=== PATIENT | female | born 1970 | race Caucasian/White ===

== ENCOUNTER 2022-10-28 15:10 | Outpatient (OUT) | payer BC, SELFPAY ==
[2022-10-28 15:57] LABS: Basophils Absolute Auto 0.1 10^3/uL (0.0-0.1); Basophils Percent Auto 0.8 % (0.2-2.0); Eosinophils Absolute Auto 0.4 10^3/uL (0.0-0.7); Eosinophils Percent Auto 6.4 % (0.9-7.0); Hematocrit 40.4 % (36.0-48.0); Hemoglobin 13.1 g/dL (12.0-16.0); Immature Granulocytes Abs Auto 0.03 10^3/uL (0.00-0.03); Immature Granulocytes Pct Auto 0.5 % (0.0-0.5); Lymphocytes Absolute Auto 2.4 10^3/uL (1.2-3.8); Lymphocytes Percent Auto 36.7 % (20.5-60.0); Mean Corpuscular HGB Conc 32.4 g/dL (29.9-35.2); Mean Corpuscular Hemoglobin 29.6 pg (26.7-34.0); Mean Corpuscular Volume 91.4 fL (81.0-99.0); Mean Platelet Volume 11.6 fL (9.5-13.5); Monocytes Absolute Auto 0.6 10^3/uL (0.3-0.8); Monocytes Percent Auto 8.6 % (1.7-12.0); Neutrophils Absolute Auto 3.1 10^3/uL (1.4-6.5); Platelet Count 181 10^3/uL (150-450); Red Blood Count 4.42 10^6/uL (4.20-5.40); Red Cell Distribution Width 12.3 % (11.0-15.0); White Blood Count 6.6 10^3/uL (4.0-11.0)
[2022-10-28 16:06] LABS: Erythrocyte Sedimentation Rate 15 mm/hr (<=30)
[2022-10-28 16:28] LABS: Alanine Aminotransferase 28 U/L (14-59); Albumin Level 3.7 g/dL (3.4-5.0); Alkaline Phosphatase 78 U/L (46-116); Aspartate Amino Transferase 25 U/L (15-37); Bilirubin Direct 0.1 mg/dL (0.0-0.2); Bilirubin Total 0.5 mg/dL (0.2-1.0); Estimated GFR (African America >60 (>=60); Estimated GFR (Non-African Ame >60 (>=60); Globulin 3.8 g/dL; Total Protein 7.5 g/dL (6.4-8.2)
== END 2022-10-28 15:11 | disposition home or self-care (01) ==
PROVIDERS: Visit Provider Internal Medicine Rheumatology
DX: M05.79 Rheumatoid arthritis with rheumatoid factor of multiple sites without organ or systems involvement (principal); Z79.899 Other long term (current) drug therapy
CPT/HCPCS: 36415; 80076; 82565; 85025; 85652

== ENCOUNTER 2022-10-29 13:00 | Outpatient (OUT) | payer BC, SELFPAY ==
--- NOTE | 2022-10-29 | RT_ITS ---
[facility] Test Date: 2022-10-29 Pat Name: VELASQUEZ COLIN Department: Room: - Gender: Female Finance Director: Daniel Earl RRT : 1970 Requested By: Nathan Taylor Order Number: [id number] Reading MD: Nathan Taylor Interpretive Statements Pulmonary function testing was completed according to ATS criteria. Findings were considered accurate and reproducible. No bronchodilator was administered due to normal spirometric values. PFTs from 11/05/2021 are available for comparison. Spirometry: -FEV1/FVC: Normal @ 89% -FEV1: Normal @ 85% -FVC: Mildly reduced @ 76% Lung volumes by plethysmography: -RV: Reduced @ 75% -TLC: Low normal @ 82% Diffusion capacity: -DLCO: Normal @ 93% when corrected for Hb 13.1g/dL Flow-volume loop: -Mild restrictive pattern Comparison from 11/05/2021: -Spirometry: Improvement with prior FEV1 77% and FVC 69% -Lung volumes: Improvement with prior RV 68% and TLC 78% -DLCO: Relatively unchanged with prior DLCO 98% Impressions: -Mild restrictive pattern on spirometry with trend towards restriction in lung volumes and normal diffusion capacity. This may indicate an obesity pattern (stated BMI 37.3). When compared to prior PFT, there is mild improvement in spirometry and lung volumes. Clinical correlation required. Electronically Signed On 11-02-2022 7:30:22 EDT by Nathan Taylor
== END 2022-10-29 13:01 | disposition home or self-care (01) ==
LOC: CARD 11-01 09:27
PROVIDERS: Visit Provider Internal Medicine
DX: M06.9 Rheumatoid arthritis, unspecified (principal)
CPT/HCPCS: 94010; 94726; 94729

== ENCOUNTER 2022-11-24 09:02 | Outpatient (OUT) | payer BC, SELFPAY ==
--- NOTE | 2022-11-24 09:04 | MM_ITS ---
Patient: VELASQUEZ COLIN Exam Date: 11/24/2022 : 1970 Gender:F Ordering : AMY Martínez NEVILLEROME Admission #: [id number] Family : Order #: [id number] CLICK HERE TO VIEW EXAM RADIOLOGY REPORT PROCEDURE: MM TOMOSYNTHESIS SCREENING BI COMPARISON: MG MAMM SCREEN 3D RONALD CAD, 11/03/2020. MG MAMM SCREEN 3D RONALD CAD, 11/06/2021. INDICATIONS: Screening Calculator Name NCI Breast Cancer Risk Assessment Tool 5 Year Breast Cancer Risk 1.10% Lifetime Breast Cancer Risk 9.90% Personal Breast Cancer No Personal Ovarian Cancer No Treatments None Family Cancers Brother with lung cancer at age 42; Brother with tongue cancer at age 57. LOCATION: [facility] BREAST COMPOSITION: Scattered areas fibroglandular density. FINDINGS: DIAGNOSTIC CATEGORY 2--BENIGN FINDING. NO CHANGE FROM COMPARISON. Scattered benign-appearing nodules are present. Scattered benign-appearing calcifications are present. Scattered benign-appearing lymph nodes are present. RIGHT BREAST: No significant suspicious finding. LEFT BREAST: No significant suspicious finding. RECOMMENDATIONS: ROUTINE MAMMOGRAM AND CLINICAL EVALUATION IN 12 MONTHS. PLEASE NOTE: A NORMAL MAMMOGRAM DOES NOT EXCLUDE THE POSSIBILITY OF BREAST CANCER. A CLINICALLY SUSPICIOUS PALPABLE LUMP SHOULD BE BIOPSIED. Dictated by: Michael Layne MD on 11/24/2022 at 12:36 Approved by: Michael Layne MD on 11/24/2022 at 12:39
== END 2022-11-24 09:03 | disposition home or self-care (01) ==
LOC: MAMMO 09:02
PROVIDERS: PCP Nurse Practitioner Primary Care; Visit Provider Nurse Practitioner Primary Care
DX: Z12.31 Encounter for screening mammogram for malignant neoplasm of breast (principal); Z80.1 Family history of malignant neoplasm of trachea, bronchus and lung; Z80.8 Family history of malignant neoplasm of other organs or systems
CPT/HCPCS: 77063; 77067

== ENCOUNTER 2022-12-01 08:40 | Outpatient (OUT) | payer BC, SELFPAY ==
[2022-12-01 08:57] LABS: Basophils Percent Auto 0.6 % (0.2-2.0); Eosinophils Absolute Auto 0.2 10^3/uL (0.0-0.7); Eosinophils Percent Auto 4.8 % (0.9-7.0); Hematocrit 40.4 % (36.0-48.0); Immature Granulocytes Abs Auto 0.01 10^3/uL (0.00-0.03); Immature Granulocytes Pct Auto 0.2 % (0.0-0.5); Lymphocytes Percent Auto 42.2 % (20.5-60.0); Mean Corpuscular HGB Conc 32.2 g/dL (29.9-35.2); Mean Corpuscular Hemoglobin 30.4 pg (26.7-34.0); Mean Corpuscular Volume 94.6 fL (81.0-99.0); Mean Platelet Volume 11.1 fL (9.5-13.5); Monocytes Absolute Auto 0.5 10^3/uL (0.3-0.8); Monocytes Percent Auto 10.2 % (1.7-12.0); Neutrophils Absolute Auto 1.9 10^3/uL (1.4-6.5); Platelet Count 192 10^3/uL (150-450); Red Blood Count 4.27 10^6/uL (4.20-5.40); Red Cell Distribution Width 12.9 % (11.0-15.0); White Blood Count 4.6 10^3/uL (4.0-11.0)
[2022-12-01 09:25] LABS: Estimated Average Glucose 100 mg/dL; Glycohemoglobin A1C 5.1 % (4.5-6.2)
[2022-12-01 09:37] LABS: Alanine Aminotransferase 28 U/L (14-59); Albumin Level 3.5 g/dL (3.4-5.0); Alkaline Phosphatase 65 U/L (46-116); Anion Gap 9.6; Aspartate Amino Transferase 22 U/L (15-37); BUN Creatinine Ratio 12.3; Bilirubin Total 0.7 mg/dL (0.2-1.0); Calcium 8.9 mg/dL (8.5-10.1); Carbon Dioxide 29.7 mmol/L (21.0-32.0); Chloride 106 mmol/L (98-107); Chol HDL Ratio 2.7; Cholesterol 214 mg/dL (<=200); Estimated GFR (African America >60 (>=60); Estimated GFR (Non-African Ame >60 (>=60); Globulin 3.6 g/dL; Glucose 88 mg/dL (74-106); HDL Cholesterol 80 mg/dL (40-60); Potassium 4.3 mmol/L (3.5-5.1); Sodium 141 mmol/L (136-145); Thyroid Stimulating Hormone 1.655 uIU/mL (0.358-3.740); Total Protein 7.1 g/dL (6.4-8.2); Triglycerides 66 mg/dL (<=150); VLDL CHOLESTEROL 13.2 mg/dL
[2022-12-01 10:05] LABS: Free T4 0.85 ng/dL (0.76-1.46)
[2022-12-02 05:07] LABS: HCV Ab Non Reactive (Non Reactive); HIV Ab/p24 Ag Screen Non Reactive (Non Reactive)
== END 2022-12-01 08:41 | disposition home or self-care (01) ==
LOC: LAB 08:40
PROVIDERS: PCP Nurse Practitioner Primary Care; Visit Provider Nurse Practitioner Primary Care
DX: Z00.00 Encounter for general adult medical examination without abnormal findings (principal); Z13.6 Encounter for screening for cardiovascular disorders; Z11.59 Encounter for screening for other viral diseases; Z13.29 Encounter for screening for other suspected endocrine disorder; Z11.4 Encounter for screening for human immunodeficiency virus [HIV]
CPT/HCPCS: 36415; 80053; 80061; 83036; 84439; 84443; 85025; 86803; 87389

== ENCOUNTER 2023-03-09 14:43 | Outpatient (OUT) | payer BC, SELFPAY ==
[2023-03-09 15:13] LABS: Basophils Percent Auto 0.6 % (0.2-2.0); Eosinophils Absolute Auto 0.2 10^3/uL (0.0-0.7); Hematocrit 40.9 % (36.0-48.0); Immature Granulocytes Abs Auto 0.01 10^3/uL (0.00-0.03); Immature Granulocytes Pct Auto 0.2 % (0.0-0.5); Lymphocytes Absolute Auto 1.5 10^3/uL (1.2-3.8); Lymphocytes Percent Auto 24.6 % (20.5-60.0); Mean Corpuscular HGB Conc 31.8 g/dL (29.9-35.2); Mean Corpuscular Hemoglobin 29.7 pg (26.7-34.0); Mean Corpuscular Volume 93.4 fL (81.0-99.0); Monocytes Absolute Auto 0.4 10^3/uL (0.3-0.8); Monocytes Percent Auto 5.8 % (1.7-12.0); Neutrophils Absolute Auto 4.1 10^3/uL (1.4-6.5); Neutrophils Percent Auto 65.8 % (43.0-75.0); Platelet Count 190 10^3/uL (150-450); Red Blood Count 4.38 10^6/uL (4.20-5.40); Red Cell Distribution Width 12.6 % (11.0-15.0); White Blood Count 6.3 10^3/uL (4.0-11.0)
[2023-03-09 15:28] LABS: Erythrocyte Sedimentation Rate 27 mm/hr (<=30)
[2023-03-09 15:30] LABS: Alanine Aminotransferase 23 U/L (14-59); Albumin Globulin Ratio 0.9; Albumin Level 3.5 g/dL (3.4-5.0); Alkaline Phosphatase 82 U/L (46-116); Aspartate Amino Transferase 21 U/L (15-37); Bilirubin Direct 0.1 mg/dL (0.0-0.2); Bilirubin Total 0.5 mg/dL (0.2-1.0); Estimated GFR (African America >60 (>=60); Estimated GFR (Non-African Ame >60 (>=60); Globulin 3.9 g/dL; Total Protein 7.4 g/dL (6.4-8.2)
== END 2023-03-09 14:44 | disposition home or self-care (01) ==
LOC: LAB 14:44
PROVIDERS: PCP Nurse Practitioner Primary Care; Visit Provider Internal Medicine Rheumatology
DX: M05.79 Rheumatoid arthritis with rheumatoid factor of multiple sites without organ or systems involvement (principal); Z79.899 Other long term (current) drug therapy
CPT/HCPCS: 36415; 80076; 82565; 85025; 85652

== ENCOUNTER 2023-05-30 13:22 | Outpatient (OUT) | payer BC, SELFPAY ==
--- OUTSIDE RECORDS SUMMARY | 2023-05-30 13:28 | XMS_ITS | CCD ---
Author Name Unknown Address [address] [place] [address] Organization [facility] Team Providers Care Hurricane Tracker Name Role Phone Conner Quinteros RUFINA LOVING Attending Unavailable JAYY, Juan C Varghese Attending Unavailable RUFINA LOVING Attending Unavailable JAYY, Juan C Varghese Attending Unavailable DANK, DR HOPE Consulting Unavailable HALADAY, DR HOPE Attending Unavailable HALADAY, DR HOPE Admitting Unavailable JAYY, DR JUAN C Varghese Primary Care Unavailable JAYY, DR JUAN C Varghese Primary Care Unavailable JAYY, DR JUAN C Varghese Consulting Unavailable JAYY, DR JUAN C Varghese Attending Unavailable JAYY, DR JUAN C Varghese Admitting Unavailable JAYY, DR JUAN C Varghese Primary Care Unavailable GUERA, DR BLACK Consulting Unavailable GUERA, DR BLACK Attending Unavailable GUERA, DR BLACK Admgabino Unavailable JAYY, DR JUAN C Varghese Primary Care Unavailable MEJIAADAMichael, DR HOPE Attending Unavailable HALADAY, DR HOPE Admitting Unavailable HALADAY, DR HOPE Consulting Unavailable SAMSA ., ALDAIR Attending Unavailable ELMASA ., ALDAIR Admitting Unavailable JAYY, DR JUAN C Varghese Primary Care Unavailable JORDY, DR MARITO [place] Consulting Unavailable SAMSA ., ALDAIR Consulting Unavailable JAYY, DR JUAN C Varghese Primary Care Unavailable HALADAY, DR HOPE Admitting Unavailable HALADAY, DR HOPE Consulting Unavailable HALADAY, DR HOPE Attending Unavailable CATRACHITA KAY Attending Unavailable RAHUL, CATRACHITA Admitting Unavailable JAYY, DR JUAN C Varghese Primary Care Unavailable CATRACHITA KAY Consulting Unavailable JAYY, DR JUAN C Varghese Primary Care Unavailable GUERA, DR BLACK Admitting Unavailable GUERA, DR BLACK Consulting Unavailable GUERA, DR BLACK Attending Unavailable JAYY, DR JUAN C Varghese Primary Care Unavailable GUERA, DR BLACK Admitting Unavailable GUERA, DR BLACK Consulting Unavailable GUERA, DR BLACK Attending Unavailable HALADAY, DR HOPE Consulting Unavailable HALADAY, DR HOPE Attending Unavailable HALADAY, DR HOPE Admitting Unavailable JAYY, DR JUAN C Varghese Primary Care Unavailable HALADAY, DR HOPE Consulting Unavailable MEJIAADAY, DR HOPE Attending Unavailable HALADAY, DR HOPE Admitting Unavailable JAYY, DR JUAN C Varghese Primary Care Unavailable ZIEBER, DR MARITO [place] Consulting Unavailable HALADAY, DR HOPE Attending Unavailable DANK, DR HOPE Admitting Unavailable JAYY, DR JUAN C Varghese Primary Care Unavailable HALADAY, DR HOPE Consulting Unavailable JAYY, DR JUAN C Varghese Primary Care Unavailable MIS, DR BAEZ Admitting Unavailable MIS, DR BAEZ Attending Unavailable HALADAY, DR HOPE Consulting Unavailable JOHANNAEBKRISTINA, DR MARITO [place] Consulting Unavailable JAYY, DR JUAN C Varghese Primary Care Unavailable JAYY, DR JUAN C Varghese Attending Unavailable JAYY, DR JUAN C Varghese Admitting Unavailable JAYY, DR JUAN C Varghese Consulting Unavailable Allergies Allergy Classification Reported Allergen(s) Allergy Type Date of Onset Reaction(s) Facility (2 sources) Ciprofloxacin; Translations: [ciprofloxacin] Drug Allergy Unknown [facility]ository (1 source) pregabalin Drug Allergy Unknown [facility] Other (1 source) Sulfamethoxazole / Trimethoprim Drug Allergy Unknown [facility] Other (1 source) Methotrexate; Translations: [methotrexate] Drug Allergy [facility]ository (1 source) pregabalin; Translations: [Lyrica] Drug Allergy [facility] (1 source) Sulfamethoxazole; Translations: [sulfamethoxazole] Drug Allergy [facility] (1 source) Sulfamethoxazole / Trimethoprim; Translations: [Bactrim] Drug Allergy [facility] (1 source) Ciprofloxacin Drug Allergy [facility] (1 source) Sulfonamides (Antibiotic) Drug allergy (disorder) [facility] Medications Current Medications Medication Drug Class(es) Dates Sig (Normalized) Sig (Original) Cetirizine (1 source) Histamine-1 Receptor Antagonist ZyrTEC Allergy Active fluticasone (1 source) Corticosteroid FLONASE Active hydroxychloroquine sulfate 200 mg oral tablet (1 source) Antimalarial, Antirheumatic Agent Plaquenil 200 MG as directed Orally Active leflunomide 20 mg oral tablet (1 source) Antirheumatic Agent take 1 tablet by mouth every twenty-four hours Arava 20 MG 1 tablet Orally Once a day Active Metoprolol (1 source) beta-Adrenergic Joce Metoprolol Tartrate 50 MG 1QD Active Multivitamin preparation (1 source) Multivitamin Active predniSONE 5 mg oral tablet (1 source) take 1 tablet by mouth once daily predniSONE 5 MG 1 tablet Orally Once a day Active probiotic (1 source) probiotic Active Super B Complex (1 source) Super B Complex Active Problems Active Problems Problem Classification Problem Date Documented Da te Episodic/Chronic Other aftercare (5 sources) Other fpc (current) drug therapy; Translations: [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] Onset: 07-01-2021 Episodic Other connective tissue disease (1 source) Pain in left hand; Translations: [PAIN IN LEFT HAND] Onset: 06-28-2022 Episodic Other connective tissue disease (1 source) Pain in right hand; Translations: [PAIN IN RIGHT HAND] Onset: 06-28-2022 Episodic Other lower respiratory disease (4 sources) Pulmonary fibrosis, unspecified; Translations: [PULMONARY FIBROSIS UNSPECIFIED] Onset: 11-05-2021 Chronic Residual codes; unclassified (4 sources) Obstructive sleep apnea (adult) (pediatric); Translations: [OBSTRUCTIVE SLEEP APNEA] Onset: 03-31-2022 Chronic Rheumatoid arthritis and related disease (12 sources) Rheumatoid arthritis; Translations: [Rheumatoid arthritis, unspecified] Onset: 12-24-2020 Resolved: 12-24-2020 Chronic Systemic lupus erythematosus and connective tissue disorders (1 source) Systemic involvement of connective tissue, unspecified; Translations: [SYSTEMIC INVLV CONNECTIVE TISS UNS] Onset: 11-06-2021 Chronic Unclassified (2 sources) CONTACT W/AND (SUSP) EXPOS COVID-19; Translations: [CONTACT W/AND (SUSP) EXPOS COVID-19] Onset: 09-29-2021 Viral infection (1 source) COVID-19; Translations: [COVID-19] Onset: 09-29-2021 Past or Other Problems Problem Classification Problem Date Documented Da te Episodic/Chronic Immunizations and screening for infectious disease (1 source) Interferon gamma assay result indeterminate; Translations: [Nonspecific reaction to cell mediated immunity measurement of gamma interferon antigen response without active tuberculosis] Episodic Malaise and fatigue (4 sources) Weakness; Translations: [WEAKNESS] Onset: 01-26-2022 Episodic Other screening for suspected conditions (not mental disorders or infectious disease) (8 sources) Abnormal results of pulmonary function studies; Translations: [Encounter for screening mammogram for malignant neoplasm of breast] Onset: 11-06-2021 Episodic Residual codes; unclassified (1 source) Family history of malignant neoplasm of trachea, bronchus and lung; Translations: [FAM HX MALIG NEOPLSM TRACH BRON LNG] Onset: 11-09-2021 Episodic Residual codes; unclassified (1 source) Family history of malignant neoplasm of other organs or systems; Translations: [FAM HX MALIG NEOPLASM OTH ORGN/SYS] Onset: 11-09-2021 Episodic Unclassified (1 source) Latent tuberculosis; 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 Ishan Mason Basophils/100 WBC (Bld) 0.8 % Normal 0.2-2.0 [facility] Comment on above: Performed By: #### S EDR #### [facility] [address] [address] [address] Ishan Mason EO # 0.3 103/ul Normal 0.0-0.7 [facility] Comment on above: Performed By: #### S EDR #### [facility] [address] [address] [address] Ishan Mason Eosinophils/100 WBC (Bld) 5.7 % Normal 0.9-7.0 [facility] Comment on above: Performed By: #### S EDR #### [facility] [address] [place] [address] Dr. Ishan Mason Erythrocyte distribution width (RBC) [Ratio] 12.6 % Normal 11.0-15.0 [facility] Comment on above: Performed By: #### S EDR #### [facility] [address] [place] [address] Dr. Ishan Mason Hematocrit (Bld) [Volume fraction] 40.6 % Normal 36.0-48.0 [facility] Comment on above: Performed By: #### S EDR #### [facility] [address] [place] [address] Dr. Ishan Mason Hemoglobin (Bld) [Mass/Vol] 13.4 g/dL Normal 12.0-16.0 [facility] Comment on above: Performed By: #### S EDR #### [facility] [address] [place] [address] Dr. Ishan Mason IG # 0.01 10e3/ul Normal 0.00-0.03 [facility] Comment on above: Performed By: #### S EDR #### [facility] [address] [place] [address] Dr. Ishan Mason IG % 0.2 % Normal 0.0-0.5 [facility] Comment on above: Performed By: #### S EDR #### [facility] [address] [place] [address] Dr. Ishan Mason LYMPH # 2.3 103/ul Normal 1.2-3.8 [facility] Comment on above: Performed By: #### S EDR #### [facility] [address] [place] [address] Dr. Ishan Mason Lymphocytes/100 WBC (Bld) 46.2 % Normal 20.5-60.0 [facility] Comment on above: Performed By: #### S EDR #### [facility] [address] [place] [address] Dr. Ishan Mason MANUAL DIFF REQ NO Normal [facility] Comment on above: Performed By: #### S EDR #### [facility] [address] [place] [address] Dr. Ishan Mason MCH (RBC) [Entitic mass] 30.0 pg Normal 26.7-34.0 [facility] Comment on above: Performed By: #### S EDR #### [facility] [address] [place] [address] Dr. Ishan Mason MCHC (RBC) [Mass/Vol] 33.0 g/dL Normal 29.9-35.2 [facility] Comment on above: Performed By: #### S EDR #### [facility] [address] [place] [address] Dr. Ishan Mason MCV (RBC) [Entitic vol] 90.8 fL Normal 81.0-99.0 [facility] Comment on above: Performed By: #### S EDR #### [facility] [address] [place] [address] Dr. Ishan Mason MONO # 0.5 103/ul Normal 0.3-0.8 [facility] Comment on above: Performed By: #### S EDR #### [facility] [address] [place] [address] Dr. Ishan Mason Monocytes/100 WBC (Bld) 10.8 % Normal 1.7-12.0 [facility] Comment on above: Performed By: #### S EDR #### [facility] [address] [place] [address] Dr. Ishan Mason NEUT # 1.8 103/ul Normal 1.4-6.5 [facility] Comment on above: Performed By: #### S EDR #### [facility] [address] [place] [address] Dr. Ishan Mason Neutrophils/100 WBC (Bld) 36.3 % Critically low 43.0-75.0 [facility] Comment on above: Performed By: #### S EDR #### [facility] [address] [place] [address] Dr. Ishan Mason Platelet mean volume (Bld) [Entitic vol] 11.0 fL Normal 9.5-13.5 [facility] Comment on above: Performed By: #### S EDR #### [facility] [address] [place] [address] Dr. Ishan Mason PLT 198 103/ul Normal 150-450 [facility] Comment on above: Performed By: #### S EDR #### [facility] [address] [place] [address] Dr. Ishan Mason RBC 4.47 106/ul Normal 4.20-5.40 [facility] Comment on above: Performed By: #### S EDR #### [facility] [address] [place] [address] Dr. Ishan Mason WBC 4.9 103/ul Normal 4.0-11.0 [facility] Comment on above: Performed By: #### S EDR #### [facility] [address] [place] [address] Dr. Ishan Mason CREATININEon 06-24-2022 Creatinine [Mass/Vol] 0.70 mg/dL Normal 0.55-1.02 [facility] Comment on above: Performed By: #### A 1C #### [facility] [address] [place] [address] Dr. Ishan Mason EGFR-AF [place] ISLANDER >60 Normal >=60 [facility] Comment on above: Performed By: #### A 1C #### [facility] [address] [place] [address] Dr. Ishan Mason EGFR-NON AF [place]LANDER >60 Normal >=60 [facility] Comment on above: Performed By: #### A 1C #### [facility] [address] [place] [address] Dr. Ishan Mason LIVER PROFILEon 06-24-2022 Albumin [Mass/Vol] 3.6 g/dL Normal 3.4-5.0 [facility] Comment on above: Performed By: #### A 1C #### [facility] [address] [place] [address] Dr. Ishan Mason Albumin/Globulin [Mass ratio] 0.9 {ratio} Normal [facility] Comment on above: Performed By: #### A 1C #### [facility] [address] [place] [address] Dr. Ishan Mason ALP [Catalytic activity/Vol] 63 U/L Normal 46-116 [facility] Comment on above: Performed By: #### A 1C #### [facility] [address] [address] [address] Ishan Mason ALT [Catalytic activity/Vol] 32 U/L Normal 14-59 [facility] Comment on above: Performed By: #### A 1C #### [facility] [address] [address] [address] Ishan Mason AST [Catalytic activity/Vol] 23 U/L Normal 15-37 [facility] Comment on above: Performed By: #### A 1C #### [facility] [address] [address] [address] Ishan Mason BILI, CONJUGATED 0.1 mg/dL Normal 0.0-0.2 [facility] Comment on above: Performed By: #### A 1C #### [facility] [address] [place] [address] Dr. Ishan Mason Bilirubin [Mass/Vol] 0.6 mg/dL Normal 0.2-1.0 [facility] Comment on above: Performed By: #### A 1C #### [facility] [address] [place] [address] Dr. Ishan Mason Globulin (S) [Mass/Vol] 3.9 g/dL Normal [facility] Comment on above: Performed By: #### A 1C #### [facility] [address] [place] [address] Dr. Ishan Mason Protein [Mass/Vol] 7.5 g/dL Normal 6.4-8.2 [facility] Comment on above: Performed By: #### A 1C #### [facility] [address] [place] [address] Dr. Ishan Mason [facility] mm/hr Normal <=20 [facility] Comment on above: Performed By: #### S EDR #### [facility] [address] [place] [address] Dr. Ishan Mason XR HAND [place] MIN 3Von 023 XR HAND [place] MIN 3V EXAMINATION: XR HAND [place] MIN 3V HISTORY: Rheumatoid arthritis COMPARISON: XR hand bilateral 02/26/2019 FINDINGS: RIGHT FINDINGS: BONES: No significant arthropathy or acute abnormality. SOFT TISSUES: No visible soft tissue swelling. OTHER: Negative. LEFT FINDINGS: BONES: No significant arthropathy or acute abnormality. SOFT TISSUES: No visible soft tissue swelling. OTHER: Negative. IMPRESSION: RIGHT CONCLUSION: No significant arthritic changes; specifically no evidence of rheumatoid arthritis. LEFT CONCLUSION: No significant arthritic changes; specifically no evidence of rheumatoid arthritis. Electronically authenticated by: MARITO MEJIA Date: 2022-06-23 11:43 Normal [facility] CBC AUTO DIFFon 03-23-2022 BASO # 0.1 103/ul Normal 0.0-0.1 [facility] Comment on above: Performed By: #### C BC #### [facility] [address] [place] [address] Dr. Ishan Mason Basophils/100 WBC (Bld) 1.0 % Normal 0.2-2.0 [facility] Comment on above: Performed By: #### C BC #### [facility] [address] [place] [address] Dr. Ishan Mason EO # 0.2 103/ul Normal 0.0-0.7 [facility] Comment on above: Performed By: #### C BC #### [facility] [address] [place] [address] Dr. Ishan Mason Eosinophils/100 WBC (Bld) 2.8 % Normal 0.9-7.0 [facility] Comment on above: Performed By: #### C BC #### [facility] [address] [place] [address] Dr. Ishan Mason Erythrocyte distribution width (RBC) [Ratio] 12.5 % Normal 11.0-15.0 [facility] Comment on above: Performed By: #### C BC #### [facility] [address] [place] [address] Dr. Ishan Mason Hematocrit (Bld) [Volume fraction] 41.8 % Normal 36.0-48.0 [facility] Comment on above: Performed By: #### C BC #### [facility] [address] [place] [address] Dr. Ishan Mason Hemoglobin (Bld) [Mass/Vol] 14.0 g/dL Normal 12.0-16.0 [facility] Comment on above: Performed By: #### C BC #### [facility] [address] [place] [address] Dr. Ishan Mason IG # 0.02 10e3/ul Normal 0.00-0.03 [facility] Comment on above: Performed By: #### C BC #### [facility] [address] [place] [address] Dr. Ishan Mason IG % 0.3 % Normal 0.0-0.5 [facility] Comment on above: Performed By: #### C BC #### [facility] [address] [place] [address] Dr. Ishan Mason LYMPH # 1.5 103/ul Normal 1.2-3.8 [facility] Comment on above: Performed By: #### C BC #### [facility] [address] [place] [address] Dr. Ishan Mason Lymphocytes/100 WBC (Bld) 21.1 % Normal 20.5-60.0 [facility] Comment on above: Performed By: #### C BC #### [facility] [address] [place] [address] Dr. Ishan Mason MANUAL DIFF REQ NO Normal [facility] Comment on above: Performed By: #### C BC #### [facility] [address] [place] [address] Dr. Ishan Mason MCH (RBC) [Entitic mass] 29.7 pg Normal 26.7-34.0 [facility] Comment on above: Performed By: #### C BC #### [facility] [address] [place] [address] Dr. Ishan Mason MCHC (RBC) [Mass/Vol] 33.5 g/dL Normal 29.9-35.2 [facility] Comment on above: Performed By: #### C BC #### [facility] [address] [place] [address] Dr. Ishan Mason MCV (RBC) [Entitic vol] 88.7 fL Normal 81.0-99.0 [facility] Comment on above: Performed By: #### C BC #### [facility] [address] [place] [address] Dr. Ishan Mason MONO # 0.5 103/ul Normal 0.3-0.8 [facility] Comment on above: Performed By: #### C BC #### [facility] [address] [place] [address] Dr. Ishan Mason Monocytes/100 WBC (Bld) 7.0 % Normal 1.7-12.0 [facility] Comment on above: Performed By: #### C BC #### [facility] [address] [place] [address] Dr. Ishan Mason NEUT # 4.8 103/ul Normal 1.4-6.5 [facility] Comment on above: Performed By: #### C BC #### [facility] [address] [place] [address] Dr. Ishan Mason Neutrophils/100 WBC (Bld) 67.8 % Normal 43.0-75.0 [facility] Comment on above: Performed By: #### C BC #### [facility] [address] [place] [address] Dr. Ishan Mason Platelet mean volume (Bld) [Entitic vol] 11.0 fL Normal 9.5-13.5 [facility] Comment on above: Performed By: #### C BC #### [facility] [address] [place] [address] Dr. Ishan Mason PLT 214 103/ul Normal 150-450 [facility] Comment on above: Performed By: #### C BC #### [facility] [address] [place] [address] Dr. Ishan Mason RBC 4.71 106/ul Normal 4.20-5.40 [facility] Comment on above: Performed By: #### C BC #### [facility] [address] [place] [address] Dr. Ishan Mason WBC 7.1 103/ul Normal 4.0-11.0 [facility] Comment on above: Performed By: #### C BC #### [facility] [address] [place] [address] Dr. Ishan Mason CREATININEon 03-23-2022 Creatinine [Mass/Vol] 0.85 mg/dL Normal 0.55-1.02 [facility] Comment on above: Performed By: #### S EDR #### [facility] [address] [place] [address] Dr. Ishan Mason EGFR-AF [place] ISLANDER >60 Normal >=60 [facility] Comment on above: Performed By: #### S EDR #### [facility] [address] [place] [address] Dr. Ishan Mason EGFR-NON AF [place] ISLANDER >60 Normal >=60 [facility] Comment on above: Performed By: #### S EDR #### [facility] [address] [place] [address] Dr. Ishan Mason EMG Electromyographyon 03-23 EMG Electromyography [id number] 0CD:127 Normal [facility] LIVER PROFILEon 03-23-2022 Albumin [Mass/Vol] 3.8 g/dL Normal 3.4-5.0 [facility] Comment on above: Performed By: #### A 1C #### [facility] [address] [place] [address] Dr. Ishan Mason Albumin/Globulin [Mass ratio] 1.0 {ratio} Normal [facility] Comment on above: Performed By: #### A 1C #### [facility] [address] [place] [address] Dr. Ishan Mason ALP [Catalytic activity/Vol] 67 U/L Normal 46-116 [facility] Comment on above: Performed By: #### A 1C #### [facility] [address] [place] [address] Dr. Ishan Mason ALT [Catalytic activity/Vol] 33 U/L Normal 14-59 [facility] Comment on above: Performed By: #### A 1C #### [facility] [address] [place] [address] Dr. Ishan Mason AST [Catalytic activity/Vol] 28 U/L Normal 15-37 [facility] Comment on above: Performed By: #### A 1C #### [facility] [address] [place] [address] Dr. Ishan Mason BILI, CONJUGATED 0.1 mg/dL Normal 0.0-0.2 [facility] Comment on above: Performed By: #### A 1C #### [facility] [address] [place] [address] Dr. Ishan Mason Bilirubin [Mass/Vol] 0.6 mg/dL Normal 0.2-1.0 [facility] Comment on above: Performed By: #### A 1C #### [facility] [address] [place] [address] Dr. Ishan Mason Globulin (S) [Mass/Vol] 3.7 g/dL Normal [facility] Comment on above: Performed By: #### A 1C #### [facility] [address] [place] [address] Dr. Ishan Mason Protein [Mass/Vol] 7.5 g/dL Normal 6.4-8.2 [facility] Comment on above: Performed By: #### A 1C #### [facility] [address] [place] [address] Dr. Ishan Mason SED RATE [facility] 2022 SED RATE 32 mm/hr Critically high <=20 [facility] Comment on above: Performed By: #### A 1C #### [facility] [address] [place] [address] Dr. Ishan Mason Consultation Noteon 03-18-19 Consultation Note [id number] 0CD:127 Normal [facility] Consultation Noteon 03-05-20 Consultation Note [id number] 0CD:127 Normal [facility] Consultation Noteon 02-17-20 Consultation Note [id number] 0CD:127 Normal [facility] MuSK ANITBODY TESTon 022 MuSK Antibodies <1.0 [facility] Comment on above: Result Comment: Refe rence Range: Negative: <1.0 Positive: 1.0 or higher A positive result, in the context of congruent clinical findings, confirms the diagnosis of autoimmune MuSK myasthenia gravis. COMMENTS: - Myasthenia gravis (MG) is caused by auto-antibodies against proteins of the neuromuscular junction. Most cases (about 90%) of generalized MG are anti- acetylcholine receptor (AChR) antibody-positive.(1) - Of generalized MG patients who lack anti-AChR antibodies (AChR-seronegative), about 40% are positive for Muscle- Specific Kinase (MuSK) antibody.(1,2) - Though a positive MuSK result is specific for the diagnosis of MuSK MG, a negative MuSK result does not rule out a MG diagnosis. - MuSK antibody levels have been shown to correlate with disease severity.(3) Serial measurements may be useful to follow treatment. References: 1. Manuel-Jennifer S et al. J Autoimmunity 2014;52:90-100. 2. Stacey SMITH et al. PNAS 2013;110(48);94872-46795. 3. Guilehrmeioni E et al. Neurology 2006;67:505-507. This test was developed and its performance characteristics determined by [facility]. It has not been cleared or approved by the Food and Drug Administration. Performed By: #### A 1C #### [facility] [address] [place] [address] Dr. Ishan Mason ACETYLCHOLINE RECEPTOR JOSE NG ABo 01-28-2022 AChR Binding Abs, Serum <0.03 Normal 0.00-0.24 [facility] Comment on above: Result Comment: Nega tive: 0.00 - 0.24 Borderline: 0.25 - 0.40 Positive: >0.40 Performed By: #### A CRBND #### [facility] [address] [place] [address] Dr. Ishan Mason CPKon 01-26-2022 CK [Catalytic activity/Vol] 88 U/L Normal 26-192 [facility] Comment on above: Performed By: #### S EDR #### [facility] [address] [place] [address] Dr. Ishan Mason SED RATE WESTERGRENon 2021 SED RATE 34 mm/hr Critically high <=20 [facility] Comment on above: Performed By: #### C BC #### [facility] [address] [place] [address] Dr. Ishan Mason TSHon 01-26-2022 TSH 2.298 uIU/mL Normal 0.358-3.740 [facility] Comment on above: Performed By: #### S EDR #### [facility] [address] [place] [address] Dr. Ishan Mason VIT B12 AND FOLATEon 022 Cobalamin (Vitamin B12) [Mass/Vol] 523.0 pg/mL Normal 193.0-986.0 [facility] Comment on above: Performed By: #### S EDR #### [facility] [address] [place] [address] Dr. Ishan Mason FOLATE 21.40 ng/mL Normal 8.60-58.90 [facility] Comment on above: Performed By: #### S EDR #### [facility] [address] [place] [address] Dr. Ishan Mason CBC AUTO DIFFon 01-15-2022 BASO # 0.0 103/ul Normal 0.0-0.1 [facility] Comment on above: Performed By: #### S EDR #### [facility] [address] [place] [address] Dr. Ishan Mason Basophils/100 WBC (Bld) 0.5 % Normal 0.2-2.0 [facility] Comment on above: Performed By: #### S EDR #### [facility] [address] [place] [address] Dr. Ishan Mason EO # 0.3 103/ul Normal 0.0-0.7 [facility] Comment on above: Performed By: #### S EDR #### [facility] [address] [place] [address] Dr. Ishan Mason Eosinophils/100 WBC (Bld) 4.9 % Normal 0.9-7.0 [facility] Comment on above: Performed By: #### S EDR #### [facility] [address] [place] [address] Dr. Ishan Mason Erythrocyte distribution width (RBC) [Ratio] 12.7 % Normal 11.0-15.0 [facility] Comment on above: Performed By: #### S EDR #### [facility] [address] [place] [address] Dr. Ishan Mason Hematocrit (Bld) [Volume fraction] 41.2 % Normal 36.0-48.0 [facility] Comment on above: Performed By: #### S EDR #### [facility] [address] [place] [address] Dr. Ishan Mason Hemoglobin (Bld) [Mass/Vol] 13.7 g/dL Normal 12.0-16.0 [facility] Comment on above: Performed By: #### S EDR #### [facility] [address] [place] [address] Dr. Ishan Mason IG # 0.01 10e3/ul Normal 0.00-0.03 [facility] Comment on above: Performed By: #### S EDR #### [facility] [address] [place] [address] Dr. Ishan Mason IG % 0.2 % Normal 0.0-0.5 [facility] Comment on above: Performed By: #### S EDR #### [facility] [address] [place] [address] Dr. Ishan Mason LYMPH # 2.3 103/ul Normal 1.2-3.8 [facility] Comment on above: Performed By: #### S EDR #### [facility] [address] [place] [address] Dr. Ishan Mason Lymphocytes/100 WBC (Bld) 40.2 % Normal 20.5-60.0 [facility] Comment on above: Performed By: #### S EDR #### [facility] [address] [place] [address] Dr. Ishan Mason MANUAL DIFF REQ NO Normal [facility] Comment on above: Performed By: #### S EDR #### [facility] [address] [place] [address] Dr. Ishan Mason MCH (RBC) [Entitic mass] 29.8 pg Normal 26.7-34.0 [facility] Comment on above: Performed By: #### S EDR #### [facility] [address] [place] [address] Dr. Ishan Mason MCHC (RBC) [Mass/Vol] 33.3 g/dL Normal 29.9-35.2 [facility] Comment on above: Performed By: #### S EDR #### [facility] [address] [place] [address] Dr. Ishan Mason MCV (RBC) [Entitic vol] 89.6 fL Normal 81.0-99.0 [facility] Comment on above: Performed By: #### S EDR #### [facility] [address] [place] [address] Dr. Ishan Mason MONO # 0.5 103/ul Normal 0.3-0.8 [facility] Comment on above: Performed By: #### S EDR #### [facility] [address] [place] [address] Dr. Ishan Mason Monocytes/100 WBC (Bld) 8.9 % Normal 1.7-12.0 [facility] Comment on above: Performed By: #### S EDR #### [facility] [address] [place] [address] Dr. Ishan Mason NEUT # 2.6 103/ul Normal 1.4-6.5 [facility] Comment on above: Performed By: #### S EDR #### [facility] [address] [place] [address] Dr. sIhan Mason Neutrophils/100 WBC (Bld) 45.3 % Normal 43.0-75.0 [facility] Comment on above: Performed By: #### S EDR #### [facility] [address] [place] [address] Dr. Ishan Mason Platelet mean volume (Bld) [Entitic vol] 10.3 fL Normal 9.5-13.5 [facility] Comment on above: Performed By: #### S EDR #### [facility] [address] [place] [address] Dr. Ishan Mason PLT 212 103/ul Normal 150-450 [facility] Comment on above: Performed By: #### S EDR #### [facility] [address] [place] [address] Dr. Ishan Mason RBC 4.60 106/ul Normal 4.20-5.40 [facility] Comment on above: Performed By: #### S EDR #### [facility] [address] [place] [address] Dr. Ishan Mason WBC 5.7 103/ul Normal 4.0-11.0 [facility] Comment on above: Performed By: #### S EDR #### [facility] [address] [place] [address] Dr. Ishan Mason CREATININEon 01-15-2022 Creatinine [Mass/Vol] 0.74 mg/dL Normal 0.55-1.02 [facility] Comment on above: Performed By: #### Laura BECK LIVER #### [facility] [address] [place] [address] Dr. Ishan Mason EGFR-AF CAYMAN ISLANDER >60 Normal >=60 [facility] Comment on above: Performed By: #### Laura BECK LIVER #### [facility] [address] [place] [address] Dr. Ishan Mason EGFR-NON AF CAYMAN ISLANDER >60 Normal >=60 [facility] Comment on above: Performed By: #### C KIRAN LIVER #### [facility] [address] [place] [address] Dr. Ishan Mason LIVER PROFILEon 01-15-2022 Albumin [Mass/Vol] 3.6 g/dL Normal 3.4-5.0 [facility] Comment on above: Performed By: #### C KIRAN LIVER #### [facility] [address] [place] [address] Dr. Ishan Mason Albumin/Globulin [Mass ratio] 1.0 {ratio} Normal [facility] Comment on above: Performed By: #### C KIRAN, LIVER #### [facility] [address] [place] [address] Dr. Ishan Mason ALP [Catalytic activity/Vol] 78 U/L Normal 46-116 [facility] Comment on above: Performed By: #### C KIRAN, LIVER #### [facility] [address] [place] [address] Dr. Ishan Mason ALT [Catalytic activity/Vol] 30 U/L Normal 14-59 [facility] Comment on above: Performed By: #### C KIRAN, LIVER #### [facility] [address] [place] [address] Dr. Ishan Mason AST [Catalytic activity/Vol] 14 U/L Critically low 15-37 [facility] Comment on above: Performed By: #### C KIRAN, LIVER #### [facility] [address] [place] [address] Dr. Ishan Mason BILI, CONJUGATED 0.1 mg/dL Normal 0.0-0.2 [facility] Comment on above: Performed By: #### C KIRAN, LIVER #### [facility] [address] [place] [address] Dr. Ishan Mason Bilirubin [Mass/Vol] 0.5 mg/dL Normal 0.2-1.0 [facility] Comment on above: Performed By: #### C KIRAN, LIVER #### [facility] [address] [place] [address] Dr. Ishan Mason Globulin (S) [Mass/Vol] 3.7 g/dL Normal [facility] Comment on above: Performed By: #### C KIRAN, LIVER #### [facility] [address] [place] [address] Dr. Ishan Mason Protein [Mass/Vol] 7.3 g/dL Normal 6.4-8.2 [facility] Comment on above: Performed By: #### C KIRAN, LIVER #### [facility] [address] [place] [address] Dr. Ishan Mason SED RATE WESTERGRENon 2021 SED RATE 23 mm/hr Critically high <=20 [facility] Comment on above: Performed By: #### S EDR #### [facility] [address] [place] [address] Dr. Ishan Mason Lab Reportson 12-05-2021 Lab Reports [id number] 0CD:127 Normal [facility] Reports [id number] 0CD:127 Normal [facility] CBC AUTO DIFFon 12-04-2021 BASO # 0.0 103/ul Normal 0.0-0.1 [facility] Comment on above: Performed By: #### C BC #### [facility] [address] [place] [address] Dr. Ishan Mason Basophils/100 WBC (Bld) 0.7 % Normal 0.2-2.0 [facility] Comment on above: Performed By: #### C BC #### [facility] [address] [place] [address] Dr. Ishan Mason EO # 0.4 103/ul Normal 0.0-0.7 [facility] Comment on above: Performed By: #### C BC #### [facility] [address] [place] [address] Dr. Ishan Mason Eosinophils/100 WBC (Bld) 7.7 % Critically high 0.9-7.0 [facility] Comment on above: Performed By: #### C BC #### [facility] [address] [place] [address] Dr. Ishan Mason Erythrocyte distribution width (RBC) [Ratio] 12.6 % Normal 11.0-15.0 [facility] Comment on above: Performed By: #### C BC #### [facility] [address] [place] [address] Dr. Ishan Mason Hematocrit (Bld) [Volume fraction] 40.9 % Normal 36.0-48.0 [facility] Comment on above: Performed By: #### C BC #### [facility] [address] [place] [address] Dr. Ishan Mason Hemoglobin (Bld) [Mass/Vol] 13.4 g/dL Normal 12.0-16.0 [facility] Comment on above: Performed By: #### C BC #### [facility] [address] [place] [address] Dr. Ishan Mason IG # 0.01 10e3/ul Normal 0.00-0.03 [facility] Comment on above: Performed By: #### C BC #### [facility] [address] [place] [address] Dr. Ishan Mason IG % 0.2 % Normal 0.0-0.5 [facility] Comment on above: Performed By: #### C BC #### [facility] [address] [place] [address] Dr. Ishan Mason LYMPH # 2.1 103/ul Normal 1.2-3.8 [facility] Comment on above: Performed By: #### C BC #### [facility] [address] [place] [address] Dr. Ishan Mason Lymphocytes/100 WBC (Bld) 45.7 % Normal 20.5-60.0 [facility] Comment on above: Performed By: #### C BC #### [facility] [address] [place] [address] Dr. Ishan Mason MANUAL DIFF REQ NO Normal [facility] Comment on above: Performed By: #### C BC #### [facility] [address] [place] [address] Dr. Ishan Mason MCH (RBC) [Entitic mass] 29.8 pg Normal 26.7-34.0 [facility] Comment on above: Performed By: #### C BC #### [facility] [address] [place] [address] Dr. Ishan Mason MCHC (RBC) [Mass/Vol] 32.8 g/dL Normal 29.9-35.2 [facility] Comment on above: Performed By: #### C BC #### [facility] [address] [address] [address] Ishan Mason MCV (RBC) [Entitic vol] 91.1 fL Normal 81.0-99.0 [facility] Comment on above: Performed By: #### C BC #### [facility] [address] [address] [address] Ishan Mason MONO # 0.5 103/ul Normal 0.3-0.8 [facility] Comment on above: Performed By: #### C BC #### [facility] [address] [address] [address] Ishan Mason Monocytes/100 WBC (Bld) 10.8 % Normal 1.7-12.0 [facility] Comment on above: Performed By: #### C BC #### [facility] [address] [place] [address] Dr. Ishan Mason NEUT # 1.6 103/ul Normal 1.4-6.5 [facility] Comment on above: Performed By: #### C BC #### [facility] [address] [place] [address] Dr. Ishan Mason Neutrophils/100 WBC (Bld) 34.9 % Critically low 43.0-75.0 [facility] Comment on above: Performed By: #### C BC #### [facility] [address] [place] [address] Dr. Ishan Mason Platelet mean volume (Bld) [Entitic vol] 10.8 fL Normal 9.5-13.5 [facility] Comment on above: Performed By: #### C BC #### [facility] [address] [place] [address] Dr. Ishan Mason PLT 198 103/ul Normal 150-450 [facility] Comment on above: Performed By: #### C BC #### [facility] [address] [place] [address] Dr. Ishan Mason RBC 4.49 106/ul Normal 4.20-5.40 [facility] Comment on above: Performed By: #### C BC #### [facility] [address] [place] [address] Dr. Ishan Mason WBC 4.6 103/ul Normal 4.0-11.0 [facility] Comment on above: Performed By: #### C BC #### [facility] [address] [address] [address] Ishan Mason GLYCOHEMOGLOBIN A1Con 2021 ADA RECOMMENDATION SEE BELOW Normal [facility] Comment on above: Result Comment: ADA RECOMMENDED LIMIT 4.0 - 6.0 ADA THERAPEUTIC TARGET < 7.0 ACTION SUGGESTED > 7.0 Performed By: #### A 1C #### [facility] [address] [address] [address] Ishan Mason Glucose [Mass/Vol] 103 mg/dL Normal [facility] Comment on above: Performed By: #### A 1C #### [facility] [address] [place] [address] Dr. Ishan Mason HbA1c (Bld) [Mass fraction] 5.2 % Normal 4.5-6.2 [facility] Comment on above: Performed By: #### A 1C #### [facility] [address] [place] [address] Dr. Ishan Mason LIPID PROFILEon 12-04-2021 CHOL-HDL RATIO NORM SEE BELOW Normal [facility] Comment on above: Result Comment: 3.3 - 4.4 LOW RISK 4.4 - 7.1 AVERAGE RISK 7.1 - 11.0 MODERATE RISK >11.0 HIGH RISK Performed By: #### C BC #### [facility] [address] [place] [address] Dr. Ishan Mason Cholesterol [Mass/Vol] 227 mg/dL Critically high <=200 [facility] Comment on above: Performed By: #### C BC #### [facility] [address] [address] [address] Ishan Mason Cholesterol in HDL [Mass/Vol] 78 mg/dL Critically high 40-60 [facility] Comment on above: Performed By: #### C BC #### [facility] [address] [address] [address] Ishan Mason Cholesterol in LDL [Mass/Vol] 130.8 mg/dL Normal [facility] Comment on above: Performed By: #### C BC #### [facility] [address] [address] [address] Ishan Mason Cholesterol.total/Chol esterol in HDL [Mass ratio] 2.9 {ratio} Normal [facility] Comment on above: Performed By: #### C BC #### [facility] [address] [address] [address] Ishan Mason HDL NORMAL > or = 60 mg/dl - LO W CARDIOVASCULAR RISK <40 mg/dl - HIGH CARDIOVASCULAR RISK Normal [facility] Comment on above: Performed By: #### C BC #### [facility] [address] [place] [address] Dr. Ishan Mason LDL CALC NORMAL SEE BELOW Normal [facility] Comment on above: Result Comment: <100 mg/dl OPTIMAL 100 - 129 mg/dl NEAR OR ABOVE OPTIMAL 130 - 159 mg/dl BORDERLINE HIGH 160 - 189 mg/dl HIGH >190 mg/dl VERY HIGH Performed By: #### C BC #### [facility] [address] [place] [address] Dr. Ishan Mason Triglyceride [Mass/Vol] 91 mg/dL Normal <=150 [facility] Comment on above: Performed By: #### C BC #### [facility] [address] [place] [address] Dr. Ishan Mason VLDL CALC 18.2 mg/dL Normal [facility] Comment on above: Performed By: #### C BC #### [facility] [address] [place] [address] Dr. Ishan Mason PROF 14(COMP METB)on 022 Albumin [Mass/Vol] 3.6 g/dL Normal 3.4-5.0 [facility] Comment on above: Performed By: #### A 1C #### [facility] [address] [place] [address] Dr. Ishan Mason Albumin/Globulin [Mass ratio] 1.0 {ratio} Normal [facility] Comment on above: Performed By: #### A 1C #### [facility] [address] [place] [address] Dr. Ishan Mason ALP [Catalytic activity/Vol] 60 U/L Normal 46-116 [facility] Comment on above: Performed By: #### A 1C #### [facility] [address] [place] [address] Dr. Ishan Mason ALT [Catalytic activity/Vol] 30 U/L Normal 14-59 [facility] Comment on above: Performed By: #### A 1C #### [facility] [address] [place] [address] Dr. Ishan Mason Anion gap [Moles/Vol] 9.1 mmol/L Normal [facility] Comment on above: Performed By: #### A 1C #### [facility] [address] [place] [address] Dr. Ishan Mason AST [Catalytic activity/Vol] 23 U/L Normal 15-37 [facility] Comment on above: Performed By: #### A 1C #### [facility] [address] [place] [address] Dr. Ishan Mason Bilirubin [Mass/Vol] 0.7 mg/dL Normal 0.2-1.0 [facility] Comment on above: Performed By: #### A 1C #### [facility] [address] [place] [address] Dr. Ishan Mason Calcium [Mass/Vol] 9.1 mg/dL Normal 8.5-10.1 [facility] Comment on above: Performed By: #### A 1C #### [facility] [address] [place] [address] Dr. Ishan Mason Chloride [Moles/Vol] 105 mmol/L Normal 98-107 [facility] Comment on above: Performed By: #### A 1C #### [facility] [address] [place] [address] Dr. Ishan Mason CO2 [Moles/Vol] 30.1 mmol/L Normal 21.0-32.0 [facility] Comment on above: Performed By: #### A 1C #### [facility] [address] [place] [address] Dr. Ishan Mason Creatinine [Mass/Vol] 0.71 mg/dL Normal 0.55-1.02 [facility] Comment on above: Performed By: #### A 1C #### [facility] [address] [address] [address] Ishan Mason EGFR-AF CAYMAN ISLANDER >60 Normal >=60 [facility] Comment on above: Performed By: #### A 1C #### [facility] [address] [address] [address] Ishan Mason EGFR-NON AF CAYMAN ISLANDER >60 Normal >=60 [facility] Comment on above: Performed By: #### A 1C #### [facility] [address] [address] [address] Ishan Mason Globulin (S) [Mass/Vol] 3.6 g/dL Normal [facility] Comment on above: Performed By: #### A 1C #### [facility] [address] [address] [address] Ishan Mason Glucose [Mass/Vol] 102 mg/dL Normal 74-106 [facility] Comment on above: Performed By: #### A 1C #### [facility] [address] [address] [address] Ishan Mason Potassium [Moles/Vol] 4.2 mmol/L Normal 3.5-5.1 [facility] Comment on above: Performed By: #### A 1C #### [facility] [address] [address] [address] Ishan Mason Protein [Mass/Vol] 7.2 g/dL Normal 6.4-8.2 [facility] Comment on above: Performed By: #### A 1C #### [facility] [address] [address] [address] Ishan Mason Sodium [Moles/Vol] 140 mmol/L Normal 136-145 [facility] Comment on above: Performed By: #### A 1C #### [facility] [address] [address] [address] Ishan Mason Urea nitrogen [Mass/Vol] 9.0 mg/dL Normal 7.0-18.0 [facility] Comment on above: Performed By: #### A 1C #### [facility] [address] [place] [address] Dr. Ishan Mason Urea nitrogen/Creatinine [Mass ratio] 12.7 mg/mg Normal [facility] Comment on above: Performed By: #### A 1C #### [facility] [address] [place] [address] Dr. Ishan Mason TSHon 12-04-2021 TSH 1.369 uIU/mL Normal 0.358-3.740 [facility] Comment on above: Performed By: #### C BC #### [facility] [address] [place] [address] CHEST HI RESOLUTIONon CT CHEST HI RESOLUTION EXAMINATION: CT C HEST HI RESOLUTION HISTORY: Pulmonary function studies abnormal COMPARISON: No relevant comparison available. TECHNIQUE: Axial images were obtained at 10 mm intervals during inspiration and expiration in the supine and prone positions. No IV contrast given. Dose reduction techniques were achieved by using automated exposure control and/or adjustment of mA and/or kV according to patient size and/or use of iterative reconstruction technique. FINDINGS: LUNGS: No visible pulmonary disease. PLEURA: No mass, effusion, or pneumothorax. MEL: No mass or adenopathy. MEDIASTINUM: No mass or adenopathy. CHEST WALL: No mass or axillary adenopathy LIMITED ABDOMEN: No suspicious findings. Limited images of the upper abdomen. OTHER: Negative. IMPRESSION: 1. No appreciable chronic interstitial changes. 2. Evaluation of mediastinum and remainder of lungs is limited by high resolution technique. Electronically authenticated by: MARITO MEJIA Date: 2021-11-26 16:08 [facility] Consultation Noteon 11-20-19 22 Consultation Note [id number] 0CD:127 Normal [facility] CBC AUTO DIFFon 11-12-2021 BASO # 0.0 103/ul Normal 0.0-0.1 [facility] Comment on above: Performed By: #### A 1C #### [facility] [address] [place] [address] Dr. Ishan Mason Basophils/100 WBC (Bld) 0.6 % Normal 0.2-2.0 [facility] Comment on above: Performed By: #### A 1C #### [facility] [address] [address] [address] Ishan Mason EO # 0.4 103/ul Normal 0.0-0.7 [facility] Comment on above: Performed By: #### A 1C #### [facility] [address] [place] [address] Dr. Ishan Mason Eosinophils/100 WBC (Bld) 6.1 % Normal 0.9-7.0 [facility] Comment on above: Performed By: #### A 1C #### [facility] [address] [place] [address] Dr. Ishan Mason Erythrocyte distribution width (RBC) [Ratio] 12.1 % Normal 11.0-15.0 [facility] Comment on above: Performed By: #### A 1C #### [facility] [address] [place] [address] Dr. Ishan Mason Hematocrit (Bld) [Volume fraction] 43.7 % Normal 36.0-48.0 [facility] Comment on above: Performed By: #### A 1C #### [facility] [address] [place] [address] Dr. Ishan Mason Hemoglobin (Bld) [Mass/Vol] 14.1 g/dL Normal 12.0-16.0 [facility] Comment on above: Performed By: #### A 1C #### [facility] [address] [place] [address] Dr. Ishan Mason IG # 0.02 10e3/ul Normal 0.00-0.03 [facility] Comment on above: Performed By: #### A 1C #### [facility] [address] [place] [address] Dr. Ishan Mason IG % 0.3 % Normal 0.0-0.5 [facility] Comment on above: Performed By: #### A 1C #### [facility] [address] [place] [address] Dr. Ishan Mason LYMPH # 2.9 103/ul Normal 1.2-3.8 [facility] Comment on above: Performed By: #### A 1C #### [facility] [address] [place] [address] Dr. Ishan Mason Lymphocytes/100 WBC (Bld) 41.6 % Normal 20.5-60.0 [facility] Comment on above: Performed By: #### A 1C #### [facility] [address] [place] [address] Dr. Ishan Mason MANUAL DIFF REQ NO Normal [facility] Comment on above: Performed By: #### A 1C #### [facility] [address] [place] [address] Dr. Ishan Mason MCH (RBC) [Entitic mass] 29.3 pg Normal 26.7-34.0 [facility] Comment on above: Performed By: #### A 1C #### [facility] [address] [place] [address] Dr. Ishan Mason MCHC (RBC) [Mass/Vol] 32.3 g/dL Normal 29.9-35.2 [facility] Comment on above: Performed By: #### A 1C #### [facility] [address] [place] [address] Dr. Ishan Mason MCV (RBC) [Entitic vol] 90.9 fL Normal 81.0-99.0 [facility] Comment on above: Performed By: #### A 1C #### [facility] [address] [place] [address] Dr. Ishan Mason MONO # 0.7 103/ul Normal 0.3-0.8 [facility] Comment on above: Performed By: #### A 1C #### [facility] [address] [place] [address] Dr. Ishan Mason Monocytes/100 WBC (Bld) 10.3 % Normal 1.7-12.0 [facility] Comment on above: Performed By: #### A 1C #### [facility] [address] [place] [address] Dr. Ishan Mason NEUT # 2.9 103/ul Normal 1.4-6.5 [facility] Comment on above: Performed By: #### A 1C #### [facility] [address] [place] [address] Dr. Ishan Mason Neutrophils/100 WBC (Bld) 41.1 % Critically low 43.0-75.0 [facility] Comment on above: Performed By: #### A 1C #### [facility] [address] [place] [address] Dr. Ishan Mason Platelet mean volume (Bld) [Entitic vol] 11.0 fL Normal 9.5-13.5 [facility] Comment on above: Performed By: #### A 1C #### [facility] [address] [place] [address] Dr. Ishan Mason PLT 204 103/ul Normal 150-450 [facility] Comment on above: Performed By: #### A 1C #### [facility] [address] [place] [address] Dr. Ishan Mason RBC 4.81 106/ul Normal 4.20-5.40 [facility] Comment on above: Performed By: #### A 1C #### [facility] [address] [place] [address] Dr. Ishan Mason WBC 7.1 103/ul Normal 4.0-11.0 [facility] Comment on above: Performed By: #### A 1C #### [facility] [address] [place] [address] Dr. Ishan Mason CREATININEon 11-12-2021 Creatinine [Mass/Vol] 0.73 mg/dL Normal 0.55-1.02 [facility] Comment on above: Performed By: #### C BC #### [facility] [address] [place] [address] Dr. Ishan Mason EGFR-AF CAYMAN ISLANDER >60 Normal >=60 [facility] Comment on above: Performed By: #### C BC #### [facility] [address] [place] [address] Dr. Ishan Mason EGFR-NON AF CAY[place] ISLANDER >60 Normal >=60 [facility] Comment on above: Performed By: #### C BC #### [facility] [address] [place] [address] Dr. Ishan Mason LIVER PROFILEon 11-12-2021 Albumin [Mass/Vol] 4.0 g/dL Normal 3.4-5.0 [facility] Comment on above: Performed By: #### C BC #### [facility] [address] [place] [address] Dr. Ishan Mason Albumin/Globulin [Mass ratio] 1.0 {ratio} Normal [facility] Comment on above: Performed By: #### C BC #### [facility] [address] [place] [address] Dr. Ishan Mason ALP [Catalytic activity/Vol] 75 U/L Normal 46-116 [facility] Comment on above: Performed By: #### C BC #### [facility] [address] [place] [address] Dr. Ishan Mason ALT [Catalytic activity/Vol] 30 U/L Normal 14-59 [facility] Comment on above: Performed By: #### C BC #### [facility] [address] [place] [address] Dr. Ishan Mason AST [Catalytic activity/Vol] 23 U/L Normal 15-37 [facility] Comment on above: Performed By: #### C BC #### [facility] [address] [place] [address] Dr. Ishan Mason BILI, CONJUGATED 0.1 mg/dL Normal 0.0-0.2 [facility] Comment on above: Performed By: #### C BC #### [facility] [address] [place] [address] Dr. Ishan Mason Bilirubin [Mass/Vol] 0.7 mg/dL Normal 0.2-1.0 [facility] Comment on above: Performed By: #### C BC #### [facility] [address] [place] [address] Dr. Ishan Mason Globulin (S) [Mass/Vol] 4.0 g/dL Normal [facility] Comment on above: Performed By: #### C BC #### [facility] [address] [place] [address] Dr. Ishan Mason Protein [Mass/Vol] 8.0 g/dL Normal 6.4-8.2 [facility] Comment on above: Performed By: #### C BC #### [facility] [address] [address] [address] Ish[facility] 15 mm/hr Normal <=20 [facility] Comment on above: Performed By: #### A 1C #### [facility] [address] [address] [address] Ishan Mason Outside Mammographyon 2021 Outside Mammography [id number] Normal [facility] MG MAMM SCREEN 3D [place] CADon 11-06-2021 MG MAMM SCREEN 3D [place] CAD Patient: VELASQUEZ BOUCHER Exam Date: 11/06/2021 : 1970 Gender:F Ordering : DR JUAN C HOPE Admission #: [id number] Family : Order #: [id number] CLICK HERE TO VIEW EXAM RADIOLOGY REPORT PROCEDURE: MAMMOGRAM SCREENING 3D BILATERAL CAD COMPARISON: MG MAMM SCREEN 3D [place] CAD, 11/03/2020. MG MAMM [place] SCRN W CAD DIG, 09/22/2017. INDICATIONS: Screening mammography Calculator Name NCI Breast Cancer Risk Assessment Tool 5 Year Breast Cancer Risk 1.00% Lifetime Breast Cancer Risk 10.00% Personal Breast Cancer No Personal Ovarian Cancer No Treatments None Family Cancers Brother with lung cancer at age 42; Brother with tongue cancer at age 57. LOCATION: [facility] BREAST COMPOSITION: Scattered areas fibroglandular density. FINDINGS: DIAGNOSTIC CATEGORY 2--BENIGN FINDING: RIGHT BREAST: No significant suspicious finding. Scattered benign-appearing calcifications are present. No significant change has occurred. LEFT BREAST: No significant suspicious finding. Scattered benign-appearing calcifications are present. Scattered benign-appearing lymph nodes are present. No significant change has occurred. RECOMMENDATIONS: ROUTINE MAMMOGRAM AND CLINICAL EVALUATION IN 12 MONTHS. PLEASE NOTE: A NORMAL MAMMOGRAM DOES NOT EXCLUDE THE POSSIBILITY OF BREAST CANCER. A CLINICALLY SUSPICIOUS PALPABLE LUMP SHOULD BE BIOPSIED. Dictated by: Marito Mejia M.D. on 11/06/2021 at 15:34 Approved by: Marito Mejia M.D. on 11/06/2021 at 15:37 Normal [facility] HEMOGLOBINon 11-05-2021 Hemoglobin (Bld) [Mass/Vol] 13.6 g/dL Normal 12.0-16.0 [facility] Comment on above: Performed By: #### C BC #### [facility] [address] [address] [address] Ishan Mason Ambulatory Visit Summaryon 0 10-08-2021 Ambulatory Visit Summary VELASQUEZ BOUCHER :1970 Visit Date:10/08/2021 Ambulatory Visit Instructions Your Diagnosis Encounter for screening mammogram for breast cancer Your Care Team Attending Physician - Juan C HOPE DO Primary Care Physician - Juan C HOPE DO This Is Your Medications List abatacept (Orencia ClickJect 125 mg/mL subcutaneous solution) calcium carbonate (calcium 500 mg Tab) cetirizine (Zyrtec) cholecalciferol (Vitamin D3 2000 intl units oral tablet) fluticasone nasal (fluticasone 0.05 mg/inh Nasal [place]) hydroxychloroquine lactobacillus acidophilus (Acidophilus Probiotic Blend oral capsule) leflunomide metoprolol (metoprolol 50 mg ER Tab) multivitamin (B Complex 100) Procedures Performed None. Discharge Vitals Temperature (Temporal Artery) 36.7 ?C Heart Rate (Peripheral) 95 Blood Pressure 124/72 Height 158 cm Height 158.0 cm Weight 97.3 kg Weight 97.3 kg BMI 38.98 What to do next You Need to Complete the Following MA Mamm Screen w/CAD if perf and 3D [place], 10/08/21, Routine, Order for Future Visit, Transport Mode: Ambulatory, Reason: Screening, No, Encounter for screening mammogram for breast cancer, pp_set_radiology_subsp ecialty, Fermin - Jarek Medications What How Much When Instructions Unchanged abatacept (Orencia ClickJect 125 mg/ mL subcutaneous solution) Unchanged calcium carbonate (calcium 500 mg Tab) By Mouth Every day Unchanged cetirizine (Zyrtec) 10 Milligram By Mouth Every day Unchanged cholecalciferol (Vitamin D3 2000 intl units oral tablet) 1 Tablets By Mouth Every day Unchanged fluticasone nasal (fluticasone 0.05 mg/ inh Nasal [place]) 2 Sprays Nasal Inhalation Every day each nostril Unchanged hydroxychloroquine 200 Milligram By Mouth Every day Unchanged lactobacillus acidophilus (Acidophilus Probiotic Blend oral capsule) By Mouth Every day Unchanged leflunomide 20 Milligram By Mouth Every day Unchanged metoprolol (metoprolol 50 mg ER Tab) 1 Tablets By Mouth Every day Unchanged multivitamin (B Complex 100) Allergies Bactrim Lyrica ciprofloxacin methotrexate (Difficulty breathing at rest) sulfamethoxazole (Hives) Problems Ongoing - Any problem that you are currently receiving treatment for. BMI 38.0-38.9,adult Borderline abnormal thyroid function test COVID-19 Encounter for screening mammogram for breast cancer Non-smoker Painful mouth Preventative health care Rheumatoid Arthritis Sinus congestion Swollen tongue Normal [facility] Family Medicine Office/Clini c Noteon 10-08-2021 Family Medicine Office/Clinic Note Chief Complaint Wellness Exam HPI Staff Velasquez is a 51 year old female who presents for a wellness exam. She has been checking her BP at home on occasion and it is always WNL. BP today in the office was 124/72. Patient denies chest pain, palpitations, headache, SOB, BILLINGS, dizziness, lightheadedness, visual changes, epistaxis, peripheral edema or postural changes. She is currently taking Metoprolol 50mg once daily, as directed, without adverse effects. She has a chronic history of RA. Follows with rheumatology as directed. Mammogram completed last on 11/03/20 at [facility], (ordered today). Due for PAP/pelvic exam. Cologuard resulted negative on 09/30/20. Labs drawn last in October 2020. History of Present Illness I have reviewed and verified the staff HPI to be accurate for this encounter. Review of Systems PHQ Score Initial Depression Screen Score: 0 Constitutional: no fever, no chills, no sweats, no weakness Respiratory: no shortness of breath, no cough, no orthopnea, no wheezing Cardiovascular: no chest pain, no palpitations, no edema Additional ROS info: Except as noted in the above Review of Systems and in the History of Present Illness all other systems have been reviewed and are negative or noncontributory. Physical Exam Vitals & Measurements T: 36.7 ?C(Temporal Artery) HR: 95(Peripheral) BP: 124/72 SpO2: 96% HT: 158 cm HT: 158.0 cm WT: 97.3 kg WT: 97.3 kg BMI: 38.98 General: alert, no acute distress Skin: warm, dry Head: no trauma, normocephalic Neck: Trachea midline, no adenopathy, no tenderness Eye: normal conjunctiva, sclera clear ENMT: TM's clear, oral mucosa moist, no pharyngeal erythema or exudate Cardiovascular: regular rate and rhythm, normal peripheral perfusion Respiratory: Lungs CTA, respirations non labored Chest wall: no deformity. Gastrointestinal: soft, non distended, no tenderness, no guarding. Back: No tenderness, Normal ROM, Normal alignment. Extremities: no deformity, no trauma Neurological: oriented x 4, LOC appropriate for age, CN II-XII intact, motor strength equal & normal bilaterally, sensation equal & normal bilaterally, speech normal Psychiatric: cooperative, affect appropriate for age, normal judgement, normal psychiatric thoughts. Assessment/Plan 1. Preventative health care (Z00.00: Encounter for general adult medical examination without abnormal findings) continue LM. Try to increase activity as pain allows. 2. Encounter for screening mammogram for breast cancer (Z12.31: Encounter for screening mammogram for malignant neoplasm of breast) Ordered: MA Mamm Screen w/CAD if perf and 3D [place] 3. Rheumatoid Arthritis (M06.9: Rheumatoid arthritis, unspecified) good and bad days. Orencia not as helpful. f/u with Rheum. Orders: fluconazole, 150 mg = 1 tab(s), Oral, Once, # 1 tab(s), Refills(s) 1, Pharmacy: [facility]/pharmacy #[id number], 158, cm, 02/16/21 15:39:00 EST, Height/Length Dosing, 94, kg, 02/16/21 15:39:00 EST, Weight Dosing predniSONE, 0 = 1 -, Oral, As Directed, Take 5 tabs by mouth daily x3 days, 4 daily x3 days, 3 daily x3 days, 2 daily x3 days, then 1 tab daily x3 days., # 45 tab(s), Refills(s) 0, Pharmacy: [facility]/pharmacy #[id number], 158, cm, 02/16/21 15:39:00 EST, Height/Length Dosing... Follow-up With When Contact Information Juan C HOPE DO, [facility] In [address] [place] [address]- Additional Instructions: Problem List/Past Medical History Ongoing BMI 38.0-38.9,adult Encounter for screening mammogram for breast cancer Preventative health care Rheumatoid Arthritis Historical No qualifying data Procedure/Surgical History None. Medications Acidophilus Probiotic Blend oral capsule, Oral, Daily B Complex 100 calcium 500 mg Tab, Oral, Daily fluticasone 0.05 mg/inh Nasal [place], 2 spray(s), Nasal, Daily, 3 refills hydroxychloroquine, 200 mg, Oral, Daily leflunomide, 20 mg, Oral, Daily metoprolol 50 mg ER Tab, 50 mg= 1 tab(s), Oral, Daily, 1 refills Orencia ClickJect 125 mg/mL subcutaneous solution Vitamin D3 2000 intl units oral tablet, 2000 International_Unit= 1 tab(s), Oral, Daily, 1 refills Zyrtec, 10 mg, Oral, Daily Allergies Bactrim Lyrica ciprofloxacin methotrexate (Difficulty breathing at rest) sulfamethoxazole (Hives) Social History Alcohol - Denies Alcohol Use, 12/25/2019 Substance Abuse - Denies Substance Abuse, 12/25/2019 Tobacco - Denies Tobacco Use, 09/11/2020 Never (less than 100 in lifetime) Tobacco Use:. Never Smokeless Tobacco Use:., 12/16/2020 Family History Family history is negative Immunizations Vaccine Date Status Comments influenza virus vaccine, inactivated 12/19/2020 Recorded SARS-CoV-2 (COVID-19) Ad26 vaccine 12/12/2020 Recorded pneumococcal 13-valent vaccine 05/29/2020 Recorded SARS-CoV-2 (COVID-19) mRNA-1273 vaccine 04/09/2020 Recorded SARS-CoV-2 (COVID-19) Ad26 vaccine 03/2020 Recorded SARS-CoV-2 (COVID-19) mRNA-1273 vacci (more content not included)... Normal [facility] Comment on above: Result Comment: Elec tronically Signed By: Juan C HOPE DO\.br\Date and Time Signed: 10/08/21 21:58 EDT Covid-19 PCR (CVD[facility])on 09-11 SARS-CoV-2 (COVID-19) RNA MARICEL+probe Ql (Unsp spec) Detected Critically abnormal NOT DETECTED [facility] Comment on above: Result Comment: This test is not yet approved or cleared by the [place] FDA. When there are no FDA-approved or cleared tests available, and other criteria are met, FDA can make tests available under an emergency access mechanism called an Emergency Use Authorization (EUA). The EUA for this test is supported by the Business Development Manager of Health and Human Service's declaration that circumstances exist to justify the emergency use of in vitro diagnostics for the detection and/or diagnosis of the virus that causes COVID-19. This EUA will remain in effect for the duration of the COVID-19 declaration justifying emergency of IVDs, unless it is terminated or revoked by the FDA (after which the test may no longer be used). Performed By: #### A 1C #### [facility] [address] [place] [address] Dr. Ishan Mason CBC AUTO DIFFon 07-01-2021 BASO # 0.0 103/ul Normal 0.0-0.1 [facility] Comment on above: Performed By: #### S EDR #### [facility] [address] [place] [address] Dr. Ishan Mason Basophils/100 WBC (Bld) 0.5 % Normal 0.2-2.0 [facility] Comment on above: Performed By: #### S EDR #### [facility] [address] [place] [address] Dr. Ishan Mason EO # 0.2 103/ul Normal 0.0-0.7 [facility] Comment on above: Performed By: #### S EDR #### [facility] [address] [place] [address] Dr. Ishan Mason Eosinophils/100 WBC (Bld) 3.4 % Normal 0.9-7.0 [facility] Comment on above: Performed By: #### S EDR #### [facility] [address] [place] [address] Dr. Ishan Mason Erythrocyte distribution width (RBC) [Ratio] 12.7 % Normal 11.0-15.0 [facility] Comment on above: Performed By: #### S EDR #### [facility] [address] [address] [address] Ishan Mason Hematocrit (Bld) [Volume fraction] 42.6 % Normal 36.0-48.0 [facility] Comment on above: Performed By: #### S EDR #### [facility] [address] [place] [address] Dr. Ishan Mason Hemoglobin (Bld) [Mass/Vol] 13.6 g/dL Normal 12.0-16.0 [facility] Comment on above: Performed By: #### S EDR #### [facility] [address] [place] [address] Dr. Ishan Mason IG # 0.01 10e3/ul Normal 0.00-0.03 [facility] Comment on above: Performed By: #### S EDR #### [facility] [address] [place] [address] Dr. Ishan Mason IG % 0.2 % Normal 0.0-0.5 [facility] Comment on above: Performed By: #### S EDR #### [facility] [address] [place] [address] Dr. Ishan Mason LYMPH # 2.0 103/ul Normal 1.2-3.8 [facility] Comment on above: Performed By: #### S EDR #### [facility] [address] [place] [address] Dr. Ishan Mason Lymphocytes/100 WBC (Bld) 34.7 % Normal 20.5-60.0 [facility] Comment on above: Performed By: #### S EDR #### [facility] [address] [place] [address] Dr. Ishan Mason MANUAL DIFF REQ NO Normal [facility] Comment on above: Performed By: #### S EDR #### [facility] [address] [place] [address] Dr. Ishan Mason MCH (RBC) [Entitic mass] 29.9 pg Normal 26.7-34.0 [facility] Comment on above: Performed By: #### S EDR #### [facility] [address] [address] [address] Ishan Mason MCHC (RBC) [Mass/Vol] 31.9 g/dL Normal 29.9-35.2 [facility] Comment on above: Performed By: #### S EDR #### [facility] [address] [place] [address] Dr. Ishan Mason MCV (RBC) [Entitic vol] 93.6 fL Normal 81.0-99.0 [facility] Comment on above: Performed By: #### S EDR #### [facility] [address] [address] [address] Ishan Mason MONO # 0.7 103/ul Normal 0.3-0.8 [facility] Comment on above: Performed By: #### S EDR #### [facility] [address] [place] [address] Dr. Ishan Mason Monocytes/100 WBC (Bld) 12.1 % Critically high 1.7-12.0 [facility] Comment on above: Performed By: #### S EDR #### [facility] [address] [place] [address] Dr. Ishan Mason NEUT # 2.9 103/ul Normal 1.4-6.5 [facility] Comment on above: Performed By: #### S EDR #### [facility] [address] [place] [address] Dr. Ishan Mason Neutrophils/100 WBC (Bld) 49.1 % Normal 43.0-75.0 [facility] Comment on above: Performed By: #### S EDR #### [facility] [address] [place] [address] Dr. Ishan Mason Platelet mean volume (Bld) [Entitic vol] 11.1 fL Normal 9.5-13.5 [facility] Comment on above: Performed By: #### S EDR #### [facility] [address] [place] [address] Dr. Ishan Mason PLT 177 103/ul Normal 150-450 [facility] Comment on above: Performed By: #### S EDR #### [facility] [address] [address] [address] Ishan Mason RBC 4.55 106/ul Normal 4.20-5.40 [facility] Comment on above: Performed By: #### S EDR #### [facility] [address] [place] [address] Dr. Ishan Mason WBC 5.9 103/ul Normal 4.0-11.0 [facility] Comment on above: Performed By: #### S EDR #### [facility] [address] [place] [address] Dr. Ishan Mason CREATININEon 07-01-2021 Creatinine [Mass/Vol] 0.79 mg/dL Normal 0.52-1.04 [facility] Comment on above: Performed By: #### C KIRAN, LIVER #### [facility] [address] [place] [address] Dr. Ishan Mason EGFR-AF CAYMAN ISLANDER >60 Normal >=60 [facility] Comment on above: Performed By: #### C KIRAN, LIVER #### [facility] [address] [place] [address] Dr. Ishan Mason EGFR-NON AF CAYMAN ISLANDER >60 Normal >=60 [facility] Comment on above: Performed By: #### C KIRAN, LIVER #### [facility] [address] [place] [address] Dr. Ishan Mason LIVER PROFILEon 07-01-2021 Albumin [Mass/Vol] 3.6 g/dL Normal 3.4-5.0 [facility] Comment on above: Performed By: #### C KIRAN, LIVER #### [facility] [address] [place] [address] Dr. Ishan Mason Albumin/Globulin [Mass ratio] 1.0 {ratio} Normal [facility] Comment on above: Performed By: #### C KIRAN, LIVER #### [facility] [address] [place] [address] Dr. Ishan Mason ALP [Catalytic activity/Vol] 60 U/L Normal 46-116 [facility] Comment on above: Performed By: #### C KIRAN, LIVER #### [facility] [address] [address] [address] Ishan Mason ALT [Catalytic activity/Vol] 27 U/L Normal 14-59 [facility] Comment on above: Performed By: #### C KIRAN, LIVER #### [facility] [address] [place] [id number] Dr. Ishan Mason AST [Catalytic activity/Vol] 22 U/L Normal 15-37 [facility] Comment on above: Performed By: #### C KIRAN, LIVER #### [facility] [address] [place] [address] Dr. Ishan Mason BILI, CONJUGATED 0.1 mg/dL Normal 0.0-0.3 [facility] Comment on above: Performed By: #### C KIRAN, LIVER #### [facility] [address] [place] [address] Dr. Ishan Mason Bilirubin [Mass/Vol] 0.5 mg/dL Normal 0.2-1.3 [facility] Comment on above: Performed By: #### C KIRAN, LIVER #### [facility] [address] [place] [address] Dr. Ishan Mason Globulin (S) [Mass/Vol] 3.5 g/dL [facility] Comment on above: Performed By: #### C KIRAN, LIVER #### [facility] [address] [place] [address] Dr. Ishan Mason Protein [Mass/Vol] 7.1 g/dL Normal 6.1-8.2 [facility] Comment on above: Performed By: #### C KIRAN, LIVER #### [facility] [address] [place] [address] Dr. Ishan Mason SED RATE [facility] 2021 SED RATE 5 mm/hr Normal <=20 [facility] Comment on above: Performed By: #### A 1C #### [facility] [address] [place] [address] Dr. Ishan Mason Vital Signs Date Time Vital Sign Value Performing Clinician Facility 12-24-2020 15:00-0400 Body height 157.48 cm Conner Quinteros Other [facility] Other 12-24-2020 15:00-0400 Body mass index (BMI) [Ratio] 38.04 kg/m2 Conner Quinteros Other [facility] Other 12-24-2020 15:00-0400 Body temperature 98.4 [degF] Conner Quinteros Other [facility] Other 12-24-2020 15:00-0400 Body weight 94.35 kg Conner Quinteros Other [facility] Other 12-24-2020 15:00-0400 Diastolic blood pressure 95 mm[Hg] Conner Quinteros Other [facility] Other 12-24-2020 15:00-0400 Respiratory rate 18 /min Conner Quinteros Other [facility] Other 12-24-2020 15:00-0400 Systolic blood pressure 145 mm[Hg] Conner Quinteros Other [facility] Other Encounters Encounter Date Encounter Type Care Provider Facility Start: 06-24-2022 End: 06-25-[address] HERMINIA WEEMS Facility:[facility] Start: 06-22-2022 End: 06-23-[address] MARITO MEJIA Facility:[facility] Start: 03-31-2022 End: 04-01-[address] JUAN C HOPE Facility: Start: 03-23-2022 End: 03-24-[address] JUAN C HOPE Facility: Start: 02-24-2022 End: 02-25-[address] JUAN C HOPE Facility: Start: 01-26-2022 End: 01-27-[address] JUAN C HOPE Facility: Start: 01-15-2022 End: 01-16-[address] JUAN C HOPE Facility:[facility] Start: 12-09-2021 Encounter for genera l adult medical examination without abnormal findings [facility]AN C [facility] Start: 12-04-2021 End: 12-05-[address] JUAN C HOPE Facility:[facility] Start: 12-04-2021 End: 12-05-2021 Encounter for general adult medical examination without abnormal findings DR JUAN C HOPE Facility:[facility] Start: 11-26-2021 End: 11-27-2021 ambulatory ALDAIR Sanchez Facility:[facility] Start: 11-12-2021 End: 11-13-[address] JUAN C HOPE Facility:[facility] Start: 11-06-2021 End: 11-07-[address] MARITO MEJIA Facility:[facility] Start: 11-05-2021 End: 11-06-[address] HERMINIA WEEMS Facility:[facility] Start: 10-08-2021 End: 10-09-2021 ambulatory Juan C HOPE Facility:[facility] Start: 09-28-2021 End: 09-29-2021 ambulatory RUFINA LOVING Facility:[facility] Start: 09-28-2021 End: 09-28-2021 ambulatory CATRACHITA KAY Facility:[facility] Start: 09-28-2021 ambulatory RUFNIA LOVING Facility:[facility] Start: 09-15-2021 ambulatory Juan C HOPE Facilit y:[facility] Start: 09-07-2021 ambulatory RUFINA LOVING Facility:[facility] Start: 07-01-2021 End: 07-02-[address] HERMINIA WEEMS Facility:[facility] Start: 12-24-2020 Office outpatient vi sit 25 minutes Conner ZAVALA Infectious Disease Payers Date Payer Category Payer Unknown [id number] 2019 Unknown [id number] 2. [id number] 1972 Unknown [id number] 2.16.8 40.1.642642.3.579.2.727 1972 Unknown [id number] 2.16.8 40.1.195033.3.579.2.727 1972 Unknown [id number] 2.16.8 40.1.348579.3.579.2.727 1972 Unknown [id number] 2.16.8 40.1.965817.3.579.2.727 1972 Unknown [id number] 2.16.8 40.1.248402.3.579.2.727 1972 Unknown [id number] 2.16.8 40.1.577907.3.579.2.727 1972 Unknown [id number] 2.16.8 40.1.606918.3.579.2.727 1972 Unknown [id number] 2.16.8 40.1.135291.3.579.2.727 1972 Unknown [id number] 2.16.84 0.1.403453.3.579.2.593 1972 Unknown [id number] 2.16.84 0.1.976480.3.579.2.593 1972 Unknown [id number] 2.16.84 0.1.365108.3.579.2.593 1972 Unknown [id number] 2.16.84 0.1.964975.3.579.2.593 1972 Unknown [id number] 2.16.84 0.1.347004.3.579.2.593 1972 Unknown [id number] 2.16.84 0.1.440896.3.579.2.593 1972 Unknown [id number] 2.16.84 0.1.462215.3.579.2.593 1972 Unknown [id number] 2.16.84 0.1.300101.3.579.2.593 1972 Unknown [id number] 2.16.84 0.1.700230.3.579.2.593 1972 Unknown [id number] 2.16.84 0.1.620110.3.579.2.593 1972 Unknown [id number] 2.16.84 0.1.053684.3.579.2.593 1972 Unknown [id number] 2.16.84 0.1.065341.3.579.2.593 1972 Unknown [id number] 2.16.84 0.1.588989.3.579.2.593 1972 Unknown [id number] 2.16.84 0.1.455638.3.579.2.593 Social History Date Type Detail Facility Unknown if ever smoked [facility] Other Sex Assigned At Sex Assigned At Bir th [facility] Other Clinical Note 10-04-2021 Note Date & Type Note Facility 10-04-2021 Note HPI Staff Velasquez is a 51 year old female who presents for COVID-19 positive. Tested for COVID-19 at home- Yesterday. COVID- 19 vacc- yes Symptoms started- Tuesday Headache- yes Body aches- yes Earache- yes Runny/stuffy nose- yes Problem with Smell- no Problem with Taste- no Sore throat- no Cough- yes Scratchy tickly throat- no Chest symptoms- no SOB/ chest tightness-no Lung Hx asthma, bronchitis, chest colds- no Fever/chills- yes Nausea/ vomiting-no GI symptoms- yes COVID exposure/ sick exposures- yes brother was positive Treatments-Mucinex History of Present Illness Velasquez Boucher presents via telehealth video visit for concerns of positive COVID-19 test that she took at home yesterday. The patient does have a history of rheumatic lung disease and is currently taking Orencia and leflunomide. However, she did talk to her general farmworker and was told to discontinue these. The patient's symptoms as noted above. She does deny any shortness of breath/troubles breathing, wheezing, chest pain/discomfort or tightness. She has noticed fevers of 100.3 F with symptoms and also states when she attempted to eat yesterday she did develop diarrhea. She has been using Mucinex Max acting and has been beneficial for fevers and symptoms. She is questioning today if she is a candidate for any antiviral type or supplemental treatments for symptoms given her history of being immunosuppressed. I have reviewed and verified the staff HPI to be accurate for this encounter. Review of Systems Constitutional: Positive for fever and chills, no sweats, no weakness. Positive for body aches. Skin: No rash, no lesions, no petechiae Eye: Positive for eye aches, no discharge, no light sensitivity, no eye irritation, no double vision blurring, no vision loss ENMT: No ear pain, no ear drainage, no sore throat, no hoarseness. Positive for nasal congestion and drainage. Respiratory: Positive for nonproductive cough. Cardiovascular: No chest pain no, no palpitations, no edema Gastrointestinal: Positive for diarrhea. Genitourinary: No dysuria, no hematuria, no discharge, no urinary frequency, no urinary urgency Musculoskeletal: No back pain, no trauma Neurologic: Positive for headaches. Physical Exam General: Well developed, well nourished, in no acute distress. Lungs: No respiratory distress. No conversational dyspnea. Normal respiratory rate and effort with no accessory muscle usage. Mental Status: Alert and oriented x3. Normal mood and affect Assessment/Plan 1. COVID-19 (U07.1: COVID-19) We will send in for Paxlovid to pharmacy and if too expensive we will attempt another method of treatment which was discussed with the patient. Continue with symptomatic/supportive measures and monitor symptoms closely. Notify provider if any changing or worsening in symptoms. This visit was conducted via two-way, real-time interactive video communications from my office using [employer] due to the restrictions of the COVID-19 pandemic. No physical exam was conducted other than those areas of the body visible to telecommunications with the patient located at [address] [place] [phone], with no one else in attendance. If it is determined that the patient should be evaluated in the clinic, the patient will be directed to the appropriate clinic or venue. The patient or their guardian verbally consented to this visit. Total time spent preparing the chart, conducting the encounter with the patient and family, and time spent documenting, reviewing, and ordering tests was 15 minutes. ATTESTATION: Documentation services were performed after patient or guardian consented to allow [employer] to record this visit. SILAS sales recruitment specialist and provider reviewed before signing. SILAS: Cori Cherry. Follow-up With When Contact Information RUFINA LOVING CNP Only if needed [address] [place] [address] Additional Instructions: Patient Education COVID-19 Frequently Asked Questions COVID-19 Problem List/Past Medical History Ongoing BMI 38.0-38.9,adult Borderline abnormal thyroid function test COVID-19 Encounter for screening mammogram for breast cancer Non-smoker Painful mouth Preventative health care Sinus congestion Swollen tongue Historical Rheumatoid Arthritis Procedure/Surgical History None. Medications Acidophilus Probiotic Blend oral capsule, Oral, Daily calcium 500 mg Tab, Oral, Daily Flonase 0.05 mg/inh [place], 1 spray(s), Nasal, Daily fluconazole 150 mg Tab, 150 mg= 1 tab(s), Oral, Once, 1 refills fluticasone 0.05 mg/inh Nasal [place], 2 spray(s), Nasal, Daily, 3 refills hydroxychloroquine, 200 mg, Oral, Daily leflunomide, 20 mg, Oral, Daily Magic Mouth Wash, See Instructions, 2 refills metoprolol 50 mg ER Tab, 50 mg= 1 tab(s), Oral, Daily, 1 refills Orencia [employer] 125 mg/mL subcutaneous solution Paxlovid 150 mg-100 mg oral tablet, See Instructions pred (more content not included)... [facility] Comment on above: Result Comment: Elec tronically Signed By: RUFINA LOVING CNP\.br\Date and Time Signed: 10/04/21 11:29 EDT\.br\Electronically Co-Signed By: Cori Connelly\.br\Date and Time Co-Signed: 09/28/21 17:13 EDT Clinical Note 09-28-2021 Note Date & Type Note Facility 09-28-2021 Note Infectious Disease COVID-19 Frequently Asked Questions COVID-19 (coronavirus disease) is an infection that is caused by a large family of viruses. Some viruses cause illness in people and others cause illness in animals like camels, cats, and bats. In some cases, the viruses that cause illness in animals can spread to humans. Where did the coronavirus come from? In February 2019, [employer] told the World Health Organization (WHO) of several cases of lung disease (human respiratory illness). These cases were linked to an open seafood and livestock market in the [facility]. The link to the seafood and livestock market suggests that the virus may have spread from animals to humans. However, since that first outbreak in February, the virus has also been shown to spread from person to person. What is the name of the disease and the virus? Disease name Early on, this disease was called novel coronavirus. This is because scientists determined that the disease was caused by a new (novel) respiratory virus. The World Health Organization (WHO) has now named the disease COVID-19, or coronavirus disease. Virus name The virus that causes the disease is called severe acute respiratory syndrome coronavirus 2 (SARS-CoV-2). More information on disease and virus naming World Health Organization (WHO): www.who.int/emergencies/diseases/novel-c oronavirus-2019/technical-guidance/tramaine k-dpp-asenetznpox-disease-(covid-2019)-a ij-gcx-kwzqn-oaih-iknbtr-es Who is at risk for complications from coronavirus disease? Some people may be at higher risk for complications from coronavirus disease. This includes older adults and people who have chronic diseases, such as heart disease, diabetes, and lung disease. If you are at higher risk for complications, take these extra precautions: ? Avoid close contact with people who are sick or have a fever or cough. Stay at least 3?6 ft (1?2 m) away from them, if possible. ? Wash your hands often with soap and water for at least 20 seconds. ? Avoid touching your face, mouth, nose, or eyes. ? Keep supplies on hand at home, such as food, medicine, and cleaning supplies. ? Stay home as much as possible. ? Avoid social gatherings and travel. How does coronavirus disease spread? The virus that causes coronavirus disease spreads easily from person to person (is contagious). There are also cases of community-spread disease. This means the disease has spread to: ? People who have no known contact with other infected people. ? People who have not traveled to areas where there are known cases. It appears to spread from one person to another through droplets from coughing or sneezing. Can I get the virus from touching surfaces or objects? There is still a lot that we do not know about the virus that causes coronavirus disease. Scientists are basing a lot of information on what they know about similar viruses, such as: ? Viruses cannot generally survive on surfaces for long. They need a human body (host) to survive. ? It is more likely that the virus is spread by close contact with people who are sick (direct contact), such as through: ? Shaking hands or hugging. ? Breathing in respiratory droplets that travel through the air. This can happen when an infected person coughs or sneezes on or near other people. ? It is less likely that the virus is spread when a person touches a surface or object that has the virus on it (indirect contact). The virus may be able to enter the body if the person touches a surface or object and then touches his or her face, eyes, nose, or mouth. Can a person spread the virus without having symptoms of the disease? It may be possible for the virus to spread before a person has symptoms of the disease, but this is most likely not the main way the virus is spreading. It is more likely for the virus to spread by being in close contact with people who are sick and breathing in the respiratory droplets of a sick person's cough or sneeze. What are the symptoms of coronavirus disease? Symptoms vary from person to person and can range from mild to severe. Symptoms may include: ? Fever. ? Cough. ? Tiredness, weakness, or fatigue. ? Fast breathing or feeling short of breath. These symptoms can appear anywhere from 2 to 14 days after you have been exposed to the virus. If you develop symptoms, call your health care provider. People with severe symptoms may need hospital care. If I am exposed to the virus, how long does it take before symptoms start? Symptoms of coronavirus disease may appear anywhere from 2 to 14 days after a person has been exposed to the virus. If you develop symptoms, call your health care provider. Should I be tested for this virus? Your health care provider will decide whether to test you based on your symptoms, history of exposure, and your risk factors. How does a health care provider test for this virus? Health care providers will collect samples to send for testing. Samples may in (more content not included)... 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) Dec, Rheumatoid arthritis (ICD-10 - M06.9) [facility] Other History general Narrative - Reported Note Date & Type Note Facility History general Narrative - Reported Type Medical History RA Medical History HTN [facility] Other Summary Purpose Family History No Family History Records FoundNo Family History Records Found Advance Directives No Advanced Directives Records FoundNo Advanced Directives Records Found Additional Source Comments REASON FOR VISIT (unrecogniz ed section and content) 3 month Follow up, LATENT TB INFORMATION SOURCE (unrecogn ized section and content) DATE CREATED AUTHOR 05/20/2022 [employer] [facility] DATE CREATED AUTHOR AUTHOR'S ORGANIZ ATION 06/30/2022 [employer] FOR RECORDS PERTAINING TO PATIENTS WHO ARE OR HAVE BEEN ENROLLED IN A CHEMICAL DEPENDENCY/SUBSTANCEABUSE PROGRAM, SOME INFORMATION MAY BE OMITTED. This clinical summary was aggregated from multiple sources. Caution should be exercised in using it in the provision of clinical care. This summary normalizes information from multiple sources, and as a consequence, information in this document may materially change the coding, format and clinical context of patient data. In addition, data may be omitted in some cases. CLINICAL DECISIONS SHOULD BE BASED ON THE PRIMARY CLINICAL RECORDS. [employer] provides no warranty or guarantee of the accuracy or completeness of information in this document.
[2023-05-30 13:49] LABS: Basophils Percent Auto 0.5 % (0.2-2.0); Eosinophils Absolute Auto 0.3 10^3/uL (0.0-0.7); Eosinophils Percent Auto 4.8 % (0.9-7.0); Hematocrit 42.6 % (36.0-48.0); Hemoglobin 13.5 g/dL (12.0-16.0); Immature Granulocytes Abs Auto 0.02 10^3/uL (0.00-0.03); Immature Granulocytes Pct Auto 0.3 % (0.0-0.5); Lymphocytes Absolute Auto 2.4 10^3/uL (1.2-3.8); Lymphocytes Percent Auto 36.7 % (20.5-60.0); Mean Corpuscular HGB Conc 31.7 g/dL (29.9-35.2); Mean Corpuscular Hemoglobin 29.5 pg (26.7-34.0); Mean Platelet Volume 11.5 fL (9.5-13.5); Monocytes Absolute Auto 0.5 10^3/uL (0.3-0.8); Monocytes Percent Auto 7.3 % (1.7-12.0); Neutrophils Absolute Auto 3.3 10^3/uL (1.4-6.5); Neutrophils Percent Auto 50.4 % (43.0-75.0); Platelet Count 197 10^3/uL (150-450); Red Blood Count 4.58 10^6/uL (4.20-5.40); Red Cell Distribution Width 12.2 % (11.0-15.0); White Blood Count 6.5 10^3/uL (4.0-11.0)
[2023-05-30 14:47] LABS: Erythrocyte Sedimentation Rate 28 mm/hr (<=30)
[2023-05-30 14:48] LABS: Alanine Aminotransferase 28 U/L (14-59); Albumin Level 3.7 g/dL (3.4-5.0); Alkaline Phosphatase 84 U/L (46-116); Aspartate Amino Transferase 21 U/L (15-37); Bilirubin Direct 0.1 mg/dL (0.0-0.2); Bilirubin Total 0.4 mg/dL (0.2-1.0); Estimated GFR (African America >60 (>=60); Estimated GFR (Non-African Ame >60 (>=60); Globulin 3.8 g/dL; Total Protein 7.5 g/dL (6.4-8.2)
== END 2023-05-30 13:23 | disposition home or self-care (01) ==
PROVIDERS: PCP Nurse Practitioner Primary Care; Visit Provider Internal Medicine Rheumatology
DX: M05.79 Rheumatoid arthritis with rheumatoid factor of multiple sites without organ or systems involvement (principal); Z79.899 Other long term (current) drug therapy; M05.19 Rheumatoid lung disease with rheumatoid arthritis of multiple sites
CPT/HCPCS: 36415; 80076; 82565; 85025; 85652

== ENCOUNTER 2023-10-25 14:32 | Outpatient (OUT) | payer BC, SELFPAY ==
--- OUTSIDE RECORDS SUMMARY | 2023-10-25 14:52 | XMS_ITS | CCD ---
Author Organization 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 Name Role Phone Conner Quinteros Unavailable RUFINA LOVING Attending Unavailable JAYY, Juan C Varghese Attending Unavailable RUFINA LOVING Attending Unavailable Juan C HOPE Attending Unavailable DANK, DR HOPE Consulting Unavailable [...] DR BLACK Attending Unavailable GUERA, DR BLACK Admitting Unavailable JAYY, DR JUAN C Varghese Primary Care Unavailable DANK, DR HOPE Attending Unavailable MEJIAADAMichael, DR HOPE Admitting Unavailable HALADAY, DR HOPE Consulting Unavailable SAMSA ., ALDAIR Attending Unavailable SAMSA ., ALDAIR Admitting Unavailable JAYY, DR JUAN C Varghese Primary Care Unavailable ZIEBKRISTINA, DR MARITO [place] Consulting Unavailable SAMSA ., ALDAIR Consulting Unavailable JAYY, DR JUAN C Varghese Primary Care Unavailable HALADAY, DR HOPE Admitting Unavailable HALADAY, DR HOPE Consulting Unavailable HALISIDRO, DR HOPE Attending Unavailable CATRACHITA KAY Attending [...] DR JUAN C Varghese Primary Care Unavailable DANK, DR HOPE Consulting Unavailable DANK, DR HOPE Attending Unavailable DANK, DR HOPE Admitting Unavailable JAYY, DR JUAN C Varghese Primary Care Unavailable JORDY, DR MARITO [place] Consulting Unavailable DANK, DR HOPE Attending Unavailable DANK, DR HOPE Admitting Unavailable JAYY, DR JUAN C Varghese Primary Care Unavailable DANK, DR HOPE Consulting Unavailable JAYY, DR JUAN C Varghese Primary Care Unavailable [facility], DR BAEZ Admitting Unavailable [facility], DR BAEZ Attending Unavailable DANK, DR HOPE Consulting Unavailable JORDY, DR MARITO [place] Consulting Unavailable JAYY, DR JUAN C Varghese Primary Care Unavailable JAYY, DR JUAN C Varghese Attending Unavailable JAYY, DR JUAN C Varghese Admitting Unavailable JAYY, DR JUAN C Varghese Consulting Unavailable SOFIA LYNNE Attending Unavailable JESKRISTINA, SREE Triplett Attending Unavailable Allergies Allergy Classification Reported Allergen(s) Allergy Type Date of Onset Reaction(s) Facility (2 sources) Ciprofloxacin; Translations: [ciprofloxacin] Drug Allergy Unknown [facility] Repository (1 source) pregabalin Drug Allergy Unknown [facility] Other (1 source) Sulfamethoxazole / Trimethoprim Drug Allergy Unknown [facility] Other (1 source) Methotrexate; Translations: [methotrexate] Drug Allergy [facility] Repository (1 source) pregabalin; Translations: [Lyrica] Drug Allergy [facility] Repository (1 source) Sulfamethoxazole; Translations: [sulfamethoxazole] Drug Allergy [facility] Repository (1 source) Sulfamethoxazole / Trimethoprim; Translations: [Bactrim] Drug Allergy [facility] Repository (1 source) Ciprofloxacin Drug Allergy [facility] Repository (1 source) Sulfonamides (Antibiotic) Drug allergy (disorder) [facility] Repository Medications Current Medications Medication Drug Class(es) [...] te Episodic/Chronic Other aftercare (5 sources) 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 Ishan Mason Basophils/100 WBC (Bld) 0.8 % Normal 0.2-2.0 Comment on above: Performed By: #### S EDR #### [facility] [address] [place] [address] Dr. Ishan Mason EO # 0.3 103/ul Normal 0.0-0.7 Comment on above: Performed By: #### S EDR #### [facility] [address] [address] [address] Ishan Mason Eosinophils/100 WBC (Bld) 5.7 % Normal 0.9-7.0 Comment on above: Performed By: #### S EDR #### [facility] [address] [address] [address] Ishan Mason Erythrocyte distribution width (RBC) [Ratio] 12.6 % Normal 11.0-15.0 Comment on above: Performed By: #### S EDR #### [facility] [address] [place] [address] Dr. Ishan Mason Hematocrit (Bld) [Volume fraction] 40.6 % Normal 36.0-48.0 Comment on above: Performed By: #### S EDR #### [facility] [address] [place] [address] Dr. Ishan Mason Hemoglobin (Bld) [Mass/Vol] 13.4 g/dL Normal 12.0-16.0 Comment on above: Performed By: #### S EDR #### [facility] [address] [place] [address] Dr. Ishan Mason IG # 0.01 10e3/ul Normal 0.00-0.03 Comment on above: Performed By: #### S EDR #### [facility] [address] [place] [address] Dr. Ishan Mason IG % 0.2 % Normal 0.0-0.5 Comment on above: Performed By: #### S EDR #### [facility] [address] [place] [address] Dr. Ishan Mason LYMPH # 2.3 103/ul Normal 1.2-3.8 Comment on above: Performed By: #### S EDR #### [facility] [address] [place] [address] Dr. Ishan Mason Lymphocytes/100 WBC (Bld) 46.2 % Normal 20.5-60.0 Comment on above: Performed By: #### S EDR #### [facility] [address] [place] [address] Dr. Ishan Mason MANUAL DIFF REQ NO Normal Comment on above: Performed By: #### S EDR #### [facility] [address] [place] [address] Dr. Ishan Mason MCH (RBC) [Entitic mass] 30.0 pg Normal 26.7-34.0 Comment on above: Performed By: #### S EDR #### [facility] [address] [place] [address] Dr. Ishan Mason MCHC (RBC) [Mass/Vol] 33.0 g/dL Normal 29.9-35.2 Comment on above: Performed By: #### S EDR #### [facility] [address] [place] [address] Dr. Ishan Mason MCV (RBC) [Entitic vol] 90.8 fL Normal 81.0-99.0 Comment on above: Performed By: #### S EDR #### [facility] [address] [place] [address] Dr. Ishan Mason MONO # 0.5 103/ul Normal 0.3-0.8 Comment on above: Performed By: #### S EDR #### [facility] [address] [place] [address] Dr. Ishan Mason Monocytes/100 WBC (Bld) 10.8 % Normal 1.7-12.0 Comment on above: Performed By: #### S EDR #### [facility] [address] [place] [address] Dr. Ishan Mason NEUT # 1.8 103/ul Normal 1.4-6.5 Comment on above: Performed By: #### S EDR #### [facility] [address] [place] [address] Dr. Ishan Mason Neutrophils/100 WBC (Bld) 36.3 % Critically low 43.0-75.0 [facility] Comment on above: Performed By: #### S EDR #### [facility] [address] [place] [address] Dr. Ishan Mason Platelet mean volume (Bld) [Entitic vol] 11.0 fL Normal 9.5-13.5 Comment on above: Performed By: #### S EDR #### [facility] [address] [place] [address] Dr. Ishan Mason PLT 198 103/ul Normal 150-450 [facility] Comment on above: Performed By: #### S EDR #### [facility] [address] [place] [address] Dr. Ishan Mason RBC 4.47 106/ul Normal 4.20-5.40 Comment on above: Performed By: #### S EDR #### [facility] [address] [place] [address] Dr. Ishan Mason WBC 4.9 103/ul Normal 4.0-11.0 Comment on above: Performed By: #### S EDR #### [facility] [address] [place] [address] Dr. Ishan Mason CREATININEon 06-24-2022 Creatinine [Mass/Vol] 0.70 mg/dL Normal 0.55-1.02 Comment on above: Performed By: #### A 1C #### [facility] [address] [place] [address] Dr. Ishan Mason EGFR-AF SAMOAN >60 Normal >=60 Comment on above: Performed By: #### A 1C #### [facility] [address] [place] [address] Dr. Ishan Mason EGFR-NON AF SAMOAN >60 Normal >=60 Comment on above: Performed By: #### A 1C #### [facility] [address] [place] [address] Dr. Ishan Mason LIVER PROFILEon 06-24-2022 Albumin [Mass/Vol] 3.6 g/dL Normal 3.4-5.0 Comment on above: Performed By: #### A 1C #### [facility] [address] [place] [address] Dr. Ishan Mason Albumin/Globulin [Mass ratio] 0.9 {ratio} Normal Comment on above: Performed By: #### A 1C #### [facility] [address] [place] [address] Dr. Ishan Mason ALP [Catalytic activity/Vol] 63 U/L Normal 46-116 [facility] Comment on above: Performed By: #### A 1C #### [facility] [address] [address] [address] Ishan Maosn ALT [Catalytic activity/Vol] 32 U/L Normal 14-59 Comment on above: Performed By: #### A 1C #### [facility] [address] [address] [address] Ishan Mason AST [Catalytic activity/Vol] 23 U/L Normal 15-37 Comment on above: Performed By: #### A 1C #### [facility] [address] [address] [address] Ishan CARDENASI, CONJUGATED 0.1 mg/dL Normal 0.0-0.2 Comment on above: Performed By: #### A 1C #### [facility] [address] [place] [address] Dr. Ishan Mason Bilirubin [Mass/Vol] 0.6 mg/dL Normal 0.2-1.0 Comment on above: Performed By: #### A 1C #### [facility] [address] [place] [address] Dr. Ishan Mason Globulin (S) [Mass/Vol] 3.9 g/dL Normal Comment on above: Performed By: #### A 1C #### [facility] [address] [place] [address] Dr. Ishan Mason Protein [Mass/Vol] 7.5 g/dL Normal 6.4-8.2 Comment on above: Performed By: #### A 1C #### [facility] [address] [place] [address] Dr. Ishan Mason SED RATE Located within [facility] 2022 SED RATE 17 mm/hr Normal <=20 [facility] Comment on above: Performed By: #### S EDR #### [facility] [address] [address] [address] Ishan Mason XR HAND R[place] MIN [...] MARITO MEJIA Date: 2022-06-23 11:43 Normal [facility] CBC AUTO DIFFon 03-23-2022 BASO # 0.1 103/ul Normal 0.0-0.1 Comment on above: Performed By: #### C BC #### [facility] [address] [place] [address] Dr. Ishan Mason Basophils/100 WBC (Bld) 1.0 % Normal 0.2-2.0 Comment on above: Performed By: #### C BC #### [facility] [address] [place] [address] Dr. Ishan Mason EO # 0.2 103/ul Normal 0.0-0.7 Comment on above: Performed By: #### C BC #### [facility] [address] [place] [address] Dr. Ishan Mason Eosinophils/100 WBC (Bld) 2.8 % Normal 0.9-7.0 Comment on above: Performed By: #### C BC #### [facility] [address] [address] [address] Ishan Mason Erythrocyte distribution width (RBC) [Ratio] 12.5 % Normal 11.0-15.0 Comment on above: Performed By: #### C BC #### [facility] [address] [place] [address] Dr. Ishan Mason Hematocrit (Bld) [Volume fraction] 41.8 % Normal 36.0-48.0 Comment on above: Performed By: #### C BC #### [facility] [address] [place] [address] Dr. Ishan Mason Hemoglobin (Bld) [Mass/Vol] 14.0 g/dL Normal 12.0-16.0 Comment on above: Performed By: #### C BC #### [facility] [address] [place] [address] Dr. Ishan Mason IG # 0.02 10e3/ul Normal 0.00-0.03 Comment on above: Performed By: #### C BC #### [facility] [address] [place] [address] Dr. Ishan Mason IG % 0.3 % Normal 0.0-0.5 Comment on above: Performed By: #### C BC #### [facility] [address] [place] [address] Dr. Ishan Mason LYMPH # 1.5 103/ul Normal 1.2-3.8 Comment on above: Performed By: #### C BC #### [facility] [address] [place] [address] Dr. Ishan Mason Lymphocytes/100 WBC (Bld) 21.1 % Normal 20.5-60.0 Comment on above: Performed By: #### C BC #### [facility] [address] [place] [address] Dr. Ishan Mason MANUAL DIFF REQ NO Normal Comment on above: Performed By: #### C BC #### [facility] [address] [place] [address] Dr. Ishan Mason MCH (RBC) [Entitic mass] 29.7 pg Normal 26.7-34.0 Comment on above: Performed By: #### C BC #### [facility] [address] [place] [address] Dr. Ishan Mason MCHC (RBC) [Mass/Vol] 33.5 g/dL Normal 29.9-35.2 Comment on above: Performed By: #### C BC #### [facility] [address] [place] [address] Dr. Ishan Mason MCV (RBC) [Entitic vol] 88.7 fL Normal 81.0-99.0 Comment on above: Performed By: #### C BC #### [facility] [address] [place] [address] Dr. Ishan Mason MONO # 0.5 103/ul Normal 0.3-0.8 Comment on above: Performed By: #### C BC #### [facility] [address] [place] [address] Dr. Ishan Mason Monocytes/100 WBC (Bld) 7.0 % Normal 1.7-12.0 Comment on above: Performed By: #### C BC #### [facility] [address] [place] [address] Dr. Ishan Mason NEUT # 4.8 103/ul Normal 1.4-6.5 Comment on above: Performed By: #### C BC #### [facility] [address] [place] [address] Dr. Ishan Mason Neutrophils/100 WBC (Bld) 67.8 % Normal 43.0-75.0 Comment on above: Performed By: #### C BC #### [facility] [address] [place] [address] Dr. Ishan Mason Platelet mean volume (Bld) [Entitic vol] 11.0 fL Normal 9.5-13.5 Comment on above: Performed By: #### C BC #### [facility] [address] [place] [address] Dr. Ishan Mason PLT 214 103/ul Normal 150-450 [facility] Comment on above: Performed By: #### C BC #### [facility] [address] [place] [address] Dr. Ishan Mason RBC 4.71 106/ul Normal 4.20-5.40 [facility] Comment on above: Performed By: #### C BC #### [facility] [address] [place] [address] Dr. Ishan Mason WBC 7.1 103/ul Normal 4.0-11.0 Comment on above: Performed By: #### C BC #### [facility] [address] [place] [address] Dr. Ishan Mason CREATININEon 03-23-2022 Creatinine [Mass/Vol] 0.85 mg/dL Normal 0.55-1.02 Comment on above: Performed By: #### S EDR #### [facility] [address] [place] [address] Dr. Ishan Mason EGFR-AF SAMOAN >60 Normal >=60 Comment on above: Performed By: #### S EDR #### [facility] [address] [place] [address] Dr. Ishan Mason EGFR-NON AF SAMOAN >60 Normal >=60 Comment on above: Performed By: #### S EDR #### [facility] [address] [place] [address] Dr. Ishan Mason EMG Electromyographyon 03-23 EMG Electromyography [id number]#[id number] 0CD:127 Normal [facility] LIVER PROFILEon 03-23-2022 Albumin [Mass/Vol] 3.8 g/dL Normal 3.4-5.0 Comment on above: Performed By: #### A 1C #### [facility] [address] [place] [address] Dr. Ishan Mason Albumin/Globulin [Mass ratio] 1.0 {ratio} Normal Comment on above: Performed By: #### A 1C #### [facility] [address] [place] [address] Dr. Ishan Mason ALP [Catalytic activity/Vol] 67 U/L Normal 46-116 [facility] Comment on above: Performed By: #### A 1C #### [facility] [address] [place] [address] Dr. Ishan Mason ALT [Catalytic activity/Vol] 33 U/L Normal 14-59 Comment on above: Performed By: #### A 1C #### [facility] [address] [place] [address] Dr. Ishan Mason AST [Catalytic activity/Vol] 28 U/L Normal 15-37 Comment on above: Performed By: #### A 1C #### [facility] [address] [address] [address] Ishan Mason BILI, CONJUGATED 0.1 mg/dL Normal 0.0-0.2 Comment on above: Performed By: #### A 1C #### [facility] [address] [address] [address] Ishan Mason Bilirubin [Mass/Vol] 0.6 mg/dL Normal 0.2-1.0 Comment on above: Performed By: #### A 1C #### [facility] [address] [place] [address] Dr. Ishan Mason Globulin (S) [Mass/Vol] 3.7 g/dL Normal Comment on above: Performed By: #### A 1C #### [facility] [address] [place] [address] Dr. Ishan Mason Protein [Mass/Vol] 7.5 g/dL Normal 6.4-8.2 Comment on above: Performed By: #### A 1C #### [facility] [address] [place] [address] Dr. Ishan Mason SED RATE Located within [facility] 2022 SED RATE 32 mm/hr Critically high <=20 Comment on above: Performed By: #### A 1C #### [facility] [address] [place] [address] Dr. Ishan Mason Consultation Noteon 03-18-19 Consultation Note [id number] 0CD:127 Normal [facility] Consultation Noteon 03-05-20 Consultation Note [id number] 0CD:127 Normal [facility] Consultation Noteon 02-17-20 Consultation Note [id number]#1.0 0CD:127 Normal [facility]SK ANITBODY TESTon 01-31-2 022 MuSK Antibodies <1.0 Normal Comment on above: Result Comment: Refe rence [...] 2014;52:90-100. 2. Stacey SMITH et al. PNAS 2013;110(60);[id number]. 3. Barryi E et al. Neurology 2006;67:505-507. This test was developed and its performance characteristics determined by [employer]. It has not been cleared or approved by the Food and Drug Administration. Performed By: #### A 1C #### [facility] [address] [place] [address] Dr. Ishan Mason ACETYLCHOLINE RECEPTOR JOSE NG ABo 01-28-2022 AChR Binding Abs, Serum <0.03 Normal 0.00-0.24 Comment on above: Result Comment: Nega tive: 0.00 - 0.24 Borderline: 0.25 - 0.40 Positive: >0.40 Performed By: #### A CRBND #### [facility] [address] [place] [address] Dr. Ishan Mason CPKon 01-26-2022 CK [Catalytic activity/Vol] 88 U/L Normal 26-192 Comment on above: Performed By: #### S EDR #### [facility] [address] [place] [address] Dr. Ishan Mason SED RATE WESTERGRENon 2021 SED RATE 34 mm/hr Critically high <=20 Comment on above: Performed By: #### C BC #### [facility] [address] [place] [address] Dr. Ishan Mason TSHon 01-26-2022 TSH 2.298 uIU/mL Normal 0.358-3.740 Comment on above: Performed By: #### S EDR #### [facility] [address] [place] [address] Dr. Ishan Mason VIT B12 AND FOLATEon 022 Cobalamin (Vitamin B12) [Mass/Vol] 523.0 pg/mL Normal 193.0-986.0 Comment on above: Performed By: #### S EDR #### [facility] [address] [place] [address] Dr. Ishan Mason FOLATE 21.40 ng/mL Normal 8.60-58.90 Comment on above: Performed By: #### S EDR #### [facility] [address] [place] [address] Dr. Ishan Mason CBC AUTO DIFFon 01-15-2022 BASO # 0.0 103/ul Normal 0.0-0.1 Comment on above: Performed By: #### S EDR #### [facility] [address] [place] [address] Dr. Ishan Mason Basophils/100 WBC (Bld) 0.5 % Normal 0.2-2.0 Comment on above: Performed By: #### S EDR #### [facility] [address] [place] [address] Dr. Ishan Mason EO # 0.3 103/ul Normal 0.0-0.7 Comment on above: Performed By: #### S EDR #### [facility] [address] [place] [address] Dr. Ishan Mason Eosinophils/100 WBC (Bld) 4.9 % Normal 0.9-7.0 Comment on above: Performed By: #### S EDR #### [facility] [address] [place] [address] Dr. Ishan Mason Erythrocyte distribution width (RBC) [Ratio] 12.7 % Normal 11.0-15.0 Comment on above: Performed By: #### S EDR #### [facility] [address] [place] [address] Dr. Ishan Mason Hematocrit (Bld) [Volume fraction] 41.2 % Normal 36.0-48.0 Comment on above: Performed By: #### S EDR #### [facility] [address] [place] [address] Dr. Ishan Mason Hemoglobin (Bld) [Mass/Vol] 13.7 g/dL Normal 12.0-16.0 Comment on above: Performed By: #### S EDR #### [facility] [address] [place] [address] Dr. Ishan Mason IG # 0.01 10e3/ul Normal 0.00-0.03 Comment on above: Performed By: #### S EDR #### [facility] [address] [place] [address] Dr. Ishan Mason IG % 0.2 % Normal 0.0-0.5 Comment on above: Performed By: #### S EDR #### [facility] [address] [place] [address] Dr. Ishan Mason LYMPH # 2.3 103/ul Normal 1.2-3.8 [facility] Comment on above: Performed By: #### S EDR #### [facility] [address] [place] [address] Dr. Ishan Mason Lymphocytes/100 WBC (Bld) 40.2 % Normal 20.5-60.0 Comment on above: Performed By: #### S EDR #### [facility] [address] [place] [address] Dr. Ishan Mason MANUAL DIFF REQ NO Normal [facility] Comment on above: Performed By: #### S EDR #### [facility] [address] [place] [address] Dr. Ishan Mason MCH (RBC) [Entitic mass] 29.8 pg Normal 26.7-34.0 Comment on above: Performed By: #### S EDR #### [facility] [address] [place] [address] Dr. Ishan Mason MCHC (RBC) [Mass/Vol] 33.3 g/dL Normal 29.9-35.2 [facility] Comment on above: Performed By: #### S EDR #### [facility] [address] [place] [address] Dr. Ishan Mason MCV (RBC) [Entitic vol] 89.6 fL Normal 81.0-99.0 Comment on above: Performed By: #### S EDR #### [facility] [address] [place] [address] Dr. Ishan Mason MONO # 0.5 103/ul Normal 0.3-0.8 Comment on above: Performed By: #### S EDR #### [facility] [address] [place] [address] Dr. Ishan Mason Monocytes/100 WBC (Bld) 8.9 % Normal 1.7-12.0 Comment on above: Performed By: #### S EDR #### [facility] [address] [place] [address] Dr. Ishan Mason NEUT # 2.6 103/ul Normal 1.4-6.5 [facility] Comment on above: Performed By: #### S EDR #### [facility] [address] [place] [address] Dr. Ishan Mason Neutrophils/100 WBC (Bld) 45.3 % Normal 43.0-75.0 Comment on above: Performed By: #### S EDR #### [facility] [address] [place] [address] Dr. Ishan Mason Platelet mean volume (Bld) [Entitic vol] 10.3 fL Normal 9.5-13.5 Comment on above: Performed By: #### S EDR #### [facility] [address] [place] [address] Dr. Ishan Mason PLT 212 103/ul Normal 150-450 [facility] Comment on above: Performed By: #### S EDR #### [facility] [address] [place] [address] Dr. Ishan Mason RBC 4.60 106/ul Normal 4.20-5.40 Comment on above: Performed By: #### S EDR #### [facility] [address] [place] [address] Dr. Ishan Mason WBC 5.7 103/ul Normal 4.0-11.0 Comment on above: Performed By: #### S EDR #### [facility] [address] [place] [address] Dr. Ishan Mason CREATININEon 01-15-2022 Creatinine [Mass/Vol] 0.74 mg/dL Normal 0.55-1.02 Comment on above: Performed By: #### Laura BECK LIVER #### [facility] [address] [place] [address] Dr. Ishan Mason EGFR-AF SAMOAN >60 Normal >=60 [facility] Comment on above: Performed By: #### Laura BECK, LIVER #### [facility] [address] [place] [address] Dr. Ishan Mason EGFR-NON AF SAMOAN >60 Normal >=60 [facility] Comment on above: Performed By: #### C KIRAN LIVER #### [facility] [address] [place] [address] Dr. Ishan Mason LIVER PROFILEon 01-15-2022 Albumin [Mass/Vol] 3.6 g/dL Normal 3.4-5.0 Comment on above: Performed By: #### Laura BECK LIVER #### [facility] [address] [place] [address] Dr. Ishan Mason Albumin/Globulin [Mass ratio] 1.0 {ratio} Normal Comment on above: Performed By: #### C KIRAN, LIVER #### [facility] [address] [place] [address] Dr. Ishan Mason ALP [Catalytic activity/Vol] 78 U/L Normal 46-116 [facility] Comment on above: Performed By: #### C KIRAN, LIVER #### [facility] [address] [place] [address] Dr. Ishan Mason ALT [Catalytic activity/Vol] 30 U/L Normal 14-59 [facility] Comment on above: Performed By: #### C KIRAN, LIVER #### [facility] [address] [place] [address] Dr. Ishan Mason AST [Catalytic activity/Vol] 14 U/L Critically low 15-37 [facility] Comment on above: Performed By: #### C KIRAN, LIVER #### [facility] [address] [place] [address] Dr. Ishan Mason BILI, CONJUGATED 0.1 mg/dL Normal 0.0-0.2 Comment on above: Performed By: #### C KIRAN, LIVER #### [facility] [address] [place] [address] Dr. Ishan Mason Bilirubin [Mass/Vol] 0.5 mg/dL Normal 0.2-1.0 Comment on above: Performed By: #### C KIRAN, LIVER #### [facility] [address] [place] [address] Dr. Ishan Mason Globulin (S) [Mass/Vol] 3.7 g/dL Normal Comment on above: Performed By: #### C KIRAN, LIVER #### [facility] [address] [place] [address] Dr. Ishan Mason Protein [Mass/Vol] 7.3 g/dL Normal 6.4-8.2 [facility] Comment on above: Performed By: #### C KIRAN, LIVER #### [facility] [address] [place] [address] Dr. Ishan Mason SED RATE WESTERGRENon 2021 SED RATE 23 mm/hr Critically high <=20 Comment on above: Performed By: #### S EDR #### [facility] [address] [place] [address] Dr. Ishan Mason Lab Reportson 12-05-2021 Lab Reports [id number] 0CD:127 Normal [facility] Lab Reports [id number] 0CD:127 Normal [facility] CBC AUTO DIFFon 12-04-2021 BASO # 0.0 103/ul Normal 0.0-0.1 Comment on above: Performed By: #### C BC #### [facility] [address] [place] [address] Dr. Ishan Mason Basophils/100 WBC (Bld) 0.7 % Normal 0.2-2.0 Comment on above: Performed By: #### C BC #### [facility] [address] [place] [address] Dr. Ishan Mason EO # 0.4 103/ul Normal 0.0-0.7 Comment on above: Performed By: #### C BC #### [facility] [address] [place] [address] Dr. Ishan Mason Eosinophils/100 WBC (Bld) 7.7 % Critically high 0.9-7.0 Comment on above: Performed By: #### C BC #### [facility] [address] [place] [address] Dr. Ishan Mason Erythrocyte distribution width (RBC) [Ratio] 12.6 % Normal 11.0-15.0 Comment on above: Performed By: #### C BC #### [facility] [address] [place] [address] Dr. Ishan Mason Hematocrit (Bld) [Volume fraction] 40.9 % Normal 36.0-48.0 Comment on above: Performed By: #### C BC #### [facility] [address] [place] [address] Dr. Ishan Mason Hemoglobin (Bld) [Mass/Vol] 13.4 g/dL Normal 12.0-16.0 Comment on above: Performed By: #### C BC #### [facility] [address] [place] [address] Dr. Ishan Mason IG # 0.01 10e3/ul Normal 0.00-0.03 Comment on above: Performed By: #### C BC #### [facility] [address] [place] [address] Dr. Ishan Mason IG % 0.2 % Normal 0.0-0.5 Comment on above: Performed By: #### C BC #### [facility] [address] [place] [address] Dr. Ishan Mason LYMPH # 2.1 103/ul Normal 1.2-3.8 [facility] Comment on above: Performed By: #### C BC #### [facility] [address] [place] [address] Dr. Ishan Mason Lymphocytes/100 WBC (Bld) 45.7 % Normal 20.5-60.0 Comment on above: Performed By: #### C BC #### [facility] [address] [place] [address] Dr. Ishan Mason MANUAL DIFF REQ NO Normal [facility] Comment on above: Performed By: #### C BC #### [facility] [address] [place] [address] Dr. Ishan Mason MCH (RBC) [Entitic mass] 29.8 pg Normal 26.7-34.0 [facility] Comment on above: Performed By: #### C BC #### [facility] [address] [place] [address] Dr. Ishan Mason MCHC (RBC) [Mass/Vol] 32.8 g/dL Normal 29.9-35.2 [facility] Comment on above: Performed By: #### C BC #### [facility] [address] [address] [address] Ishan Mason MCV (RBC) [Entitic vol] 91.1 fL Normal 81.0-99.0 Comment on above: Performed By: #### C BC #### [facility] [address] [address] [address] Ishan Mason MONO # 0.5 103/ul Normal 0.3-0.8 [facility] Comment on above: Performed By: #### C BC #### [facility] [address] [address] [address] Ishan Mason Monocytes/100 WBC (Bld) 10.8 % Normal 1.7-12.0 Comment on above: Performed By: #### C BC #### [facility] [address] [place] [address] Dr. Ishan Mason NEUT # 1.6 103/ul Normal 1.4-6.5 Comment on above: Performed By: #### C BC #### [facility] [address] [place] [address] Dr. Ishan Mason Neutrophils/100 WBC (Bld) 34.9 % Critically low 43.0-75.0 Comment on above: Performed By: #### C BC #### [facility] [address] [place] [address] Dr. Ishan Mason Platelet mean volume (Bld) [Entitic vol] 10.8 fL Normal 9.5-13.5 Comment on above: Performed By: #### C BC #### [facility] [address] [place] [address] Dr. Ishan Mason PLT 198 103/ul Normal 150-450 [facility] Comment on above: Performed By: #### C BC #### [facility] [address] [place] [address] Dr. Ishan Mason RBC 4.49 106/ul Normal 4.20-5.40 [facility] Comment on above: Performed By: #### C BC #### [facility] [address] [place], [place] [id number] Dr. Ishan Mason WBC 4.6 103/ul Normal 4.0-11.0 Comment on above: Performed By: #### C BC #### [facility] [address] [place] [address] Dr. Ishan Mason GLYCOHEMOGLOBIN A1Con 2021 ADA RECOMMENDATION SEE BELOW Normal Comment on above: Result Comment: ADA RECOMMENDED LIMIT 4.0 - 6.0 ADA THERAPEUTIC TARGET < 7.0 ACTION SUGGESTED > 7.0 Performed By: #### A 1C #### [facility] [address] [place] [address] Dr. Ishan Mason Glucose [Mass/Vol] 103 mg/dL Normal Comment on above: Performed By: #### A 1C #### [facility] [address] [place] [address] Dr. Ishan Mason HbA1c (Bld) [Mass fraction] 5.2 % Normal 4.5-6.2 Comment on above: Performed By: #### A 1C #### [facility] [address] [place] [address] Dr. Ishan Mason LIPID PROFILEon 12-04-2021 CHOL-HDL RATIO NORM SEE BELOW Normal Comment on above: Result Comment: 3.3 - 4.4 LOW RISK 4.4 - 7.1 AVERAGE RISK 7.1 - 11.0 MODERATE RISK >11.0 HIGH RISK Performed By: #### C BC #### [facility] [address] [place] [address] Dr. Ishan Mason Cholesterol [Mass/Vol] 227 mg/dL Critically high <=200 [facility] Comment on above: Performed By: #### C BC #### [facility] [address] [place] [address] Dr. Ishan Mason Cholesterol in HDL [Mass/Vol] 78 mg/dL Critically high 40-60 Comment on above: Performed By: #### C BC #### [facility] [address] [place] [address] Dr. Ishan Mason Cholesterol in LDL [Mass/Vol] 130.8 mg/dL Normal [facility] Comment on above: Performed By: #### C BC #### [facility] [address] [place] [address] Dr. Ishan Mason Cholesterol.total/Chol esterol in HDL [Mass ratio] 2.9 {ratio} Normal Comment on above: Performed By: #### C BC #### [facility] [address] [place] [address] Dr. Ishan Mason HDL NORMAL > or = 60 mg/dl - LO W CARDIOVASCULAR RISK <40 mg/dl - HIGH CARDIOVASCULAR RISK Normal Comment on above: Performed By: #### C BC #### [facility] [address] [place] [address] Dr. Ishan Mason LDL CALC NORMAL SEE BELOW Normal Comment on above: Result Comment: <100 mg/dl OPTIMAL 100 - 129 mg/dl NEAR OR ABOVE OPTIMAL 130 - 159 mg/dl BORDERLINE HIGH 160 - 189 mg/dl HIGH >190 mg/dl VERY HIGH Performed By: #### C BC #### [facility] [address] [place] [address] Dr. Ishan Mason Triglyceride [Mass/Vol] 91 mg/dL Normal <=150 Comment on above: Performed By: #### C BC #### [facility] [address] [place] [address] Dr. Ishan Mason VLDL CALC 18.2 mg/dL Normal Comment on above: Performed By: #### C BC #### [facility] [address] [place] [address] Dr. Ishan Mason PROF 14(COMP METB)on 022 Albumin [Mass/Vol] 3.6 g/dL Normal 3.4-5.0 Comment on above: Performed By: #### A 1C #### [facility] [address] [place] [address] Dr. Ishan Mason Albumin/Globulin [Mass ratio] 1.0 {ratio} Normal Comment on above: Performed By: #### A 1C #### [facility] [address] [place] [address] Dr. Ishan Mason ALP [Catalytic activity/Vol] 60 U/L Normal 46-116 [facility] Comment on above: Performed By: #### A 1C #### [facility] [address] [place] [address] Dr. Ishan Mason ALT [Catalytic activity/Vol] 30 U/L Normal 14-59 Comment on above: Performed By: #### A 1C #### [facility] [address] [place] [address] Dr. Ishan Mason Anion gap [Moles/Vol] 9.1 mmol/L Normal Comment on above: Performed By: #### A 1C #### [facility] [address] [place] [address] Dr. Ishan Mason AST [Catalytic activity/Vol] 23 U/L Normal 15-37 Comment on above: Performed By: #### A 1C #### [facility] [address] [place] [address] Dr. Ishan Mason Bilirubin [Mass/Vol] 0.7 mg/dL Normal 0.2-1.0 Comment on above: Performed By: #### A 1C #### [facility] [address] [place] [address] Dr. Ishan Mason Calcium [Mass/Vol] 9.1 mg/dL Normal 8.5-10.1 Comment on above: Performed By: #### A 1C #### [facility] [address] [place] [address] Dr. Ishan Mason Chloride [Moles/Vol] 105 mmol/L Normal 98-107 [facility] Comment on above: Performed By: #### A 1C #### [facility] [address] [place] [address] Dr. Ishan Mason CO2 [Moles/Vol] 30.1 mmol/L Normal 21.0-32.0 [facility] Comment on above: Performed By: #### A 1C #### [facility] [address] [place] [address] Dr. Ishan Mason Creatinine [Mass/Vol] 0.71 mg/dL Normal 0.55-1.02 Comment on above: Performed By: #### A 1C #### [facility] [address] [place] [address] Dr. Ishan Mason EGFR-AF SAMOAN >60 Normal >=60 [facility] Comment on above: Performed By: #### A 1C #### [facility] [address] [address] [address] Ishan Mason EGFR-NON AF SAMOAN >60 Normal >=60 [facility] Comment on above: Performed By: #### A 1C #### [facility] [address] [place] [address] Dr. Ishan Mason Globulin (S) [Mass/Vol] 3.6 g/dL Normal Comment on above: Performed By: #### A 1C #### [facility] [address] [place] [address] Dr. Ishan Mason Glucose [Mass/Vol] 102 mg/dL Normal 74-106 Comment on above: Performed By: #### A 1C #### [facility] [address] [place] [address] Dr. Ishan Mason Potassium [Moles/Vol] 4.2 mmol/L Normal 3.5-5.1 [facility] Comment on above: Performed By: #### A 1C #### [facility] [address] [place] [address] Dr. Ishan Mason Protein [Mass/Vol] 7.2 g/dL Normal 6.4-8.2 [facility] Comment on above: Performed By: #### A 1C #### [facility] [address] [place] [address] Dr. Ishan Mason Sodium [Moles/Vol] 140 mmol/L Normal 136-145 [facility] Comment on above: Performed By: #### A 1C #### [facility] [address] [place] [address] Dr. Ishan Mason Urea nitrogen [Mass/Vol] 9.0 mg/dL Normal 7.0-18.0 [facility] Comment on above: Performed By: #### A 1C #### [facility] [address] [place], [place] [address] Dr. Ishan Mason Urea nitrogen/Creatinine [Mass ratio] 12.7 mg/mg Normal Comment on above: Performed By: #### A 1C #### [facility] [address] [place], [place] [address] Dr. Ishan Mason TSHon 12-04-2021 TSH 1.369 uIU/mL Normal 0.358-3.740 Comment on above: Performed By: #### C BC #### [facility] [address] [place] [address] CHEST HI RESOLUTIONon [...] by: MARITO MEJIA Date: 2021-11-26 16:08 Normal Consultation Noteon 11-20-19 22 Consultation Note [id number] 0CD:127 Normal [facility] CBC AUTO DIFFon 11-12-2021 BASO # 0.0 103/ul Normal 0.0-0.1 Comment on above: Performed By: #### A 1C #### [facility] [address] [place] [address] Dr. Ishan Mason Basophils/100 WBC (Bld) 0.6 % Normal 0.2-2.0 Comment on above: Performed By: #### A 1C #### [facility] [address] [place] [address] Dr. Ishan Mason EO # 0.4 103/ul Normal 0.0-0.7 Comment on above: Performed By: #### A 1C #### [facility] [address] [place] [address] Dr. Ishan Mason Eosinophils/100 WBC (Bld) 6.1 % Normal 0.9-7.0 Comment on above: Performed By: #### A 1C #### [facility] [address] [place] [address] Dr. Ishan Mason Erythrocyte distribution width (RBC) [Ratio] 12.1 % Normal 11.0-15.0 Comment on above: Performed By: #### A 1C #### [facility] [address] [place] [address] Dr. Ishan Mason Hematocrit (Bld) [Volume fraction] 43.7 % Normal 36.0-48.0 Comment on above: Performed By: #### A 1C #### [facility] [address] [place] [address] Dr. Ishan Mason Hemoglobin (Bld) [Mass/Vol] 14.1 g/dL Normal 12.0-16.0 Comment on above: Performed By: #### A 1C #### [facility] [address] [place] [address] Dr. Ishan Mason IG # 0.02 10e3/ul Normal 0.00-0.03 Comment on above: Performed By: #### A 1C #### [facility] [address] [place] [address] Dr. Ishan Mason IG % 0.3 % Normal 0.0-0.5 Comment on above: Performed By: #### A 1C #### [facility] [address] [place] [address] Dr. Ishan Mason LYMPH # 2.9 103/ul Normal 1.2-3.8 [facility] Comment on above: Performed By: #### A 1C #### [facility] [address] [place] [address] Dr. Ishan Mason Lymphocytes/100 WBC (Bld) 41.6 % Normal 20.5-60.0 Comment on above: Performed By: #### A 1C #### [facility] [address] [place] [address] Dr. Ishan Mason MANUAL DIFF REQ NO Normal [facility] Comment on above: Performed By: #### A 1C #### [facility] [address] [place] [address] Dr. Ishan Mason MCH (RBC) [Entitic mass] 29.3 pg Normal 26.7-34.0 Comment on above: Performed By: #### A 1C #### [facility] [address] [place] [address] Dr. Ishan Mason MCHC (RBC) [Mass/Vol] 32.3 g/dL Normal 29.9-35.2 [facility] Comment on above: Performed By: #### A 1C #### [facility] [address] [place] [address] Dr. Ishan Mason MCV (RBC) [Entitic vol] 90.9 fL Normal 81.0-99.0 Comment on above: Performed By: #### A 1C #### [facility] [address] [place] [address] Dr. Ishan Mason MONO # 0.7 103/ul Normal 0.3-0.8 [facility] Comment on above: Performed By: #### A 1C #### [facility] [address] [place] [address] Dr. Ishan Mason Monocytes/100 WBC (Bld) 10.3 % Normal 1.7-12.0 [facility] Comment on above: Performed By: #### A 1C #### [facility] [address] [place] [address] Dr. Ishan Mason NEUT # 2.9 103/ul Normal 1.4-6.5 [facility] Comment on above: Performed By: #### A 1C #### [facility] [address] [place] [address] Dr. Ishan Mason Neutrophils/100 WBC (Bld) 41.1 % Critically low 43.0-75.0 Comment on above: Performed By: #### A 1C #### [facility] [address] [place] [address] Dr. Ishan Mason Platelet mean volume (Bld) [Entitic vol] 11.0 fL Normal 9.5-13.5 Comment on above: Performed By: #### A 1C #### [facility] [address] [place] [address] Dr. Ishan Mason PLT 204 103/ul Normal 150-450 [facility] Comment on above: Performed By: #### A 1C #### [facility] [address] [place] [address] Dr. Ishan Mason RBC 4.81 106/ul Normal 4.20-5.40 [facility] Comment on above: Performed By: #### A 1C #### [facility] [address] [place] [address] Dr. Ishan Mason WBC 7.1 103/ul Normal 4.0-11.0 Comment on above: Performed By: #### A 1C #### [facility] [address] [place] [address] Dr. Ishan Mason CREATININEon 11-12-2021 Creatinine [Mass/Vol] 0.73 mg/dL Normal 0.55-1.02 Comment on above: Performed By: #### C BC #### [facility] [address] [place] [address] Dr. Ishan Mason EGFR-AF SAMOAN >60 Normal >=60 [facility] Comment on above: Performed By: #### C BC #### [facility] [address] [place] [address] Dr. Ishan Mason EGFR-NON AF SAMOAN >60 Normal >=60 Comment on above: Performed By: #### C BC #### [facility] [address] [place] [address] Dr. Ishan Mason LIVER PROFILEon 11-12-2021 Albumin [Mass/Vol] 4.0 g/dL Normal 3.4-5.0 Comment on above: Performed By: #### C BC #### [facility] [address] [place] [address] Dr. Ishan Mason Albumin/Globulin [Mass ratio] 1.0 {ratio} Normal Comment on above: Performed By: #### C BC #### [facility] [address] [place] [address] Dr. Ishan Mason ALP [Catalytic activity/Vol] 75 U/L Normal 46-116 [facility] Comment on above: Performed By: #### C BC #### [facility] [address] [place] [address] Dr. Ishan Mason ALT [Catalytic activity/Vol] 30 U/L Normal 14-59 [facility] Comment on above: Performed By: #### C BC #### [facility] [address] [place] [address] Dr. Ishan Mason AST [Catalytic activity/Vol] 23 U/L Normal 15-37 [facility] Comment on above: Performed By: #### C BC #### [facility] [address] [place] [address] Dr. Ishan Mason BILI, CONJUGATED 0.1 mg/dL Normal 0.0-0.2 Comment on above: Performed By: #### C BC #### [facility] [address] [place] [address] Dr. Ishan Mason Bilirubin [Mass/Vol] 0.7 mg/dL Normal 0.2-1.0 [facility] Comment on above: Performed By: #### C BC #### [facility] [address] [place] [address] Dr. Ishan Mason Globulin (S) [Mass/Vol] 4.0 g/dL Normal Comment on above: Performed By: #### C BC #### [facility] [address] [place] [address] Dr. Ishan Mason Protein [Mass/Vol] 8.0 g/dL Normal 6.4-8.2 Comment on above: Performed By: #### C BC #### [facility] [id number] [facility] 15 mm/hr Normal <=20 Comment on above: Performed By: #### A 1C #### [facility] [id number] Ishan Mason Outside Mammographyon 2021 Outside Mammography [id number]:[id number] Normal [facility] MG MAMM SCREEN 3D ROOSE[place]ELT CADon 11-06-2021 MG MAMM SCREEN 3D ROOSE[place]T CAD Patient: VELASQUEZ BOUCHER Exam Date: 11/06/2021 : 1970 Gender:F Ordering : DR JUAN C HOPE Admission #: [id number] Family : Order #: [id number] CLICK HERE TO VIEW EXAM RADIOLOGY REPORT [...] tongue cancer at age 59. LOCATION: [facility] BREAST COMPOSITION: Scattered areas fibroglandular density. FINDINGS: [...] Mejia M.D. on 11/06/2021 at 15:37 Normal HEMOGLOBINon 11-05-2021 Hemoglobin (Bld) [Mass/Vol] 13.6 g/dL Normal 12.0-16.0 Comment on above: Performed By: #### C BC #### [facility] [address] [address] [address] Ishan Mason Ambulatory Visit Summaryon 0 [...] tablet) fluticasone nasal (fluticasone 0.05 mg/inh Nasal Linn) hydroxychloroquine lactobacillus acidophilus (Acidophilus Probiotic Blend oral [...] fluticasone nasal (fluticasone 0.05 mg/ inh Nasal Linn) 2 Sprays Nasal Inhalation Every day each [...] Rheumatoid Arthritis Sinus congestion Swollen tongue Normal [facility] Office/Clini c Noteon 10-08-2021 [...] directed. Mammogram completed last on 11/03/20 at [facility], (ordered today). Due for PAP/pelvic exam. Cologuard [...] Once, # 1 tab(s), Refills(s) 1, Pharmacy: [facility]/pharmacy #[id number], 158, cm, 02/16/21 15:39:00 EST, Height/Length Dosing, 94, kg, 02/16/21 15:39:00 EST, Weight Dosing predniSONE, 0 = 1 -, Oral, As Directed, Take 5 tabs by mouth daily x3 days, 4 daily x3 days, 3 daily x3 days, 2 daily x3 days, then 1 tab daily x3 days., # 45 tab(s), Refills(s) 0, Pharmacy: [facility]/pharmacy #[id number], 158, cm, 02/16/21 15:39:00 EST, Height/Length Dosing... Follow-up With When Contact Information Juan C HOPE DO, FAM In [address] [place] [address]- Additional Instructions: Problem List/Past Medical History Ongoing BMI 38.0-38.9,adult Encounter for screening mammogram for breast cancer Preventative health care Rheumatoid Arthritis Historical No qualifying data Procedure/Surgical History None. Medications Acidophilus Probiotic Blend oral capsule, Oral, Daily B Complex 100 calcium 500 mg Tab, Oral, Daily fluticasone 0.05 mg/inh Nasal Linn, 2 spray(s), Nasal, Daily, 3 refills hydroxychloroquine, [...] mRNA-1273 vacci (more content not included)... Normal [facility] Comment on above: Result Comment: Elec tronically Signed By: Juan C HOPE DO\.br\Date and Time Signed: 10/08/21 21:58 EDT Covid-19 PCR (CVDTB)on 09-11 SARS-CoV-2 (COVID-19) RNA MARICEL+probe Ql (Unsp spec) Detected Critically abnormal NOT DETECTED [facility] Comment on above: Result Comment: This test is not yet approved or cleared by the [place] FDA. When there are no FDA-approved or cleared tests available, and other criteria are met, FDA can make tests available under an emergency access mechanism called an Emergency Use Authorization (EUA). The EUA for this test is supported by the Software Performance Engineer of Health and Human Service's declaration that [...] used). Performed By: #### A 1C #### [facility] [address] [place] [address] Dr. Ishan Mason CBC AUTO DIFFon 07-01-2021 BASO # 0.0 103/ul Normal 0.0-0.1 Comment on above: Performed By: #### S EDR #### [facility] [address] [place] [address] Dr. Ishan Mason Basophils/100 WBC (Bld) 0.5 % Normal 0.2-2.0 [facility] Comment on above: Performed By: #### S EDR #### [facility] [address] [place] [address] Dr. Ishan Mason EO # 0.2 103/ul Normal 0.0-0.7 [facility] Comment on above: Performed By: #### S EDR #### [facility] [address] [place] [address] Dr. Ishan Mason Eosinophils/100 WBC (Bld) 3.4 % Normal 0.9-7.0 [facility] Comment on above: Performed By: #### S EDR #### [facility] [address] [place] [address] Dr. Ishan Mason Erythrocyte distribution width (RBC) [Ratio] 12.7 % Normal 11.0-15.0 Comment on above: Performed By: #### S EDR #### [facility] [address] [place] [address] Dr. Ishan Mason Hematocrit (Bld) [Volume fraction] 42.6 % Normal 36.0-48.0 Comment on above: Performed By: #### S EDR #### [facility] [address] [place] [address] Dr. Ishan Mason Hemoglobin (Bld) [Mass/Vol] 13.6 g/dL Normal 12.0-16.0 Comment on above: Performed By: #### S EDR #### [facility] [address] [place] [address] Dr. Ishan Mason IG # 0.01 10e3/ul Normal 0.00-0.03 Comment on above: Performed By: #### S EDR #### [facility] [address] [place] [address] Dr. Ishan Mason IG % 0.2 % Normal 0.0-0.5 Comment on above: Performed By: #### S EDR #### [facility] [address] [place] [address] Dr. Ishan Mason LYMPH # 2.0 103/ul Normal 1.2-3.8 Comment on above: Performed By: #### S EDR #### [facility] [address] [place] [address] Dr. Ishan Mason Lymphocytes/100 WBC (Bld) 34.7 % Normal 20.5-60.0 Comment on above: Performed By: #### S EDR #### [facility] [address] [place] [address] Dr. Ishan Mason MANUAL DIFF REQ NO Normal [facility] Comment on above: Performed By: #### S EDR #### [facility] [address] [place] [address] Dr. Ishan Mason MCH (RBC) [Entitic mass] 29.9 pg Normal 26.7-34.0 Comment on above: Performed By: #### S EDR #### [facility] [address] [address] [address] Ishan Mason MCHC (RBC) [Mass/Vol] 31.9 g/dL Normal 29.9-35.2 [facility] Comment on above: Performed By: #### S EDR #### [facility] [address] [address] [address] Ishan Mason MCV (RBC) [Entitic vol] 93.6 fL Normal 81.0-99.0 [facility] Comment on above: Performed By: #### S EDR #### [facility] [address] [address] [address] Ishan Mason MONO # 0.7 103/ul Normal 0.3-0.8 Comment on above: Performed By: #### S EDR #### [facility] [address] [place] [address] Dr. Ishan Mason Monocytes/100 WBC (Bld) 12.1 % Critically high 1.7-12.0 Comment on above: Performed By: #### S EDR #### [facility] [address] [address] [address] Ishan Mason NEUT # 2.9 103/ul Normal 1.4-6.5 Comment on above: Performed By: #### S EDR #### [facility] [address] [place] [address] Dr. Ishan Mason Neutrophils/100 WBC (Bld) 49.1 % Normal 43.0-75.0 [facility] Comment on above: Performed By: #### S EDR #### [facility] [address] [address] [address] Ishan Mason Platelet mean volume (Bld) [Entitic vol] 11.1 fL Normal 9.5-13.5 [facility] Comment on above: Performed By: #### S EDR #### [facility] [address] [place] [address] Dr. Ishan Mason PLT 177 103/ul Normal 150-450 [facility] Comment on above: Performed By: #### S EDR #### [facility] [address] [address] [address] Ishan Mason RBC 4.55 106/ul Normal 4.20-5.40 [facility] Comment on above: Performed By: #### S EDR #### [facility] [address] [address] [address] Ishan Mason WBC 5.9 103/ul Normal 4.0-11.0 [facility] Comment on above: Performed By: #### S EDR #### [facility] [address] [place] [address] Dr. Ishan Mason CREATININEon 07-01-2021 Creatinine [Mass/Vol] 0.79 mg/dL Normal 0.52-1.04 Comment on above: Performed By: #### C KIRAN, LIVER #### [facility] [address] [place] [address] Dr. Ishan Mason EGFR-AF SAMOAN >60 Normal >=60 [facility] Comment on above: Performed By: #### C KIRAN, LIVER #### [facility] [address] [place] [address] Dr. Ishan Mason EGFR-NON AF SAMOAN >60 Normal >=60 [facility] Comment on above: Performed By: #### C KIRAN, LIVER #### [facility] [address] [place] [address] Dr. Ishan Mason LIVER PROFILEon 07-01-2021 Albumin [Mass/Vol] 3.6 g/dL Normal 3.4-5.0 Comment on above: Performed By: #### C KIRAN, LIVER #### [facility] [address] [place] [address] Dr. Ishan Mason Albumin/Globulin [Mass ratio] 1.0 {ratio} Normal [facility] Comment on above: Performed By: #### C KIRAN, LIVER #### [facility] [address] [place] [address] Dr. Ishan Mason ALP [Catalytic activity/Vol] 60 U/L Normal 46-116 [facility] Comment on above: Performed By: #### C KIRAN, LIVER #### [facility] [address] [place] [address] Dr. Ishan Mason ALT [Catalytic activity/Vol] 27 U/L Normal 14-59 [facility] Comment on above: Performed By: #### C KIRAN, LIVER #### [facility] [address] [place] [address] Dr. Ishan Mason AST [Catalytic activity/Vol] 22 U/L Normal 15-37 Comment on above: Performed By: #### C KIRAN, LIVER #### [facility] [address] [place] [address] Dr. Ishan Mason BILI, CONJUGATED 0.1 mg/dL Normal 0.0-0.3 Comment on above: Performed By: #### C KIRAN, LIVER #### [facility] [address] [place] [address] Dr. Ishan Mason Bilirubin [Mass/Vol] 0.5 mg/dL Normal 0.2-1.3 Comment on above: Performed By: #### C KIRAN, LIVER #### [facility] [address] [place] [address] Dr. Ishan Mason Globulin (S) [Mass/Vol] 3.5 g/dL Normal Comment on above: Performed By: #### C KIRAN, LIVER #### [facility] [address] [place] [address] Dr. Ishan Mason Protein [Mass/Vol] 7.1 g/dL Normal 6.1-8.2 Comment on above: Performed By: #### C KIRAN, LIVER #### [facility] [address] [place] [address] Dr. Ishan Mason SED RATE Located within [facility] 2021 SED RATE 5 mm/hr Normal <=20 Comment on above: Performed By: #### A 1C #### [facility] [address] [place] [address] Dr. Ishan Mason Vital Signs Date Time Vital Sign Value Performing Clinician Facility 12-24-2020 15:00-0400 Body height 157.48 cm Conner Quinteros Other [facility] Other 12-24-2020 15:00-0400 Body mass index (BMI) [Ratio] 38.04 kg/m2 Conner Quitneros Other [facility] Other 12-24-2020 15:00-0400 Body temperature 98.4 [degF] Conner Quinteros Other [facility] Other 12-24-2020 15:00-0400 Body weight 94.35 kg Conner Quinteros Other [facility] Other 12-24-2020 15:00-0400 Diastolic blood pressure 95 mm[Hg] Conner Quinteros Other [facility] Other 12-24-2020 15:00-0400 Respiratory rate 18 /min Conner Quinteros Other [facility] Other 12-24-2020 15:00-0400 Systolic blood pressure 145 mm[Hg] Conner Quinteros Other [facility] Other Encounters Encounter Date Encounter Type Care Provider Facility Start: 09-26-2023 End: 09-26-2023 ambulatory SREE AGUILA Not Available Start: 07-12-2023 End: 07-12-2023 ambulatory SOFIA LYNNE Not Available Start: 06-24-2022 End: 06-25-[address] HERMINIA WEEMS Facility:[facility] Start: 06-22-2022 End: 06-23-[address] MARITO MEJIA Facility:[facility] Start: 03-31-2022 End: 04-01-[address] JUAN C HOPE Facility: Start: 03-23-2022 End: 03-24-[address] JUAN C HOPE Facility: Start: 02-24-2022 End: 02-25-[address] JUAN C HOPE Facility:[facility] Start: 01-26-2022 End: 01-27-[address] JUAN C HOPE Facility:[facility] Start: 01-15-2022 End: 01-16-[address] JUAN C HOPE Facility:[facility] Start: 12-09-2021 Encounter for genera l adult medical examination without abnormal findings DR JUAN C HOPE Start: 12-04-2021 End: 12-05-[address] JUAN C HOPE Facility:[facility] Start: 12-04-2021 End: 12-05-2021 Encounter for general adult medical examination without abnormal findings DR JUAN C HOPE Facility:[facility] Start: 11-26-2021 End: 11-27-2021 ambulatory ALDAIR LEWIS . Facility:[facility] Start: 11-12-2021 End: 11-13-[address] JUAN C HOPE Facility:[facility] Start: 11-06-2021 End: 11-07-[address] MARITO MEJIA Facility:[facility] Start: 11-05-2021 End: 11-06-[address] HERMINIA WEEMS Facility:[facility] Start: 10-08-2021 End: 10-09-2021 ambulatory Juan C HOPE Facility:[facility] Start: 09-28-2021 End: 09-29-2021 ambulatory RUFINA LOVING Facility:[facility] Start: 09-28-2021 End: 09-28-2021 ambulatory CATRACHITA KAY Facility: Start: 09-28-2021 ambulatory RUFINA LOVING Facility: [facility] Start: 09-15-2021 ambulatory Juan C HOPE Facilit y:[facility] Start: 09-07-2021 ambulatory RUFINA LOVING Facility:[facility] Start: 07-01-2021 End: 07-02-[address] HERMINIA WEEMS Facility:[facility] Start: 12-24-2020 Office outpatient vi sit 25 minutes Conner ZAVLAA Infectious Disease Payers Date Payer Category Payer Unknown [id number] 2019 Unknown [id number] 2. [id number] 1970 Unknown [id number] 2.16.8 40.1.700819.3.579.2.727 1970 Unknown [id number] 2.16.8 40.1.128439.3.579.2.727 1972 Unknown [id number] 2.16.8 40.1.370826.3.579.2.727 1972 Unknown [id number] 2.16.8 40.1.202232.3.579.2.727 1972 Unknown [id number] 2.16.8 40.1.368717.3.579.2.727 1972 Unknown [id number] 2.16.8 40.1.739833.3.579.2.727 1972 Unknown [id number] 2.16.8 40.1.216720.3.579.2.727 1972 Unknown [id number] 2.16.8 40.1.940074.3.579.2.727 1972 Unknown [id number] 2.16.84 0.1.157996.3.579.2.593 1972 Unknown [id number] 2.16.84 0.1.108651.3.579.2.593 1972 Unknown [id number] 2.16.84 0.1.553093.3.579.2.593 1972 Unknown [id number] 2.16.84 0.1.177668.3.579.2.593 1972 Unknown [id number] 2.16.84 0.1.623179.3.579.2.593 1972 Unknown [id number] 2.16.84 0.1.547453.3.579.2.593 1972 Unknown [id number] 2.16.84 0.1.064660.3.579.2.593 1972 Unknown [id number] 2.16.84 0.1.354461.3.579.2.593 1972 Unknown [id number] 2.16.84 0.1.083863.3.579.2.593 1972 Unknown [id number] 2.16.84 0.1.779401.3.579.2.593 1972 Unknown [id number] 2.16.84 0.1.849949.3.579.2.593 1972 Unknown [id number] 2.16.84 0.1.613013.3.579.2.593 1972 Unknown [id number] 2.16.84 0.1.901910.3.579.2.593 1972 Unknown [id number] 2.16.84 0.1.869356.3.579.2.593 1972 Unknown [id number] 2.16.84 0.1.407049.3.579.2.1259 1972 Unknown [id number] 2.16.84 0.1.411087.3.579.2.1259 Social History Date Type Detail Facility Unknown if ever smoked [facility] Other Sex Assigned At Sex Assigned At Bir th [facility] Other Clinical Note 10-04-2021 Note Date & [...] leflunomide. However, she did talk to her typewriters functional tester and was told to discontinue these. The [...] interactive video communications from my office using [employer] due to the restrictions of the COVID-19 pandemic. No physical exam was conducted other than those areas of the body visible to telecommunications with the patient located at [address] [place] [phone], with no one else in attendance. If [...] after patient or guardian consented to allow Morgan Jacobson e[employer] to record this visit. SILAS contracting specialist and provider reviewed before signing. SILAS: Cori Cherry. Follow-up With When Contact Information RUFINA LOVING CNP Only if needed [address] [place] [address] Additional Instructions: Patient Education COVID-19 Frequently Asked Questions COVID-19 Problem List/Past Medical History Ongoing BMI 38.0-38.9,adult Borderline abnormal thyroid function test COVID-19 Encounter for screening mammogram for breast cancer Non-smoker Painful mouth Preventative health care Sinus congestion Swollen tongue Historical Rheumatoid Arthritis Procedure/Surgical History None. Medications Acidophilus Probiotic Blend oral capsule, Oral, Daily calcium 500 mg Tab, Oral, Daily Flonase 0.05 mg/inh Linn, 1 spray(s), Nasal, Daily fluconazole 150 mg Tab, 150 mg= 1 tab(s), Oral, Once, 1 refills fluticasone 0.05 mg/inh Nasal Linn, 2 spray(s), Nasal, Daily, 3 refills hydroxychloroquine, 200 mg, Oral, Daily leflunomide, 20 mg, Oral, Daily Magic Mouth Wash, See Instructions, 2 refills metoprolol 50 mg ER Tab, 50 mg= 1 tab(s), Oral, Daily, 1 refills Orencia ClickJect 125 mg/mL subcutaneous solution Paxlovid 150 mg-100 mg oral tablet, See Instructions pred (more content not included)... [facility] Comment on above: Result Comment: Elec [...] the coronavirus come from? In February 2019, [place] told the World Health Organization (WHO) of several cases of lung disease (human respiratory illness). These cases were linked to an open seafood and livestock market in the city of [facility]. The link to the seafood and [...] naming World Health Organization (WHO): www.who.int/emergencies/diseases/novel-c oronavirus-2019/technical-guidance/tramaine q-wgl-rliccobuddg-disease-(covid-2019)-a xp-njf-nvebx-xwwh-hnjpjt-xk Who is at risk for complications from [...] Samples may in (more content not included)... 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) Dec, Rheumatoid arthritis (ICD-10 - M06.9) [facility] Other History general Narrative - Reported Note Date & Type Note Facility History general Narrative - Reported Type Medical History RA Medical History HTN [facility] Other Summary Purpose Family History No Family History Records FoundNo Family History Records FoundNo Family History Records Found Advance Directives No Advanced Directives Records FoundNo Advanced Directives Records FoundNo Advanced Directives Records Found Additional Source Comments REASON FOR VISIT (unrecogniz ed section and content) 3 month Follow up, LATENT TB INFORMATION SOURCE (unrecogn ized section and content) DATE CREATED AUTHOR 05/20/2022 [facility] DATE CREATED AUTHOR AUTHOR'S ORGANIZ ATION 06/30/2022 [facility] DATE CREATED AUTHOR AUTHOR'S ORGANIZ ATION 09/30/2023 [facility] FOR RECORDS PERTAINING TO PATIENTS WHO ARE [...] BE BASED ON THE PRIMARY CLINICAL RECORDS. [email or web address] provides no warranty or guarantee of the accuracy or completeness of information in this document.
[2023-10-25 14:53] LABS: Basophils Percent Auto 0.6 % (0.2-2.0); Eosinophils Absolute Auto 0.3 10^3/uL (0.0-0.7); Eosinophils Percent Auto 5.1 % (0.9-7.0); Hematocrit 42.7 % (36.0-48.0); Immature Granulocytes Abs Auto 0.01 10^3/uL (0.00-0.03); Immature Granulocytes Pct Auto 0.2 % (0.0-0.5); Lymphocytes Absolute Auto 2.5 10^3/uL (1.2-3.8); Lymphocytes Percent Auto 39.9 % (20.5-60.0); Mean Corpuscular HGB Conc 32.8 g/dL (29.9-35.2); Mean Corpuscular Volume 91.4 fL (81.0-99.0); Mean Platelet Volume 11.3 fL (9.5-13.5); Monocytes Absolute Auto 0.6 10^3/uL (0.3-0.8); Monocytes Percent Auto 9.6 % (1.7-12.0); Neutrophils Absolute Auto 2.8 10^3/uL (1.4-6.5); Neutrophils Percent Auto 44.6 % (43.0-75.0); Platelet Count 186 10^3/uL (150-450); Red Blood Count 4.67 10^6/uL (4.20-5.40); Red Cell Distribution Width 12.6 % (11.0-15.0); White Blood Count 6.3 10^3/uL (4.0-11.0)
[2023-10-25 14:56] LABS: Erythrocyte Sedimentation Rate 64 mm/hr (<=30)
[2023-10-25 15:32] LABS: Alanine Aminotransferase 27 U/L (14-59); Albumin Globulin Ratio 0.9; Albumin Level 3.6 g/dL (3.4-5.0); Alkaline Phosphatase 85 U/L (46-116); Aspartate Amino Transferase 20 U/L (15-37); Bilirubin Direct 0.1 mg/dL (0.0-0.2); Bilirubin Total 0.5 mg/dL (0.2-1.0); Estimated GFR (African America >60 (>=60); Estimated GFR (Non-African Ame >60 (>=60); Globulin 3.8 g/dL; Total Protein 7.4 g/dL (6.4-8.2)
== END 2023-10-25 14:33 | disposition home or self-care (01) ==
LOC: LAB 14:34
PROVIDERS: PCP Nurse Practitioner; Visit Provider Internal Medicine Rheumatology
DX: M05.19 Rheumatoid lung disease with rheumatoid arthritis of multiple sites (principal); Z79.899 Other long term (current) drug therapy
CPT/HCPCS: 36415; 80076; 82565; 85025; 85652

== ENCOUNTER 2024-02-18 11:35 | Outpatient (OUT) | payer BC, SELFPAY ==
[2024-02-18 11:59] LABS: Basophils Percent Auto 0.2 % (0.2-2.0); Eosinophils Absolute Auto 0.2 10^3/uL (0.0-0.7); Eosinophils Percent Auto 2.6 % (0.9-7.0); Hematocrit 42.9 % (36.0-48.0); Hemoglobin 14.3 g/dL (12.0-16.0); Immature Granulocytes Abs Auto 0.02 10^3/uL (0.00-0.03); Immature Granulocytes Pct Auto 0.2 % (0.0-0.5); Lymphocytes Absolute Auto 2.5 10^3/uL (1.2-3.8); Lymphocytes Percent Auto 28.9 % (20.5-60.0); Mean Corpuscular HGB Conc 33.3 g/dL (29.9-35.2); Mean Corpuscular Hemoglobin 30.4 pg (26.7-34.0); Mean Corpuscular Volume 91.3 fL (81.0-99.0); Mean Platelet Volume 11.1 fL (9.5-13.5); Monocytes Absolute Auto 0.8 10^3/uL (0.3-0.8); Monocytes Percent Auto 8.7 % (1.7-12.0); Neutrophils Absolute Auto 5.2 10^3/uL (1.4-6.5); Neutrophils Percent Auto 59.4 % (43.0-75.0); Platelet Count 185 10^3/uL (150-450); Red Cell Distribution Width 12.3 % (11.0-15.0); White Blood Count 8.7 10^3/uL (4.0-11.0)
[2024-02-18 12:17] LABS: Erythrocyte Sedimentation Rate 16 mm/hr (<=30)
[2024-02-18 12:57] LABS: Alanine Aminotransferase 35 U/L (14-59); Albumin Level 3.8 g/dL (3.4-5.0); Alkaline Phosphatase 80 U/L (46-116); Aspartate Amino Transferase 28 U/L (15-37); Bilirubin Direct 0.1 mg/dL (0.0-0.2); Bilirubin Total 0.8 mg/dL (0.2-1.0); Estimated GFR (African America >60 (>=60 mL/min/1.73m^2); Estimated GFR (Non-African Ame >60 (>=60 mL/min/1.73m^2); Globulin 3.8 g/dL; Total Protein 7.6 g/dL (6.4-8.2)
== END 2024-02-18 11:36 | disposition home or self-care (01) ==
PROVIDERS: PCP Nurse Practitioner; Visit Provider Internal Medicine Rheumatology
DX: M05.19 Rheumatoid lung disease with rheumatoid arthritis of multiple sites (principal); Z79.899 Other long term (current) drug therapy
CPT/HCPCS: 36415; 80076; 82565; 85025; 85652

== ENCOUNTER 2024-05-14 12:48 | Outpatient (OUT) | payer BC, SELFPAY ==
--- OUTSIDE RECORDS SUMMARY | 2024-05-14 13:12 | XMS_ITS | CCD ---
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 Name Role Phone Conner Quinteros Unavailable RUFINA LOVING Attending Unavailable JAYY, Juan C Varghese Attending Unavailable RUFINA LOVING Attending Unavailable JAYY, Juan C Varghese Attending Unavailable MARIANA, DR HOPE Consulting Unavailable HALADAY, DR HOPE [...] DR JUAN C Varghese Primary Care Unavailable MARIANA, DR HOPE Attending Unavailable MARIANA, DR HOPE Admitting Unavailable MEJIAADAY, DR HOPE Consulting Unavailable SAMSA ., ALDAIR Attending Unavailable SAMSA ., ALDAIR Admitting Unavailable JAYY, DR JUAN C Varghese Primary Care Unavailable ZIEBER, DR MARITO [place] Consulting Unavailable SAMSA ., ALDAIR Consulting Unavailable JAYY, DR JUAN C Varghese Primary Care Unavailable HALADAY, DR HOPE Admitting Unavailable HALADAY, DR HOPE Consulting Unavailable HALADAMichael, DR HOPE Attending Unavailable CATRACHITA KAY Attending [...] Care Unavailable HALADAY, DR HOPE Consulting Unavailable HALADAY, DR HOPE Attending Unavailable HALADAY, DR HOPE Admitting Unavailable JAYY, DR JUAN C Varghese Primary Care Unavailable ZIEBKRISTINA, DR MARITO [place] Consulting Unavailable HALADAY, DR HOPE Attending Unavailable HALADAY, DR HOPE Admitting Unavailable JAYY, DR JUAN C Varghese Primary Care Unavailable HALADAY, DR HOPE Consulting Unavailable JAYY, DR JUAN C Varghese Primary Care Unavailable MIS, DR BAEZ Admitting Unavailable MIS, DR BAEZ Attending Unavailable MARIANA, DR HOPE Consulting Unavailable JORDY, DR MARITO Cuba Consulting Unavailable JAYY, DR JUAN C Varghese Primary Care Unavailable JAYY, DR JUAN C Varghese Attending Unavailable JAYY, DR JUAN C Varghese Admitting Unavailable JAYY, DR JUAN C Varghese Consulting Unavailable GUERA, SOFIA Attending Unavailable MINGO, SREE Triplett Attending Unavailable GUERA, SOFIA Attending Unavailable Mariana SANCHES, Herminia Mayer Unavailable [phone] Guera NI, Sofia Unavailable Ethan ALCOHOLISM WORKER, Twila Unavailable Allergies Allergy Classification Reported Allergen(s) Allergy Type Date of Onset Reaction(s) Facility (5 sources) Ciprofloxacin; Translations: [ciprofloxacin] Drug Allergy 12-29-19 Rash [facility] Repository (1 source) pregabalin Drug Allergy Unknown [employer] Other (4 sources) Sulfamethoxazole / Trimethoprim Drug Allergy 12-29-19 Rash, Unknown [employer] [facility] Other (4 sources) Methotrexate; Translations: [methotrexate] Drug Allergy 12-29-19 Shortness of breath [facility] Repository (1 source) pregabalin; Translations: [Lyrica] Drug Allergy [facility] Repository (1 source) Sulfamethoxazole; Translations: [sulfamethoxazole] Drug Allergy [facility] Repository (1 source) Sulfamethoxazole / Trimethoprim; Translations: [Bactrim] Drug Allergy [facility] Repository (1 source) Ciprofloxacin Drug Allergy [facility] Repository (1 source) Sulfonamides (Antibiotic) Drug allergy (disorder) [facility] Repository (3 sources) Pregabalin Allergy to substance 12-29-19 Hallucinations , Other [facility] (3 sources) Sulfonamides (Antibiotic) Drug Allergy 12-29-19 Rash, Other [facility] Medications Current Medications Medication Drug Class(es) Dates Sig (Normalized) Sig (Original) 1 ml abatacept 125 mg/ml auto-injector (3 sources) Selective T Cell Costimulation Modulator Orencia ClickJect 125 MG/ML solution auto-injector Subcutaneous for 28 Days Active acetaminophen 500 mg oral tablet (3 sources) acetaminophen (Tylenol) 500 MG tablet Take 2 tablets by mouth if needed Active B Dvafyxc-Outmgp-YK (Super B-50 B Complex) capsule (3 sources) B Complex-Biotin -FA (Super B-50 B Complex) capsule as directed Orally Active Calcium Carbonate / Vitamin D (3 sources) Calcium Carbonate-Vitamin D (OSCAL 500/200 D-3 PO) Take 1 tablet by mouth Daily Active cetirizine hydrochloride 10 mg oral tablet (4 sources) Histamine-1 Receptor Antagonist cetirizine (ZyrTEC) 10 MG tablet 1 (one) time each day at the same time. Active ZyrTEC Allergy A ctive cholecalciferol 0.05 mg oral capsule (3 sources) Vitamin D take 1 capsule by mouth once daily cholecalciferol (Vitamin D-3) 50 MCG (2000 UT) capsule TAKE 1 CAPSULE BY MOUTH EVERY DAY Oral for 90 Days Active fluticasone propionate 0.05 mg/actuat metered dose nasal spray (4 sources) Corticosteroid fluticasone (Shlomo nase) 50 MCG/ACT nasal spray 1 (one) time each day at the same time. Active FLONASE Active hydroxychloroquine sulfate 200 mg oral tablet (4 sources) Antimalarial, Antirheumatic Agent take 1 tablet by mouth in the morning hydroxychloroquine (Plaquenil) 200 MG tablet Take 1 tablet by mouth in the morning and 1 tablet in the evening. Take with meals. Active leflunomide 20 mg oral tablet (4 sources) Antirheumatic Agent take 1 tablet by mouth once daily leflunomide (Arava) 20 MG tablet TAKE 1 TABLET BY MOUTH EVERY DAY REMEMBER LABS Oral for 90 Days Active 24 hr metoprolol succinate 50 mg extended release oral tablet (4 sources) beta-Adrenergic Joce take 1 tablet by mouth every twenty-four hours metoprolol succinate XL (Toprol-XL) 50 MG 24 hr tablet Take 1 tablet by mouth Active Metoprolol Tartr ate 50 MG 1QD Active Multiple Vitamin (Multi Vitamin) tablet (3 sources) Multiple Vitamin (Multi Vitamin) tablet 1 (one) time each day at the same time. Active Multivitamin preparation (1 source) Multivitamin Act arnoldo predniSONE 5 mg oral tablet (4 sources) take 1 tablet by candie th once daily as needed, then take 1 tablet by mouth every other day as needed predniSONE (Deltasone) 5 MG tablet TAKE 1 TABLET BY MOUTH ON DAY 1, OR TWO DAYS A WEEKS NEEDED Oral PRN for 15 days Active probiotic (1 source) probiotic Active saccharomyces boulardii 250 mg oral capsule (3 sources) Saccharomyces jairon ulardii (probiotic) 250 MG capsule as directed Orally Active Super B Complex (1 source) Super B Complex Active Completed/Discontinued Medications Medication Drug Class(es) Dates Sig (Normalized) Sig (Original) ciclesonide 0.05 mg/actuat metered dose nasal spray (3 sources) End: 01-24-2024 ciclesonide (Omnaris) 50 MCG/ACT nasal spray 01/24/2024 Discontinued (Med list cleanup) cyclobenzaprine hydrochloride 5 mg oral tablet (3 sources) Muscle Relaxant End: 01-24-2024 take 0.5-1 tablets by mouth at bedtime cyclobenzaprine (Flexeril) 5 MG tablet Take 0.5-1 tablets by mouth at bedtime 01/24/2024 Discontinued (Med list cleanup) Misc Natural Products (Green Tea) tablet (3 sources) End: 01-24-2024 take 1 capsule by mouth once daily Misc Natural Products (Green Tea) tablet Take 1 capsule by mouth Daily 01/24/2024 Discontinued (Med list cleanup) [place]-3 Fatty Acids (GNP FISH OIL PO) (3 sources) End: 01-24-2024 take 1 tablet by mouth once daily [place]-3 Fatty Acids (GNP FISH OIL PO) Take 1 tablet by mouth Daily 01/24/2024 Discontinued (Med list cleanup) Problems Active Problems Problem Classification Problem Date Documented Da te Episodic/Chronic Essential hypertension (3 sources) Hypertensive disorder; Translations: [Essential (primary) hypertension] Onset: 06-28-2023 06-28-2023 Chronic Other aftercare (5 sources) Other hat blocker (current) drug therapy; Translations: [OTH BARREL HANDLER CURRENT DRUG THERAPY] Onset: 07-01-2021 Episodic Other connective tissue disease (1 source) Pain in left hand; Translations: [PAIN IN LEFT HAND] Onset: 06-28-2022 Episodic Other connective tissue disease (1 source) Pain in right hand; Translations: [PAIN IN RIGHT HAND] Onset: 06-28-2022 Episodic Other lower respiratory disease (4 sources) Pulmonary fibrosis, unspecified; Translations: [PULMONARY FIBROSIS UNSPECIFIED] Onset: 11-05-2021 Chronic Other lower respiratory disease (2 sources) Hypoxia; Translations: [Hypoxemia] 01-24-2024 Episodic Other nervous system disorders (3 sources) Carpal tunnel syndrome of left wrist; Translations: [Carpal tunnel syndrome, left upper limb] Onset: 06-28-2023 06-28-2023 Chronic Other nervous system disorders (3 sources) Carpal tunnel syndrome of right wrist; Translations: [Carpal tunnel syndrome, right upper limb] Onset: 06-28-2023 06-28-2023 Chronic Other nervous system disorders (2 sources) Bilateral carpal tunnel syndrome; Translations: [Carpal tunnel syndrome, bilateral upper limbs] 01-24-2024 Chronic Other nervous system disorders (5 sources) Paresthesia; Translations: [Paresthesia of skin] Onset: 06-28-2023 06-28-2023 Episodic Other nutritional; endocrine; and metabolic disorders (3 sources) Obesity; Translations: [Obesity, unspecified] Onset: 06-28-2023 06-28-2023 Chronic Residual codes; unclassified (4 sources) Obstructive sleep apnea (adult) (pediatric); Translations: [OBSTRUCTIVE SLEEP APNEA] Onset: 03-31-2022 Chronic Residual codes; unclassified (5 sources) Obstructive sleep apnea syndrome; Translations: [Obstructive sleep apnea (adult) (pediatric)] Onset: 06-28-2023 06-28-2023 Chronic Residual codes; unclassified (2 sources) Hypersomnia; Translations: [Hypersomnia, unspecified] 01-24-2024 Chronic Rheumatoid arthritis and related disease (12 [...] interferon antigen response without active tuberculosis] Episodic Inflammation; infection of eye (except that caused by tuberculosis or sexually transmitteddisease) (3 sources) Blepharitis of upper and lower eyelids of bilateral eyes; Translations: [Unspecified blepharitis right eye, upper and lower eyelids] Onset: 12-28-2022 12-28-2022 Episodic Malaise and fatigue (4 sources) Weakness; Translations: [WEAKNESS] Onset: 01-26-2022 Episodic Other aftercare (3 sources) Drug therapy finding; Translations: [Other [facility]current[facility] drug therapy] Onset: 12-28-2022 12-28-2022 Episodic Other eye disorders (3 sources) Dry eyes; Translations: [Dry eye syndrome of bilateral lacrimal glands] Onset: 12-28-2022 12-28-2022 Episodic Other screening for suspected conditions (not [...] 06-24-2022 BASO # 0.0 103/ul Normal 0.0-0.1 [facility] Comment on above: Performed By: #### S EDR #### [facility] [address] [address] [address] Ishan Mason Basophils/100 WBC (Bld) 0.8 % Normal 0.2-2.0 [facility] Comment on above: Performed By: #### S EDR #### [facility] [address] [place] [address] Dr. Ishan Mason EO # 0.3 103/ul Normal 0.0-0.7 [facility] Comment on above: Performed By: #### S EDR #### [facility] [address] [place] [address] Dr. Ishan Mason Eosinophils/100 WBC (Bld) 5.7 % Normal 0.9-7.0 [facility] Comment on above: Performed By: #### S EDR #### [facility] [address] [place] [address] Dr. Ishan Mason Erythrocyte distribution width (RBC) [Ratio] 12.6 % Normal 11.0-15.0 [facility] Comment on above: Performed By: #### S EDR #### [facility] [address] [place] [address] Dr. Ishan Mason Hematocrit (Bld) [Volume fraction] 40.6 % Normal 36.0-48.0 [facility] Comment on above: Performed By: #### S EDR #### [facility] [address] [place] [address] Dr. Ishan Mason Hemoglobin (Bld) [Mass/Vol] 13.4 g/dL Normal 12.0-16.0 [facility] Comment on above: Performed By: #### S EDR #### [facility] [address] [place] [address] Dr. Ishan Mason IG # 0.01 10e3/ul Normal 0.00-0.03 [facility] Comment on above: Performed By: #### S EDR #### [facility] [address] [place] [address] Dr. Ishan Mason IG % 0.2 % Normal 0.0-0.5 [facility] Comment on above: Performed By: #### S EDR #### [facility] [address] [place] [address] Dr. Ishan Mason LYMPH # 2.3 103/ul Normal 1.2-3.8 [facility] Comment on above: Performed By: #### S EDR #### [facility] [address] [place] [address] Dr. Ishan Mason Lymphocytes/100 WBC (Bld) 46.2 % Normal 20.5-60.0 [facility] Comment on above: Performed By: #### S EDR #### [facility] [address] [place] [address] Dr. Ishan Mason MANUAL DIFF REQ NO Normal [facility] Comment on above: Performed By: #### S EDR #### [facility] [address] [place] [address] Dr. Ishan Mason MCH (RBC) [Entitic mass] 30.0 pg Normal 26.7-34.0 [facility] Comment on above: Performed By: #### S EDR #### [facility] [address] [place] [address] Dr. Ishan Mason MCHC (RBC) [Mass/Vol] 33.0 g/dL Normal 29.9-35.2 [facility] Comment on above: Performed By: #### S EDR #### [facility] [address] [place] [address] Dr. Ishan Mason MCV (RBC) [Entitic vol] 90.8 fL Normal 81.0-99.0 [facility] Comment on above: Performed By: #### S EDR #### [facility] [address] [place] [address] Dr. Ishan Mason MONO # 0.5 103/ul Normal 0.3-0.8 [facility] Comment on above: Performed By: #### S EDR #### [facility] [address] [address] [address] Ishan Mason Monocytes/100 WBC (Bld) 10.8 % Normal 1.7-12.0 [facility] Comment on above: Performed By: #### S EDR #### [facility] [address] [place] [address] Dr. Ishan Mason NEUT # 1.8 103/ul Normal 1.4-6.5 [facility] Comment on above: Performed By: #### S EDR #### [facility] [address] [place] [address] Dr. Ishan Mason Neutrophils/100 WBC (Bld) 36.3 % Critically low 43.0-75.0 [facility] Comment on above: Performed By: #### S EDR #### [facility] [address] [place] [address] Dr. Ishan Mason Platelet mean volume (Bld) [Entitic vol] 11.0 fL Normal 9.5-13.5 [facility] Comment on above: Performed By: #### S EDR #### [facility] [address] [place] [address] Dr. Ishan Mason PLT 198 103/ul Normal 150-450 [facility] Comment on above: Performed By: #### S EDR #### [facility] [address] [place] [address] Dr. Ishan Mason RBC 4.47 106/ul Normal 4.20-5.40 [facility] Comment on above: Performed By: #### S EDR #### [facility] [address] [place] [address] Dr. Ishan Mason WBC 4.9 103/ul Normal 4.0-11.0 [facility] Comment on above: Performed By: #### S EDR #### [facility] [address] [place] [address] Dr. Ishan Mason CREATININEon 06-24-2022 Creatinine [Mass/Vol] 0.70 mg/dL Normal 0.55-1.02 [facility] Comment on above: Performed By: #### A 1C #### [facility] [address] [place] [address] Dr. Ishan Mason EGFR-AF SWAZI >60 Normal >=60 [facility] Comment on above: Performed By: #### A 1C #### [facility] [address] [place] [address] Dr. Ishan Mason EGFR-NON AF SWAZI >60 Normal >=60 [facility] Comment on above: Performed By: #### A 1C #### [facility] [address] [place] [address] Dr. Ishan Mason LIVER PROFILEon 06-24-2022 Albumin [Mass/Vol] 3.6 g/dL Normal 3.4-5.0 [facility] Comment on above: Performed By: #### A 1C #### [facility] [address] [place] [address] Dr. Ishan Mason Albumin/Globulin [Mass ratio] 0.9 {ratio} Normal [facility] Comment on above: Performed By: #### A 1C #### [facility] [address] [place] [address] Dr. Ishan Mason ALP [Catalytic activity/Vol] 63 U/L Normal 46-116 [facility] Comment on above: Performed By: #### A 1C #### [facility] [address] [place] [address] Dr. Ishan Mason ALT [Catalytic activity/Vol] 32 U/L Normal 14-59 [facility] Comment on above: Performed By: #### A 1C #### [facility] [address] [place] [address] Dr. Ishan Mason AST [Catalytic activity/Vol] 23 U/L Normal 15-37 [facility] Comment on above: Performed By: #### A 1C #### [facility] [address] [place] [address] Dr. Ishan Mason BILI, CONJUGATED 0.1 mg/dL Normal 0.0-0.2 [facility] Comment on above: Performed By: #### A 1C #### [facility] [address] [address] [address] Ishan Mason Bilirubin [Mass/Vol] 0.6 mg/dL Normal 0.2-1.0 [facility] Comment on above: Performed By: #### A 1C #### [facility] [address] [place] [address] Dr. Ishan Mason Globulin (S) [Mass/Vol] 3.9 g/dL Normal [facility] Comment on above: Performed By: #### A 1C #### [facility] [address] [place] [address] Dr. Ishan Mason Protein [Mass/Vol] 7.5 g/dL Normal 6.4-8.2 [facility] Comment on above: Performed By: #### A 1C #### [facility] [address] [place] [address] Dr. Ishan Mason SED RATE [facility] 2022 SED RATE 17 mm/hr Normal <=20 [facility] Comment on above: Performed By: #### S EDR #### [facility] [address] [place] [address] Dr. Ishan Mason XR HAND [place] MIN [...] MARITO MEJIA Date: 2022-06-23 11:43 Normal [facility] CBC AUTO DIFFon 03-23-2022 BASO # 0.1 103/ul Normal 0.0-0.1 [facility] Comment on above: Performed By: #### C BC #### [facility] [address] [place] [address] Dr. Ishan Mason Basophils/100 WBC (Bld) 1.0 % Normal 0.2-2.0 [facility] Comment on above: Performed By: #### C BC #### [facility] [address] [place] [address] Dr. Ishan Mason EO # 0.2 103/ul Normal 0.0-0.7 [facility] Comment on above: Performed By: #### C BC #### [facility] [address] [place] [address] Dr. Ishan Mason Eosinophils/100 WBC (Bld) 2.8 % Normal 0.9-7.0 [facility] Comment on above: Performed By: #### C BC #### [facility] [address] [place] [address] Dr. Ishan Mason Erythrocyte distribution width (RBC) [Ratio] 12.5 % Normal 11.0-15.0 [facility] Comment on above: Performed By: #### C BC #### [facility] [address] [place] [address] Dr. Ishan Mason Hematocrit (Bld) [Volume fraction] 41.8 % Normal 36.0-48.0 [facility] Comment on above: Performed By: #### C BC #### [facility] [address] [place] [address] Dr. Ishan Mason Hemoglobin (Bld) [Mass/Vol] 14.0 g/dL Normal 12.0-16.0 [facility] Comment on above: Performed By: #### C BC #### [facility] [address] [place] [address] Dr. Ishan Mason IG # 0.02 10e3/ul Normal 0.00-0.03 [facility] Comment on above: Performed By: #### C BC #### [facility] [address] [place] [address] Dr. Ishan Mason IG % 0.3 % Normal 0.0-0.5 [facility] Comment on above: Performed By: #### C BC #### [facility] [address] [place] [address] Dr. Ishan Mason LYMPH # 1.5 103/ul Normal 1.2-3.8 [facility] Comment on above: Performed By: #### C BC #### [facility] [address] [place] [address] Dr. Ishan Mason Lymphocytes/100 WBC (Bld) 21.1 % Normal 20.5-60.0 [facility] Comment on above: Performed By: #### C BC #### [facility] [address] [place] [address] Dr. Ishan Mason MANUAL DIFF REQ NO Normal [facility] Comment on above: Performed By: #### C BC #### [facility] [address] [place] [address] Dr. Ishan Mason MCH (RBC) [Entitic mass] 29.7 pg Normal 26.7-34.0 [facility] Comment on above: Performed By: #### C BC #### [facility] [address] [place] [address] Dr. Ishan Mason MCHC (RBC) [Mass/Vol] 33.5 g/dL Normal 29.9-35.2 [facility] Comment on above: Performed By: #### C BC #### [facility] [address] [place] [address] Dr. Ishan Mason MCV (RBC) [Entitic vol] 88.7 fL Normal 81.0-99.0 [facility] Comment on above: Performed By: #### C BC #### [facility] [address] [place] [address] Dr. Ishan Mason MONO # 0.5 103/ul Normal 0.3-0.8 [facility] Comment on above: Performed By: #### C BC #### [facility] [address] [place] [address] Dr. Ishan Mason Monocytes/100 WBC (Bld) 7.0 % Normal 1.7-12.0 [facility] Comment on above: Performed By: #### C BC #### [facility] [address] [place] [address] Dr. Ishan Mason NEUT # 4.8 103/ul Normal 1.4-6.5 [facility] Comment on above: Performed By: #### C BC #### [facility] [address] [address] [address] Ishan Mason Neutrophils/100 WBC (Bld) 67.8 % Normal 43.0-75.0 [facility] Comment on above: Performed By: #### C BC #### [facility] [address] [place] [address] Dr. Ishan Mason Platelet mean volume (Bld) [Entitic vol] 11.0 fL Normal 9.5-13.5 [facility] Comment on above: Performed By: #### C BC #### [facility] [address] [place] [address] Dr. Ishan Mason PLT 214 103/ul Normal 150-450 [facility] Comment on above: Performed By: #### C BC #### [facility] [address] [place] [address] Dr. Ishan Mason RBC 4.71 106/ul Normal 4.20-5.40 [facility] Comment on above: Performed By: #### C BC #### [facility] [address] [place] [address] Dr. Ishan Mason WBC 7.1 103/ul Normal 4.0-11.0 [facility] Comment on above: Performed By: #### C BC #### [facility] [address] [place] [address] Dr. Ishan Mason CREATININEon 03-23-2022 Creatinine [Mass/Vol] 0.85 mg/dL Normal 0.55-1.02 [facility] Comment on above: Performed By: #### S EDR #### [facility] [address] [place] [address] Dr. Ishan Mason EGFR-AF SWAZI >60 Normal >=60 [facility] Comment on above: Performed By: #### S EDR #### [facility] [address] [place] [address] Dr. Ishan Mason EGFR-NON AF SWAZI >60 Normal >=60 [facility] Comment on above: Performed By: #### S EDR #### [facility] [address] [place] [address] Dr. Ishan Mason EMG Electromyographyon 03-23 EMG Electromyography [id number] [id number] Normal [facility] LIVER PROFILEon 03-23-2022 Albumin [Mass/Vol] 3.8 g/dL Normal 3.4-5.0 [facility] Comment on above: Performed By: #### A 1C #### [facility] [address] [place] [address] Dr. Ishan Mason Albumin/Globulin [Mass ratio] 1.0 {ratio} Normal [facility] Comment on above: Performed By: #### A 1C #### [facility] [address] [place] [address] Dr. Ishan Mason ALP [Catalytic activity/Vol] 67 U/L Normal 46-116 [facility] Comment on above: Performed By: #### A 1C #### [facility] [address] [place] [address] Dr. Ishan Mason ALT [Catalytic activity/Vol] 33 U/L Normal 14-59 [facility] Comment on above: Performed By: #### A 1C #### [facility] [address] [place] [address] Dr. Ishan Mason AST [Catalytic activity/Vol] 28 U/L Normal 15-37 [facility] Comment on above: Performed By: #### A 1C #### [facility] [address] [place] [address] Dr. Ishan Mason BILI, CONJUGATED 0.1 mg/dL Normal 0.0-0.2 [facility] Comment on above: Performed By: #### A 1C #### [facility] [address] [place] [address] Dr. Ishan Mason Bilirubin [Mass/Vol] 0.6 mg/dL Normal 0.2-1.0 [facility] Comment on above: Performed By: #### A 1C #### [facility] [address] [place] [address] Dr. Ishan Mason Globulin (S) [Mass/Vol] 3.7 g/dL Normal [facility] Comment on above: Performed By: #### A 1C #### [facility] [address] [address] [address] Ishan Mason Protein [Mass/Vol] 7.5 g/dL Normal 6.4-8.2 [facility] Comment on above: Performed By: #### A 1C #### [facility] [id number] Ishan Mason SED RATE WESTERGRENon 2022 SED RATE 32 mm/hr Critically high <=20 [facility] Comment on above: Performed By: #### A 1C #### [facility] [address] [address] [address] Ishan Mason Consultation Noteon 03-18-19 Consultation Note [id number] 0CD:127 Normal [facility] Consultation Noteon 03-05-20 Consultation Note [id number] 0CD:127 Normal [facility] Consultation Noteon 02-17-20 Consultation Note [id number]#1.0 0CD:127 Normal [facility] MuSK ANITBODY TESTon 022 MuSK Antibodies <1.0 Normal [facility] Comment on above: Result Comment: Refe [...] 2014;52:90-100. 2. Stacey SMITH et al. PNAS 2013;110(05);99820-23038. 3. Mahad E et al. Neurology 2006;67:505-507. This test was developed and its performance characteristics determined by [employer]. It has not been cleared or approved by the Food and Drug Administration. Performed By: #### A 1C #### [facility] [address] [place] [address] Dr. Ishan Mason ACETYLCHOLINE RECEPTOR JOSE NG ABo 01-28-2022 AChR Binding Abs, Serum <0.03 Normal 0.00-0.24 [facility] Comment on above: Result Comment: Nega tive: 0.00 - 0.24 Borderline: 0.25 - 0.40 Positive: >0.40 Performed By: #### A CRBND #### [facility] [address] [place] [address] Dr. Ishan Mason CPKon 01-26-2022 CK [Catalytic activity/Vol] 88 U/L Normal 26-192 [facility] Comment on above: Performed By: #### S EDR #### [facility] [address] [place] [address] Dr. Ishan Mason SED RATE WESTERGREN 2021 SED RATE 34 mm/hr Critically high <=20 [facility] Comment on above: Performed By: #### C BC #### [facility] [address] [place] [address] Dr. Ishan Mason TSHon 01-26-2022 TSH 2.298 uIU/mL Normal 0.358-3.740 [facility] Comment on above: Performed By: #### S EDR #### [facility] [address] [place] [address] Dr. Ishan Mason VIT B12 AND FOLATEon Cobalamin (Vitamin B12) [Mass/Vol] 523.0 pg/mL Normal 193.0-986.0 [facility] Comment on above: Performed By: #### S EDR #### [facility] [address] [place] [address] Dr. Ishan Mason FOLATE 21.40 ng/mL Normal 8.60-58.90 [facility] Comment on above: Performed By: #### S EDR #### [facility] [address] [place] [address] Dr. Ishan Mason CBC AUTO DIFFon 01-15-2022 BASO # 0.0 103/ul Normal 0.0-0.1 [facility] Comment on above: Performed By: #### S EDR #### [facility] [address] [place] [address] Dr. Ishan Mason Basophils/100 WBC (Bld) 0.5 % Normal 0.2-2.0 [facility] Comment on above: Performed By: #### S EDR #### [facility] [address] [place] [address] Dr. Ishan Mason EO # 0.3 103/ul Normal 0.0-0.7 [facility] Comment on above: Performed By: #### S EDR #### [facility] [address] [place] [address] Dr. Ishan Mason Eosinophils/100 WBC (Bld) 4.9 % Normal 0.9-7.0 [facility] Comment on above: Performed By: #### S EDR #### [facility] [address] [place] [address] Dr. Ishan Mason Erythrocyte distribution width (RBC) [Ratio] 12.7 % Normal 11.0-15.0 [facility] Comment on above: Performed By: #### S EDR #### [facility] [address] [place] [address] Dr. Ishan Mason Hematocrit (Bld) [Volume fraction] 41.2 % Normal 36.0-48.0 [facility] Comment on above: Performed By: #### S EDR #### [facility] [address] [place] [address] Dr. Ishan Mason Hemoglobin (Bld) [Mass/Vol] 13.7 g/dL Normal 12.0-16.0 [facility] Comment on above: Performed By: #### S EDR #### [facility] [address] [place] [address] Dr. Ishan Mason IG # 0.01 10e3/ul Normal 0.00-0.03 [facility] Comment on above: Performed By: #### S EDR #### [facility] [address] [place] [address] Dr. Ishan Mason IG % 0.2 % Normal 0.0-0.5 [facility] Comment on above: Performed By: #### S EDR #### [facility] [address] [place] [address] Dr. Ishan Mason LYMPH # 2.3 103/ul Normal 1.2-3.8 [facility] Comment on above: Performed By: #### S EDR #### [facility] [address] [place] [address] Dr. Ishan Mason Lymphocytes/100 WBC (Bld) 40.2 % Normal 20.5-60.0 [facility] Comment on above: Performed By: #### S EDR #### [facility] [address] [place] [address] Dr. Ishan Mason MANUAL DIFF REQ NO Normal [facility] Comment on above: Performed By: #### S EDR #### [facility] [address] [place] [address] Dr. Ishan Mason MCH (RBC) [Entitic mass] 29.8 pg Normal 26.7-34.0 [facility] Comment on above: Performed By: #### S EDR #### [facility] [address] [place] [address] Dr. Ishan Mason MCHC (RBC) [Mass/Vol] 33.3 g/dL Normal 29.9-35.2 [facility] Comment on above: Performed By: #### S EDR #### [facility] [address] [place] [address] Dr. Ishan Mason MCV (RBC) [Entitic vol] 89.6 fL Normal 81.0-99.0 [facility] Comment on above: Performed By: #### S EDR #### [facility] [address] [place] [address] Dr. Ishan Mason MONO # 0.5 103/ul Normal 0.3-0.8 [facility] Comment on above: Performed By: #### S EDR #### [facility] [address] [place] [address] Dr. Ishan Mason Monocytes/100 WBC (Bld) 8.9 % Normal 1.7-12.0 [facility] Comment on above: Performed By: #### S EDR #### [facility] [address] [place] [address] Dr. Ishan Mason NEUT # 2.6 103/ul Normal 1.4-6.5 [facility] Comment on above: Performed By: #### S EDR #### [facility] [address] [place] [address] Dr. Ishan Mason Neutrophils/100 WBC (Bld) 45.3 % Normal 43.0-75.0 [facility] Comment on above: Performed By: #### S EDR #### [facility] [address] [place] [address] Dr. Ishan Mason Platelet mean volume (Bld) [Entitic vol] 10.3 fL Normal 9.5-13.5 [facility] Comment on above: Performed By: #### S EDR #### [facility] [address] [place] [address] Dr. Ishan Mason PLT 212 103/ul Normal 150-450 [facility] Comment on above: Performed By: #### S EDR #### [facility] [address] [place] [address] Dr. Ishan Mason RBC 4.60 106/ul Normal 4.20-5.40 [facility] Comment on above: Performed By: #### S EDR #### [facility] [address] [place] [address] Dr. Ishan Mason WBC 5.7 103/ul Normal 4.0-11.0 [facility] Comment on above: Performed By: #### S EDR #### [facility] [address] [place] [address] Dr. Ishan Mason CREATININEon 01-15-2022 Creatinine [Mass/Vol] 0.74 mg/dL Normal 0.55-1.02 [facility] Comment on above: Performed By: #### C KIRAN, LIVER #### [facility] [address] [place] [address] Dr. Ishan Mason EGFR-AF SWAZI >60 Normal >=60 [facility] Comment on above: Performed By: #### C KIRAN, LIVER #### [facility] [address] [place] [address] Dr. Ishan Mason EGFR-NON AF SWAZI >60 Normal >=60 [facility] Comment on above: Performed By: #### C KIRAN, LIVER #### [facility] [address] [place] [address] Dr. Ishan Mason LIVER PROFILEon 01-15-2022 Albumin [Mass/Vol] 3.6 g/dL Normal 3.4-5.0 [facility] Comment on above: Performed By: #### C KIRAN, LIVER #### [facility] [address] [place] [address] Dr. Ishan Mason Albumin/Globulin [Mass ratio] 1.0 {ratio} Normal [facility] Comment on above: Performed By: #### C KIRAN, LIVER #### [facility] [address] [place] [address] Dr. sIhan Mason ALP [Catalytic activity/Vol] 78 U/L Normal 46-116 [facility] Comment on above: Performed By: #### C KIRAN, LIVER #### [facility] [address] [place] [address] Dr. Ishan Mason ALT [Catalytic activity/Vol] 30 U/L Normal 14-59 [facility] Comment on above: Performed By: #### C KIRAN, LIVER #### [facility] [address] [place] [address] Dr. Ishan Mason AST [Catalytic activity/Vol] 14 U/L Critically low 15-37 [facility] Comment on above: Performed By: #### C KIRAN, LIVER #### [facility] [address] [place] [address] Dr. Ishan Mason BILI, CONJUGATED 0.1 mg/dL Normal 0.0-0.2 [facility] Comment on above: Performed By: #### C KIRAN, LIVER #### [facility] [address] [place] [address] Dr. Ishan Mason Bilirubin [Mass/Vol] 0.5 mg/dL Normal 0.2-1.0 [facility] Comment on above: Performed By: #### C KIRAN, LIVER #### [facility] [address] [place] [address] Dr. Ishan Mason Globulin (S) [Mass/Vol] 3.7 g/dL Normal [facility] Comment on above: Performed By: #### C KIRAN, LIVER #### [facility] [address] [place] [address] Dr. Ishan Mason Protein [Mass/Vol] 7.3 g/dL Normal 6.4-8.2 [facility] Comment on above: Performed By: #### C KIRAN, LIVER #### [facility] [address] [place] [address] Dr. Ishan Mason [facility] 23 mm/hr Critically high <=20 [facility] Comment on above: Performed By: #### S EDR #### [facility] [address] [place] [address] Dr. Ishan Mason Lab Reportson 12-05-2021 Lab Reports [id number]#1.0 0CD:127 Normal [facility] Lab Reports [id number] 0CD:127 Normal [facility] CBC AUTO DIFFon 12-04-2021 BASO # 0.0 103/ul Normal 0.0-0.1 [facility] Comment on above: Performed By: #### C BC #### [facility] [address] [place] [address] Dr. Ishan Mason Basophils/100 WBC (Bld) 0.7 % Normal 0.2-2.0 [facility] Comment on above: Performed By: #### C BC #### [facility] [address] [place] [address] Dr. Ishan Mason EO # 0.4 103/ul Normal 0.0-0.7 [facility] Comment on above: Performed By: #### C BC #### [facility] [address] [place] [address] Dr. Ishan Mason Eosinophils/100 WBC (Bld) 7.7 % Critically high 0.9-7.0 [facility] Comment on above: Performed By: #### C BC #### [facility] [address] [place] [address] Dr. Ishan Mason Erythrocyte distribution width (RBC) [Ratio] 12.6 % Normal 11.0-15.0 [facility] Comment on above: Performed By: #### C BC #### [facility] [address] [place] [address] Dr. Ishan Mason Hematocrit (Bld) [Volume fraction] 40.9 % Normal 36.0-48.0 [facility] Comment on above: Performed By: #### C BC #### [facility] [address] [place] [address] Dr. Ishan Mason Hemoglobin (Bld) [Mass/Vol] 13.4 g/dL Normal 12.0-16.0 [facility] Comment on above: Performed By: #### C BC #### [facility] [address] [place] [address] Dr. Ishan Mason IG # 0.01 10e3/ul Normal 0.00-0.03 [facility] Comment on above: Performed By: #### C BC #### [facility] [address] [place] [address] Dr. Ishan Mason IG % 0.2 % Normal 0.0-0.5 [facility] Comment on above: Performed By: #### C BC #### [facility] [address] [place] [address] Dr. Ishan Mason LYMPH # 2.1 103/ul Normal 1.2-3.8 [facility] Comment on above: Performed By: #### C BC #### [facility] [address] [place] [address] Dr. Ishan Mason Lymphocytes/100 WBC (Bld) 45.7 % Normal 20.5-60.0 [facility] Comment on above: Performed By: #### C BC #### [facility] [address] [place] [address] Dr. Ishan Mason MANUAL DIFF REQ NO Normal [facility] Comment on above: Performed By: #### C BC #### [facility] [address] [place] [address] Dr. Ishan Mason MCH (RBC) [Entitic mass] 29.8 pg Normal 26.7-34.0 [facility] Comment on above: Performed By: #### C BC #### [facility] [address] [place] [address] Dr. Ishan Mason MCHC (RBC) [Mass/Vol] 32.8 g/dL Normal 29.9-35.2 [facility] Comment on above: Performed By: #### C BC #### [facility] [address] [place] [address] Dr. Ishan Mason MCV (RBC) [Entitic vol] 91.1 fL Normal 81.0-99.0 [facility] Comment on above: Performed By: #### C BC #### [facility] [address] [place] [address] Dr. Ishan Mason MONO # 0.5 103/ul Normal 0.3-0.8 [facility] Comment on above: Performed By: #### C BC #### [facility] [address] [place] [address] Dr. Ishan Mason Monocytes/100 WBC (Bld) 10.8 % Normal 1.7-12.0 [facility] Comment on above: Performed By: #### C BC #### [facility] [address] [address] [address] Ishan Mason NEUT # 1.6 103/ul Normal 1.4-6.5 [facility] Comment on above: Performed By: #### C BC #### [facility] [address] [place] [address] Dr. Ishan Mason Neutrophils/100 WBC (Bld) 34.9 % Critically low 43.0-75.0 [facility] Comment on above: Performed By: #### C BC #### [facility] [address] [place] [address] Dr. Ishan Mason Platelet mean volume (Bld) [Entitic vol] 10.8 fL Normal 9.5-13.5 [facility] Comment on above: Performed By: #### C BC #### [facility] [address] [place] [address] Dr. Ishan Mason PLT 198 103/ul Normal 150-450 [facility] Comment on above: Performed By: #### C BC #### [facility] [address] [place] [address] Dr. Ishan Mason RBC 4.49 106/ul Normal 4.20-5.40 [facility] Comment on above: Performed By: #### C BC #### [facility] [address] [place] [address] Dr. Ishan Mason WBC 4.6 103/ul Normal 4.0-11.0 [facility] Comment on above: Performed By: #### C BC #### [facility] [address] [place] [address] Dr. Ishan Mason GLYCOHEMOGLOBIN A1Con 2021 ADA RECOMMENDATION SEE BELOW Normal [facility] Comment on above: Result Comment: ADA RECOMMENDED LIMIT 4.0 - 6.0 ADA THERAPEUTIC TARGET < 7.0 ACTION SUGGESTED > 7.0 Performed By: #### A 1C #### [facility] [address] [place] [address] Dr. Ishan Mason Glucose [Mass/Vol] 103 mg/dL Normal [facility] Comment on above: Performed By: #### A 1C #### [facility] [address] [place] [address] Dr. Ishan Mason HbA1c (Bld) [Mass fraction] 5.2 % Normal 4.5-6.2 [facility] Comment on above: Performed By: #### A 1C #### [facility] [address] [address] [address] Ishan Msaon LIPID PROFILEon 12-04-2021 CHOL-HDL RATIO NORM SEE BELOW Normal [facility] Comment on above: Result Comment: 3.3 - 4.4 LOW RISK 4.4 - 7.1 AVERAGE RISK 7.1 - 11.0 MODERATE RISK >11.0 HIGH RISK Performed By: #### C BC #### [facility] [address] [address] [address] Ishan Mason Cholesterol [Mass/Vol] 227 mg/dL Critically high <=200 [facility] Comment on above: Performed By: #### C BC #### [facility] [address] [address] [address] Ishan Mason Cholesterol in HDL [Mass/Vol] 78 mg/dL Critically high 40-60 [facility] Comment on above: Performed By: #### C BC #### [facility] [address] [address] [address] Ishan Mason Cholesterol in LDL [Mass/Vol] 130.8 mg/dL Normal [facility] Comment on above: Performed By: #### C BC #### [facility] [address] [address] [address] Ishan Mason Cholesterol.total/Chol esterol in HDL [Mass ratio] 2.9 {ratio} Normal [facility] Comment on above: Performed By: #### C BC #### [facility] [address] [address] [address] Ishan Mason HDL NORMAL > or = 60 mg/dl - LO W CARDIOVASCULAR RISK <40 mg/dl - HIGH CARDIOVASCULAR RISK Normal [facility] Comment on above: Performed By: #### C BC #### [facility] [address] [address] [address] Ishan Mason LDL CALC NORMAL SEE BELOW Normal [facility] Comment on above: Result Comment: <100 mg/dl OPTIMAL 100 - 129 mg/dl NEAR OR ABOVE OPTIMAL 130 - 159 mg/dl BORDERLINE HIGH 160 - 189 mg/dl HIGH >190 mg/dl VERY HIGH Performed By: #### C BC #### [facility] [address] [place] [address] Dr. Ishan Mason Triglyceride [Mass/Vol] 91 mg/dL Normal <=150 [facility] Comment on above: Performed By: #### C BC #### [facility] [address] [place] [address] Dr. Ishan Mason VLDL CALC 18.2 mg/dL Normal [facility] Comment on above: Performed By: #### C BC #### [facility] [address] [place] [address] Dr. Ishan Mason PROF 14(COMP METB)on 022 Albumin [Mass/Vol] 3.6 g/dL Normal 3.4-5.0 [facility] Comment on above: Performed By: #### A 1C #### [facility] [address] [place] [address] Dr. Ishan Mason Albumin/Globulin [Mass ratio] 1.0 {ratio} Normal [facility] Comment on above: Performed By: #### A 1C #### [facility] [address] [place] [address] Dr. Ishan Mason ALP [Catalytic activity/Vol] 60 U/L Normal 46-116 [facility] Comment on above: Performed By: #### A 1C #### [facility] [address] [place] [address] Dr. Ishan Mason ALT [Catalytic activity/Vol] 30 U/L Normal 14-59 [facility] Comment on above: Performed By: #### A 1C #### [facility] [address] [place] [address] Dr. Ishan Mason Anion gap [Moles/Vol] 9.1 mmol/L Normal [facility] Comment on above: Performed By: #### A 1C #### [facility] [address] [place] [address] Dr. Ishan Mason AST [Catalytic activity/Vol] 23 U/L Normal 15-37 [facility] Comment on above: Performed By: #### A 1C #### [facility] [address] [address] [address] Ishan Mason Bilirubin [Mass/Vol] 0.7 mg/dL Normal 0.2-1.0 [facility] Comment on above: Performed By: #### A 1C #### [facility] [address] [address] [address] Ishan Mason Calcium [Mass/Vol] 9.1 mg/dL Normal 8.5-10.1 [facility] Comment on above: Performed By: #### A 1C #### [facility] [address] [address] [address] Ishan Mason Chloride [Moles/Vol] 105 mmol/L Normal 98-107 [facility] Comment on above: Performed By: #### A 1C #### [facility] [address] [address] [address] Ishan Mason CO2 [Moles/Vol] 30.1 mmol/L Normal 21.0-32.0 [facility] Comment on above: Performed By: #### A 1C #### [facility] [address] [address] [address] Ishan Mason Creatinine [Mass/Vol] 0.71 mg/dL Normal 0.55-1.02 [facility] Comment on above: Performed By: #### A 1C #### [facility] [address] [address] [address] Ishan Mason EGFR-AF SWAZI >60 Normal >=60 [facility] Comment on above: Performed By: #### A 1C #### [facility] [address] [address] [address] Ishan Mason EGFR-NON AF SWAZI >60 Normal >=60 [facility] Comment on above: Performed By: #### A 1C #### [facility] [address] [address] Dr. Ishan Mason Globulin (S) [Mass/Vol] 3.6 g/dL Normal [facility] Comment on above: Performed By: #### A 1C #### [facility] [address] [address] [address] Ishan Mason Glucose [Mass/Vol] 102 mg/dL Normal 74-106 [facility] Comment on above: Performed By: #### A 1C #### [facility] [address] [address] [address] Ishan Mason Potassium [Moles/Vol] 4.2 mmol/L Normal 3.5-5.1 [facility] Comment on above: Performed By: #### A 1C #### [facility] [address] [address] [address] Ishan Mason Protein [Mass/Vol] 7.2 g/dL Normal 6.4-8.2 [facility] Comment on above: Performed By: #### A 1C #### [facility] [address] [place] [address] Dr. Ishan Mason Sodium [Moles/Vol] 140 mmol/L Normal 136-145 [facility] Comment on above: Performed By: #### A 1C #### [facility] [address] [place] [address] Dr. Ishan Mason Urea nitrogen [Mass/Vol] 9.0 mg/dL Normal 7.0-18.0 [facility] Comment on above: Performed By: #### A 1C #### [facility] [address] [place] [address] Dr. Ishan Mason Urea nitrogen/Creatinine [Mass ratio] 12.7 mg/mg Normal [facility] Comment on above: Performed By: #### A 1C #### [facility] [address] [place] [address] Dr. Ishan Mason TSHon 12-04-2021 TSH 1.369 uIU/mL Normal 0.358-3.740 [facility] Comment on above: Performed By: #### C BC #### [facility] [address] [place] [address] CHEST HI RESOLUTIONon [...] by: MARITO MEJIA Date: 2021-11-26 16:08 Normal [facility] Consultation Noteon 11-20-19 22 Consultation Note [id number] 0CD:127 Normal [facility] CBC AUTO DIFFon 11-12-2021 BASO # 0.0 103/ul Normal 0.0-0.1 [facility] Comment on above: Performed By: #### A 1C #### [facility] [address] [place] [address] Dr. Ishan Mason Basophils/100 WBC (Bld) 0.6 % Normal 0.2-2.0 [facility] Comment on above: Performed By: #### A 1C #### [facility] [address] [place] [address] Dr. Ishan Mason EO # 0.4 103/ul Normal 0.0-0.7 [facility] Comment on above: Performed By: #### A 1C #### [facility] [address] [place] [address] Dr. Ishan Mason Eosinophils/100 WBC (Bld) 6.1 % Normal 0.9-7.0 [facility] Comment on above: Performed By: #### A 1C #### [facility] [address] [place] [address] Dr. Ishan Mason Erythrocyte distribution width (RBC) [Ratio] 12.1 % Normal 11.0-15.0 [facility] Comment on above: Performed By: #### A 1C #### [facility] [address] [place] [address] Dr. Ishan Mason Hematocrit (Bld) [Volume fraction] 43.7 % Normal 36.0-48.0 [facility] Comment on above: Performed By: #### A 1C #### [facility] [address] [place] [address] Dr. Ishan Mason Hemoglobin (Bld) [Mass/Vol] 14.1 g/dL Normal 12.0-16.0 [facility] Comment on above: Performed By: #### A 1C #### [facility] [address] [place] [address] Dr. Ishan Mason IG # 0.02 10e3/ul Normal 0.00-0.03 [facility] Comment on above: Performed By: #### A 1C #### [facility] [address] [place] [address] Dr. Ishan Mason IG % 0.3 % Normal 0.0-0.5 [facility] Comment on above: Performed By: #### A 1C #### [facility] [address] [place] [address] Dr. Ishan Mason LYMPH # 2.9 103/ul Normal 1.2-3.8 [facility] Comment on above: Performed By: #### A 1C #### [facility] [address] [place] [address] Dr. Ishan Mason Lymphocytes/100 WBC (Bld) 41.6 % Normal 20.5-60.0 [facility] Comment on above: Performed By: #### A 1C #### [facility] [address] [place] [address] Dr. Ishan Mason MANUAL DIFF REQ NO Normal [facility] Comment on above: Performed By: #### A 1C #### [facility] [address] [place] [address] Dr. Ishan Mason MCH (RBC) [Entitic mass] 29.3 pg Normal 26.7-34.0 [facility] Comment on above: Performed By: #### A 1C #### [facility] [address] [place] [address] Dr. Ishan Mason MCHC (RBC) [Mass/Vol] 32.3 g/dL Normal 29.9-35.2 [facility] Comment on above: Performed By: #### A 1C #### [facility] [address] [place] [address] Dr. Ishan Mason MCV (RBC) [Entitic vol] 90.9 fL Normal 81.0-99.0 [facility] Comment on above: Performed By: #### A 1C #### [facility] [address] [place] [address] Dr. Ishan Mason MONO # 0.7 103/ul Normal 0.3-0.8 [facility] Comment on above: Performed By: #### A 1C #### [facility] [address] [place] [address] Dr. Ishan Mason Monocytes/100 WBC (Bld) 10.3 % Normal 1.7-12.0 [facility] Comment on above: Performed By: #### A 1C #### [facility] [address] [place] [address] Dr. Ishan Mason NEUT # 2.9 103/ul Normal 1.4-6.5 [facility] Comment on above: Performed By: #### A 1C #### [facility] [address] [place] [address] Dr. Ishan Mason Neutrophils/100 WBC (Bld) 41.1 % Critically low 43.0-75.0 [facility] Comment on above: Performed By: #### A 1C #### [facility] [address] [place] [address] Dr. Ishan Mason Platelet mean volume (Bld) [Entitic vol] 11.0 fL Normal 9.5-13.5 [facility] Comment on above: Performed By: #### A 1C #### [facility] [address] [place] [address] Dr. Ishan Mason PLT 204 103/ul Normal 150-450 [facility] Comment on above: Performed By: #### A 1C #### [facility] [address] [place] [address] Dr. Ishan Mason RBC 4.81 106/ul Normal 4.20-5.40 [facility] Comment on above: Performed By: #### A 1C #### [facility] [address] [place] [address] Dr. Ishan Mason WBC 7.1 103/ul Normal 4.0-11.0 [facility] Comment on above: Performed By: #### A 1C #### [facility] [address] [place] [address] Dr. Ishan Mason CREATININEon 11-12-2021 Creatinine [Mass/Vol] 0.73 mg/dL Normal 0.55-1.02 [facility] Comment on above: Performed By: #### C BC #### [facility] [address] [place] [address] Dr. Ishan Mason EGFR-AF SWAZI >60 Normal >=60 [facility] Comment on above: Performed By: #### C BC #### [facility] [address] [place] [address] Dr. Ishan Mason EGFR-NON AF SWAZI >60 Normal >=60 [facility] Comment on above: Performed By: #### C BC #### [facility] [address] [place] [address] Dr. Ishan Mason LIVER PROFILEon 11-12-2021 Albumin [Mass/Vol] 4.0 g/dL Normal 3.4-5.0 [facility] Comment on above: Performed By: #### C BC #### [facility] [address] [place] [address] Dr. Ishan Mason Albumin/Globulin [Mass ratio] 1.0 {ratio} Normal [facility] Comment on above: Performed By: #### C BC #### [facility] [address] [place] [address] Dr. Ishan Mason ALP [Catalytic activity/Vol] 75 U/L Normal 46-116 [facility] Comment on above: Performed By: #### C BC #### [facility] [address] [place] [address] Dr. Ishan Mason ALT [Catalytic activity/Vol] 30 U/L Normal 14-59 [facility] Comment on above: Performed By: #### C BC #### [facility] [address] [address] [address] Ishan Mason AST [Catalytic activity/Vol] 23 U/L Normal 15-37 [facility] Comment on above: Performed By: #### C BC #### [facility] [address] [address] [address] Ishan Mason BILI, CONJUGATED 0.1 mg/dL Normal 0.0-0.2 [facility] Comment on above: Performed By: #### C BC #### [facility] [address] [address] [address] Ishan Mason Bilirubin [Mass/Vol] 0.7 mg/dL Normal 0.2-1.0 [facility] Comment on above: Performed By: #### C BC #### [facility] [address] [place] [address] Dr. Ishan Mason Globulin (S) [Mass/Vol] 4.0 g/dL Normal [facility] Comment on above: Performed By: #### C BC #### [facility] [address] [address] [address] Ishan Mason Protein [Mass/Vol] 8.0 g/dL Normal 6.4-8.2 [facility] Comment on above: Performed By: #### C BC #### [facility] [address] [address] [address] Ish[facility] 15 mm/hr Normal <=20 [facility] Comment on above: Performed By: #### A 1C #### [facility] [address] [place] [address] Dr. Ishan Mason Outside Mammographyon 2021 Outside Mammography [id number] 0CD:127 Normal [facility] MG MAMM SCREEN 3D ROOSE[place]ELT CADon 11-06-2021 MG MAMM SCREEN 3D OROSEVELT CAD Patient: VELASQUEZ BOUCHER Exam Date: 11/06/2021 : 1970 Gender:F Ordering : DR JUAN C HOPE Admission #: [id number] Family : Order #: [id number] CLICK HERE TO VIEW EXAM RADIOLOGY REPORT [...] tongue cancer at age 59. LOCATION: [facility] BREAST COMPOSITION: Scattered areas fibroglandular density. [...] Mejia M.D. on 11/06/2021 at 15:37 Normal [facility] HEMOGLOBINon 11-05-2021 Hemoglobin (Bld) [Mass/Vol] 13.6 g/dL Normal 12.0-16.0 [facility] Comment on above: Performed By: #### C BC #### [facility] [address] [address] [address] Ishan Mason Ambulatory Visit Summaryon 0 [...] tablet) fluticasone nasal (fluticasone 0.05 mg/inh Nasal [place]) hydroxychloroquine lactobacillus acidophilus (Acidophilus Probiotic Blend oral [...] screening mammogram for breast cancer, pp_set_radiology_subsp ecialty, [facility] Medications What How Much When Instructions Unchanged abatacept (Orencia ClickJect 125 mg/ mL subcutaneous solution) Unchanged calcium carbonate (calcium 500 mg Tab) By Mouth Every day Unchanged cetirizine (Zyrtec) 10 Milligram By Mouth Every day Unchanged cholecalciferol (Vitamin D3 2000 intl units oral tablet) 1 Tablets By Mouth Every day Unchanged fluticasone nasal (fluticasone 0.05 mg/ inh Nasal [place]) 2 Sprays Nasal Inhalation Every day each [...] Sinus congestion Swollen tongue Normal [facility] Medicine Office/Clini c Noteon 10-08-2021 Family Medicine [...] directed. Mammogram completed last on 11/03/20 at [facility], (ordered today). Due for PAP/pelvic exam. [...] Once, # 1 tab(s), Refills(s) 1, Pharmacy: [facility]/pharmacy #[id number], 158, cm, 02/16/21 15:39:00 EST, Height/Length Dosing, 94, kg, 02/16/21 15:39:00 EST, Weight Dosing predniSONE, 0 = 1 -, Oral, As Directed, Take 5 tabs by mouth daily x3 days, 4 daily x3 days, 3 daily x3 days, 2 daily x3 days, then 1 tab daily x3 days., # 45 tab(s), Refills(s) 0, Pharmacy: [facility]/pharmacy #[id number], 158, cm, 02/16/21 15:39:00 EST, Height/Length Dosing... Follow-up With When Contact Information Juan C HOPE DO, FAM In [address] [place] [address]- Additional Instructions: Problem List/Past Medical History Ongoing BMI 38.0-38.9,adult Encounter for screening mammogram for breast cancer Preventative health care Rheumatoid Arthritis Historical No qualifying data Procedure/Surgical History None. Medications Acidophilus Probiotic Blend oral capsule, Oral, Daily B Complex 100 calcium 500 mg Tab, Oral, Daily fluticasone 0.05 mg/inh Nasal [place], 2 spray(s), Nasal, Daily, 3 refills hydroxychloroquine, [...] mRNA-1273 vacci (more content not included)... Normal [facility] Comment on above: Result Comment: Elec tronically Signed By: Juan C HOPE DO\.br\Date and Time Signed: 10/08/21 21:58 EDT Covid-19 PCR (CVDTB)on 09-11 SARS-CoV-2 (COVID-19) RNA MARICEL+probe Ql (Unsp spec) Detected Critically abnormal NOT DETECTED [facility] Comment on above: Result Comment: This test is not yet approved or cleared by the [place] FDA. When there are no FDA-approved or cleared tests available, and other criteria are met, FDA can make tests available under an emergency access mechanism called an Emergency Use Authorization (EUA). The EUA for this test is supported by the [employer] of Health and Human Service's declaration that [...] used). Performed By: #### A 1C #### [facility] [address] [place] [address] Dr. Ishan Mason CBC AUTO DIFFon 07-01-2021 BASO # 0.0 103/ul Normal 0.0-0.1 [facility] Comment on above: Performed By: #### S EDR #### [facility] [address] [place] [address] Dr. Ishan Mason Basophils/100 WBC (Bld) 0.5 % Normal 0.2-2.0 [facility] Comment on above: Performed By: #### S EDR #### [facility] [address] [place] [address] Dr. Ishan Mason EO # 0.2 103/ul Normal 0.0-0.7 [facility] Comment on above: Performed By: #### S EDR #### [facility] [address] [place] [address] Dr. Ishan Mason Eosinophils/100 WBC (Bld) 3.4 % Normal 0.9-7.0 [facility] Comment on above: Performed By: #### S EDR #### [facility] [address] [place] [address] Dr. Ishan Mason Erythrocyte distribution width (RBC) [Ratio] 12.7 % Normal 11.0-15.0 [facility] Comment on above: Performed By: #### S EDR #### [facility] [address] [place] [address] Dr. Ishan Mason Hematocrit (Bld) [Volume fraction] 42.6 % Normal 36.0-48.0 [facility] Comment on above: Performed By: #### S EDR #### [facility] [address] [place] [address] Dr. Ishan Mason Hemoglobin (Bld) [Mass/Vol] 13.6 g/dL Normal 12.0-16.0 [facility] Comment on above: Performed By: #### S EDR #### [facility] [address] [place] [address] Dr. Ishan Mason IG # 0.01 10e3/ul Normal 0.00-0.03 [facility] Comment on above: Performed By: #### S EDR #### [facility] [address] [address] [address] Ishan Mason IG % 0.2 % Normal 0.0-0.5 [facility] Comment on above: Performed By: #### S EDR #### [facility] [address] [place] [address] Dr. Ishan Mason LYMPH # 2.0 103/ul Normal 1.2-3.8 [facility] Comment on above: Performed By: #### S EDR #### [facility] [address] [place] [address] Dr. Ishan Mason Lymphocytes/100 WBC (Bld) 34.7 % Normal 20.5-60.0 [facility] Comment on above: Performed By: #### S EDR #### [facility] [address] [place] [address] Dr. Ishan Mason MANUAL DIFF REQ NO Normal [facility] Comment on above: Performed By: #### S EDR #### [facility] [address] [place] [address] Dr. Ishan Mason MCH (RBC) [Entitic mass] 29.9 pg Normal 26.7-34.0 [facility] Comment on above: Performed By: #### S EDR #### [facility] [address] [place] [address] Dr. Ishan Mason MCHC (RBC) [Mass/Vol] 31.9 g/dL Normal 29.9-35.2 [facility] Comment on above: Performed By: #### S EDR #### [facility] [address] [place] [address] Dr. Ishan Mason MCV (RBC) [Entitic vol] 93.6 fL Normal 81.0-99.0 [facility] Comment on above: Performed By: #### S EDR #### [facility] [address] [place] [address] Dr. Ishan Mason MONO # 0.7 103/ul Normal 0.3-0.8 [facility] Comment on above: Performed By: #### S EDR #### [facility] [address] [place] [address] Dr. Ishan Mason Monocytes/100 WBC (Bld) 12.1 % Critically high 1.7-12.0 [facility] Comment on above: Performed By: #### S EDR #### [facility] [address] [place] [address] Dr. Ishan Mason NEUT # 2.9 103/ul Normal 1.4-6.5 [facility] Comment on above: Performed By: #### S EDR #### [facility] [address] [place] [address] Dr. Ishan Mason Neutrophils/100 WBC (Bld) 49.1 % Normal 43.0-75.0 [facility] Comment on above: Performed By: #### S EDR #### [facility] [address] [place] [address] Dr. Ishan Mason Platelet mean volume (Bld) [Entitic vol] 11.1 fL Normal 9.5-13.5 [facility] Comment on above: Performed By: #### S EDR #### [facility] [address] [place] [address] Dr. Ishan Mason PLT 177 103/ul Normal 150-450 [facility] Comment on above: Performed By: #### S EDR #### [facility] [address] [place] [address] Dr. Ishan Mason RBC 4.55 106/ul Normal 4.20-5.40 [facility] Comment on above: Performed By: #### S EDR #### [facility] [address] [place] [address] Dr. Ishan Mason WBC 5.9 103/ul Normal 4.0-11.0 [facility] Comment on above: Performed By: #### S EDR #### [facility] [address] [place] [address] Dr. Ishan Mason CREATININEon 07-01-2021 Creatinine [Mass/Vol] 0.79 mg/dL Normal 0.52-1.04 [facility] Comment on above: Performed By: #### C KIRAN, LIVER #### [facility] [address] [place] [address] Dr. Ishan Mason EGFR-AF SWAZI >60 Normal >=60 [facility] Comment on above: Performed By: #### C KIRAN, LIVER #### [facility] [address] [place] [address] Dr. Ishan Mason EGFR-NON AF SWAZI >60 Normal >=60 [facility] Comment on above: Performed By: #### C KIRAN, LIVER #### [facility] [address] [place] [address] Dr. Ishan Mason LIVER PROFILEon 07-01-2021 Albumin [Mass/Vol] 3.6 g/dL Normal 3.4-5.0 [facility] Comment on above: Performed By: #### C KIRAN, LIVER #### [facility] [address] [place] [address] Dr. Ishan Mason Albumin/Globulin [Mass ratio] 1.0 {ratio} Normal [facility] Comment on above: Performed By: #### C KIRAN, LIVER #### [facility] [address] [place] [address] Dr. Ishan Mason ALP [Catalytic activity/Vol] 60 U/L Normal 46-116 [facility] Comment on above: Performed By: #### C KIRAN, LIVER #### [facility] [address] [place] [address] Dr. Ishan Mason ALT [Catalytic activity/Vol] 27 U/L Normal 14-59 [facility] Comment on above: Performed By: #### C KIRAN, LIVER #### [facility] [address] [place] [address] Dr. Ishan Mason AST [Catalytic activity/Vol] 22 U/L Normal 15-37 [facility] Comment on above: Performed By: #### C KIRAN, LIVER #### [facility] [address] [place] [address] Dr. Ishan Mason BILI, CONJUGATED 0.1 mg/dL Normal 0.0-0.3 [facility] Comment on above: Performed By: #### C KIRAN, LIVER #### [facility] [address] [place] [address] Dr. Ishan Mason Bilirubin [Mass/Vol] 0.5 mg/dL Normal 0.2-1.3 [facility] Comment on above: Performed By: #### C KIRAN, LIVER #### [facility] [address] [address] [address] Ishan Mason Globulin (S) [Mass/Vol] 3.5 g/dL Normal [facility] Comment on above: Performed By: #### C KIRAN, LIVER #### [facility] [address] [address] [address] Ishan Mason Protein [Mass/Vol] 7.1 g/dL Normal 6.1-8.2 [facility] Comment on above: Performed By: #### C KIRAN, LIVER #### [facility] [address] [place] [address] Dr. Ishan Mason SED RATE [facility] 2021 SED RATE 5 mm/hr Normal <=20 [facility] Comment on above: Performed By: #### A 1C #### [facility] [address] [place] [address] Dr. Ishan Mason Vital Signs Date Time Vital Sign Value Performing Clinician Facility 01-24-2024 07:52-0500 Body height 158.8 cm Sofia Guera DO Work Phone: [facility] 01-24-2024 07:52-0500 Body mass index (BMI) [Ratio] 39.02 kg/m2 Sofia Guera DO Work Phone: [facility] 01-24-2024 07:52-0500 Body weight 98.34 kg Sofia Guera DO Work Phone: [facility] 01-24-2024 07:52-0500 Diastolic blood pressure 86 mm[Hg] Sofia Guera DO Work Phone: [facility] 01-24-2024 07:52-0500 Heart rate 77 /min Sofia Guera DO Work Phone: [facility] 01-24-2024 07:52-0500 SaO2% (BldA) [Mass fraction] 96 % Sofia Guera DO Work Phone: [facility] 01-24-2024 07:52-0500 Systolic blood pressure 132 mm[Hg] Sofia Guera DO Work Phone: [facility] 12-24-2020 15:00-0400 Body height 157.48 cm Conner Quinteros Other [employer] Other 12-24-2020 15:00-0400 Body mass index (BMI) [Ratio] 38.04 kg/m2 Conner Quinteros Other [employer] Other 12-24-2020 15:00-0400 Body temperature 98.4 [degF] Conner Quinteros Other [employer] Other 12-24-2020 15:00-0400 Body weight 94.35 kg Conner Quinteros Other [employer] Other 12-24-2020 15:00-0400 Diastolic blood pressure 95 mm[Hg] Conner Quinteros Other [employer] Other 12-24-2020 15:00-0400 Respiratory rate 18 /min Conner Quinteros Other [employer] Other 12-24-2020 15:00-0400 Systolic blood pressure 145 mm[Hg] Conner Quinteros Other [employer] Other Encounters Encounter Date Encounter Type Care Provider Facility Start: 01-24-2024 End: 01-24-2024 Bamboo flowsheet Sofia Guera DO Work Phone: [facility] Start: 01-24-2024 End: 01-24-2024 Bamboo flowsheet Sofia Guera DO Work Phone: [facility] Start: 01-24-2024 End: 01-24-2024 Office outpatient visit 25 minutes Sofia Sousa DO Work Phone: [facility] Comment on above: AGA (obstructive sle ep apnea) (Primary Dx); Paresthesia of skin; Carpal tunnel syndrome, bilateral; Hypersomnia; Hypoxia Start: 01-24-2024 End: 01-24-2024 ambulatory SOFIA GUERA Not Available Start: 09-26-2023 End: 09-26-2023 ambulatory SREE CAMERON Not Available Start: 07-12-2023 End: 07-12-2023 ambulatory SOFIA GUERA Not Available Start: 06-24-2022 End: 06-25-[address] HERMINIA PEÑA Facility:[facility] Start: 06-22-2022 End: 06-23-[address] MARITO MEJIA Facility:[facility] Start: 03-31-2022 End: 04-01-[address] JUAN C HOPE Facility:[facility] Start: 03-23-2022 End: 03-24-[address] JUAN C OHPE Facility:[facility] Start: 02-24-2022 End: 02-25-[address] JUAN C HOPE Facility:[facility] Start: 01-26-2022 End: 01-27-[address] JUAN C HOPE Facility:[facility] Start: 01-15-2022 End: 01-16-[address] JUAN C HOPE Facility:[facility] Start: 12-09-2021 Encounter for genera l adult medical examination without abnormal findings DR JUAN C HOPE [facility] Start: 12-04-2021 End: 12-05-[address] JUAN C HOPE Facility:[facility] Start: 12-04-2021 End: 12-05-2021 Encounter for general adult medical examination without abnormal findings DR JUAN C HOPE Facility:[facility] Start: 11-26-2021 End: 11-27-2021 ambulatory ALDAIR Sanchez Facility:[facility] Start: 11-12-2021 End: 11-13-[address] JUAN C HOPE Facility:[facility] Start: 11-06-2021 End: 11-07-[address] MARITO MEJIA Facility:[facility] Start: 11-05-2021 End: 11-06-[address] HERMINIA PEÑA Facility:[facility] Start: 10-08-2021 End: 10-09-2021 ambulatory Juan C HOPE Facility:[facility] Start: 09-28-2021 End: 09-29-2021 ambulatory RUFINA Marcelino DOMONIQUEMANJINDER Facility:[facility] Start: 09-28-2021 End: 09-28-2021 ambulatory CATRACHITA KAY Facility: Start: 09-28-2021 ambulatory RUFINA LOVING Facility:[facility] Start: 09-15-2021 ambulatory Juan C HOPE Facilit y:[facility] Start: 09-07-2021 ambulatory RUFINA LOVING Facility:[facility] [place] Start: 07-01-2021 End: 07-02-[address] HERMINIA PEÑA Facility: Start: 12-24-2020 Office outpatient vi sit 25 minutes Conner ZAVALA Infectious Disease Plan of Treatment Date Care Activity Detail Author Start: 12-19-2026 Screening for malign ant neoplasm of colon [facility] Start: 01-22-2025 End: 01-22-2025 Patient encounter procedure 01/22/2025 8:00 AM EST Office Visit [facility] [address] [place] [address] Sofia Sousa [address] [place] [address] [facility] Start: 06-27-2024 End: 06-27-2024 Patient encounter procedure 06/27/2024 2:30 PM EDT Office Visit [facility] [address] [place] [phone] Sree Cameron DO [address] [place] [address] [facility] Start: 11-13-2023 Influenza vaccination Influenza Vacc ine (#1) [facility] Start: 2012 Screening for malign ant neoplasm of breast Mammogram [facility] Start: 2002 Screening for malign ant neoplasm of cervix [facility] Start: 1993 Screening for malign ant neoplasm of cervix Pap Smear [facility] Start: 1972 Screening for malign ant neoplasm of colon [facility] Immunizations Immunization Date Immunization Notes Care Provider Fa romy 02-15-2023 tetanus toxoid, redu noy diphtheria toxoid, and acellular pertussis vaccine, adsorbed Sofia Sousa DO Work Phone: [facility] 05-29-2020 pneumococcal conjuga te vaccine, 13 valent Sofia Sousa DO Work Phone: [facility] 01-10-2009 novel influenza-H1N1 -09, preservative-free, injectable Sofia Sousa DO Work Phone: [facility] Payers Date Payer Category Payer [facility] [id number] 2022 Unknown [id number] 2019 Unknown [id number] [id number] 1972 Unknown [id number] 2.16.840.1.824615.3.579.2. 1972 Unknown [id number] 2.16840.1.867840.3.579.2. 1972 Unknown [id number] 2.16.840.1.482615.3.579.2. 1972 Unknown [id number] 2.16.840.1.130795.3.579.2. 1972 Unknown [id number] 2.16.840.1.488911.3.579.2. 1972 Unknown [id number] 2.16.840.1.592691.3.579.2. 727 1972 Unknown [id number] 2.16.840.1.388318.3.579.2. 727 1972 Unknown [id number] 2.16.840.1.195254.3.579.2. 727 1972 Unknown [id number] 2.16.840.1.741539.3.579.2. 593 1972 Unknown [id number] 2.16.840.1.910542.3.579.2. 593 1972 Unknown [id number] 2.16.840.1.053039.3.579.2. 593 1972 Unknown [id number] 2.16840.1.640934.3.579.2. 593 1972 Unknown [id number] 2.16840.1.869066.3.579.2. 593 1972 Unknown [id number] 2.16.840.1.584643.3.579.2. 593 1972 Unknown [id number] 2.16840.1.294678.3.579.2. 593 1972 Unknown [id number] 2.16840.1.897765.3.579.2. 593 1972 Unknown [id number] 2.16840.1.185340.3.579.2. 593 1972 Unknown [id number] 2.16.840.1.621516.3.579.2. 593 1972 Unknown [id number] 2.16.840.1.759755.3.579.2. 593 1972 Unknown [id number] 2.16.840.1.827813.3.579.2. 593 1972 Unknown [id number] 2.16.840.1.500256.3.579.2. 593 1972 Unknown [id number] 2.16.840.1.733658.3.579.2. 593 1972 Unknown [id number] 2.16.840.1.394770.3.579.2. 1259 1972 Unknown [id number] 2.16.840.1.039002.3.579.2. 1259 1972 Unknown [id number] 2.16.840.1.398370.3.579.2. 1259 Social History Date Type Detail Facility Unknown if ever smoked [facility] Other Start: 01-24-2024 Sex Assigned At N [facility] Other Start: 12-28-2022 Tobacco smoking stat [facility] Never smoked tobacco [facility] Start: 12-28-2022 Tobacco use and exposure Smokeless tobacco non-user [facility] Start: 01-24-2024 Alcoholic beverage intake Ex-drinker (finding) [facility] Start: 01-24-2024 History of Social function [facility] Start: 06-28-2023 Alcohol Comment Caffeine intak e: 1-2 cups per day [facility] Start: 1972 Sex assigned at Not on file N [facility] History of Present illness Narrative 01-24-2024 Sofia Sousa DO - 01/24/2024 8:00 AM EST Note Date & Type Note Facility 01-24-2024 History of Presen t illness Narrative Chief Complaint Patient presents with Sleep Apnea Subjective Velasquez Boucher, 53 y.o., female is here for a follow up. Pt states that she still has the tingling and numbness in her hands on occasion, she states that it is more at night. Pt states that she is sleeping good, she is wearing her machine. She states that she can fall asleep on her recliner at times. She is getting about 4-6 hrs. She will sleep for about 1-2 hours in the recliner before she goes to bed. Her memory is doing well She is feeling rested She does fall asleep in the recliner for a bit 2+ hours then goes to bed. She feels more awake and her thought process is doing well. No other new issues other than her RA is flaring up. She has some increased stress. She lost her job in September. She was at the [facility] and she was part of the mass exodus. She was under a lot of stress. Past Medical History: Diagnosis Date Arthritis 2006 Autoimmune disorder (CMS/HCC) CTS (carpal tunnel syndrome) Dry eyes 2021 Hypertension (CMS/HCC) Latent tuberculosis Long-term use of hydroxychloroquine 2007 200mg BID AGA (obstructive sleep apnea) BIPAP Personal history of rheumatoid arthritis Uveitis 2019 Past Surgical History: Procedure Laterality Date MULTIPLE TOOTH EXTRACTIONS 12/2022 Family History Problem Relation Name Age of Onset Glaucoma Mother Elizabth Young Alzheimer's disease Mother Elizabth Young Cancer Mother Elizabth Young Hypertension Mother Elizabth Young Coronary artery disease Mother Elizabth Young Emphysema Father Alcohol abuse Sibling Rheum arthritis Sibling Asthma Sibling Cancer Sibling Hypertension Sibling Coronary artery disease Sibling Cancer Brother Elier Boucher- lung cancer Cancer Brother Matthew Boucher- throat and tongue cancer Stroke Brother Conner Gaines Social History Tobacco Use Smoking status: Never Smokeless tobacco: Never Substance Use Topics Alcohol use: Not Currently Comment: Caffeine intake: 1-2 cups per day Allergies: Methotrexate, Pregabalin, Ciprofloxacin, Sulfa antibiotics, and Sulfamethoxazole-trimethoprim Vitals: 01/24/24 0752 BP: 132/86 Pulse: 77 SpO2: 96% Body mass index is 39.02 kg/m . weight: 216 lb 12.8 oz Neurologic exam: Mental status: Awake, alert to person, place and time. Recent and remote memory are intact. Attention and concentration are normal. Fund of knowledge is appropriate for level of education. HEENT: NC/AT Cranial nerves: CN II: Visual acuity is normal. Visual reagan full to confrontation. CN III, IV, : pupils equal round and reactive to light. Extraocular movements intact. No ptosis present. CN V: Facial sensation is normal. CN VII: Full and symmetric facial movement. CN VIII: Hearing is normal to finger rub bilaterally: CN IX and X: Palate elevates symmetrically. Normal gag reflex. CN XI: Shoulder shrug is normal bilaterally. CN XII: Tongue is midline without atrophy or fasciculation. Speech: Clear and fluent no aphasia or dysarthria Pronator drift: Negative bilateral upper extremity Coordination: Intact, no signs of dysmetria Good finger to nose and rapid alternating movements Sensory: Sensation is intact to light, temperature and vibratory touch throughout four extremities. Motor: LUE 5/5 RUE 5/5 LLE 5/5 RLE 5/5 Tone: Physiologic, no tremor, bradykinesia or rigidity DTR: Roosevelt Biceps, BR x Roosevelt Patellar x Gait: Normal to casual gait Romberg's Negative Review and summary of old records: Compliance download: patient using machine 100 percent of time greater than 4 hours with an average nightly usage of 5 hours and 52 minutes and residual AHI of 0.8 Assessment/Plan Diagnoses and all orders for this visit: AGA (obstructive sleep apnea) Paresthesia of skin Carpal tunnel syndrome, bilateral Hypersomnia Hypoxia 53-year-old female with a severe AGA with AHI of 35 With hypoxia down to 66 percent and is Compliant with Her CPAP machine. She is using it 100 percent of the time greater than 4 hours with an average nightly usage of 5 hours and 45 minutes and residual AHI of 0.5. She is sleeping for 1-2 hours in the chair before she actually goes to bed was counseled she should just go to bed. She was also having some abnormal PFTs with dyspnea of unknown etiology that appears to be stable. It is unclear if this may have been related to COVID. She has not had a new dyspnea. Patient does have a history of carpal tunnel syndrome and can have occasional numbness and tingling into her hands and she will wear her wrist splints at that time. This time it is stable. She does have underlying rheumatoid arthritis which certainly could be causing some symptoms and flares at certain times. Plan Continue to use the CPAP machine Compliance download was reviewed and as above. She is compliant Monitor for any worsening Regular exercise Stay gluten free and try autoimmune protocol diet Wear the cock-up wrist splints when her symptoms worsen The patient was counseled on the risks of stroke, VT, and sudden with AGA, along with the need for compliance with the CPAP/BiPAP treatment. Try to get to bed and not fall asleep in the recliner spend the hours on the machine in the bed The patient was counseled on proper sleep hygiene and adequate hours of sleep. The diagnosis was all discussed with the patient. All questions were answered and they agreed with the treatment plan. Patient will call if there are any new issues or questions. Pt has been fully educated on their diagnosis, treatment options, follow up plan, and return instructions Return to clinic: 6 months documented in this encounter [facility] Clinical Note 10-04-2021 Note Date & Type [...] leflunomide. However, she did talk to her title i coordinator and was told to discontinue these. The [...] interactive video communications from my office using [employer] due to the restrictions of the COVID-19 pandemic. No physical exam was conducted other than those areas of the body visible to telecommunications with the patient located at [address] [place] [address] [phone], with no one else in attendance. If [...] after patient or guardian consented to allow [employer] to record this visit. SILAS information technology specialist and provider reviewed before signing. SILAS: Cori Cherry. Follow-up With When Contact Information RUFINA LOVING CNP Only if needed [address] [place] [address] Additional Instructions: Patient Education COVID-19 Frequently Asked Questions COVID-19 Problem List/Past Medical History Ongoing BMI 38.0-38.9,adult Borderline abnormal thyroid function test COVID-19 Encounter for screening mammogram for breast cancer Non-smoker Painful mouth Preventative health care Sinus congestion Swollen tongue Historical Rheumatoid Arthritis Procedure/Surgical History None. Medications Acidophilus Probiotic Blend oral capsule, Oral, Daily calcium 500 mg Tab, Oral, Daily Flonase 0.05 mg/inh [place], 1 spray(s), Nasal, Daily fluconazole 150 mg Tab, 150 mg= 1 tab(s), Oral, Once, 1 refills fluticasone 0.05 mg/inh Nasal [place], 2 spray(s), Nasal, Daily, 3 refills hydroxychloroquine, 200 mg, Oral, Daily leflunomide, 20 mg, Oral, Daily Magic Mouth Wash, See Instructions, 2 refills metoprolol 50 mg ER Tab, 50 mg= 1 tab(s), Oral, Daily, 1 refills Orencia ClickJect 125 mg/mL subcutaneous solution Paxlovid 150 mg-100 mg oral tablet, See Instructions pred (more content not included)... [facility] Comment on above: Result Comment: Elec tronically [...] the coronavirus come from? In February 2019, [place] told the World Health Organization (WHO) of several cases of lung disease (human respiratory illness). These cases were linked to an open seafood and livestock market in the city of [facility]. The link to the seafood and livestock [...] naming World Health Organization (WHO): www.who.int/emergencies/diseases/novel-c oronavirus-2019/technical-guidance/tramaine mayera-hhy-qxviuojimtv-disease-(covid-2019)-a si-diz-ncwtf-jlqe-bzxnuv-kq Who is at risk for complications from [...] Samples may in (more content not included)... [facility] Evaluation note 12-24-2020 Note Date & Type Note Facility 12-24-2020 Evaluation note Encounter Date Diagnosis Assessment Notes Dec, Latent tuberculosis by blood test (ICD-10 - Z22.7) Dec, Rheumatoid arthritis (ICD-10 - M06.9) [employer] Other Evaluation note Note Date & Type Note Facility Evaluation note Diagnosis AGA (obstructive sleep apnea)- Primary Obstructive sleep apnea (adult) (pediatric) Paresthesia of skin Carpal tunnel syndrome, bilateral Carpal tunnel syndrome Hypersomnia Hypersomnia, unspecified Hypoxia Hypoxemia documented in this encounter [facility] History general Narrative - Reported Note Date & Type Note Facility History general Narrative - Reported Type Medical History RA Medical History HTN [employer] Other Summary Purpose Family History No Family History Records FoundNo Family History Records FoundNo Family History Records Found Advance Directives No Advanced Directives Records FoundNo Advanced Directives Records FoundNo Advanced Directives Records Found Additional Source Comments REASON FOR VISIT (unrecogniz ed section and content) Reason Comments Sleep Apnea INFORMATION SOURCE (unrecogn ized section and content) DATE CREATED AUTHOR 05/20/2022 [facility] DATE CREATED AUTHOR AUTHOR'S ORGANIZ ATION 06/30/2022 [facility] DATE CREATED AUTHOR AUTHOR'S ORGANIZ ATION 01/25/[address] 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 [address] Referring Physician Neurology 01/24/24 Twila Long NP [address] [place] [address] [phone] Referring Physician Family Medicine 01/24/24 Farm Im[employer] Engine Mechanic Relationship Specialty Start Date End Date Herminia Peña MD [address] [facility] [place] [phone] Referring Physician Rheumatology 09/26/23 Sofia Sousa DO [address] [place] [address] Referring Physician Neurology 01/24/24 Twila Long NP [address] [place] [address] [phone] Referring Physician Family Medicine 01/24/24 FOR RECORDS PERTAINING TO PATIENTS WHO ARE [...] BE BASED ON THE PRIMARY CLINICAL RECORDS. [facility] [facility]. provides no warranty or guarantee of the accuracy or completeness of information in this document.
[2024-05-14 13:37] LABS: Basophils Percent Auto 0.7 % (0.2-2.0); Eosinophils Absolute Auto 0.4 10^3/uL (0.0-0.7); Eosinophils Percent Auto 6.5 % (0.9-7.0); Hematocrit 42.9 % (36.0-48.0); Hemoglobin 14.3 g/dL (12.0-16.0); Immature Granulocytes Abs Auto 0.01 10^3/uL (0.00-0.03); Immature Granulocytes Pct Auto 0.2 % (0.0-0.5); Lymphocytes Absolute Auto 2.2 10^3/uL (1.2-3.8); Lymphocytes Percent Auto 38.2 % (20.5-60.0); Mean Corpuscular HGB Conc 33.3 g/dL (29.9-35.2); Mean Corpuscular Hemoglobin 30.6 pg (26.7-34.0); Mean Corpuscular Volume 91.7 fL (81.0-99.0); Mean Platelet Volume 10.9 fL (9.5-13.5); Monocytes Absolute Auto 0.6 10^3/uL (0.3-0.8); Monocytes Percent Auto 10.5 % (1.7-12.0); Neutrophils Absolute Auto 2.5 10^3/uL (1.4-6.5); Neutrophils Percent Auto 43.9 % (43.0-75.0); Platelet Count 202 10^3/uL (150-450); Red Blood Count 4.68 10^6/uL (4.20-5.40); Red Cell Distribution Width 12.2 % (11.0-15.0); White Blood Count 5.7 10^3/uL (4.0-11.0)
[2024-05-14 13:38] LABS: Alanine Aminotransferase 32 U/L (14-59); Albumin Level 3.8 g/dL (3.4-5.0); Alkaline Phosphatase 84 U/L (46-116); Aspartate Amino Transferase 25 U/L (15-37); Bilirubin Direct 0.1 mg/dL (0.0-0.2); Bilirubin Total 0.7 mg/dL (0.2-1.0); Estimated GFR (African America >60 (>=60 mL/min/1.73m^2); Estimated GFR (Non-African Ame >60 (>=60 mL/min/1.73m^2); Globulin 3.9 g/dL; Total Protein 7.7 g/dL (6.4-8.2)
[2024-05-14 13:41] LABS: Erythrocyte Sedimentation Rate 19 mm/hr (<=30)
== END 2024-05-14 12:49 | disposition home or self-care (01) ==
LOC: LAB 12:51
PROVIDERS: PCP Nurse Practitioner; Visit Provider Internal Medicine Rheumatology
DX: M05.79 Rheumatoid arthritis with rheumatoid factor of multiple sites without organ or systems involvement (principal); Z79.899 Other long term (current) drug therapy
CPT/HCPCS: 36415; 80076; 82565; 85025; 85652

== ENCOUNTER 2024-09-24 14:42 | Outpatient (OUT) | payer BC, SELFPAY ==
--- OUTSIDE RECORDS SUMMARY | 2024-09-24 14:52 | XMS_ITS | Clinical Summary ---
Author Organization [facility] Address [address] [place] [address] Care Team Providers Care Field Supervisor Seed Production Name Role Phone Abad Peña MD Unavailable Unavailable Tamara Sousa DO Unavailable [phone] Twila Long LITHOPLATE MAKER Unavailable Allergies Active Allergy Reactions Criticality Noted Date Comments Ciprofloxacin Rash Low 12/28/2022 Methotrexate Shortness of breath High 12/28/2022 Pregabalin Hallucinations,Other 12/28/2022 Sulfa Antibiotics Rash,Other Low 12/28/2022 Sulfamethoxazole-Trimethoprim Rash,Unknown Low 12/12 Medications Orencia ClickJect 125 MG/ML solution auto-injector Subcutaneous for 28 Days Active B Complex-Biotin- FA (Super B-50 B Complex) capsule as directed Orally Active cetirizine (ZyrTEC) 10 MG tablet 1 (one) time each day at the same time. Active fluticasone (Flonase) 50 MCG/ACT nasal spray 1 (one) time each day at the same time. Active hydroxychloroqu ine (Plaquenil) 200 MG tablet Take 1 tablet by mouth in the morning and 1 tablet in the evening. Take with meals. Active leflunomide (Arava) 20 MG tablet TAKE 1 TABLET BY MOUTH EVERY DAY REMEMBER LABS Oral for 90 Days Active metoprolol succinate XL (Toprol-XL) 50 MG 24 hr tablet Take 1 tablet by mouth Active Multiple Vitamin (Multi Vitamin) tablet 1 (one) time each day at the same time. Active predniSONE (Deltasone) 5 MG tablet TAKE 1 TABLET BY MOUTH ON DAY 1, OR TWO DAYS A WEEKS NEEDED Oral PRN for 15 days Active Saccharomyces boulardii (probiotic) 250 MG capsule as directed Orally Active acetaminophen (Tylenol) 500 MG tablet Take 2 tablets by mouth if needed Active Calcium Carbonate-Vitam in D (OSCAL 500/200 D-3 PO) Take 1 tablet by mouth Daily Active Active Problems Problem Noted Date Diagnosed Date Epiretinal membrane (ERM) of left eye 06/27/2024 AGA (obstructive sleep apnea) 06/28/2023 Paresthesia of skin 06/28/2023 Carpal tunnel syndrome of left wrist 06/28/2023 Carpal tunnel syndrome of right wrist 06/28/2023 Obesity 06/28/2023 Hypertension 06/28/2023 Long-term use of hydroxychloroquine 12/28/2022 Dry eyes 12/28/2022 Blepharitis of upper and lower eyelids of both e yes 12/28/2022 Encounters Date Type Department Care Team Description 06/27/2024 2:30 PM EDT Office Visit [facility] [address] [place] [phone] Andrzej Cameron DO Epiretinal membrane (ERM) of left eye (Primary Dx); Long-term use of hydroxychloroquine; Dry eyes; Blepharitis of upper and lower eyelids of both eyes, unspecified type 06/27/2024 Bamboo flowsheet [facility] [address] [place] [phone] Andrzej Cameron DO 06/27/2024 Travel 06/26/2024 Travel from Last 3 Months Immunizations Immunization Administration Dates Next Due Novel [id number], preservative-free 01/10 Pneumococcal Conjugate PCV 13 05/29/2020 Tdap 02/15/2023 Family History Medical History Relation Name Comments Cancer Brother 1 Elier Young- lung cancer Cancer Brother 2 Matthew Young- throat and aung ue cancer Stroke Brother 3 Conner Liana Emphysema Father Alzheimer's disease Mother Sarah Young Cancer Mother Sarah Boucher Coronary artery disease Mother Sarah Boucher Glaucoma Mother Sarah Boucher Hypertension Mother Sarah Boucher Alcohol abuse Sibling Asthma Sibling Cancer Sibling Coronary artery disease Sibling Hypertension Sibling Rheum arthritis Sibling Relation Name Status Comments Brother 1 Elier Young- lung cancer Brother 2 Matthew Boucher- throat and tongue cancer Brother 3 Conner Gaines Father Mother Sarah Boucher Sibling Social History Tobacco Use Types Packs/Day Years Used Date Smoking Tobacco: Never Smokeless Tobacco: Never Tobacco Cessation:Counseling Given: Not Answered Alcohol Use Standard Drinks/Week Comments Not Currently 0 (1 standard drink = 0.6 oz pure alcohol) Caffeine intake: 1-2 cups per day Comments Unknown Sex and Gender Information Value Date Recorded Sex Assigned at Not on file Legal Sex Female 8:35 PM EDT Gender Identity Not on file Sexual Orientation Not on file Last Filed Vital Signs Vital Sign Reading Time Taken Comments Blood Pressure 132/86 01/24/2024 7:52 AM EST Pulse 77 01/24/2024 7:52 AM EST Temperature - - Respiratory Rate 16 07/12/2023 8:13 AM EDT Oxygen Saturation 96% 01/24/2024 7:52 AM EST Inhaled Oxygen Concentration - - Weight 98.3 kg (216 lb 12.8 oz) 01/24/2024 7:52 AM EST Height 158.8 cm (5' 2.5 ) 01/24/2024 7:52 AM EST Body Mass Index 39.02 01/24/2024 7:52 AM EST Plan of Treatment Upcoming Encounters Date Type Department Care Team (Late st Contact Info) Description 07/03/2025 2:30 PM EDT Office Visit [facility] [address] [place] [phone] Andrzej Cameron, [address] [place] [address] Health Maintenance Due Date Last Done Comments CT Colonography 1972 Colonoscopy 1972 FIT 1972 FOBT 1972 Sigmoidoscopy 1972 Pap Smear 1993 Cervical Cancer Screening 2002 HPV/Cotest 2002 Mammogram 2012 Influenza Vaccine (#1) 2024 01/24/2024 Colorectal Cancer Screening 12/19/2026 FIT-DNA 12/19/2026 12/20/2023, 09/30/2020 Procedures Procedure Name Priority Date/Time Associated Diagnosis Comments SHAFER VISUAL FIELD - OU - BOTH EYES Routine 06/27/2024 3:34 PM EDT Long-term use of hydroxychloroquine OCT, RETINA - OU - BOTH EYES Routine 06/27/2024 3:34 PM EDT Epiretinal membrane (ERM) of left eye from Last 3 Months Results * Shafer Visual Field - OU - Both Eyes (06/27/2024 3:34 PM EDT) Anatomical Region Laterality Modality Head Visual Field Narrative 06/27/2024 3:34 PM EDT Right Eye Reliability was good. Progression has been stable. Foveal threshold was normal. Findings include normal observations. Left Eye Reliability was good. Progression has been stable. Foveal threshold was normal. Findings include normal observations. Andrzej Cameron DO OPHTH VISUAL FIELD Final Re sult * OCT, Retina - OU - Both Eyes (06/27/2024 3:34 PM EDT) Anatomical Region Laterality Modality Head Optical Coherenc e Tomography Narrative 06/27/2024 3:34 PM EDT Right Eye Quality was good. Scan locations included subfoveal. Progression has been stable. Findings include normal observations. Left Eye Quality was good. Scan locations included subfoveal. Progression has been stable. Findings include normal observations. Notes Good scan with normal appearance FAF stable Andrzej Cameron DO OPHTH TOMOGRAPHY Edited Res ult - Final from Last 3 Months Insurance [facility] Care Teams Field Supervisor Seed Production Relationship Specialty Start Date End Date Abad Peña MD Referring Physician Rheumatology 09/26/23 Tamara Sousa DO [address] [place] [address] Referring Physician Neurology 01/24/24 Twila Long NP [address] [place] [phone] Referring Physician Family Medicine 01/24/24
--- OUTSIDE RECORDS SUMMARY | 2024-09-24 15:28 | XMS_ITS | CCD ---
Author Organization [facility] CliniSyil Care Team Providers Care Cotton Stomper Name Role Phone Conner Quinteros Unavailable RUFINA LOVING Attending Unavailable JAYY, Juan C Varghese Attending Unavailable RUFINA LOVING Attending Unavailable Juan C HOPE Attending Unavailable MARIANA, DR HOPE Consulting Unavailable [...] Care Unavailable MARIANA, DR HOPE Attending Unavailable MEJIAADAMichael, DR HOPE [...] Varghese Primary Care Unavailable MARIANA, DR HOPE Consulting Unavailable MARIANA, DR HOPE Attending Unavailable MARIANA, DR HOPE Admitting Unavailable JAYY, DR JUAN C Varghese Primary Care Unavailable JORDY, DR MARITO [place] Consulting Unavailable MARIANA, DR HOPE Attending Unavailable MARIANA, DR HOPE Admitting Unavailable JAYY, DR JUAN C Varghese Primary Care Unavailable HALADAMichael, DR HOPE Consulting Unavailable JAYY, DR JUAN C Varghese Primary Care Unavailable [facility], DR BAEZ Admitting Unavailable [facility], DR BAEZ Attending Unavailable MARIANA, DR HOPE Consulting Unavailable JORDY, DR MARITO Cuba Consulting Unavailable JAYY, DR JUAN C Varghese Primary Care Unavailable JAYY, DR JUAN C Varghese Attending Unavailable JAYY, DR JUAN C Varghese Admitting Unavailable JAYY, DR JUAN C Varghese Consulting Unavailable Mariana SANCHES, Herminia Michael Unavailable Sofia Lynne DO Unavailable Ethan SECURITY DIRECTOR, Twila Unavailable SOFIA LYNNE Attending Unavailable SREE CAMERON Attending Unavailable SOFIA LYNNE Attending Unavailable SREE CAMERON Attending Unavailable Allergies Allergy Classification Reported Allergen(s) Allergy Type Date of Onset Reaction(s) Facility (7 sources) Ciprofloxacin; Translations: [ciprofloxacin] Drug Allergy 12-29-19 Rash [facility] (1 source) pregabalin Drug Allergy Unknown [facility] Other (6 sources) Sulfamethoxazole / Trimethoprim Drug Allergy 12-29-19 Rash, Unknown [facility] Other (6 sources) Methotrexate; Translations: [methotrexate] Drug Allergy 12-29-19 Shortness of breath [facility] (1 source) pregabalin; Translations: [Lyrica] Drug Allergy [facility] (1 source) Sulfamethoxazole; Translations: [sulfamethoxazole] Drug Allergy [facility] (1 source) Sulfamethoxazole / Trimethoprim; Translations: [Bactrim] Drug Allergy [facility] (1 source) Ciprofloxacin Drug Allergy [facility] (1 source) Sulfonamides (Antibiotic) Drug allergy (disorder) [facility] (5 sources) Pregabalin Allergy to substance 12-29-19 Hallucinations , Other [facility] (5 sources) Sulfonamides (Antibiotic) Drug Allergy 12-29-19 Rash, Other [facility] Medications Current Medications Medication Drug Class(es) Dates Sig (Normalized) Sig (Original) 1 ml abatacept 125 mg/ml auto-injector (5 sources) Selective T Cell Costimulation Modulator Orencia ClickJect 125 MG/ML solution auto-injector Subcutaneous for 28 Days Active acetaminophen 500 mg oral tablet (5 sources) acetaminophen (Tylenol) 500 MG tablet Take 2 tablets by mouth if needed Active B Svfxkij-Malzax-VO (Super B-50 B Complex) capsule (5 sources) B Complex-Biotin -FA (Super B-50 B Complex) capsule as directed Orally Active Calcium Carbonate / Vitamin D (5 sources) Calcium Carbonate-Vitamin D (OSCAL 500/200 D-3 PO) Take 1 tablet by mouth Daily Active cetirizine hydrochloride 10 mg oral tablet (6 sources) Histamine-1 Receptor Antagonist cetirizine (ZyrTEC) 10 MG tablet 1 (one) time each day at the same time. Active ZyrTEC Allergy A ctive fluticasone propionate 0.05 mg/actuat metered dose nasal spray (6 sources) Corticosteroid fluticasone (Shlomo nase) 50 MCG/ACT nasal spray 1 (one) time each day at the same time. Active FLONASE Active hydroxychloroquine sulfate 200 mg oral tablet (6 sources) Antimalarial, Antirheumatic Agent take 1 tablet by mouth in the morning hydroxychloroquine (Plaquenil) 200 MG tablet Take 1 tablet by mouth in the morning and 1 tablet in the evening. Take with meals. Active leflunomide 20 mg oral tablet (6 sources) Antirheumatic Agent take 1 tablet by mouth once daily leflunomide (Arava) 20 MG tablet TAKE 1 TABLET BY MOUTH EVERY DAY REMEMBER LABS Oral for 90 Days Active 24 hr metoprolol succinate 50 mg extended release oral tablet (6 sources) beta-Adrenergic Joce take 1 tablet by mouth every twenty-four hours metoprolol succinate XL (Toprol-XL) 50 MG 24 hr tablet Take 1 tablet by mouth Active Metoprolol Tartr ate 50 MG 1QD Active Multiple Vitamin (Multi Vitamin) tablet (5 sources) Multiple Vitamin (Multi Vitamin) tablet 1 (one) time each day at the same time. Active Multivitamin preparation (1 source) Multivitamin Act arnoldo predniSONE 5 mg oral tablet (6 sources) take 1 tablet by candie th once daily as needed, then take 1 tablet by mouth every other day as needed predniSONE (Deltasone) 5 MG tablet TAKE 1 TABLET BY MOUTH ON DAY 1, OR TWO DAYS A WEEKS NEEDED Oral PRN for 15 days Active probiotic (1 source) probiotic Active saccharomyces boulardii 250 mg oral capsule (5 sources) Saccharomyces jairon ulardii (probiotic) 250 MG capsule as directed Orally Active Super B Complex (1 source) Super B Complex Active Completed/Discontinued Medications Medication Drug Class(es) Dates Sig (Normalized) Sig (Original) cholecalciferol 0.05 mg oral capsule (5 sources) Vitamin D End: 06-27-2024 take 1 capsule by mouth once daily cholecalciferol (Vitamin D-3) 50 MCG (1999) capsule TAKE 1 CAPSULE BY MOUTH EVERY DAY Oral for 90 Days 06/27/2024 Discontinued ciclesonide 0.05 mg/actuat metered dose nasal spray [...] mouth Daily 01/24/2024 Discontinued (Med list cleanup) [place]-3 Fatty Acids (GNP FISH OIL PO) (3 sources) End: 01-24-2024 take 1 tablet by mouth once daily [place]-3 Fatty Acids (GNP FISH OIL PO) Take 1 tablet by mouth Daily 01/24/2024 Discontinued (Med list cleanup) Problems Active Problems Problem Classification Problem Date Documented Da te Episodic/Chronic Essential hypertension (5 sources) Hypertensive disorder; Translations: [Essential (primary) hypertension] Onset: 06-28-2023 06-28-2023 Chronic Inflammation; infection of eye (except that caused by tuberculosis or sexually transmitteddisease) (6 sources) Blepharitis of upper and lower eyelids of bilateral eyes; Translations: [Unspecified blepharitis right eye, upper and lower eyelids] Onset: 12-28-2022 12-28-2022 Episodic Other aftercare (5 sources) Other joint terminal attack controller (current) drug therapy; Translations: [OTH GROUP HOME CURRENT DRUG THERAPY] Onset: 07-01-2021 Episodic Other aftercare (6 sources) Drug therapy finding; Translations: [Other detention (current) drug therapy] Onset: 12-28-2022 12-28-2022 Episodic Other connective tissue disease (1 source) Pain in left hand; Translations: [PAIN IN LEFT HAND] Onset: 06-28-2022 Episodic Other connective tissue disease (1 source) Pain in right hand; Translations: [PAIN IN RIGHT HAND] Onset: 06-28-2022 Episodic Other eye disorders (6 sources) Dry eyes; Translations: [Dry eye syndrome of bilateral lacrimal glands] Onset: 12-28-2022 12-28-2022 Episodic Other lower respiratory disease (4 sources) Pulmonary fibrosis, unspecified; Translations: [PULMONARY FIBROSIS UNSPECIFIED] Onset: 11-05-2021 Chronic Other lower respiratory disease (2 sources) Hypoxia; Translations: [Hypoxemia] 01-24-2024 Episodic Other nervous system disorders (5 sources) Carpal tunnel syndrome of left wrist; Translations: [Carpal tunnel syndrome, left upper limb] Onset: 06-28-2023 06-28-2023 Chronic Other nervous system disorders (5 sources) Carpal tunnel syndrome of right wrist; Translations: [Carpal tunnel syndrome, right upper limb] Onset: 06-28-2023 06-28-2023 Chronic Other nervous system disorders (2 sources) Bilateral carpal tunnel syndrome; Translations: [Carpal tunnel syndrome, bilateral upper limbs] 01-24-2024 Chronic Other nutritional; endocrine; and metabolic disorders (5 sources) Obesity; Translations: [Obesity, unspecified] Onset: 06-28-2023 06-28-2023 Chronic Residual codes; unclassified (4 sources) Obstructive sleep apnea (adult) (pediatric); Translations: [OBSTRUCTIVE SLEEP APNEA] Onset: 03-31-2022 Chronic Residual codes; unclassified (7 sources) Obstructive sleep apnea syndrome; Translations: [Obstructive sleep apnea (adult) (pediatric)] Onset: 06-28-2023 06-28-2023 Chronic Residual codes; unclassified (2 sources) Hypersomnia; Translations: [Hypersomnia, unspecified] 01-24-2024 Chronic Retinal detachments; defects; vascular occlusion; and retinopathy (2 sources) Epiretinal membrane of left eye; Translations: [Puckering of macula, left eye] Onset: 06-27-2024 06-27-2024 Chronic Rheumatoid arthritis and related disease (12 [...] Weakness; Translations: [WEAKNESS] Onset: 01-26-2022 Episodic Other nervous system disorders (7 sources) Paresthesia; Translations: [Paresthesia of skin] Onset: 06-28-2023 06-28-2023 Episodic Other screening for suspected conditions (not [...] Test Name Value Interpretation Reference Range Facility Optical coherence tomography study reporton 06-27-2024 [facility] Radiology Study observation (narrative) [facility] Perimetry studyon 06-27-2024 [facility] Radiology Study observation (narrative) [facility] CBC AUTO DIFFon 06-24-2022 BASO # 0.0 103/ul Normal 0.0-0.1 [facility] Comment on above: Performed By: #### S EDR #### [facility] [address] [address] [address] Ishan Mason Basophils/100 WBC (Bld) 0.8 % Normal 0.2-2.0 [facility] Comment on above: Performed By: #### S EDR #### [facility] [address] [address] [address] Ishan Mason EO # 0.3 103/ul Normal 0.0-0.7 [facility] Comment on above: Performed By: #### S EDR #### [facility] [address] [address] [address] Ishan Mason Eosinophils/100 WBC (Bld) 5.7 % Normal 0.9-7.0 [facility] Comment on above: Performed By: #### S EDR #### [facility] [address] [address] [address] Ishan Mason Erythrocyte distribution width (RBC) [Ratio] 12.6 % Normal 11.0-15.0 [facility] Comment on above: Performed By: #### S EDR #### [facility] [address] [place] [address] Dr. Ishan Mason Hematocrit (Bld) [Volume fraction] 40.6 % Normal 36.0-48.0 [facility] Comment on above: Performed By: #### S EDR #### [facility] [address] [place] [address] Dr. Ishan Mason Hemoglobin (Bld) [Mass/Vol] 13.4 g/dL Normal 12.0-16.0 [facility] Comment on above: Performed By: #### S EDR #### [facility] [address] [place] [address] Dr. Ishan Mason IG # 0.01 10e3/ul Normal 0.00-0.03 [facility] Comment on above: Performed By: #### S EDR #### [facility] [address] [place] [address] Dr. Ishna Mason IG % 0.2 % Normal 0.0-0.5 [facility] Comment on above: Performed By: #### S EDR #### [facility] [address] [place] [address] Dr. Ishan Mason LYMPH # 2.3 103/ul Normal 1.2-3.8 [facility] Comment on above: Performed By: #### S EDR #### [facility] [address] [place] [address] Dr. Ishan Mason Lymphocytes/100 WBC (Bld) 46.2 % Normal 20.5-60.0 [facility] Comment on above: Performed By: #### S EDR #### [facility] [address] [place] [address] Dr. Ishan Mason MANUAL DIFF REQ NO Normal [facility] Comment on above: Performed By: #### S EDR #### [facility] [address] [place] [address] Dr. Ishan Mason MCH (RBC) [Entitic mass] 30.0 pg Normal 26.7-34.0 [facility] Comment on above: Performed By: #### S EDR #### [facility] [address] [place] [address] Dr. Ishan Mason MCHC (RBC) [Mass/Vol] 33.0 g/dL Normal 29.9-35.2 [facility] Comment on above: Performed By: #### S EDR #### [facility] [address] [place] [address] Dr. Ishan Mason MCV (RBC) [Entitic vol] 90.8 fL Normal 81.0-99.0 [facility] Comment on above: Performed By: #### S EDR #### [facility] [address] [place] [address] Dr. Ishan Mason MONO # 0.5 103/ul Normal 0.3-0.8 [facility] Comment on above: Performed By: #### S EDR #### [facility] [address] [place] [address] Dr. Ishan Mason Monocytes/100 WBC (Bld) 10.8 % Normal 1.7-12.0 [facility] Comment on above: Performed By: #### S EDR #### [facility] [address] [place] [address] Dr. Ishan Mason NEUT # 1.8 103/ul Normal 1.4-6.5 [facility] Comment on above: Performed By: #### S EDR #### [facility] [address] [place] [address] Dr. Ishan Mason Neutrophils/100 WBC (Bld) 36.3 % Critically low 43.0-75.0 [facility] Comment on above: Performed By: #### S EDR #### [facility] [address] [place] [address] Dr. Ishan Mason Platelet mean volume (Bld) [Entitic vol] 11.0 fL Normal 9.5-13.5 [facility] Comment on above: Performed By: #### S EDR #### [facility] [address] [place] [address] Dr. Ishan Mason PLT 198 103/ul Normal 150-450 [facility] Comment on above: Performed By: #### S EDR #### [facility] [address] [place] [address] Dr. Ishan Mason RBC 4.47 106/ul Normal 4.20-5.40 [facility] Comment on above: Performed By: #### S EDR #### [facility] [address] [place] [address] Dr. Ishan Mason WBC 4.9 103/ul Normal 4.0-11.0 [facility] Comment on above: Performed By: #### S EDR #### [facility] [address] [place] [address] Dr. Ishan Mason CREATININEon 06-24-2022 Creatinine [Mass/Vol] 0.70 mg/dL Normal 0.55-1.02 [facility] Comment on above: Performed By: #### A 1C #### [facility] [address] [place] [address] Dr. Ishan Mason EGFR-AF SLOVAK >60 Normal >=60 [facility] Comment on above: Performed By: #### A 1C #### [facility] [address] [place] [address] Dr. Ishan Mason EGFR-NON AF SLOVAK >60 Normal >=60 [facility] Comment on above: Performed By: #### A 1C #### [facility] [address] [place] [address] Dr. Ishan Mason LIVER PROFILEon 06-24-2022 Albumin [Mass/Vol] 3.6 g/dL Normal 3.4-5.0 [facility] Comment on above: Performed By: #### A 1C #### [facility] [address] [place] [address] Dr. Ishan Mason Albumin/Globulin [Mass ratio] 0.9 {ratio} Normal [facility] Comment on above: Performed By: #### A 1C #### [facility] [address] [place] [address] Dr. Ishan Mason ALP [Catalytic activity/Vol] 63 U/L Normal 46-116 [facility] Comment on above: Performed By: #### A 1C #### [facility] [address] [place] [address] Dr. Ishan Mason ALT [Catalytic activity/Vol] 32 U/L Normal 14-59 [facility] Comment on above: Performed By: #### A 1C #### [facility] [address] [address] [address] Ishan Mason AST [Catalytic activity/Vol] 23 U/L Normal 15-37 [facility] Comment on above: Performed By: #### A 1C #### [facility] [address] [place], [place] [address] Dr. Ishan Mason BILI, CONJUGATED 0.1 mg/dL Normal 0.0-0.2 [facility] Comment on above: Performed By: #### A 1C #### [facility] [address] [address] [address] Ishan Mason Bilirubin [Mass/Vol] 0.6 mg/dL Normal 0.2-1.0 [facility] Comment on above: Performed By: #### A 1C #### [facility] [address] [place] [address] Dr. Ishan Mason Globulin (S) [Mass/Vol] 3.9 g/dL Normal [facility] Comment on above: Performed By: #### A 1C #### [facility] [address] [address] [address] Ishan Mason Protein [Mass/Vol] 7.5 g/dL Normal 6.4-8.2 [facility] Comment on above: Performed By: #### A 1C #### [facility] [id number] Ishan Mason SED RATE [facility] 2022 SED RATE 17 mm/hr Normal <=20 [facility] Comment on above: Performed By: #### S EDR #### [facility] [address] [address] [address] Isahn Mason XR HAND [place] MIN 3Von 023 [...] MARITO MEJIA Date: 2022-06-23 11:43 Normal [facility] CBC AUTO DIFFon 03-23-2022 BASO # 0.1 103/ul Normal 0.0-0.1 [facility] Comment on above: Performed By: #### C BC #### [facility] [address] [place] [address] Dr. Ishan Mason Basophils/100 WBC (Bld) 1.0 % Normal 0.2-2.0 [facility] Comment on above: Performed By: #### C BC #### [facility] [address] [place] [address] Dr. Ishan Mason EO # 0.2 103/ul Normal 0.0-0.7 [facility] Comment on above: Performed By: #### C BC #### [facility] [address] [place] [address] Dr. Ishan Mason Eosinophils/100 WBC (Bld) 2.8 % Normal 0.9-7.0 [facility] Comment on above: Performed By: #### C BC #### [facility] [address] [place] [address] Dr. Ishan Mason Erythrocyte distribution width (RBC) [Ratio] 12.5 % Normal 11.0-15.0 [facility] Comment on above: Performed By: #### C BC #### [facility] [address] [place] [address] Dr. Ishan Mason Hematocrit (Bld) [Volume fraction] 41.8 % Normal 36.0-48.0 [facility] Comment on above: Performed By: #### C BC #### [facility] [address] [place] [address] Dr. Ishan Mason Hemoglobin (Bld) [Mass/Vol] 14.0 g/dL Normal 12.0-16.0 [facility] Comment on above: Performed By: #### C BC #### [facility] [address] [place] [address] Dr. Ishan Mason IG # 0.02 10e3/ul Normal 0.00-0.03 [facility] Comment on above: Performed By: #### C BC #### [facility] [address] [place] [address] Dr. sIhan Mason IG % 0.3 % Normal 0.0-0.5 [facility] Comment on above: Performed By: #### C BC #### [facility] [address] [place] [address] Dr. Ishan Mason LYMPH # 1.5 103/ul Normal 1.2-3.8 [facility] Comment on above: Performed By: #### C BC #### [facility] [address] [place] [address] Dr. Ishan Mason Lymphocytes/100 WBC (Bld) 21.1 % Normal 20.5-60.0 [facility] Comment on above: Performed By: #### C BC #### [facility] [address] [place] [address] Dr. Ishan Mason MANUAL DIFF REQ NO Normal [facility] Comment on above: Performed By: #### C BC #### [facility] [address] [place] [address] Dr. Ishan Mason MCH (RBC) [Entitic mass] 29.7 pg Normal 26.7-34.0 [facility] Comment on above: Performed By: #### C BC #### [facility] [address] [place] [address] Dr. Ishan Mason MCHC (RBC) [Mass/Vol] 33.5 g/dL Normal 29.9-35.2 [facility] Comment on above: Performed By: #### C BC #### [facility] [address] [place] [address] Dr. Ishan Mason MCV (RBC) [Entitic vol] 88.7 fL Normal 81.0-99.0 [facility] Comment on above: Performed By: #### C BC #### [facility] [address] [place] [address] Dr. Ishan Mason MONO # 0.5 103/ul Normal 0.3-0.8 [facility] Comment on above: Performed By: #### C BC #### [facility] [address] [place] [address] Dr. Ishan Mason Monocytes/100 WBC (Bld) 7.0 % Normal 1.7-12.0 [facility] Comment on above: Performed By: #### C BC #### [facility] [address] [place] [address] Dr. Ishan Mason NEUT # 4.8 103/ul Normal 1.4-6.5 [facility] Comment on above: Performed By: #### C BC #### [facility] [address] [place] [address] Dr. Ishan Mason Neutrophils/100 WBC (Bld) 67.8 % Normal 43.0-75.0 [facility] Comment on above: Performed By: #### C BC #### [facility] [address] [place] [address] Dr. Ishan Mason Platelet mean volume (Bld) [Entitic vol] 11.0 fL Normal 9.5-13.5 [facility] Comment on above: Performed By: #### C BC #### [facility] [address] [place] [address] Dr. Ishan Mason PLT 214 103/ul Normal 150-450 [facility] Comment on above: Performed By: #### C BC #### [facility] [address] [place] [address] Dr. Ishan Mason RBC 4.71 106/ul Normal 4.20-5.40 [facility] Comment on above: Performed By: #### C BC #### [facility] [address] [place] [address] Dr. Ishan Mason WBC 7.1 103/ul Normal 4.0-11.0 [facility] Comment on above: Performed By: #### C BC #### [facility] [address] [place] [address] Dr. Ishan Mason CREATININEon 03-23-2022 Creatinine [Mass/Vol] 0.85 mg/dL Normal 0.55-1.02 [facility] Comment on above: Performed By: #### S EDR #### [facility] [address] [place] [address] Dr. Ishan Mason EGFR-AF SLOVAK >60 Normal >=60 [facility] Comment on above: Performed By: #### S EDR #### [facility] [address] [place] [address] Dr. Ishan Mason EGFR-NON AF SLOVAK >60 Normal >=60 [facility] Comment on above: Performed By: #### S EDR #### [facility] [address] [place] [address] Dr. Ishan Mason EMG Electromyographyon 03-23 EMG Electromyography [id number]:127 Normal [facility] LIVER PROFILEon 03-23-2022 Albumin [Mass/Vol] 3.8 g/dL Normal 3.4-5.0 [facility] Comment on above: Performed By: #### A 1C #### [facility] [address] [place] [address] Dr. Ishan Mason Albumin/Globulin [Mass ratio] 1.0 {ratio} Normal [facility] Comment on above: Performed By: #### A 1C #### [facility] [address] [place] [address] Dr. Ishan Mason ALP [Catalytic activity/Vol] 67 U/L Normal 46-116 [facility] Comment on above: Performed By: #### A 1C #### [facility] [address] [place] [address] Dr. Ishan Mason ALT [Catalytic activity/Vol] 33 U/L Normal 14-59 [facility] Comment on above: Performed By: #### A 1C #### [facility] [address] [place] [address] Dr. Ishan Mason AST [Catalytic activity/Vol] 28 U/L Normal 15-37 [facility] Comment on above: Performed By: #### A 1C #### [facility] [address] [place] [address] Dr. Ishan Mason BILI, CONJUGATED 0.1 mg/dL Normal 0.0-0.2 [facility] Comment on above: Performed By: #### A 1C #### [facility] [address] [place] [address] Dr. Ishan Mason Bilirubin [Mass/Vol] 0.6 mg/dL Normal 0.2-1.0 [facility] Comment on above: Performed By: #### A 1C #### [facility] [address] [place] [address] Dr. Ishan Mason Globulin (S) [Mass/Vol] 3.7 g/dL Normal [facility] Comment on above: Performed By: #### A 1C #### [facility] [address] [place] [address] Dr. Ishan Mason Protein [Mass/Vol] 7.5 g/dL Normal 6.4-8.2 [facility] Comment on above: Performed By: #### A 1C #### [facility] [address] [place] [address] Dr. Ishan Mason SED RATE [facility] 2022 SED RATE 32 mm/hr Critically high <=20 [facility] Comment on above: Performed By: #### A 1C #### [facility] [address] [place] [address] Dr. Ishan Mason Consultation Noteon 03-18-19 Consultation Note [id number]:127 Normal [facility] Consultation Noteon 03-05-20 Consultation Note [id number] .[id number]:127 Normal [facility] Consultation Noteon 02-17-20 Consultation Note [id number]:127 Normal [facility] MuSK ANITBODY TESTon 022 MuSK Antibodies <1.0 Normal [facility] Comment on above: Result Comment: Refe [...] 2014;52:90-100. 2. Stacey SMITH et al. PNAS 2013;110(81);[id number]. 3. Barryi E et al. Neurology 2006;67:505-507. This test was developed and its performance characteristics determined by [facility]. It has not been cleared or approved by the Food and Drug Administration. Performed By: #### A 1C #### [facility] [address] [place] [address] Dr. Ishan Mason ACETYLCHOLINE RECEPTOR JOSE [facility] 01-28-2022 AChR Binding Abs, Serum <0.03 Normal 0.00-0.24 [facility] Comment on above: Result Comment: Nega tive: 0.00 - 0.24 Borderline: 0.25 - 0.40 Positive: >0.40 Performed By: #### A CRBND #### [facility] [address] [place] [address] Dr. Ishan Mason CPKon 01-26-2022 CK [Catalytic activity/Vol] 88 U/L Normal 26-192 [facility] Comment on above: Performed By: #### S EDR #### [facility] [address] [address] [address] Ishan Mason SED RATE [facility] 2021 SED RATE 34 mm/hr Critically high <=20 [facility] Comment on above: Performed By: #### C BC #### [facility] [address] [place] [address] Dr. Ishan Mason TSHon 01-26-2022 TSH 2.298 uIU/mL Normal 0.358-3.740 [facility] Comment on above: Performed By: #### S EDR #### [facility] [address] [place] [address] Dr. Ishan Mason VIT B12 AND FOLATEon 022 Cobalamin (Vitamin B12) [Mass/Vol] 523.0 pg/mL Normal 193.0-986.0 [facility] Comment on above: Performed By: #### S EDR #### [facility] [address] [place] [address] Dr. Ishan Msaon FOLATE 21.40 ng/mL Normal 8.60-58.90 [facility] Comment on above: Performed By: #### S EDR #### [facility] [address] [place] [address] Dr. Ishan Mason CBC AUTO DIFFon 01-15-2022 BASO # 0.0 103/ul Normal 0.0-0.1 [facility] Comment on above: Performed By: #### S EDR #### [facility] [address] [place] [address] Dr. Ishan Mason Basophils/100 WBC (Bld) 0.5 % Normal 0.2-2.0 [facility] Comment on above: Performed By: #### S EDR #### [facility] [address] [place] [address] Dr. Ishan Mason EO # 0.3 103/ul Normal 0.0-0.7 [facility] Comment on above: Performed By: #### S EDR #### [facility] [address] [place] [address] Dr. Ishan Mason Eosinophils/100 WBC (Bld) 4.9 % Normal 0.9-7.0 [facility] Comment on above: Performed By: #### S EDR #### [facility] [address] [place] [address] Dr. Ishan Mason Erythrocyte distribution width (RBC) [Ratio] 12.7 % Normal 11.0-15.0 [facility] Comment on above: Performed By: #### S EDR #### [facility] [address] [place] [address] Dr. Ishan Mason Hematocrit (Bld) [Volume fraction] 41.2 % Normal 36.0-48.0 [facility] Comment on above: Performed By: #### S EDR #### [facility] [address] [place] [address] Dr. Ishan Mason Hemoglobin (Bld) [Mass/Vol] 13.7 g/dL Normal 12.0-16.0 [facility] Comment on above: Performed By: #### S EDR #### [facility] [address] [place] [address] Dr. Ishan Mason IG # 0.01 10e3/ul Normal 0.00-0.03 [facility] Comment on above: Performed By: #### S EDR #### [facility] [address] [place] [address] Dr. Ishan Mason IG % 0.2 % Normal 0.0-0.5 [facility] Comment on above: Performed By: #### S EDR #### [facility] [address] [place] [address] Dr. Ishan Mason LYMPH # 2.3 103/ul Normal 1.2-3.8 [facility] Comment on above: Performed By: #### S EDR #### [facility] [address] [place] [address] Dr. Ishan Mason Lymphocytes/100 WBC (Bld) 40.2 % Normal 20.5-60.0 [facility] Comment on above: Performed By: #### S EDR #### [facility] [address] [place] [address] Dr. Ishan Mason MANUAL DIFF REQ NO Normal [facility] Comment on above: Performed By: #### S EDR #### [facility] [address] [place] [address] Dr. Ishan Mason MCH (RBC) [Entitic mass] 29.8 pg Normal 26.7-34.0 [facility] Comment on above: Performed By: #### S EDR #### [facility] [address] [place] [address] Dr. Ishan Mason MCHC (RBC) [Mass/Vol] 33.3 g/dL Normal 29.9-35.2 [facility] Comment on above: Performed By: #### S EDR #### [facility] [address] [place] [address] Dr. Ishan Mason MCV (RBC) [Entitic vol] 89.6 fL Normal 81.0-99.0 [facility] Comment on above: Performed By: #### S EDR #### [facility] [address] [place] [address] Dr. Ishan Mason MONO # 0.5 103/ul Normal 0.3-0.8 [facility] Comment on above: Performed By: #### S EDR #### [facility] [address] [place] [address] Dr. Ishan Mason Monocytes/100 WBC (Bld) 8.9 % Normal 1.7-12.0 [facility] Comment on above: Performed By: #### S EDR #### [facility] [address] [place] [address] Dr. Ishan Mason NEUT # 2.6 103/ul Normal 1.4-6.5 [facility] Comment on above: Performed By: #### S EDR #### [facility] [address] [place] [address] Dr. Ishan Mason Neutrophils/100 WBC (Bld) 45.3 % Normal 43.0-75.0 [facility] Comment on above: Performed By: #### S EDR #### [facility] [address] [place] [address] Dr. Ishan Mason Platelet mean volume (Bld) [Entitic vol] 10.3 fL Normal 9.5-13.5 [facility] Comment on above: Performed By: #### S EDR #### [facility] [address] [place] [address] Dr. Ishan Mason PLT 212 103/ul Normal 150-450 [facility] Comment on above: Performed By: #### S EDR #### [facility] [address] [place] [address] Dr. Ishan Mason RBC 4.60 106/ul Normal 4.20-5.40 [facility] Comment on above: Performed By: #### S EDR #### [facility] [address] [place] [address] Dr. Ishan Mason WBC 5.7 103/ul Normal 4.0-11.0 [facility] Comment on above: Performed By: #### S EDR #### [facility] [address] [place] [address] Dr. Ishan Mason CREATININEon 01-15-2022 Creatinine [Mass/Vol] 0.74 mg/dL Normal 0.55-1.02 [facility] Comment on above: Performed By: #### C KIRAN LIVER #### [facility] [address] [place] [address] Dr. Ishan Mason EGFR-AF SLOVAK >60 Normal >=60 [facility] Comment on above: Performed By: #### C KIRAN LIVER #### [facility] [address] [place] [address] Dr. Ishan Mason EGFR-NON AF SLOVAK >60 Normal >=60 [facility] Comment on above: Performed By: #### C KIRAN LIVER #### [facility] [address] [place] [address] Dr. Ishan Mason LIVER PROFILEon 01-15-2022 Albumin [Mass/Vol] 3.6 g/dL Normal 3.4-5.0 [facility] Comment on above: Performed By: #### C KIRAN LIVER #### [facility] [address] [place] [address] Dr. Ishan Mason Albumin/Globulin [Mass ratio] 1.0 {ratio} Normal [facility] Comment on above: Performed By: #### C KIRAN LIVER #### [facility] [address] [place] [address] Dr. Ishan Mason ALP [Catalytic activity/Vol] 78 U/L Normal 46-116 [facility] Comment on above: Performed By: #### C KIRAN, LIVER #### [facility] [address] [place] [address] Dr. Ishan Mason ALT [Catalytic activity/Vol] 30 U/L Normal 14-59 [facility] Comment on above: Performed By: #### C KIRAN, LIVER #### [facility] [address] [place] [address] Dr. Ishan Mason AST [Catalytic activity/Vol] 14 U/L Critically low 15-37 [facility] Comment on above: Performed By: #### C KIRAN, LIVER #### [facility] [address] [place] [address] Dr. Ishan Mason BILI, CONJUGATED 0.1 mg/dL Normal 0.0-0.2 [facility] Comment on above: Performed By: #### C KIRAN, LIVER #### [facility] [address] [place] [address] Dr. Ishan Mason Bilirubin [Mass/Vol] 0.5 mg/dL Normal 0.2-1.0 [facility] Comment on above: Performed By: #### C KIRAN, LIVER #### [facility] [address] [place] [address] Dr. Ishan Mason Globulin (S) [Mass/Vol] 3.7 g/dL Normal [facility] Comment on above: Performed By: #### C KIRAN, LIVER #### [facility] [address] [place] [address] Dr. Ishan Mason Protein [Mass/Vol] 7.3 g/dL Normal 6.4-8.2 [facility] Comment on above: Performed By: #### C KIRAN, LIVER #### [facility] [address] [place] [address] Dr. Ishan Mason SED RATE [facility] 2021 SED RATE 23 mm/hr Critically high <=20 [facility] Comment on above: Performed By: #### S EDR #### [facility] [address] [address] [address] Ishan Mason Lab Reportson 12-05-2021 Lab Reports [id number] .[id number]:127 Normal [facility] Lab Reports [id number] .[id number]:127 Normal [facility] CBC AUTO DIFFon 12-04-2021 BASO # 0.0 103/ul Normal 0.0-0.1 [facility] Comment on above: Performed By: #### C BC #### [facility] [address] [place] [address] Dr. Ishan Mason Basophils/100 WBC (Bld) 0.7 % Normal 0.2-2.0 [facility] Comment on above: Performed By: #### C BC #### [facility] [address] [place] [address] Dr. Ishan Mason EO # 0.4 103/ul Normal 0.0-0.7 [facility] Comment on above: Performed By: #### C BC #### [facility] [address] [place] [address] Dr. Ishan Mason Eosinophils/100 WBC (Bld) 7.7 % Critically high 0.9-7.0 [facility] Comment on above: Performed By: #### C BC #### [facility] [address] [place] [address] Dr. Ishan Mason Erythrocyte distribution width (RBC) [Ratio] 12.6 % Normal 11.0-15.0 [facility] Comment on above: Performed By: #### C BC #### [facility] [address] [place] [address] Dr. Ishan Mason Hematocrit (Bld) [Volume fraction] 40.9 % Normal 36.0-48.0 [facility] Comment on above: Performed By: #### C BC #### [facility] [address] [place] [address] Dr. Ishan Mason Hemoglobin (Bld) [Mass/Vol] 13.4 g/dL Normal 12.0-16.0 [facility] Comment on above: Performed By: #### C BC #### [facility] [address] [place] [address] Dr. Ishan Mason IG # 0.01 10e3/ul Normal 0.00-0.03 [facility] Comment on above: Performed By: #### C BC #### [facility] [address] [place] [address] Dr. Ishan Mason IG % 0.2 % Normal 0.0-0.5 [facility] Comment on above: Performed By: #### C BC #### [facility] [address] [place] [address] Dr. Ishan Mason LYMPH # 2.1 103/ul Normal 1.2-3.8 [facility] Comment on above: Performed By: #### C BC #### [facility] [address] [place] [address] Dr. Ishan Mason Lymphocytes/100 WBC (Bld) 45.7 % Normal 20.5-60.0 [facility] Comment on above: Performed By: #### C BC #### [facility] [address] [place] [address] Dr. Ishan Mason MANUAL DIFF REQ NO Normal [facility] Comment on above: Performed By: #### C BC #### [facility] [address] [place] [address] Dr. Ishan Mason MCH (RBC) [Entitic mass] 29.8 pg Normal 26.7-34.0 [facility] Comment on above: Performed By: #### C BC #### [facility] [address] [place] [address] Dr. Ishan Mason MCHC (RBC) [Mass/Vol] 32.8 g/dL Normal 29.9-35.2 [facility] Comment on above: Performed By: #### C BC #### [facility] [address] [place] [address] Dr. Ishan Mason MCV (RBC) [Entitic vol] 91.1 fL Normal 81.0-99.0 [facility] Comment on above: Performed By: #### C BC #### [facility] [address] [place] [address] Dr. Ishan Mason MONO # 0.5 103/ul Normal 0.3-0.8 [facility] Comment on above: Performed By: #### C BC #### [facility] [address] [place] [address] Dr. Ishan Mason Monocytes/100 WBC (Bld) 10.8 % Normal 1.7-12.0 [facility] Comment on above: Performed By: #### C BC #### [facility] [address] [place] [address] Dr. Ishan Mason NEUT # 1.6 103/ul Normal 1.4-6.5 [facility] Comment on above: Performed By: #### C BC #### [facility] [address] [place] [address] Dr. Ishan Mason Neutrophils/100 WBC (Bld) 34.9 % Critically low 43.0-75.0 [facility] Comment on above: Performed By: #### C BC #### [facility] [address] [place] [address] Dr. Ishan Mason Platelet mean volume (Bld) [Entitic vol] 10.8 fL Normal 9.5-13.5 [facility] Comment on above: Performed By: #### C BC #### [facility] [address] [place] [address] Dr. Ishan Mason PLT 198 103/ul Normal 150-450 [facility] Comment on above: Performed By: #### C BC #### [facility] [address] [place] [address] Dr. Ishan Mason RBC 4.49 106/ul Normal 4.20-5.40 [facility] Comment on above: Performed By: #### C BC #### [facility] [address] [place] [address] Dr. Ishan Mason WBC 4.6 103/ul Normal 4.0-11.0 [facility] Comment on above: Performed By: #### C BC #### [facility] [address] [place] [address] Dr. Ishan Mason GLYCOHEMOGLOBIN A1Con 2021 ADA RECOMMENDATION SEE BELOW Normal [facility] Comment on above: Result Comment: ADA RECOMMENDED LIMIT 4.0 - 6.0 ADA THERAPEUTIC TARGET < 7.0 ACTION SUGGESTED > 7.0 Performed By: #### A 1C #### [facility] [address] [address] [address] Ishan Mason Glucose [Mass/Vol] 103 mg/dL Normal [facility] Comment on above: Performed By: #### A 1C #### [facility] [address] [address] [address] Ishan Mason HbA1c (Bld) [Mass fraction] 5.2 % Normal 4.5-6.2 [facility] Comment on above: Performed By: #### A 1C #### [facility] [address] [place] [address] Dr. Ishan Mason LIPID PROFILEon 12-04-2021 CHOL-HDL RATIO NORM SEE BELOW Normal [facility] Comment on above: Result Comment: 3.3 - 4.4 LOW RISK 4.4 - 7.1 AVERAGE RISK 7.1 - 11.0 MODERATE RISK >11.0 HIGH RISK Performed By: #### C BC #### [facility] [address] [place] [address] Dr. Ishan Mason Cholesterol [Mass/Vol] 227 mg/dL Critically high <=200 [facility] Comment on above: Performed By: #### C BC #### [facility] [address] [place] [address] Dr. Ishan Mason Cholesterol in HDL [Mass/Vol] 78 mg/dL Critically high 40-60 [facility] Comment on above: Performed By: #### C BC #### [facility] [address] [address] [address] Ishan Mason Cholesterol in LDL [Mass/Vol] 130.8 mg/dL Normal [facility] Comment on above: Performed By: #### C BC #### [facility] [address] [address] [address] Ishan Mason Cholesterol.total/Chol esterol in HDL [Mass ratio] 2.9 {ratio} Normal [facility] Comment on above: Performed By: #### C BC #### [facility] [address] [address] [address] Ishan Mason HDL NORMAL > or = 60 mg/dl - LO W CARDIOVASCULAR RISK <40 mg/dl - HIGH CARDIOVASCULAR RISK Normal [facility] Comment on above: Performed By: #### C BC #### [facility] [address] [place] [address] Dr. Ishan Mason LDL CALC NORMAL SEE BELOW Normal [facility] Comment on above: Result Comment: <100 mg/dl OPTIMAL 100 - 129 mg/dl NEAR OR ABOVE OPTIMAL 130 - 159 mg/dl BORDERLINE HIGH 160 - 189 mg/dl HIGH >190 mg/dl VERY HIGH Performed By: #### C BC #### [facility] [address] [place] [address] Dr. Ishan Mason Triglyceride [Mass/Vol] 91 mg/dL Normal <=150 [facility] Comment on above: Performed By: #### C BC #### [facility] [address] [place] [address] Dr. Ishan Mason VLDL CALC 18.2 mg/dL Normal [facility] Comment on above: Performed By: #### C BC #### [facility] [address] [place] [address] Dr. Ishan Mason PROF 14(COMP METB)on 022 Albumin [Mass/Vol] 3.6 g/dL Normal 3.4-5.0 [facility] Comment on above: Performed By: #### A 1C #### [facility] [address] [place] [address] Dr. Ishan Mason Albumin/Globulin [Mass ratio] 1.0 {ratio} Normal [facility] Comment on above: Performed By: #### A 1C #### [facility] [address] [place] [address] Dr. Ishan Mason ALP [Catalytic activity/Vol] 60 U/L Normal 46-116 [facility] Comment on above: Performed By: #### A 1C #### [facility] [address] [place] [address] Dr. Ishan Mason ALT [Catalytic activity/Vol] 30 U/L Normal 14-59 [facility] Comment on above: Performed By: #### A 1C #### [facility] [address] [address] [address] Ishan Mason Anion gap [Moles/Vol] 9.1 mmol/L Normal [facility] Comment on above: Performed By: #### A 1C #### [facility] [address] [address] [address] Ishan Mason AST [Catalytic activity/Vol] 23 U/L Normal 15-37 [facility] Comment on above: Performed By: #### A 1C #### [facility] [address] [place] [address] Dr. Ishan Mason Bilirubin [Mass/Vol] 0.7 mg/dL Normal 0.2-1.0 [facility] Comment on above: Performed By: #### A 1C #### [facility] [address] [place] [address] Dr. Ishan Mason Calcium [Mass/Vol] 9.1 mg/dL Normal 8.5-10.1 [facility] Comment on above: Performed By: #### A 1C #### [facility] [address] [place] [address] Dr. Ishan Mason Chloride [Moles/Vol] 105 mmol/L Normal 98-107 [facility] Comment on above: Performed By: #### A 1C #### [facility] [address] [place] [address] Dr. Ishan Mason CO2 [Moles/Vol] 30.1 mmol/L Normal 21.0-32.0 [facility] Comment on above: Performed By: #### A 1C #### [facility] [address] [place] [address] Dr. Ishan Mason Creatinine [Mass/Vol] 0.71 mg/dL Normal 0.55-1.02 [facility] Comment on above: Performed By: #### A 1C #### [facility] [address] [place] [address] Dr. Ishan Mason EGFR-AF SLOVAK >60 Normal >=60 [facility] Comment on above: Performed By: #### A 1C #### [facility] [address] [address] [address] Ishan Mason EGFR-NON AF SLOVAK >60 Normal >=60 [facility] Comment on above: Performed By: #### A 1C #### [facility] [address] [address] [address] Ishan Mason Globulin (S) [Mass/Vol] 3.6 g/dL Normal [facility] Comment on above: Performed By: #### A 1C #### [facility] [address] [address] [address] Ishan Mason Glucose [Mass/Vol] 102 mg/dL Normal 74-106 [facility] Comment on above: Performed By: #### A 1C #### [facility] [address] [place] [address] Dr. Ishan Mason Potassium [Moles/Vol] 4.2 mmol/L Normal 3.5-5.1 [facility] Comment on above: Performed By: #### A 1C #### [facility] [address] [address] [address] Ishan Mason Protein [Mass/Vol] 7.2 g/dL Normal 6.4-8.2 [facility] Comment on above: Performed By: #### A 1C #### [facility] [address] [address] [address] Ishan Mason Sodium [Moles/Vol] 140 mmol/L Normal 136-145 [facility] Comment on above: Performed By: #### A 1C #### [facility] [address] [address] [address] Ishan Mason Urea nitrogen [Mass/Vol] 9.0 mg/dL Normal 7.0-18.0 [facility] Comment on above: Performed By: #### A 1C #### [facility] [address] [address] [address] Ishan Mason Urea nitrogen/Creatinine [Mass ratio] 12.7 mg/mg Normal [facility] Comment on above: Performed By: #### A 1C #### [facility] [address] [place] [address] Dr. Ishan Mason TSHon 12-04-2021 TSH 1.369 uIU/mL Normal 0.358-3.740 [facility] Comment on above: Performed By: #### C BC #### [facility] [address] [place] [address] CHEST HI RESOLUTIONon [...] by: MARITO MEJIA Date: 2021-11-26 16:08 Normal [facility] Consultation Noteon 11-20-19 22 Consultation Note [id number]:127 Normal [facility] CBC AUTO DIFFon 11-12-2021 BASO # 0.0 103/ul Normal 0.0-0.1 [facility] Comment on above: Performed By: #### A 1C #### [facility] [address] [place] [address] Dr. Ishan Mason Basophils/100 WBC (Bld) 0.6 % Normal 0.2-2.0 [facility] Comment on above: Performed By: #### A 1C #### [facility] [address] [place] [address] Dr. Ishan Mason EO # 0.4 103/ul Normal 0.0-0.7 [facility] Comment on above: Performed By: #### A 1C #### [facility] [address] [place] [address] Dr. Ishan Mason Eosinophils/100 WBC (Bld) 6.1 % Normal 0.9-7.0 [facility] Comment on above: Performed By: #### A 1C #### [facility] [address] [place] [address] Dr. Ishan Mason Erythrocyte distribution width (RBC) [Ratio] 12.1 % Normal 11.0-15.0 [facility] Comment on above: Performed By: #### A 1C #### [facility] [address] [place] [address] Dr. Ishan Mason Hematocrit (Bld) [Volume fraction] 43.7 % Normal 36.0-48.0 [facility] Comment on above: Performed By: #### A 1C #### [facility] [address] [place] [address] Dr. Ishan Mason Hemoglobin (Bld) [Mass/Vol] 14.1 g/dL Normal 12.0-16.0 [facility] Comment on above: Performed By: #### A 1C #### [facility] [address] [place] [address] Dr. Ishan Mason IG # 0.02 10e3/ul Normal 0.00-0.03 [facility] Comment on above: Performed By: #### A 1C #### [facility] [address] [place] [address] Dr. Ishan Mason IG % 0.3 % Normal 0.0-0.5 [facility] Comment on above: Performed By: #### A 1C #### [facility] [address] [place] [address] Dr. Ishan Mason LYMPH # 2.9 103/ul Normal 1.2-3.8 [facility] Comment on above: Performed By: #### A 1C #### [facility] [address] [place] [address] Dr. Ishan Mason Lymphocytes/100 WBC (Bld) 41.6 % Normal 20.5-60.0 [facility] Comment on above: Performed By: #### A 1C #### [facility] [address] [place] [address] Dr. Ishan Mason MANUAL DIFF REQ NO Normal [facility] Comment on above: Performed By: #### A 1C #### [facility] [address] [place] [address] Dr. Ishan Mason MCH (RBC) [Entitic mass] 29.3 pg Normal 26.7-34.0 [facility] Comment on above: Performed By: #### A 1C #### [facility] [address] [place] [address] Dr. Ishan Mason MCHC (RBC) [Mass/Vol] 32.3 g/dL Normal 29.9-35.2 [facility] Comment on above: Performed By: #### A 1C #### [facility] [address] [place] [address] Dr. Ishan Mason MCV (RBC) [Entitic vol] 90.9 fL Normal 81.0-99.0 [facility] Comment on above: Performed By: #### A 1C #### [facility] [address] [place] [address] Dr. Ishan Mason MONO # 0.7 103/ul Normal 0.3-0.8 [facility] Comment on above: Performed By: #### A 1C #### [facility] [address] [place] [address] Dr. Ishan Mason Monocytes/100 WBC (Bld) 10.3 % Normal 1.7-12.0 [facility] Comment on above: Performed By: #### A 1C #### [facility] [address] [place] [address] Dr. Ishan Mason NEUT # 2.9 103/ul Normal 1.4-6.5 [facility] Comment on above: Performed By: #### A 1C #### [facility] [address] [place] [address] Dr. Ishan Mason Neutrophils/100 WBC (Bld) 41.1 % Critically low 43.0-75.0 [facility] Comment on above: Performed By: #### A 1C #### [facility] [address] [place] [address] Dr. Ishan Mason Platelet mean volume (Bld) [Entitic vol] 11.0 fL Normal 9.5-13.5 [facility] Comment on above: Performed By: #### A 1C #### [facility] [address] [place] [address] Dr. Ishan Mason PLT 204 103/ul Normal 150-450 [facility] Comment on above: Performed By: #### A 1C #### [facility] [address] [place] [address] Dr. Ishan Mason RBC 4.81 106/ul Normal 4.20-5.40 [facility] Comment on above: Performed By: #### A 1C #### [facility] [address] [place] [address] Dr. Ishan Mason WBC 7.1 103/ul Normal 4.0-11.0 [facility] Comment on above: Performed By: #### A 1C #### [facility] [address] [place] [address] Dr. Ishan Mason CREATININEon 11-12-2021 Creatinine [Mass/Vol] 0.73 mg/dL Normal 0.55-1.02 [facility] Comment on above: Performed By: #### C BC #### [facility] [address] [place] [address] Dr. Ishan Mason EGFR-AF SLOVAK >60 Normal >=60 [facility] Comment on above: Performed By: #### C BC #### [facility] [address] [place] [address] Dr. Ishan Mason EGFR-NON AF SLOVAK >60 Normal >=60 [facility] Comment on above: Performed By: #### C BC #### [facility] [address] [place] [address] Dr. Ishan Mason LIVER PROFILEon 11-12-2021 Albumin [Mass/Vol] 4.0 g/dL Normal 3.4-5.0 [facility] Comment on above: Performed By: #### C BC #### [facility] [address] [place] [address] Dr. Ishan Mason Albumin/Globulin [Mass ratio] 1.0 {ratio} Normal [facility] Comment on above: Performed By: #### C BC #### [facility] [address] [place] [address] Dr. Ishan Mason ALP [Catalytic activity/Vol] 75 U/L Normal 46-116 [facility] Comment on above: Performed By: #### C BC #### [facility] [address] [place] [address] Dr. Ishan Mason ALT [Catalytic activity/Vol] 30 U/L Normal 14-59 [facility] Comment on above: Performed By: #### C BC #### [facility] [address] [place] [address] Dr. Ishan Mason AST [Catalytic activity/Vol] 23 U/L Normal 15-37 [facility] Comment on above: Performed By: #### C BC #### [facility] [address] [place] [address] Dr. Ishan Mason BILI, CONJUGATED 0.1 mg/dL Normal 0.0-0.2 [facility] Comment on above: Performed By: #### C BC #### [facility] [address] [place] [address] Dr. Ishan Mason Bilirubin [Mass/Vol] 0.7 mg/dL Normal 0.2-1.0 [facility] Comment on above: Performed By: #### C BC #### [facility] [address] [place] [address] Dr. Ishan Mason Globulin (S) [Mass/Vol] 4.0 g/dL Normal [facility] Comment on above: Performed By: #### C BC #### [facility] [address] [place] [address] Dr. Ishan Mason Protein [Mass/Vol] 8.0 g/dL Normal 6.4-8.2 [facility] Comment on above: Performed By: #### C BC #### [facility] [address] [place] [address] Dr. [facility] SED RATE 15 mm/hr Normal <=20 [facility] Comment on above: Performed By: #### A 1C #### [facility] [address], [place] [address] Dr. Ishan Mason Outside Mammographyon 2021 Outside Mammography [id number] Normal [facility] MG MAMM SCREEN 3D [place] CADon 11-06-2021 MG MAMM SCREEN 3D [place] CAD Patient: VELASQUEZ BOUCHER Exam Date: 11/06/2021 : 1970 Gender:F Ordering : DR JUAN C HOPE Admission #: [id number] Family : Order #: [id number] CLICK HERE TO VIEW EXAM RADIOLOGY REPORT [...] tongue cancer at age 59. LOCATION: [facility] BREAST COMPOSITION: Scattered areas fibroglandular density. [...] M.D. on 11/06/2021 at 15:37 Normal [facility] HEMOGLOBINon 11-05-2021 Hemoglobin (Bld) [Mass/Vol] 13.6 g/dL Normal 12.0-16.0 [facility] Comment on above: Performed By: #### C BC #### [facility] [address] [address] [address] Ishan Mason Ambulatory Visit Summaryon 0 [...] tablet) fluticasone nasal (fluticasone 0.05 mg/inh Nasal [place]) hydroxychloroquine lactobacillus acidophilus (Acidophilus Probiotic Blend oral [...] Encounter for screening mammogram for breast cancer, pp_set_radiology_subs pecialty, Fermin - Jarek Medications What How Much When Instructions Unchanged abatacept (Orencia ClickJect 125 mg/ mL subcutaneous solution) Unchanged calcium carbonate (calcium 500 mg Tab) By Mouth Every day Unchanged cetirizine (Zyrtec) 10 Milligram By Mouth Every day Unchanged cholecalciferol (Vitamin D3 2000 intl units oral tablet) 1 Tablets By Mouth Every day Unchanged fluticasone nasal (fluticasone 0.05 mg/ inh Nasal [place]) 2 Sprays Nasal Inhalation Every day each [...] Rheumatoid Arthritis Sinus congestion Swollen tongue Normal [facility] Medicine Office/Clini c Noteon 10-08-2021 Family Medicine [...] directed. Mammogram completed last on 11/03/20 at [facility], (ordered today). Due for PAP/pelvic exam. [...] days., # 45 tab(s), Refills(s) 0, Pharmacy: [facility]/pharmacy #[id number], 158, cm, 02/16/21 15:39:00 EST, Height/Length Dosing... Follow-up With When Contact Information Juan C HOPE DO, FAM In 1 year [address] [place] [address]- Additional Instructions: Problem List/Past Medical History Ongoing BMI 38.0-38.9,adult Encounter for screening mammogram for breast cancer Preventative health care Rheumatoid Arthritis Historical No qualifying data Procedure/Surgical History None. Medications Acidophilus Probiotic Blend oral capsule, Oral, Daily B Complex 100 calcium 500 mg Tab, Oral, Daily fluticasone 0.05 mg/inh Nasal [place], 2 spray(s), Nasal, Daily, 3 refills hydroxychloroquine, [...] mRNA-1273 vacci (more content not included)... Normal [facility] Comment on above: Result Comment: Elec tronically Signed By: Juan C HOPE DO\.br\Date and Time Signed: 10/08/21 21:58 EDT Covid-19 PCR ([facility])on 09-11 SARS-CoV-2 (COVID-19) RNA MARICEL+probe Ql (Unsp spec) Detected Critically abnormal NOT DETECTED [facility] Comment on above: Result Comment: This test is not yet approved or cleared by the [place] FDA. When there are no FDA-approved or cleared tests available, and other criteria are met, FDA can make tests available under an emergency access mechanism called an Emergency Use Authorization (EUA). The EUA for this test is supported by the [place] [employer] and Human Service's declaration that [...] used). Performed By: #### A 1C #### [facility] [address] [place] [address] Dr. Ishan Mason CBC AUTO DIFFon 07-01-2021 BASO # 0.0 103/ul Normal 0.0-0.1 [facility] Comment on above: Performed By: #### S EDR #### [facility] [address] [place] [address] Dr. Ishan Mason Basophils/100 WBC (Bld) 0.5 % Normal 0.2-2.0 [facility] Comment on above: Performed By: #### S EDR #### [facility] [address] [place] [address] Dr. Ishan Mason EO # 0.2 103/ul Normal 0.0-0.7 [facility] Comment on above: Performed By: #### S EDR #### [facility] [address] [place] [address] Dr. Ishan Mason Eosinophils/100 WBC (Bld) 3.4 % Normal 0.9-7.0 [facility] Comment on above: Performed By: #### S EDR #### [facility] [address] [place] [address] Dr. Ishan Mason Erythrocyte distribution width (RBC) [Ratio] 12.7 % Normal 11.0-15.0 [facility] Comment on above: Performed By: #### S EDR #### [facility] [address] [place] [address] Dr. Ishan Mason Hematocrit (Bld) [Volume fraction] 42.6 % Normal 36.0-48.0 [facility] Comment on above: Performed By: #### S EDR #### [facility] [address] [address] [address] Ishan Mason Hemoglobin (Bld) [Mass/Vol] 13.6 g/dL Normal 12.0-16.0 [facility] Comment on above: Performed By: #### S EDR #### [facility] [address] [address] [address] Ishan Mason IG # 0.01 10e3/ul Normal 0.00-0.03 [facility] Comment on above: Performed By: #### S EDR #### [facility] [address] [address] [address] Ishan Mason IG % 0.2 % Normal 0.0-0.5 [facility] Comment on above: Performed By: #### S EDR #### [facility] [address] [address] [address] Ishan Mason LYMPH # 2.0 103/ul Normal 1.2-3.8 [facility] Comment on above: Performed By: #### S EDR #### [facility] [address] [address] [address] Ishan Mason Lymphocytes/100 WBC (Bld) 34.7 % Normal 20.5-60.0 [facility] Comment on above: Performed By: #### S EDR #### [facility] [address] [address] [address] Ishan Mason MANUAL DIFF REQ NO Normal [facility] Comment on above: Performed By: #### S EDR #### [facility] [address] [address] [address] Ishan Mason MCH (RBC) [Entitic mass] 29.9 pg Normal 26.7-34.0 [facility] Comment on above: Performed By: #### S EDR #### [facility] [address] [address] [address] Ishan Mason MCHC (RBC) [Mass/Vol] 31.9 g/dL Normal 29.9-35.2 [facility] Comment on above: Performed By: #### S EDR #### [facility] [address] [address] [address] Ishan Mason MCV (RBC) [Entitic vol] 93.6 fL Normal 81.0-99.0 [facility] Comment on above: Performed By: #### S EDR #### [facility] [address] [address] [address] Ishan Mason MONO # 0.7 103/ul Normal 0.3-0.8 [facility] Comment on above: Performed By: #### S EDR #### [facility] [address] [address] [address] Ishan Mason Monocytes/100 WBC (Bld) 12.1 % Critically high 1.7-12.0 [facility] Comment on above: Performed By: #### S EDR #### [facility] [address] [place] [address] Dr. Ishan Mason NEUT # 2.9 103/ul Normal 1.4-6.5 [facility] Comment on above: Performed By: #### S EDR #### [facility] [address] [address] [address] Ishan Mason Neutrophils/100 WBC (Bld) 49.1 % Normal 43.0-75.0 [facility] Comment on above: Performed By: #### S EDR #### [facility] [address] [address] [address] Ishan Mason Platelet mean volume (Bld) [Entitic vol] 11.1 fL Normal 9.5-13.5 [facility] Comment on above: Performed By: #### S EDR #### [facility] [address] [address] [address] Ishan Mason PLT 177 103/ul Normal 150-450 [facility] Comment on above: Performed By: #### S EDR #### [facility] [address] [address] [address] Ishan Mason RBC 4.55 106/ul Normal 4.20-5.40 [facility] Comment on above: Performed By: #### S EDR #### [facility] [address] [place] [address] Dr. Ishan Mason WBC 5.9 103/ul Normal 4.0-11.0 [facility] Comment on above: Performed By: #### S EDR #### [facility] [address] [address] [address] Ishan Mason CREATININEon 07-01-2021 Creatinine [Mass/Vol] 0.79 mg/dL Normal 0.52-1.04 [facility] Comment on above: Performed By: #### C KIRAN, LIVER #### [facility] [address] [place] [address] Dr. Ishan Mason EGFR-AF SLOVAK >60 Normal >=60 [facility] Comment on above: Performed By: #### C KIRAN, LIVER #### [facility] [address] [place] [address] Dr. Ishan Mason EGFR-NON AF SLOVAK >60 Normal >=60 [facility] Comment on above: Performed By: #### C KIRAN, LIVER #### [facility] [address] [place] [address] Dr. Ishan Mason LIVER PROFILEon 07-01-2021 Albumin [Mass/Vol] 3.6 g/dL Normal 3.4-5.0 [facility] Comment on above: Performed By: #### C KIRAN, LIVER #### [facility] [address] [place] [address] Dr. Ishan Mason Albumin/Globulin [Mass ratio] 1.0 {ratio} Normal [facility] Comment on above: Performed By: #### C KIRAN, LIVER #### [facility] [address] [place] [address] Dr. Ishan Mason ALP [Catalytic activity/Vol] 60 U/L Normal 46-116 [facility] Comment on above: Performed By: #### C KIRAN, LIVER #### [facility] [address] [place] [address] Dr. Ishan Mason ALT [Catalytic activity/Vol] 27 U/L Normal 14-59 [facility] Comment on above: Performed By: #### C KIRAN, LIVER #### [facility] [address] [address] [address] Ishan Mason AST [Catalytic activity/Vol] 22 U/L Normal 15-37 [facility] Comment on above: Performed By: #### C KIRAN, LIVER #### [facility] [address] [address] [address] Ishan Mason BILI, CONJUGATED 0.1 mg/dL Normal 0.0-0.3 [facility] Comment on above: Performed By: #### C KIRAN, LIVER #### [facility] [address] [place] [address] Dr. Ishan Mason Bilirubin [Mass/Vol] 0.5 mg/dL Normal 0.2-1.3 [facility] Comment on above: Performed By: #### C KIRAN, LIVER #### [facility] [address] [place] [address] Dr. Ishan Mason Globulin (S) [Mass/Vol] 3.5 g/dL Normal [facility] Comment on above: Performed By: #### C KIRAN, LIVER #### [facility] [address] [place] [address] Dr. Ishan Mason Protein [Mass/Vol] 7.1 g/dL Normal 6.1-8.2 [facility] Comment on above: Performed By: #### C KIRAN, LIVER #### [facility] [address] [place] [address] Dr. Ishan Mason SED RATE [facility] 2021 SED RATE 5 mm/hr Normal <=20 [facility] Comment on above: Performed By: #### A 1C #### [facility] [address] [place] [address] Dr. Ishan Mason Vital Signs Date Time Vital Sign Value Performing Clinician Facility 01-24-2024 07:52-0500 Body height 158.8 cm Sofia Flare3d Work Phone: [facility] 01-24-2024 07:52-0500 Body mass index (BMI) [Ratio] 39.02 kg/m2 Sofia Guear DO Work Phone: [facility] [employer] [facility] 01-24-2024 07:52-0500 Body weight 98.34 kg Sofia Guera DO Work Phone: [facility] [employer] [facility] 01-24-2024 07:52-0500 Diastolic blood pressure 86 mm[Hg] Sofia Guera DO Work Phone: [facility] 01-24-2024 07:52-0500 Heart rate 77 /min Sofia Guera DO Work Phone: [facility] 01-24-2024 07:52-0500 SaO2% (BldA) [Mass fraction] 96 % Sofia Guera DO Work Phone: [facility] [employer] [facility] 01-24-2024 07:52-0500 Systolic blood pressure 132 mm[Hg] Sofia Guera DO Work Phone: [facility] [employer] 12-24-2020 15:00-0400 Body height 157.48 cm Conner Quinteros Other [employer] Other 12-24-2020 15:00-0400 Body mass index (BMI) [Ratio] 38.04 kg/m2 Conner Quinteros Other [employer] Other 12-24-2020 15:00-0400 Body temperature 98.4 [degF] Conner Quinteros Other [employer] Other 12-24-2020 15:00-0400 Body weight 94.35 kg Conner Quinteros Other [employer] Other 12-24-2020 15:00-0400 Diastolic blood pressure 95 mm[Hg] Conner Quinteros Other [employer] Other 12-24-2020 15:00-0400 Respiratory rate 18 /min Conner Quinteros Other [employer] Other 12-24-2020 15:00-0400 Systolic blood pressure 145 mm[Hg] Conner Quinteros Other [employer] Other Encounters Encounter Date Encounter Type Care Provider Facility Start: 06-27-2024 End: 06-27-2024 ambulatory SREE CAMERON Not Available Start: 06-27-2024 End: 06-27-2024 Bamboo flowsheet Sree Selbyer DO Work Phone: [facility] Start: 06-27-2024 End: 06-27-2024 Bamboo flowsheet Sree Ioana Stephaniemargauxer DO Work Phone: [facility] Start: 01-24-2024 End: 01-24-2024 Bamboo flowsheet Sofia Guera DO Work Phone: [facility] Start: 01-24-2024 End: 01-24-2024 Bamboo flowsheet Sofia Guera DO Work Phone: [facility] Start: 01-24-2024 End: 01-24-2024 Office outpatient visit 25 minutes Sofia Guera DO Work Phone: [facility] Comment on above: AGA (obstructive [...] End: 03-24-[address] JUAN C HOPE Facility:[facility] Start: 02-24-2022 End: 02-25-[address] JUAN C HOPE Facility:[facility] Start: 01-26-2022 End: 01-27-[address] JUAN C HOPE Facility:[facility] Start: 01-15-2022 End: 01-16-[address] JUAN C HOPE Facility:[facility] Start: 12-09-2021 Encounter for genera l adult medical examination without abnormal findings DR JUAN C HOPE [facility] Start: 12-04-2021 End: 12-05-[address] JUAN C HOPE Facility:[facility] Start: 12-04-2021 End: 12-05-2021 Encounter for general adult medical examination without abnormal findings DR JUAN C HOPE Facility:[facility] Start: 11-26-2021 End: 11-27-2021 ambulatory ALDAIR WILLSSA Sanchez Facility:[facility] Start: 11-12-2021 End: 11-13-[address] JUAN C HOPE Facility:[facility] Start: 11-06-2021 End: 11-07-[address] MARITO MEJIA Facility:[facility] Start: 11-05-2021 End: 11-06-[address] HERMINIA PEÑA Facility:[facility] Start: 10-08-2021 End: 10-09-2021 ambulatory Juan C HOPE Facility:[facility] Start: 09-28-2021 End: 09-29-2021 ambulatory RUFINA LOVING Facility:[facility] Start: 09-28-2021 End: 09-28-2021 ambulatory CTARACHITA KAY Facility: Start: 09-28-2021 ambulatory RUFINA LOVING Facility: [facility] Start: 09-15-2021 ambulatory Juan C HOPE Facilit y:[facility] Start: 09-07-2021 ambulatory RUFINA LOVING Facility:[facility] [place] Start: 07-01-2021 End: 07-02-[address] HERMINIA PEÑA Facility: Start: 12-24-2020 Office outpatient vi sit 25 minutes Conner ZAVALA Infectious Disease Procedures Date Procedure Procedure Detail Performing Clinician Start: 06-27-2024 End: 06-27-2024 Visual field xm uni/bi w/interp extended exam Sree Cameron DO Work Phone: Start: 06-27-2024 End: 06-27-2024 Ophth medical xm&eval comprhnsv estab pt 1/> Epiretinal membrane (ERM) of left eye Sree Cameron DO Work Phone: Comment on above: Epiretinal membrane (ERM) of left eye (Primary Dx); Long-term use of hydroxychloroquine; Dry eyes; Blepharitis of upper and lower eyelids of both eyes, unspecified type Plan of Treatment Date Care Activity Detail Author Start: 12-19-2026 Screening for malign ant neoplasm of colon [facility] Start: 01-22-2025 End: 01-22-2025 Patient encounter procedure [facility] Start: 11-12-2024 Influenza vaccination Influenz a Vaccine (Season Ended) [facility] Start: 06-27-2024 End: 06-27-2024 Patient encounter procedure [facility] Comment on above: Arrived Start: 11-13-2023 Influenza vaccination Influenza Vacc ine (#1) [facility] Start: 2012 Screening for malign ant neoplasm of breast Mammogram [facility] Start: 2002 Screening for malign ant neoplasm of cervix [facility] Start: 1993 Screening for malign ant neoplasm of cervix Pap Smear [facility] Start: 1972 Screening for malign ant neoplasm of colon [facility] Immunizations Immunization Date Immunization Notes Care Provider [facility] 01-24-2024 influenza virus vacc ine, unspecified formulation Sree Cameron DO Work Phone: [facility] 02-15-2023 tetanus toxoid, redu noy diphtheria toxoid, and acellular pertussis vaccine, adsorbed Sofia Lynne DO Work Phone: [facility] 05-29-2020 pneumococcal conjuga te vaccine, 13 valent Sofia Lynne DO Work Phone: [facility] 01-10-2009 novel influenza-H1N1 -09, preservative-free, injectable Sofia Lynne DO Work Phone: [facility] Payers Date Payer Category Payer Blue [facility] [employer] [id number] 2022 Unknown [id number] 2019 Unknown [id number] 2.16.840.1.808650.19 1972 Unknown [id number] 2.16.840.1.156164.3.579.2. 727 1972 Unknown [id number] 2.16.840.1.279769.3.579.2. 72 1972 Unknown [id number] 2.16.840.1.413902.3.579.2. 727 1972 Unknown [id number] 2.16.840.1.661624.3.579.2. 727 1972 Unknown [id number] 2.16.840.1.970118.3.579.2. 727 1972 Unknown [id number] 2.16.840.1.312624.3.579.2. 727 1972 Unknown [id number] 2.16.840.1.741162.3.579.2. 727 1972 Unknown [id number] 2.16.840.1.212400.3.579.2. 727 1972 Unknown [id number] 2.16.840.1.601234.3.579.2. 593 1972 Unknown [id number] 2.16.840.1.233324.3.579.2. 593 1972 Unknown [id number] 2.16.840.1.018502.3.579.2. 593 1972 Unknown [id number] 2.16.840.1.254760.3.579.2. 593 1972 Unknown [id number] 2.16.840.1.307765.3.579.2. 593 1972 Unknown [id number] 2.16.840.1.425959.3.579.2. 593 1972 Unknown [id number] 2.16.840.1.693714.3.579.2. 593 1972 Unknown [id number] 2.16.840.1.096107.3.579.2. 593 1972 Unknown [id number] 2.16.840.1.026802.3.579.2. 593 1972 Unknown [id number] 2.16.840.1.775217.3.579.2. 593 1972 Unknown [id number] 2.16.840.1.928169.3.579.2. 593 1972 Unknown [id number] 2.16.840.1.670923.3.579.2. 593 1972 Unknown [id number] 2.16.840.1.489455.3.579.2. 593 1972 Unknown [id number] 2.16.840.1.886891.3.579.2. 593 1972 Unknown [id number] 2.16.840.1.535514.3.579.2. 1259 1972 Unknown [id number] 2.16.840.1.777674.3.579.2. 1259 1972 Unknown [id number] 2.16.840.1.257700.3.579.2. 1259 1972 Unknown [id number] 2.16.840.1.919674.3.579.2. 1259 Social History Date Type Detail Facility Unknown if ever smoked [employer] Other Start: 01-24-2024 Sex Assigned At N [facility] Other Start: 12-28-2022 Tobacco smoking stat [facility] Never smoked tobacco [facility] Start: 12-28-2022 Tobacco use and exposure Smokeless tobacco non-user [facility] Start: 01-24-2024 End: 06-27-2024 Alcoholic beverage intake Ex-drinker (finding) [facility] Start: 01-24-2024 History of Social function [facility] Start: 06-28-2023 Alcohol Comment Caffeine intak e: 1-2 cups per day [facility] Start: 1970 Sex assigned at Not on file [facility] Perimetry study 06-27-2024 Note Date & Type Note Facility 06-27-2024 Note Right Eye Reliability was good. Progression has been stable. Foveal threshold was normal. Findings include normal observations. Left Eye Reliability was good. Progression has been stable. Foveal threshold was normal. Findings include normal observations. [facility] Optical coherence tomography study report 06-27-2024 Note Date & Type Note Facility 06-27-2024 Note Right Eye Quality was good. Scan locations included subfoveal. Progression has been stable. Findings include normal observations. Left Eye Quality was good. Scan locations included subfoveal. Progression has been stable. Findings include normal observations. Notes Good scan with normal appearance [facility]AF stable [facility] [facility] History of Present illness Narrative 06-27-2024 Sree Cameron, DO - 06/27/2024 2:30 PM EDT Note Date & Type Note Facility 06-27-2024 History of Presen t illness Narrative Images from the original note were not included. Assessment/Plan Diagnoses and all orders for this visit: Long-term use of hydroxychloroquine - A complete ophthalmic exam was performed including spectral-domain optical coherence tomography (SD-OCT) and Shafer visual field (10-2). All were found to be within normal limits with no macular toxicity found. Continue with annual visits performing the above evaluations. This will be adjusted to [id number] when deemed necessary due to macular risk factors and/or length of time and dosage of medication taken. - Hydroxychloroquine 200mg BID (2007) Dry eyes - Dry Eyes OU -- Environmental changes to minimize dryness and exposure and the use of artificial tears were recommended. Blepharitis of upper and lower eyelids of both eyes, unspecified type - Blepharitis, posterior type OU - The patient exhibits inspissated meibomian glands. Warm compresses, lid massage and lid scrubs were recommended. documented in this encounter [facility] History of Present illness Narrative 01-24-2024 Sofia Lynne DO - 01/24/2024 8:00 AM EST Note [...] job in September. She was at the [facility] and she was part of the mass exodus. She was under a lot of stress. Past Medical History: Diagnosis Date Arthritis 2007 Autoimmune disorder (CMS/HCC) CTS (carpal tunnel syndrome) Dry eyes 2021 Hypertension (CMS/HCC) Latent tuberculosis Long-term use of hydroxychloroquine 2008 200mg BID AGA (obstructive sleep apnea) BIPAP [...] Coronary artery disease Sibling Cancer Brother Elier Young- lung cancer Cancer Brother Matthew Boucher- throat [...] was counseled on the risks of stroke, RI, and sudden with AGA, along with the [...] clinic: 6 months documented in this encounter [facility] Clinical Note 10-04-2021 Note Date & Type Note Facility 10-04-2021 Note [facility] Staff Velasquez is a 51 year old [...] leflunomide. 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 The [...] interactive video communications from my office using [employer] due to the restrictions of the COVID-19 pandemic. No physical exam was conducted other than those areas of the body visible to telecommunications with the patient located at [address] [place] [phone], with no one else in attendance. If [...] patient or guardian consented to allow [employer] to record this visit. SILAS color specialist and provider reviewed before signing. SILAS: Cori Cherry. Follow-up With When Contact Information RUFINA LOVING CNP Only if needed [address] [facility] [address] [place] [address] Additional Instructions: Patient Education COVID-19 Frequently Asked Questions COVID-19 Problem List/Past Medical History Ongoing BMI 38.0-38.9,adult Borderline abnormal thyroid function test COVID-19 Encounter for screening mammogram for breast cancer Non-smoker Painful mouth Preventative health care Sinus congestion Swollen tongue Historical Rheumatoid Arthritis Procedure/Surgical History None. Medications Acidophilus Probiotic Blend oral capsule, Oral, Daily calcium 500 mg Tab, Oral, Daily Flonase 0.05 mg/inh [place], 1 spray(s), Nasal, Daily fluconazole 150 mg Tab, 150 mg= 1 tab(s), Oral, Once, 1 refills fluticasone 0.05 mg/inh Nasal [place], 2 spray(s), Nasal, Daily, 3 refills hydroxychloroquine, 200 mg, Oral, Daily leflunomide, 20 mg, Oral, Daily Magic Mouth Wash, See Instructions, 2 refills metoprolol 50 mg ER Tab, 50 mg= 1 tab(s), Oral, Daily, 1 refills Orencia ClickJect 125 mg/mL subcutaneous solution Paxlovid 150 mg-100 mg oral tablet, See Instructions pred (more content not included)... [facility] Comment on above: Result Comment: Elec [...] the coronavirus come from? In February 2019, [place] told the World Health Organization (WHO) of several cases of lung disease (human respiratory illness). These cases were linked to an open seafood and livestock market in the city of [facility]. The link to the seafood [...] naming World Health Organization (WHO): www.who.int/emergencies/diseases/novel-c oronavirus-2019/technical-guidance/tramaine w-dkd-oaulxqxpvon-disease-(covid-2019)-a rf-kta-xxvfn-iate-pulzph-kw Who is at risk for complications from [...] Samples may in (more content not included)... [facility] Evaluation note 12-24-2020 Note Date & Type Note Facility 12-24-2020 Evaluation note Encounter Date Diagnosis Assessment Notes Dec, Latent tuberculosis by blood test (ICD-10 - Z22.7) Dec, Rheumatoid arthritis (ICD-10 - M06.9) [facility] Other Evaluation note Note Date & Type Note Facility Evaluation note Diagnosis AGA (obstructive sleep apnea)- Primary Obstructive sleep apnea (adult) (pediatric) Paresthesia of skin Carpal tunnel syndrome, bilateral Carpal tunnel syndrome Hypersomnia Hypersomnia, unspecified Hypoxia Hypoxemia documented in this encounter [facility] Evaluation note Note Date & Type Note Facility Evaluation note Diagnosis Epiretinal membrane (ERM) of left eye- Primary Long-term use of hydroxychloroquine Dry eyes Unspecified tear film insufficiency Blepharitis of upper and lower eyelids of both eyes, unspecified type documented in this encounter [facility] History general Narrative - Reported Note Date & Type Note Facility History general Narrative - Reported Type Medical History RA Medical History HTN [facility] Other Summary Purpose Family History No Family History Records FoundNo Family History Records FoundNo Family History Records Found Advance Directives No Advanced Directives Records FoundNo Advanced Directives Records FoundNo Advanced Directives Records Found Additional Source Comments REASON FOR VISIT (unrecogniz ed section and content) Reason Comments Sleep Apnea Reason Comments Eye Exam INFORMATION SOURCE (unrecogn ized section and content) DATE CREATED AUTHOR 05/20/2022 [facility] DATE CREATED AUTHOR AUTHOR'S ORGANIZ ATION 06/30/2022 [facility] DATE CREATED AUTHOR AUTHOR'S ORGANIZ ATION 06/29/2024 [facility] [employer] Care Teams (unrecognized sec tion and content) Cotton Stomper Relationship Specialty Start Date End Date Herminia Peña MD [address] [place] [address] Referring Physician Rheumatology 09/26/23 Sofia Lynne DO [address] [place] [phone] Referring Physician Neurology 01/24/24 Twila Long NP [address] [place] [address] Referring Physician Family Medicine 01/24/24 Cotton Stomper Relationship Specialty Start Date End Date Herminia Peña MD [address] [place] [address] Referring Physician Rheumatology 09/26/23 Sofia Lynne DO [address] [place] [address] Referring Physician Neurology 01/24/24 Twila Long, SECURITY DIRECTOR [address] [place] [address] Referring Physician Family Medicine 01/24/24 Cotton Stomper Relationship Specialty Start Date End Date Herminia Peña MD [address] [place] [address] Referring Physician Rheumatology 09/26/23 Sofia Lynne DO [address] [place] [phone] Referring Physician Neurology 01/24/24 Twila Long NP [address] [place] [address] Referring Physician Family Medicine 01/24/24 Cotton Stomper Relationship Specialty Start Date End Date Herminia Peña MD [address] [place] [address] Referring Physician Rheumatology 09/26/23 Sofia Lynne DO [address] [place] [phone] Referring Physician Neurology 01/24/24 Twila Long NP [address] [place] [address] Referring Physician Family Medicine 01/24/24 FOR RECORDS [...] BE BASED ON THE PRIMARY CLINICAL RECORDS. [facility] [employer] provides no warranty or guarantee of the accuracy or completeness of information in this document.
[2024-09-24 15:49] LABS: Hematocrit 43.0 % (36.0-48.0); Hemoglobin 14.5 g/dL (12.0-16.0); Immature Granulocytes Abs Auto 0.01 10^3/uL (0.00-0.03); Immature Granulocytes Pct Auto 0.2 % (0.0-0.5); Lymphocytes Absolute Auto 2.9 10^3/uL (1.2-3.8); Mean Corpuscular HGB Conc 33.7 g/dL (29.9-35.2); Mean Corpuscular Hemoglobin 30.3 pg (26.7-34.0); Mean Corpuscular Volume 89.8 fL (81.0-99.0); Platelet Count 186 10^3/uL (150-450); Red Blood Count 4.79 10^6/uL (4.20-5.40); White Blood Count 5.9 10^3/uL (4.0-11.0)
[2024-09-24 16:04] LABS: Alanine Aminotransferase 35 U/L (14-59); Albumin Globulin Ratio 1.1; Albumin Level 3.8 g/dL (3.4-5.0); Alkaline Phosphatase 86 U/L (46-116); Aspartate Amino Transferase 29 U/L (15-37); Estimated GFR (African America >60 (>=60 mL/min/1.73m^2); Estimated GFR (Non-African Ame >60 (>=60 mL/min/1.73m^2); Globulin 3.6 g/dL; Total Protein 7.4 g/dL (6.4-8.2)
== END 2024-09-24 14:43 | disposition home or self-care (01) ==
LOC: LAB 14:49
PROVIDERS: Visit Provider Internal Medicine Rheumatology
DX: M05.79 Rheumatoid arthritis with rheumatoid factor of multiple sites without organ or systems involvement (principal); Z79.899 Other long term (current) drug therapy
CPT/HCPCS: 36415; 80076; 82565; 85025; 85652

== ENCOUNTER 2024-12-04 11:09 | Outpatient (OUT) | payer BC, SELFPAY ==
--- OUTSIDE RECORDS SUMMARY | 2024-12-04 11:12 | XMS_ITS | Clinical Summary ---
Author Organization [facility] Address [address] [place] [address] Care Team Providers Care Station Engineer Name Role Phone Abad Peña MD Unavailable [phone] Tamara Sousa DO Unavailable [phone] Twila Long NP Unavailable Allergies Active Allergy Reactions Criticality Noted [...] lower eyelids of both e yes 12/28/2022 Immunizations Immunization Administration Dates Next Due Novel [id number], preservative-free 01/10 Pneumococcal Conjugate PCV 13 05/29/2020 Tdap 02/15/2023 Family History Medical History Relation Name Comments Cancer Brother 1 Elier Young- lung cancer Cancer Brother 2 Matthew Young- throat and tong ue cancer Stroke Brother 3 Conner Pater Emphysema Father Alzheimer's disease Mother Sarah Boucher Cancer Mother Sarah Boucher Coronary artery disease Mother Sarah Boucher Glaucoma Mother Sarah Boucher Hypertension Mother Sarah Boucher Alcohol abuse Sibling Asthma Sibling Cancer Sibling Coronary artery disease Sibling Hypertension Sibling Rheum arthritis Sibling Relation Name Status Comments Brother 1 Elier Young- lung cancer Brother 2 Matthew Young- throat and tongue cancer Brother 3 Conner Liana Father Mother Sarah Boucher Sibling Social History [...] 07/03/2025 2:30 PM EDT Office Visit [facility] [address] [place] [address] Andrzej Cameron DO [address] [place] [address] Health Maintenance Due Date Last Done Comments CT Colonography 1972 Colonoscopy 1972 FIT 1972 FOBT 1972 Sigmoidoscopy 1972 Pap Smear 1993 Cervical Cancer Screening 2002 HPV/Cotest 2002 Mammogram 2012 Influenza Vaccine (#1) 2024 01/24/2024 Colorectal Cancer Screening 12/19/2026 FIT-DNA 12/19/2026 12/20/2023, 09/30/2020 Insurance BCBS Care Teams Station Engineer Relationship Specialty Start Date End Date Abad Peña MD Referring Physician Rheumatology 09/26/23 Tamara Sousa DO [address] [place] [address] Referring Physician Neurology 01/24/24 Twila Long NP [address] [place] [address] Referring Physician Family Medicine 01/24/24
--- OUTSIDE RECORDS SUMMARY | 2024-12-04 11:15 | XMS_ITS | CCD ---
Author Organization [facility] [employer] Care Team Providers Care Radio Time Salesperson Name Role Phone Conner Quinteros Unavailable RUFINA [...] Attending Unavailable MARIANA, DR HOPE Admitting Unavailable HALADAY, DR HOPE [...] DR JUAN C Varghese Primary Care Unavailable [facility] [place] BAEZ Admitting Unavailable [facility] [place] DR BAEZ Attending Unavailable MARIANA, DR HOPE Consulting Unavailable JORDY, DR MARITO [place] Consulting Unavailable JAYY, DR JUAN C Varghese Primary Care Unavailable JAYY, DR JUAN C Varghese Attending Unavailable JAYY, DR JUAN C Varghese Admitting Unavailable JAYY, DR JUAN C Varghese Consulting Unavailable Mariana SANCHES, Herminia Michael Unavailable Sofia Lynne DO Unavailable Ethan SIGN BUILDER SUPERVISOR, Twila Unavailable SOFIA YLNNE Attending Unavailable SREE CAMERON Attending Unavailable SOFIA LYNNE Attending Unavailable SREE CAMERON Attending Unavailable Allergies Allergy Classification Reported Allergen(s) Allergy Type Date of Onset Reaction(s) Facility (7 sources) Ciprofloxacin; Translations: [ciprofloxacin] Drug Allergy 12-29-19 Rash [facility] Repository (1 source) pregabalin Drug Allergy Unknown [employer] Other (6 sources) Sulfamethoxazole / Trimethoprim Drug Allergy 12-29-19 Rash, Unknown [employer] Other (6 sources) Methotrexate; Translations: [methotrexate] Drug Allergy 12-29-19 Shortness of breath [facility] Repository (1 source) pregabalin; Translations: [Lyrica] Drug Allergy [facility] Repository (1 source) Sulfamethoxazole; Translations: [sulfamethoxazole] Drug Allergy [facility] Repository (1 source) Sulfamethoxazole / Trimethoprim; Translations: [Bactrim] Drug Allergy [facility] Repository (1 source) Ciprofloxacin Drug Allergy [facility] Repository (1 source) Sulfonamides (Antibiotic) Drug allergy (disorder) [facility] Repository (5 sources) Pregabalin Allergy to [...] tablets by mouth if needed Active B Kjihqre-Fpgnhi-OJ (Super B-50 B Complex) capsule (5 sources) [...] mouth Daily 01/24/2024 Discontinued (Med list cleanup) [place]-3 Fatty Acids (GNP FISH OIL PO) (3 sources) End: 01-24-2024 take 1 tablet by mouth once daily [place]-3 Fatty Acids (GNP FISH OIL PO) Take [...] 12-28-2022 Episodic Other aftercare (5 sources) Other [facility] (current) drug therapy; Translations: [OTH SNF CURRENT DRUG THERAPY] Onset: 07-01-2021 Episodic Other aftercare (6 sources) Drug therapy finding; 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 Comment on above: Performed By: #### S EDR #### [facility] [address] [address] [address] Ishan Mason Basophils/100 WBC (Bld) 0.8 % Normal 0.2-2.[address] [facility] Comment on above: Performed By: #### S EDR #### [facility] [address] [address] [address] Ishan Mason EO # 0.3 103/ul Normal 0.0-0.[address] [facility] Comment on above: Performed By: #### S EDR #### [facility] [address] [address] [address] Ishan Mason Eosinophils/100 WBC (Bld) 5.7 % Normal 0.9-7.[address] [facility] Comment on above: Performed By: #### S EDR #### [facility] [address] [address] [address] Ishan Mason Erythrocyte distribution width (RBC) [Ratio] 12.6 % Normal 11.0-15.[address] [facility] Comment on above: Performed By: #### S EDR #### [facility] [address] [place] [address] Dr. Ishan Mason Hematocrit (Bld) [Volume fraction] 40.6 % Normal 36.0-48.[address] [facility] Comment on above: Performed By: #### S EDR #### [facility] [address] [place] [address] Dr. Ishan Mason Hemoglobin (Bld) [Mass/Vol] 13.4 g/dL Normal 12.0-16.[address] [facility] Comment on above: Performed By: #### S EDR #### [facility] [address] [place] [address] Dr. Ishan Mason IG # 0.01 10e3/ul Normal 0.00-0.[address] [facility] Comment on above: Performed By: #### S EDR #### [facility] [address] [place] [address] Dr. Ishan Mason IG % 0.2 % Normal 0.0-0.[address] [facility] Comment on above: Performed By: #### S EDR #### [facility] [address] [place] [address] Dr. Ishan Mason LYMPH # 2.3 103/ul Normal 1.2-3.[address] [facility] Comment on above: Performed By: #### S EDR #### [facility] [address] [place] [address] Dr. Ishan Mason Lymphocytes/100 WBC (Bld) 46.2 % Normal 20.5-60.[address] [facility] Comment on above: Performed By: #### S EDR #### [facility] [address] [place] [address] Dr. Ishan Mason MANUAL DIFF REQ NO Normal [facility] Comment on above: Performed By: #### S EDR #### [facility] [address] [place] [address] Dr. Ishan Mason MCH (RBC) [Entitic mass] 30.0 pg Normal 26.7-34.[address] [facility] Comment on above: Performed By: #### S EDR #### [facility] [address] [place] [address] Dr. Ishan Mason MCHC (RBC) [Mass/Vol] 33.0 g/dL Normal 29.9-35.[address] [facility] Comment on above: Performed By: #### S EDR #### [facility] [address] [place] [address] Dr. Ishan Mason MCV (RBC) [Entitic vol] 90.8 fL Normal 81.0-99.[address] [facility] Comment on above: Performed By: #### S EDR #### [facility] [address] [place] [address] Dr. Ishan Mason MONO # 0.5 103/ul Normal 0.3-0.[address] [facility] Comment on above: Performed By: #### S EDR #### [facility] [address] [place] [address] Dr. Ishan Mason Monocytes/100 WBC (Bld) 10.8 % Normal 1.7-12.[address] [facility] Comment on above: Performed By: #### S EDR #### [facility] [address] [place] [address] Dr. Ishan Mason NEUT # 1.8 103/ul Normal 1.4-6.[address] [facility] Comment on above: Performed By: #### S EDR #### [facility] [address] [place] [address] Dr. Ishan Mason Neutrophils/100 WBC (Bld) 36.3 % Critically low 43.0-75.[address] [facility] Comment on above: Performed By: #### S EDR #### [facility] [address] [place] [address] Dr. Ishan Mason Platelet mean volume (Bld) [Entitic vol] 11.0 fL Normal 9.5-13.[address] [facility] Comment on above: Performed By: #### S EDR #### [facility] [address] [place] [address] Dr. Ishan Mason PLT 198 103/ul Normal 150-450 [facility] Comment on above: Performed By: #### S EDR #### [facility] [address] [place] [address] Dr. Ishan Mason RBC 4.47 106/ul Normal 4.20-5.40 [facility] Comment on above: Performed By: #### S EDR #### [facility] [address] [place] [address] Dr. Ishan Mason WBC 4.9 103/ul Normal 4.0-11.[address] [facility] Comment on above: Performed By: #### S EDR #### [facility] [address] [place] [address] Dr. Ishan Mason CREATININEon 06-24-2022 Creatinine [Mass/Vol] 0.70 mg/dL Normal 0.55-1.[address] [facility] Comment on above: Performed By: #### A 1C #### [facility] [address] [place] [address] Dr. Ishan Mason EGFR-AF WELSH >60 Normal >=60 [facility] Comment on above: Performed By: #### A 1C #### [facility] [address] [place] [address] Dr. Ishan Mason EGFR-NON AF WELSH >60 Normal >=[address] [facility] Comment on above: Performed By: #### A 1C #### [facility] [address] [place] [address] Dr. Ishan Mason LIVER PROFILEon 06-24-2022 Albumin [Mass/Vol] 3.6 g/dL Normal 3.4-5.0 [facility] Comment on above: Performed By: #### A 1C #### [facility] [address] [place] [address] Dr. Ishan Mason Albumin/Globulin [Mass ratio] 0.9 {ratio} Normal [facility] Comment on above: Performed By: #### A 1C #### [facility] [address] [place] [address] Dr. Ishan Mason ALP [Catalytic activity/Vol] 63 U/L Normal 46-116 [facility] Comment on above: Performed By: #### A 1C #### [facility] [address] [place] [address] Dr. Ishan Mason ALT [Catalytic activity/Vol] 32 U/L Normal 14-[address] [facility] Comment on above: Performed By: #### A 1C #### [facility] [address] [address] [address] Ishan Mason AST [Catalytic activity/Vol] 23 U/L Normal 15-[address] [facility] Comment on above: Performed By: #### A 1C #### [facility] [address] [place], [place] [address] Dr. Ishan Mason BILI, CONJUGATED 0.1 mg/dL Normal 0.0-0.2 [facility] Comment on above: Performed By: #### A 1C #### [facility] [address] [address] [address] Ishan Mason Bilirubin [Mass/Vol] 0.6 mg/dL Normal 0.2-1.[address] [facility] Comment on above: Performed By: #### A 1C #### [facility] [address] [place] [address] Dr. Ishan Mason Globulin (S) [Mass/Vol] 3.9 g/dL Normal [facility] Comment on above: Performed By: #### A 1C #### [facility] [address] [address] [address] Ishan Mason Protein [Mass/Vol] 7.5 g/dL Normal 6.4-8.2 [facility] Comment on above: Performed By: #### A 1C #### [facility] [id number] Ishan Mason SED RATE [facility] 2022 SED RATE 17 mm/hr Normal <=[address] [facility] Comment on above: Performed By: #### S EDR #### [facility] [address] [address] [address] Ishan Mason XR HAND [place] MIN [...] MARITO MEJIA Date: 2022-06-23 11:43 Normal [facility] CBC AUTO DIFFon 03-23-2022 BASO # 0.1 103/ul Normal 0.0-0.[address] [facility] Comment on above: Performed By: #### C BC #### [facility] [address] [place] [address] Dr. Ishan Mason Basophils/100 WBC (Bld) 1.0 % Normal 0.2-2.0 [facility] Comment on above: Performed By: #### C BC #### [facility] [address] [place] [address] Dr. Ishan Mason EO # 0.2 103/ul Normal 0.0-0.[address] [facility] Comment on above: Performed By: #### C BC #### [facility] [address] [place] [address] Dr. Ishan Mason Eosinophils/100 WBC (Bld) 2.8 % Normal 0.9-7.0 [facility] Comment on above: Performed By: #### C BC #### [facility] [address] [place] [address] Dr. Ishan Mason Erythrocyte distribution width (RBC) [Ratio] 12.5 % Normal 11.0-15.[address] [facility] Comment on above: Performed By: #### C BC #### [facility] [address] [place] [address] Dr. Ishan Mason Hematocrit (Bld) [Volume fraction] 41.8 % Normal 36.0-48.0 [facility] Comment on above: Performed By: #### C BC #### [facility] [address] [place] [address] Dr. Ishan Mason Hemoglobin (Bld) [Mass/Vol] 14.0 g/dL Normal 12.0-16.[address] [facility] Comment on above: Performed By: #### C BC #### [facility] [address] [place] [address] Dr. Ishan Mason IG # 0.02 10e3/ul Normal 0.00-0.[address] [facility] Comment on above: Performed By: #### C BC #### [facility] [address] [place] [address] Dr. Ishan Mason IG % 0.3 % Normal 0.0-0.[address] [facility] Comment on above: Performed By: #### C BC #### [facility] [address] [place] [address] Dr. Ishan Mason LYMPH # 1.5 103/ul Normal 1.2-3.[address] [facility] Comment on above: Performed By: #### C BC #### [facility] [address] [place] [address] Dr. Ishan Mason Lymphocytes/100 WBC (Bld) 21.1 % Normal 20.5-60.[address] [facility] Comment on above: Performed By: #### C BC #### [facility] [address] [place] [address] Dr. Ishan Mason MANUAL DIFF REQ NO Normal [facility] Comment on above: Performed By: #### C BC #### [facility] [address] [place] [address] Dr. Ishan Mason MCH (RBC) [Entitic mass] 29.7 pg Normal 26.7-34.[address] [facility] Comment on above: Performed By: #### C BC #### [facility] [address] [place] [address] Dr. Ishan Mason MCHC (RBC) [Mass/Vol] 33.5 g/dL Normal 29.9-35.[address] [facility] Comment on above: Performed By: #### C BC #### [facility] [address] [place] [address] Dr. Ishan Mason MCV (RBC) [Entitic vol] 88.7 fL Normal 81.0-99.[address] [facility] Comment on above: Performed By: #### C BC #### [facility] [address] [place] [address] Dr. Ishan Mason MONO # 0.5 103/ul Normal 0.3-0.8 [facility] Comment on above: Performed By: #### C BC #### [facility] [address] [place] [address] Dr. Ishan Mason Monocytes/100 WBC (Bld) 7.0 % Normal 1.7-12.[address] [facility] Comment on above: Performed By: #### C BC #### [facility] [address] [place] [address] Dr. Ishan Mason NEUT # 4.8 103/ul Normal 1.4-6.[address] [facility] Comment on above: Performed By: #### C BC #### [facility] [address] [place] [address] Dr. Ishan Mason Neutrophils/100 WBC (Bld) 67.8 % Normal 43.0-75.[address] [facility] Comment on above: Performed By: #### C BC #### [facility] [address] [place] [address] Dr. Ishan Mason Platelet mean volume (Bld) [Entitic vol] 11.0 fL Normal 9.5-13.[address] [facility] Comment on above: Performed By: #### C BC #### [facility] [address] [place] [address] Dr. Ihsan Mason PLT 214 103/ul Normal 150-450 [facility] Comment on above: Performed By: #### C BC #### [facility] [address] [place] [address] Dr. Ishan Mason RBC 4.71 106/ul Normal 4.20-5.40 [facility] Comment on above: Performed By: #### C BC #### [facility] [address] [place] [address] Dr. Ishan Mason WBC 7.1 103/ul Normal 4.0-11.0 [facility] Comment on above: Performed By: #### C BC #### [facility] [address] [place] [address] Dr. Ishan Mason CREATININEon 03-23-2022 Creatinine [Mass/Vol] 0.85 mg/dL Normal 0.55-1.[address] [facility] Comment on above: Performed By: #### S EDR #### [facility] [address] [place] [address] Dr. Ishan Mason EGFR-AF WELSH >60 Normal >=60 [facility] Comment on above: Performed By: #### S EDR #### [facility] [address] [place] [address] Dr. Ishan Mason EGFR-NON AF WELSH >60 Normal >=[address] [facility] Comment on above: Performed By: #### S EDR #### [facility] [address] [place] [address] Dr. Ishan Mason EMG Electromyographyon 03-23 EMG Electromyography [id number] .[id number]:127 Normal [facility] LIVER PROFILEon 03-23-2022 Albumin [Mass/Vol] 3.8 g/dL Normal 3.4-5.0 [facility] Comment on above: Performed By: #### A 1C #### [facility] [address] [place] [address] Dr. Ishan Mason Albumin/Globulin [Mass ratio] 1.0 {ratio} Normal [facility] Comment on above: Performed By: #### A 1C #### [facility] [address] [place] [address] Dr. Ishan Mason ALP [Catalytic activity/Vol] 67 U/L Normal 46-[address] [facility] Comment on above: Performed By: #### A 1C #### [facility] [address] [place] [address] Dr. Ishan Mason ALT [Catalytic activity/Vol] 33 U/L Normal 14-[address] [facility] Comment on above: Performed By: #### A 1C #### [facility] [address] [place] [address] Dr. Ishan Mason AST [Catalytic activity/Vol] 28 U/L Normal 15-[address] [facility] Comment on above: Performed By: #### A 1C #### [facility] [address] [place] [address] Dr. Ishan Mason BILI, CONJUGATED 0.1 mg/dL Normal 0.0-0.2 [facility] Comment on above: Performed By: #### A 1C #### [facility] [address] [place] [address] Dr. Ishan Mason Bilirubin [Mass/Vol] 0.6 mg/dL Normal 0.2-1.[address] [facility] Comment on above: Performed By: #### A 1C #### [facility] [address] [place] [address] Dr. Ishan Mason Globulin (S) [Mass/Vol] 3.7 g/dL Normal [facility] Comment on above: Performed By: #### A 1C #### [facility] [address] [place] [address] Dr. Ishan Mason Protein [Mass/Vol] 7.5 g/dL Normal 6.4-8.2 [facility] Comment on above: Performed By: #### A 1C #### [facility] [address] [place] [address] Dr. Ishan Mason SED RATE [facility] 2022 SED RATE 32 mm/hr Critically high <=20 [facility] Comment on above: Performed By: #### A 1C #### [facility] [address] [place] [address] Dr. Ishan Mason Consultation Noteon 03-18-19 Consultation Note [id number] .00CD:127 Normal [facility] Consultation Noteon 03-05-20 Consultation Note [id number] .[id number]:127 Normal [facility] Consultation Noteon 02-17-20 Consultation Note [id number] .[id number]:127 Normal [facility] [employer] ANITBODY TESTon 022 MuSK Antibodies <1.0 Normal [facility] Comment on above: Result Comment: Refe rence [...] 2014;52:90-100. 2. Stacey SMITH et al. PNAS 2013;110(19);23201-43735. 3. Braryi E et al. Neurology 2006;67:505-507. This test was developed and its performance characteristics determined by [employer]. It has not been cleared or approved by the Food and Drug Administration. Performed By: #### A 1C #### [facility] [address] [place] [address] Dr. Ishan Mason ACETYLCHOLINE RECEPTOR JOSE [facility] 01-28-2022 AChR Binding Abs, Serum <0.03 Normal 0.00-0.[address] [facility] Comment on above: Result Comment: Nega tive: 0.00 - 0.24 Borderline: 0.25 - 0.40 Positive: >0.40 Performed By: #### A CRBND #### [facility] [address] [place] [address] Dr. Ishan Mason CPKon 01-26-2022 CK [Catalytic activity/Vol] 88 U/L Normal 26-[address] [facility] Comment on above: Performed By: #### S EDR #### [facility] [address] [address] [address] Ishan Mason SED RATE [facility] 2021 SED RATE 34 mm/hr Critically high <=20 [facility] Comment on above: Performed By: #### C BC #### [facility] [address] [place] [address] Dr. Ishan Mason TSHon 01-26-2022 TSH 2.298 uIU/mL Normal 0.358-3.740 [facility] Comment on above: Performed By: #### S EDR #### [facility] [address] [place] [address] Dr. Ishan Mason VIT B12 AND FOLATEon 022 Cobalamin (Vitamin B12) [Mass/Vol] 523.0 pg/mL Normal 193.0-986.[address] [facility] Comment on above: Performed By: #### S EDR #### [facility] [address] [place] [address] Dr. Ishan Mason FOLATE 21.40 ng/mL Normal 8.60-58.[address] [facility] Comment on above: Performed By: #### S EDR #### [facility] [address] [place] [address] Dr. Ishan Mason CBC AUTO DIFFon 01-15-2022 BASO # 0.0 103/ul Normal 0.0-0.[address] [facility] Comment on above: Performed By: #### S EDR #### [facility] [address] [place] [address] Dr. Ishan Mason Basophils/100 WBC (Bld) 0.5 % Normal 0.2-2.[address] [facility] Comment on above: Performed By: #### S EDR #### [facility] [address] [place] [address] Dr. Ishan Mason EO # 0.3 103/ul Normal 0.0-0.[address] [facility] Comment on above: Performed By: #### S EDR #### [facility] [address] [place] [address] Dr. Ishan Mason Eosinophils/100 WBC (Bld) 4.9 % Normal 0.9-7.[address] [facility] Comment on above: Performed By: #### S EDR #### [facility] [address] [place] [address] Dr. Ishan Mason Erythrocyte distribution width (RBC) [Ratio] 12.7 % Normal 11.0-15.[address] [facility] Comment on above: Performed By: #### S EDR #### [facility] [address] [place] [address] Dr. Ishan Mason Hematocrit (Bld) [Volume fraction] 41.2 % Normal 36.0-48.[address] [facility] Comment on above: Performed By: #### S EDR #### [facility] [address] [place] [address] Dr. Ishan Mason Hemoglobin (Bld) [Mass/Vol] 13.7 g/dL Normal 12.0-16.[address] [facility] Comment on above: Performed By: #### S EDR #### [facility] [address] [place] [address] Dr. Ishan Mason IG # 0.01 10e3/ul Normal 0.00-0.[address] [facility] Comment on above: Performed By: #### S EDR #### [facility] [address] [place] [address] Dr. Ishan Mason IG % 0.2 % Normal 0.0-0.[address] [facility] Comment on above: Performed By: #### S EDR #### [facility] [address] [place] [address] Dr. Ishan Mason LYMPH # 2.3 103/ul Normal 1.2-3.[address] [facility] Comment on above: Performed By: #### S EDR #### [facility] [address] [place] [address] Dr. Ishan Mason Lymphocytes/100 WBC (Bld) 40.2 % Normal 20.5-60.[address] [facility] Comment on above: Performed By: #### S EDR #### [facility] [address] [place] [address] Dr. Ishan Mason MANUAL DIFF REQ NO Normal [facility] Comment on above: Performed By: #### S EDR #### [facility] [address] [place] [address] Dr. Ishan Mason MCH (RBC) [Entitic mass] 29.8 pg Normal 26.7-34.[address] [facility] Comment on above: Performed By: #### S EDR #### [facility] [address] [place] [address] Dr. Ishan Mason MCHC (RBC) [Mass/Vol] 33.3 g/dL Normal 29.9-35.[address] [facility] Comment on above: Performed By: #### S EDR #### [facility] [address] [place] [address] Dr. Ishan Mason MCV (RBC) [Entitic vol] 89.6 fL Normal 81.0-99.[address] [facility] Comment on above: Performed By: #### S EDR #### [facility] [address] [place] [address] Dr. Ishan Mason MONO # 0.5 103/ul Normal 0.3-0.[address] [facility] Comment on above: Performed By: #### S EDR #### [facility] [address] [place] [address] Dr. Ishan Mason Monocytes/100 WBC (Bld) 8.9 % Normal 1.7-12.[address] [facility] Comment on above: Performed By: #### S EDR #### [facility] [address] [place] [address] Dr. Ishan Mason NEUT # 2.6 103/ul Normal 1.4-6.[address] [facility] Comment on above: Performed By: #### S EDR #### [facility] [address] [place] [address] Dr. Ishan Mason Neutrophils/100 WBC (Bld) 45.3 % Normal 43.0-75.0 [facility] Comment on above: Performed By: #### S EDR #### [facility] [address] [place] [address] Dr. Ishan Mason Platelet mean volume (Bld) [Entitic vol] 10.3 fL Normal 9.5-13.[address] [facility] Comment on above: Performed By: #### S EDR #### [facility] [address] [place] [address] Dr. Ishan Mason PLT 212 103/ul Normal 150-450 [facility] Comment on above: Performed By: #### S EDR #### [facility] [address] [place] [address] Dr. Ishan Mason RBC 4.60 106/ul Normal 4.20-5.[address] [facility] Comment on above: Performed By: #### S EDR #### [facility] [address] [place] [address] Dr. Ishan Mason WBC 5.7 103/ul Normal 4.0-11.[address] [facility] Comment on above: Performed By: #### S EDR #### [facility] [address] [place] [address] Dr. Ishan Mason CREATININEon 01-15-2022 Creatinine [Mass/Vol] 0.74 mg/dL Normal 0.55-1.[address] [facility] Comment on above: Performed By: #### C KIRAN LIVER #### [facility] [address] [place] [address] Dr. Ishan Mason EGFR-AF WELSH >60 Normal >=60 [facility] Comment on above: Performed By: #### C KIRAN LIVER #### [facility] [address] [place] [address] Dr. Ishan Mason EGFR-NON AF WELSH >60 Normal >=[address] [facility] Comment on above: Performed By: #### C KIRAN LIVER #### [facility] [address] [place] [address] Dr. Ishan Mason LIVER PROFILEon 01-15-2022 Albumin [Mass/Vol] 3.6 g/dL Normal 3.4-5.0 [facility] Comment on above: Performed By: #### C KIRAN LIVER #### [facility] [address] [place] [address] Dr. Ishan Mason Albumin/Globulin [Mass ratio] 1.0 {ratio} Normal [facility] Comment on above: Performed By: #### C KIRAN LIVER #### [facility] [address] [place] [address] Dr. Ishan Mason ALP [Catalytic activity/Vol] 78 U/L Normal 46-[address] [facility] Comment on above: Performed By: #### C KIRAN, LIVER #### [facility] [address] [place] [address] Dr. Ishan Mason ALT [Catalytic activity/Vol] 30 U/L Normal 14-[address] [facility] Comment on above: Performed By: #### C KIRAN, LIVER #### [facility] [address] [place] [address] Dr. Ishan Mason AST [Catalytic activity/Vol] 14 U/L Critically low 15-[address] [facility] Comment on above: Performed By: #### C KIRAN, LIVER #### [facility] [address] [place] [address] Dr. Ishan Mason BILI, CONJUGATED 0.1 mg/dL Normal 0.0-0.2 [facility] Comment on above: Performed By: #### C KIRAN, LIVER #### [facility] [address] [place] [address] Dr. Ishan Mason Bilirubin [Mass/Vol] 0.5 mg/dL Normal 0.2-1.[address] [facility] Comment on above: Performed By: #### C KIRAN, LIVER #### [facility] [address] [place] [address] Dr. Ishan Mason Globulin (S) [Mass/Vol] 3.7 g/dL Normal [facility] Comment on above: Performed By: #### C KIRAN, LIVER #### [facility] [address] [place] [address] Dr. Ishan Mason Protein [Mass/Vol] 7.3 g/dL Normal 6.4-8.2 [facility] Comment on above: Performed By: #### C KIRAN, LIVER #### [facility] [address] [place] [address] Dr. Ishan Mason SED RATE [facility] 2021 SED RATE 23 mm/hr Critically high <=20 [facility] Comment on above: Performed By: #### S EDR #### [facility] [address] [address] [address] Ishan Mason Lab Reportson 12-05-2021 Lab Reports [id number] .[id number]:127 Normal [facility] Lab Reports [id number] .[id number]:127 Normal [facility] CBC AUTO DIFFon 12-04-2021 BASO # 0.0 103/ul Normal 0.0-0.[address] [facility] Comment on above: Performed By: #### C BC #### [facility] [address] [place] [address] Dr. Ishan Mason Basophils/100 WBC (Bld) 0.7 % Normal 0.2-2.[address] [facility] Comment on above: Performed By: #### C BC #### [facility] [address] [place] [address] Dr. Ishan Mason EO # 0.4 103/ul Normal 0.0-0.[address] [facility] Comment on above: Performed By: #### C BC #### [facility] [address] [place] [address] Dr. Ishan Mason Eosinophils/100 WBC (Bld) 7.7 % Critically high 0.9-7.[address] [facility] Comment on above: Performed By: #### C BC #### [facility] [address] [place] [address] Dr. Ishan Mason Erythrocyte distribution width (RBC) [Ratio] 12.6 % Normal 11.0-15.[address] [facility] Comment on above: Performed By: #### C BC #### [facility] [address] [place] [address] Dr. Ishan Mason Hematocrit (Bld) [Volume fraction] 40.9 % Normal 36.0-48.[address] [facility] Comment on above: Performed By: #### C BC #### [facility] [address] [place] [address] Dr. Ishan Mason Hemoglobin (Bld) [Mass/Vol] 13.4 g/dL Normal 12.0-16.[address] [facility] Comment on above: Performed By: #### C BC #### [facility] [address] [place] [address] Dr. Ishan Mason IG # 0.01 10e3/ul Normal 0.00-0.[address] [facility] Comment on above: Performed By: #### C BC #### [facility] [address] [place] [address] Dr. Ishan Mason IG % 0.2 % Normal 0.0-0.[address] [facility] Comment on above: Performed By: #### C BC #### [facility] [address] [place] [address] Dr. Ishan Mason LYMPH # 2.1 103/ul Normal 1.2-3.[address] [facility] Comment on above: Performed By: #### C BC #### [facility] [address] [place] [address] Dr. Ishan Mason Lymphocytes/100 WBC (Bld) 45.7 % Normal 20.5-60.[address] [facility] Comment on above: Performed By: #### C BC #### [facility] [address] [place] [address] Dr. Ishan Mason MANUAL DIFF REQ NO Normal [facility] Comment on above: Performed By: #### C BC #### [facility] [address] [place] [address] Dr. Ishan Mason MCH (RBC) [Entitic mass] 29.8 pg Normal 26.7-34.[address] [facility] Comment on above: Performed By: #### C BC #### [facility] [address] [place] [address] Dr. Ishan Mason MCHC (RBC) [Mass/Vol] 32.8 g/dL Normal 29.9-35.2 [facility] Comment on above: Performed By: #### C BC #### [facility] [address] [place] [address] Dr. Ishan Mason MCV (RBC) [Entitic vol] 91.1 fL Normal 81.0-99.[address] [facility] Comment on above: Performed By: #### C BC #### [facility] [address] [place] [address] Dr. Ishan Mason MONO # 0.5 103/ul Normal 0.3-0.8 [facility] Comment on above: Performed By: #### C BC #### [facility] [address] [place] [address] Dr. Ishan Mason Monocytes/100 WBC (Bld) 10.8 % Normal 1.7-12.0 [facility] Comment on above: Performed By: #### C BC #### [facility] [address] [place] [address] Dr. Ishan Mason NEUT # 1.6 103/ul Normal 1.4-6.[address] [facility] Comment on above: Performed By: #### C BC #### [facility] [address] [place] [address] Dr. Ishan Mason Neutrophils/100 WBC (Bld) 34.9 % Critically low 43.0-75.[address] [facility] Comment on above: Performed By: #### C BC #### [facility] [address] [place] [address] Dr. Ishan Mason Platelet mean volume (Bld) [Entitic vol] 10.8 fL Normal 9.5-13.[address] [facility] Comment on above: Performed By: #### C BC #### [facility] [address] [place] [address] Dr. Ishan Mason PLT 198 103/ul Normal 150-450 [facility] Comment on above: Performed By: #### C BC #### [facility] [address] [place] [address] Dr. Ishan Mason RBC 4.49 106/ul Normal 4.20-5.40 [facility] Comment on above: Performed By: #### C BC #### [facility] [address] [place] [address] Dr. Ishan Mason WBC 4.6 103/ul Normal 4.0-11.0 [facility] Comment on above: Performed By: #### C BC #### [facility] [address] [place] [address] Dr. Ishan Mason GLYCOHEMOGLOBIN A1Con 2021 ADA RECOMMENDATION SEE BELOW Normal [facility] Comment on above: Result Comment: ADA RECOMMENDED LIMIT 4.0 - 6.0 ADA THERAPEUTIC TARGET < 7.0 ACTION SUGGESTED > 7.0 Performed By: #### A 1C #### [facility] [address] [address] [address] Ishan Mason Glucose [Mass/Vol] 103 mg/dL Normal [facility] Comment on above: Performed By: #### A 1C #### [facility] [address] [address] [address] Ishan Mason HbA1c (Bld) [Mass fraction] 5.2 % Normal 4.5-6.[address] [facility] Comment on above: Performed By: #### A 1C #### [facility] [address] [place] [address] Dr. Ishan Mason LIPID PROFILEon 12-04-2021 CHOL-HDL RATIO NORM SEE BELOW Normal [facility] Comment on above: Result Comment: 3.3 - 4.4 LOW RISK 4.4 - 7.1 AVERAGE RISK 7.1 - 11.0 MODERATE RISK >11.0 HIGH RISK Performed By: #### C BC #### [facility] [address] [place] [address] Dr. Ishan Mason Cholesterol [Mass/Vol] 227 mg/dL Critically high <=[address] [facility] Comment on above: Performed By: #### C BC #### [facility] [address] [place] [address] Dr. Ishan Mason Cholesterol in HDL [Mass/Vol] 78 mg/dL Critically high 40-[address] [facility] Comment on above: Performed By: #### C BC #### [facility] [address] [address] [address] Ishan Mason Cholesterol in LDL [Mass/Vol] 130.8 mg/dL Normal [facility] Comment on above: Performed By: #### C BC #### [facility] [address] [address] [address] Ishan Mason Cholesterol.total/Chol esterol in HDL [Mass ratio] 2.9 {ratio} Normal [facility] Comment on above: Performed By: #### C BC #### [facility] [address] [address] [address] Ishan Mason HDL NORMAL > or = 60 mg/dl - LO W CARDIOVASCULAR RISK <40 mg/dl - HIGH CARDIOVASCULAR RISK Normal [facility] Comment on above: Performed By: #### C BC #### [facility] [address] [place] [address] Dr. Ishan Mason LDL CALC NORMAL SEE BELOW Normal [facility] Comment on above: Result Comment: <100 mg/dl OPTIMAL 100 - 129 mg/dl NEAR OR ABOVE OPTIMAL 130 - 159 mg/dl BORDERLINE HIGH 160 - 189 mg/dl HIGH >190 mg/dl VERY HIGH Performed By: #### C BC #### [facility] [address] [place] [address] Dr. Ishan Mason Triglyceride [Mass/Vol] 91 mg/dL Normal <=[address] [facility] Comment on above: Performed By: #### C BC #### [facility] [address] [place] [address] Dr. Ishan Mason VLDL CALC 18.2 mg/dL Normal [facility] Comment on above: Performed By: #### C BC #### [facility] [address] [place] [address] Dr. Ishan Mason PROF 14(COMP METB)on 022 Albumin [Mass/Vol] 3.6 g/dL Normal 3.4-5.0 [facility] Comment on above: Performed By: #### A 1C #### [facility] [address] [place] [address] Dr. Ishan Mason Albumin/Globulin [Mass ratio] 1.0 {ratio} Normal [facility] Comment on above: Performed By: #### A 1C #### [facility] [address] [place] [address] Dr. Ishan Mason ALP [Catalytic activity/Vol] 60 U/L Normal 46-[address] [facility] Comment on above: Performed By: #### A 1C #### [facility] [address] [place] [address] Dr. Ishan Mason ALT [Catalytic activity/Vol] 30 U/L Normal 14-[address] [facility] Comment on above: Performed By: #### A 1C #### [facility] [address] [address] [address] Ishan Mason Anion gap [Moles/Vol] 9.1 mmol/L Normal [facility] Comment on above: Performed By: #### A 1C #### [facility] [address] [address] [address] Ishan Mason AST [Catalytic activity/Vol] 23 U/L Normal 15-[address] [facility] Comment on above: Performed By: #### A 1C #### [facility] [address] [place] [address] Dr. Ishan Mason Bilirubin [Mass/Vol] 0.7 mg/dL Normal 0.2-1.[address] [facility] Comment on above: Performed By: #### A 1C #### [facility] [address] [place] [address] Dr. Ishan Mason Calcium [Mass/Vol] 9.1 mg/dL Normal 8.5-10.1 [facility] Comment on above: Performed By: #### A 1C #### [facility] [address] [place] [address] Dr. Ishan Mason Chloride [Moles/Vol] 105 mmol/L Normal 98-107 [facility] Comment on above: Performed By: #### A 1C #### [facility] [address] [place] [address] Dr. Ishan Mason CO2 [Moles/Vol] 30.1 mmol/L Normal 21.0-32.0 [facility] Comment on above: Performed By: #### A 1C #### [facility] [address] [place] [address] Dr. Ishan Mason Creatinine [Mass/Vol] 0.71 mg/dL Normal 0.55-1.[address] [facility] Comment on above: Performed By: #### A 1C #### [facility] [address] [place] [address] Dr. Ishan Mason EGFR-AF WELSH >60 Normal >=60 [facility] Comment on above: Performed By: #### A 1C #### [facility] [address] [address] [address] Ishan Mason EGFR-NON AF WELSH >60 Normal >=60 [facility] Comment on above: Performed By: #### A 1C #### [facility] [address] [address] [address] Ishan Mason Globulin (S) [Mass/Vol] 3.6 g/dL Normal [facility] Comment on above: Performed By: #### A 1C #### [facility] [address] [address] [address] Ishan Mason Glucose [Mass/Vol] 102 mg/dL Normal 74-106 [facility] Comment on above: Performed By: #### A 1C #### [facility] [address] [place] [address] Dr. Ishan Mason Potassium [Moles/Vol] 4.2 mmol/L Normal 3.5-5.[address] [facility] Comment on above: Performed By: #### A 1C #### [facility] [address] [address] [address] Ishan Mason Protein [Mass/Vol] 7.2 g/dL Normal 6.4-8.2 [facility] Comment on above: Performed By: #### A 1C #### [facility] [address] [address] [address] Ishan Mason Sodium [Moles/Vol] 140 mmol/L Normal 136-145 [facility] Comment on above: Performed By: #### A 1C #### [facility] [address] [address] [address] Ishan Mason Urea nitrogen [Mass/Vol] 9.0 mg/dL Normal 7.0-18.[address] [facility] Comment on above: Performed By: #### A 1C #### [facility] [address] [address] [address] Ishan Mason Urea nitrogen/Creatinine [Mass ratio] 12.7 mg/mg Normal [facility] Comment on above: Performed By: #### A 1C #### [facility] [address] [place] [address] Dr. Ishan Mason TSHon 12-04-2021 TSH 1.369 uIU/mL Normal 0.358-3.740 [facility] Comment on above: Performed By: #### C BC #### [facility] [address] [place] [address] CHEST HI RESOLUTIONon [...] by: MARITO MEJIA Date: 2021-11-26 16:[address] [facility] Consultation Noteon 11-20-19 22 Consultation Note [id number] .[id number]:127 Normal [facility] CBC AUTO DIFFon 11-12-2021 BASO # 0.0 103/ul Normal 0.0-0.[address] [facility] Comment on above: Performed By: #### A 1C #### [facility] [address] [place] [address] Dr. Ishan Mason Basophils/100 WBC (Bld) 0.6 % Normal 0.2-2.[address] [facility] Comment on above: Performed By: #### A 1C #### [facility] [address] [place] [address] Dr. Ishan Mason EO # 0.4 103/ul Normal 0.0-0.[address] [facility] Comment on above: Performed By: #### A 1C #### [facility] [address] [place] [address] Dr. Ishan Mason Eosinophils/100 WBC (Bld) 6.1 % Normal 0.9-7.[address] [facility] Comment on above: Performed By: #### A 1C #### [facility] [address] [place] [address] Dr. Ishan Mason Erythrocyte distribution width (RBC) [Ratio] 12.1 % Normal 11.0-15.[address] [facility] Comment on above: Performed By: #### A 1C #### [facility] [address] [place] [address] Dr. Ishan Mason Hematocrit (Bld) [Volume fraction] 43.7 % Normal 36.0-48.[address] [facility] Comment on above: Performed By: #### A 1C #### [facility] [address] [place] [address] Dr. Ishan Mason Hemoglobin (Bld) [Mass/Vol] 14.1 g/dL Normal 12.0-16.[address] [facility] Comment on above: Performed By: #### A 1C #### [facility] [address] [place] [address] Dr. Ishan Mason IG # 0.02 10e3/ul Normal 0.00-0.[address] [facility] Comment on above: Performed By: #### A 1C #### [facility] [address] [place] [address] Dr. Ishan Mason IG % 0.3 % Normal 0.0-0.[address] [facility] Comment on above: Performed By: #### A 1C #### [facility] [address] [place] [address] Dr. Ishan Mason LYMPH # 2.9 103/ul Normal 1.2-3.8 [facility] Comment on above: Performed By: #### A 1C #### [facility] [address] [place] [address] Dr. Ishan Mason Lymphocytes/100 WBC (Bld) 41.6 % Normal 20.5-60.[address] [facility] Comment on above: Performed By: #### A 1C #### [facility] [address] [place] [address] Dr. Ishan Mason MANUAL DIFF REQ NO Normal [facility] Comment on above: Performed By: #### A 1C #### [facility] [address] [place] [address] Dr. Ishan Mason MCH (RBC) [Entitic mass] 29.3 pg Normal 26.7-34.[address] [facility] Comment on above: Performed By: #### A 1C #### [facility] [address] [place] [address] Dr. Ishan Mason MCHC (RBC) [Mass/Vol] 32.3 g/dL Normal 29.9-35.[address] [facility] Comment on above: Performed By: #### A 1C #### [facility] [address] [place] [address] Dr. Ishan Mason MCV (RBC) [Entitic vol] 90.9 fL Normal 81.0-99.[address] [facility] Comment on above: Performed By: #### A 1C #### [facility] [address] [place] [address] Dr. Ishan Mason MONO # 0.7 103/ul Normal 0.3-0.[address] [facility] Comment on above: Performed By: #### A 1C #### [facility] [address] [place] [address] Dr. Ishan Mason Monocytes/100 WBC (Bld) 10.3 % Normal 1.7-12.[address] [facility] Comment on above: Performed By: #### A 1C #### [facility] [address] [place] [address] Dr. Ishan Mason NEUT # 2.9 103/ul Normal 1.4-6.5 [facility] Comment on above: Performed By: #### A 1C #### [facility] [address] [place] [address] Dr. Ishan Mason Neutrophils/100 WBC (Bld) 41.1 % Critically low 43.0-75.[address] [facility] Comment on above: Performed By: #### A 1C #### [facility] [address] [place] [address] Dr. Ishan Mason Platelet mean volume (Bld) [Entitic vol] 11.0 fL Normal 9.5-13.[address] [facility] Comment on above: Performed By: #### A 1C #### [facility] [address] [place] [address] Dr. Ishan Mason PLT 204 103/ul Normal 150-450 [facility] Comment on above: Performed By: #### A 1C #### [facility] [address] [place] [address] Dr. Ishan Mason RBC 4.81 106/ul Normal 4.20-5.[address] [facility] Comment on above: Performed By: #### A 1C #### [facility] [address] [place] [address] Dr. Ishan Mason WBC 7.1 103/ul Normal 4.0-11.[address] [facility] Comment on above: Performed By: #### A 1C #### [facility] [address] [place] [address] Dr. Ishan Mason CREATININEon 11-12-2021 Creatinine [Mass/Vol] 0.73 mg/dL Normal 0.55-1.[address] [facility] Comment on above: Performed By: #### C BC #### [facility] [address] [place] [address] Dr. Ishan Mason EGFR-AF WELSH >60 Normal >=60 [facility] Comment on above: Performed By: #### C BC #### [facility] [address] [place] [address] Dr. Ishan Mason EGFR-NON AF WELSH >60 Normal >=[address] [facility] Comment on above: Performed By: #### C BC #### [facility] [address] [place] [address] Dr. Ishan Mason LIVER PROFILEon 11-12-2021 Albumin [Mass/Vol] 4.0 g/dL Normal 3.4-5.0 [facility] Comment on above: Performed By: #### C BC #### [facility] [address] [place] [address] Dr. Ishan Mason Albumin/Globulin [Mass ratio] 1.0 {ratio} Normal [facility] Comment on above: Performed By: #### C BC #### [facility] [address] [place] [address] Dr. Ishan Mason ALP [Catalytic activity/Vol] 75 U/L Normal 46-116 [facility] Comment on above: Performed By: #### C BC #### [facility] [address] [place] [address] Dr. Ishan Mason ALT [Catalytic activity/Vol] 30 U/L Normal 14-[address] [facility] Comment on above: Performed By: #### C BC #### [facility] [address] [place] [address] Dr. Ishan Mason AST [Catalytic activity/Vol] 23 U/L Normal 15-[address] [facility] Comment on above: Performed By: #### C BC #### [facility] Laboratory [address] [place] [address] Dr. Ishan Mason BILI, CONJUGATED 0.1 mg/dL Normal 0.0-0.2 [facility] Comment on above: Performed By: #### C BC #### [facility] [address] [place] [address] Dr. Ishan Mason Bilirubin [Mass/Vol] 0.7 mg/dL Normal 0.2-1.[address] [facility] Comment on above: Performed By: #### C BC #### [facility] [address] [place] [address] Dr. Ishan Mason Globulin (S) [Mass/Vol] 4.0 g/dL Normal [facility] Comment on above: Performed By: #### C BC #### [facility] [address] [place] [address] Dr. Ishan Mason Protein [Mass/Vol] 8.0 g/dL Normal 6.4-8.2 [facility] Comment on above: Performed By: #### C BC #### [facility] [address] [place] [address] Dr. Ishan Mason [facility] SED RATE 15 mm/hr Normal <=[address] [facility] Comment on above: Performed By: #### A 1C #### [facility] [address] [place], [place] [address] Dr. Ishan Mason Outside Mammographyon 2021 Outside Mammography [id number]:127 Normal [facility] MG MAMM SCREEN 3D [place] CADon 11-06-2021 MG MAMM SCREEN 3D [place] CAD Patient: VELASQUEZ BOUCHER Exam Date: 11/06/2021 : 1970 Gender:F Ordering : DR JUAN C HOPE Admission #: [id number] Family : Order #: [id number] CLICK HERE TO VIEW EXAM RADIOLOGY REPORT [...] tongue cancer at age 59. LOCATION: [facility] BREAST COMPOSITION: Scattered areas fibroglandular density. [...] M.D. on 11/06/2021 at 15:37 Normal [facility] HEMOGLOBINon 11-05-2021 Hemoglobin (Bld) [Mass/Vol] 13.6 g/dL Normal 12.0-16.[address] [facility] Comment on above: Performed By: #### C BC #### [facility] [address] [place] [address] [address] Ishan Mason Ambulatory Visit Summaryon 0 [...] tablet) fluticasone nasal (fluticasone 0.05 mg/inh Nasal [place]) hydroxychloroquine lactobacillus acidophilus (Acidophilus Probiotic Blend oral [...] for breast cancer, pp_set_radiology_subs pecialty, [place] [facility] Medications What How Much When Instructions Unchanged abatacept (Orencia ClickJect 125 mg/ mL subcutaneous solution) Unchanged calcium carbonate (calcium 500 mg Tab) By Mouth Every day Unchanged cetirizine (Zyrtec) 10 Milligram By Mouth Every day Unchanged cholecalciferol (Vitamin D3 2000 intl units oral tablet) 1 Tablets By Mouth Every day Unchanged fluticasone nasal (fluticasone 0.05 mg/ inh Nasal [place]) 2 Sprays Nasal Inhalation Every day each [...] Rheumatoid Arthritis Sinus congestion Swollen tongue Normal [facility] Medicine Office/Clini c Noteon 10-08-2021 Family Medicine [...] directed. Mammogram completed last on 11/03/20 at [facility], (ordered today). Due for PAP/pelvic exam. [...] Once, # 1 tab(s), Refills(s) 1, Pharmacy: [facility]/pharmacy #[id number], 158, cm, 02/16/21 15:39:00 EST, Height/Length Dosing, 94, kg, 02/16/21 15:39:00 EST, Weight Dosing predniSONE, 0 = 1 -, Oral, As Directed, Take 5 tabs by mouth daily x3 days, 4 daily x3 days, 3 daily x3 days, 2 daily x3 days, then 1 tab daily x3 days., # 45 tab(s), Refills(s) 0, Pharmacy: [facility]/pharmacy #[id number], 158, cm, 02/16/21 15:39:00 EST, Height/Length Dosing... Follow-up With When Contact Information Juan C HOPE DO, FAM In 1 year [address] [place] [address]- Additional Instructions: Problem List/Past Medical History Ongoing BMI 38.0-38.9,adult Encounter for screening mammogram for breast cancer Preventative health care Rheumatoid Arthritis Historical No qualifying data Procedure/Surgical History None. Medications Acidophilus Probiotic Blend oral capsule, Oral, Daily B Complex 100 calcium 500 mg Tab, Oral, Daily fluticasone 0.05 mg/inh Nasal [place], 2 spray(s), Nasal, Daily, 3 refills hydroxychloroquine, [...] mRNA-1273 vacci (more content not included)... Normal [facility] Comment on above: Result Comment: Elec tronically Signed By: Juan C HOPE DO\.br\Date and Time Signed: 10/08/21 21:58 EDT Covid-19 PCR ([facility])on 09-11 SARS-CoV-2 (COVID-19) RNA MARICEL+probe Ql (Unsp spec) Detected Critically abnormal NOT DETECTED [facility] Comment on above: Result Comment: This test is not yet approved or cleared by the [place] FDA. When there are no FDA-approved or cleared tests available, and other criteria are met, FDA can make tests available under an emergency access mechanism called an Emergency Use Authorization (EUA). The EUA for this test is supported by the [place] of Health and Human Service's declaration that [...] used). Performed By: #### A 1C #### [facility] [address] [place] [address] Dr. Ishan Mason CBC AUTO DIFFon 07-01-2021 BASO # 0.0 103/ul Normal 0.0-0.[address] [facility] Comment on above: Performed By: #### S EDR #### [facility] [address] [place] [address] Dr. Ishan Mason Basophils/100 WBC (Bld) 0.5 % Normal 0.2-2.[address] [facility] Comment on above: Performed By: #### S EDR #### [facility] [address] [place] [address] Dr. Ishan Mason EO # 0.2 103/ul Normal 0.0-0.7 [facility] Comment on above: Performed By: #### S EDR #### [facility] [address] [place] [address] Dr. Ishan Mason Eosinophils/100 WBC (Bld) 3.4 % Normal 0.9-7.0 [facility] Comment on above: Performed By: #### S EDR #### [facility] [address] [place] [address] Dr. Ishan Mason Erythrocyte distribution width (RBC) [Ratio] 12.7 % Normal 11.0-15.0 [facility] Comment on above: Performed By: #### S EDR #### [facility] [address] [place] [address] Dr. Ishan Mason Hematocrit (Bld) [Volume fraction] 42.6 % Normal 36.0-48.[address] [facility] Comment on above: Performed By: #### S EDR #### [facility] [address] [place] [address] [address] Ishan Mason Hemoglobin (Bld) [Mass/Vol] 13.6 g/dL Normal 12.0-16.[address] [facility] Comment on above: Performed By: #### S EDR #### [facility] [address] [place] [address] [address] Ishan Mason IG # 0.01 10e3/ul Normal 0.00-0.[address] [facility] Comment on above: Performed By: #### S EDR #### [facility] [address] [place] [address] [address] Ishan Mason IG % 0.2 % Normal 0.0-0.[address] [facility] Comment on above: Performed By: #### S EDR #### [facility] [address] [place] [address] [address] Ishan Mason LYMPH # 2.0 103/ul Normal 1.2-3.[address] [facility] Comment on above: Performed By: #### S EDR #### [facility] [address] [place] [address] [address] Ishan Mason Lymphocytes/100 WBC (Bld) 34.7 % Normal 20.5-60.[address] [facility] Comment on above: Performed By: #### S EDR #### [facility] [address] [place] [address] [address] Ishan Mason MANUAL DIFF REQ NO Normal [facility] Comment on above: Performed By: #### S EDR #### [facility] [address] [place] [address] [address] Ishan Mason MCH (RBC) [Entitic mass] 29.9 pg Normal 26.7-34.[address] [facility] Comment on above: Performed By: #### S EDR #### [facility] [address] [place] [address] [address] Ishan Mason MCHC (RBC) [Mass/Vol] 31.9 g/dL Normal 29.9-35.[address] [facility] Comment on above: Performed By: #### S EDR #### [facility] [address] [address] [address] Ishan Mason MCV (RBC) [Entitic vol] 93.6 fL Normal 81.0-99.[address] [facility] Comment on above: Performed By: #### S EDR #### [facility] [address] [place] [address] [address] Ishan Mason MONO # 0.7 103/ul Normal 0.3-0.[address] [facility] Comment on above: Performed By: #### S EDR #### [facility] [address] [place] [address] [address] Ishan Mason Monocytes/100 WBC (Bld) 12.1 % Critically high 1.7-12.[address] [facility] Comment on above: Performed By: #### S EDR #### [facility] [address] [place] [address] Dr. Ishan Mason NEUT # 2.9 103/ul Normal 1.4-6.[address] [facility] Comment on above: Performed By: #### S EDR #### [facility] [address] [place] [address] [address] Ishan Mason Neutrophils/100 WBC (Bld) 49.1 % Normal 43.0-75.[address] [facility] Comment on above: Performed By: #### S EDR #### [facility] [address] [place] [address] [address] Ishan Mason Platelet mean volume (Bld) [Entitic vol] 11.1 fL Normal 9.5-13.[address] [facility] Comment on above: Performed By: #### S EDR #### [facility] [address] [place] [address] [address] Ishan Mason PLT 177 103/ul Normal 150-450 [facility] Comment on above: Performed By: #### S EDR #### [facility] [address] [place] [address] [address] Ishan Mason RBC 4.55 106/ul Normal 4.20-5.40 [facility] Comment on above: Performed By: #### S EDR #### [facility] [address] [place] [address] Dr. Ishan Mason WBC 5.9 103/ul Normal 4.0-11.[address] [facility] Comment on above: Performed By: #### S EDR #### [facility] [address] [place] [address] [address] Ishan Mason CREATININEon 07-01-2021 Creatinine [Mass/Vol] 0.79 mg/dL Normal 0.52-1.[address] [facility] Comment on above: Performed By: #### C KIRAN, LIVER #### [facility] [address] [place] [address] Dr. Ishan Mason EGFR-AF WELSH >60 Normal >=60 [facility] Comment on above: Performed By: #### C KIRAN, LIVER #### [facility] [address] [place] [address] Dr. Ishan Mason EGFR-NON AF WELSH >60 Normal >=[address] [facility] Comment on above: Performed By: #### C KIRAN, LIVER #### [facility] [address] [place] [address] Dr. Ishan Mason LIVER PROFILEon 07-01-2021 Albumin [Mass/Vol] 3.6 g/dL Normal 3.4-5.0 [facility] Comment on above: Performed By: #### C KIRAN, LIVER #### [facility] [address] [place] [address] Dr. Ishan Mason Albumin/Globulin [Mass ratio] 1.0 {ratio} Normal [facility] Comment on above: Performed By: #### C KIRAN, LIVER #### [facility] [address] [place] [address] Dr. Ishan Mason ALP [Catalytic activity/Vol] 60 U/L Normal 46-[address] [facility] Comment on above: Performed By: #### C KIRAN, LIVER #### [facility] [address] [place] [address] Dr. Ishan Mason ALT [Catalytic activity/Vol] 27 U/L Normal 14-[address] [facility] Comment on above: Performed By: #### C KIRAN, LIVER #### [facility] [address] [place] [address] [address] Ishan Mason AST [Catalytic activity/Vol] 22 U/L Normal 15-[address] [facility] Comment on above: Performed By: #### C KIRAN, LIVER #### [facility] [address] [place] [address] [address] Ishan Mason BILI, CONJUGATED 0.1 mg/dL Normal 0.0-0.3 [facility] Comment on above: Performed By: #### C KIRAN, LIVER #### [facility] [address] [place] [address] Dr. Ishan Mason Bilirubin [Mass/Vol] 0.5 mg/dL Normal 0.2-1.[address] [facility] Comment on above: Performed By: #### C KIRAN, LIVER #### [facility] [address] [place] [address] Dr. Ishan Mason Globulin (S) [Mass/Vol] 3.5 g/dL Normal [facility] Comment on above: Performed By: #### C KIRAN, LIVER #### [facility] [address] [place] [address] Dr. Ishan Mason Protein [Mass/Vol] 7.1 g/dL Normal 6.1-8.2 [facility] Comment on above: Performed By: #### C KIRAN, LIVER #### [facility] [address] [place] [address] Dr. Ishan Mason SED RATE [facility] 2021 SED RATE 5 mm/hr Normal <=[address] [facility] Comment on above: Performed By: #### A 1C #### [facility] [address] [place] [address] Dr. Ishan Mason Vital Signs Date Time Vital Sign Value Performing Clinician Facility 01-24-2024 07:52-0500 Body height 158.8 cm Sofia Bday Work Phone: [facility] 01-24-2024 07:52-0500 Body mass index (BMI) [Ratio] 39.02 kg/m2 Sofia Guera DO Work Phone: [facility] [employer] 01-24-2024 07:52-0500 Body weight 98.34 kg Sofia Guera DO Work Phone: [facility] [employer] 01-24-2024 07:52-0500 Diastolic blood pressure 86 mm[Hg] Sofia Guera DO Work Phone: [facility] 01-24-2024 07:52-0500 Heart rate 77 /min Sofia Guera DO Work Phone: [facility] 01-24-2024 07:52-0500 SaO2% (BldA) [Mass fraction] 96 % Sofia Guera DO Work Phone: [facility] [employer] 01-24-2024 07:52-0500 Systolic blood pressure 132 mm[Hg] Sofia Guera DO Work Phone: [facility] [employer] 12-24-2020 15:00-0400 Body height 157.48 cm Conner Quinteros Other [employer] Other 12-24-2020 15:00-0400 Body mass index (BMI) [Ratio] 38.04 kg/m2 Conner Quinteros Other [employer] Other 12-24-2020 15:00-0400 Body temperature 98.4 [degF] Conner Quinteros Other [employer] Other 12-24-2020 15:00-0400 Body weight 94.35 kg Conner Quinteros Other [employer] Other 12-24-2020 15:00-0400 Diastolic blood pressure 95 mm[Hg] Conner Quinteros Other [employer] Other 12-24-2020 15:00-0400 Respiratory rate 18 /min Conner Quinteros Other [employer] Other 12-24-2020 15:00-0400 Systolic blood pressure 145 mm[Hg] Conner Quinteros Other [employer] Other Encounters Encounter Date Encounter Type Care Provider Facility Start: 06-27-2024 End: 06-27-2024 ambulatory SREE CAMERON Not Available Start: 06-27-2024 End: 06-27-2024 Bamboo flowsheet Sree Selbyer DO Work Phone: [facility] Start: 06-27-2024 End: 06-27-2024 Bamboo flowsheet Sree Ioana Stephaniemargauxer DO Work Phone: [facility] Start: 01-24-2024 End: 01-24-2024 Bamboo flowsheet Sofia Guera DO Work Phone: [facility] Start: 01-24-2024 End: 01-24-2024 Bamboo flowsheet Sofia Guera DO Work Phone: [facility] Start: 01-24-2024 End: 01-24-2024 Office outpatient visit 25 minutes Sofia Guera DO Work Phone: [facility] Comment on above: AGA [...] without abnormal findings DR JUAN C HOPE [facility] Start: 12-04-2021 End: 12-05-[address] [...] PEÑA Facility:[facility] Start: 10-08-2021 End: 10-09-2021 ambulatory Jua nC HOPE Facility:[facility] Start: 09-28-2021 End: 09-29-2021 ambulatory RUFINA LOVING Facility:[facility] Start: 09-28-2021 End: 09-28-2021 ambulatory CATRACHITA KAY Facility: Start: 09-28-2021 ambulatory RUFINA LOVING Facility: [facility] Start: 09-15-2021 ambulatory Juan C HOPE Facilit y:[facility] Start: 09-07-2021 ambulatory RUFINA LOVING Facility:[facility] Start: 07-01-2021 End: 07-02-[address] HERMINIA [...] Screening for malign ant neoplasm of colon [facility] Start: 01-22-2025 End: 01-22-2025 Patient encounter procedure [facility] Start: 11-12-2024 Influenza vaccination Influenz a Vaccine (Season Ended) [facility] Start: 06-27-2024 End: 06-27-2024 Patient encounter procedure [facility] Comment on above: Arrived Start: 11-13-2023 Influenza vaccination Influenza Vacc ine (#1) [facility] Start: 2012 Screening for malign ant neoplasm of breast Mammogram [facility] Start: 2002 Screening for malign ant neoplasm of cervix [facility] Start: 1993 Screening for malign ant neoplasm of cervix Pap Smear [facility] Start: 1970 Screening for malign ant neoplasm of colon [facility] Immunizations Immunization Date Immunization Notes Care Provider [facility] 01-24-2024 influenza virus vacc ine, unspecified formulation Sree Cameron DO Work Phone: [facility] 02-15-2023 tetanus toxoid, redu noy diphtheria toxoid, and acellular pertussis vaccine, adsorbed Sofia Lynne DO Work Phone: [facility] 05-29-2020 pneumococcal conjuga te vaccine, 13 valent Sofia Lynne DO Work Phone: [facility] 01-10-2009 novel influenza-H1N1 -09, preservative-free, injectable Sofia Lynne DO Work Phone: [facility] Payers Date Payer Category Payer Blue [facility] Shield [employer]BS [id number] 2022 Unknown [id number] 2019 Unknown [id number] [id number] 1972 Unknown [id number] 2.16.840.1.323728.3.579.2. 727 1972 Unknown [id number] 2.16.840.1.111217.3.579.2. 72 1970 Unknown [id number] 2.16.840.1.580572.3.579.2. 727 1972 Unknown [id number] 2.16.840.1.320214.3.579.2. 727 1972 Unknown [id number] 2.16.840.1.183002.3.579.2. 727 1972 Unknown [id number] 2.16.840.1.565441.3.579.2. 727 1972 Unknown [id number] 2.16.840.1.203400.3.579.2. 727 1972 Unknown [id number] 2.16.840.1.966768.3.579.2. 727 1972 Unknown [id number] 2.16.840.1.819904.3.579.2. 593 1972 Unknown [id number] 2.16.840.1.765980.3.579.2. 593 1972 Unknown [id number] 2.16.840.1.652277.3.579.2. 593 1972 Unknown [id number] 2.16.840.1.623922.3.579.2. 593 1972 Unknown [id number] 2.16.840.1.527957.3.579.2. 593 1972 Unknown [id number] 2.16.840.1.141324.3.579.2. 593 1972 Unknown [id number] 2.16.840.1.152481.3.579.2. 593 1972 Unknown [id number] 2.16.840.1.787821.3.579.2. 593 1972 Unknown [id number] 2.16.840.1.729957.3.579.2. 593 1972 Unknown [id number] 2.16.840.1.670547.3.579.2. 593 1972 Unknown [id number] 2.16.840.1.982822.3.579.2. 593 1972 Unknown [id number] 2.16.840.1.968782.3.579.2. 593 1972 Unknown [id number] 2.16.840.1.478340.3.579.2. 593 1972 Unknown [id number] 2.16.840.1.271256.3.579.2. 593 1972 Unknown [id number] 2.16.840.1.938415.3.579.2. 1259 1972 Unknown [id number] 2.16.840.1.241729.3.579.2. 1259 1972 Unknown [id number] 2.16.840.1.689454.3.579.2. 1259 1970 Unknown [id number] 2.16.840.1.444517.3.579.2. 1259 Social History Date Type Detail Facility Unknown if ever smoked [employer] Other Start: 01-24-2024 Sex Assigned At [facility] [employer] Other Start: 12-28-2022 Tobacco smoking stat [facility] Never smoked tobacco [facility] Start: 12-28-2022 Tobacco use and exposure Smokeless tobacco non-user [facility] Start: 01-24-2024 End: 06-27-2024 Alcoholic beverage intake Ex-drinker (finding) [facility] Start: 01-24-2024 History of Social function [facility] Start: 06-28-2023 Alcohol Comment Caffeine intak e: 1-2 cups per day [facility] Start: 1970 Sex assigned at Not on file N [facility] Perimetry study 06-27-2024 Note Date & Type Note Facility 06-27-2024 Note Right Eye Reliability was good. Progression has been stable. Foveal threshold was normal. Findings include normal observations. Left Eye Reliability was good. Progression has been stable. Foveal threshold was normal. Findings include normal observations. [facility] Optical coherence tomography study report 06-27-2024 Note Date & Type Note Facility 06-27-2024 Note Right Eye Quality was good. Scan locations included subfoveal. Progression has been stable. Findings include normal observations. Left Eye Quality was good. Scan locations included subfoveal. Progression has been stable. Findings include normal observations. Notes Good scan with normal appearance FAF stable [facility] History of Present illness Narrative 06-27-2024 [...] above evaluations. This will be adjusted to [id number] when deemed necessary due to macular risk [...] job in September. She was at the [facility] and she was part of the [...] was counseled on the risks of stroke, MS, and sudden with AGA, along with the [...] clinic: 6 months documented in this encounter [facility] Clinical Note 10-04-2021 Note Date & Type Note Facility 10-04-2021 Note [facility] Staff Velasquez is a 51 year old [...] leflunomide. However, she did talk to her marketing support assistant and was told to discontinue these. The [...] interactive video communications from my office using [employer] due to the restrictions of the COVID-19 pandemic. No physical exam was conducted other than those areas of the body visible to telecommunications with the patient located at [address] [place] [address] [phone], with no one else in attendance. If [...] patient or guardian consented to allow [employer] to record this visit. SILAS residential specialist and provider reviewed before signing. SILAS: Cori Cherry. Follow-up With When Contact Information RUFINA LOVING CNP Only if needed [address] [facility] [address] [place] [address] Additional Instructions: Patient Education COVID-19 Frequently Asked Questions COVID-19 Problem List/Past Medical History Ongoing BMI 38.0-38.9,adult Borderline abnormal thyroid function test COVID-19 Encounter for screening mammogram for breast cancer Non-smoker Painful mouth Preventative health care Sinus congestion Swollen tongue Historical Rheumatoid Arthritis Procedure/Surgical History None. Medications Acidophilus Probiotic Blend oral capsule, Oral, Daily calcium 500 mg Tab, Oral, Daily Flonase 0.05 mg/inh [place], 1 spray(s), Nasal, Daily fluconazole 150 mg Tab, 150 mg= 1 tab(s), Oral, Once, 1 refills fluticasone 0.05 mg/inh Nasal [place], 2 spray(s), Nasal, Daily, 3 refills hydroxychloroquine, 200 mg, Oral, Daily leflunomide, 20 mg, Oral, Daily Magic Mouth Wash, See Instructions, 2 refills metoprolol 50 mg ER Tab, 50 mg= 1 tab(s), Oral, Daily, 1 refills Orencia ClickJect 125 mg/mL subcutaneous solution Paxlovid 150 mg-100 mg oral tablet, See Instructions pred (more content not included)... [facility] Comment on above: Result Comment: Elec [...] the coronavirus come from? In February 2019, [place] told the World Health Organization (WHO) of several cases of lung disease (human respiratory illness). These cases were linked to an open seafood and livestock market in the city of [place]. The link to the seafood and livestock [...] naming World Health Organization (WHO): www.who.int/emergencies/diseases/novel-c oronavirus-2019/technical-guidance/tramaine o-sff-mcgznunqrkg-disease-(covid-2019)-a ug-nuo-utpig-jgnh-vapmlq-uu Who is at risk for complications from [...] Samples may in (more content not included)... 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) Dec, Rheumatoid arthritis (ICD-10 - M06.9) [facility] Other Evaluation note Note Date & Type [...] Type Medical History RA Medical History HTN [employer] Other Summary Purpose Family History No Family History Records FoundNo Family History Records FoundNo Family History Records Found Advance Directives No Advanced Directives Records FoundNo Advanced Directives Records FoundNo Advanced Directives Records Found Additional Source Comments REASON FOR VISIT (unrecogniz ed section and content) Reason Comments Sleep Apnea Reason Comments Eye Exam INFORMATION SOURCE (unrecogn ized section and content) DATE CREATED AUTHOR 05/20/2022 [facility] DATE CREATED AUTHOR AUTHOR'S ORGANIZ ATION 06/30/2022 [facility] DATE CREATED AUTHOR AUTHOR'S ORGANIZ ATION 06/29/2024 [facility] [employer] Care Teams (unrecognized sec tion and content) Radio Time Salesperson Relationship Specialty Start Date End Date Herminia Peña MD [address] [place] [address] Referring Physician Rheumatology 09/26/23 Sofia Lynne DO [address] [place] [phone] Referring Physician Neurology 01/24/24 Twila Long NP [address] [place] [phone] Referring Physician Family Medicine 01/24/24 Radio Time Salesperson Relationship Specialty Start Date End Date Herminia Peña MD [address] [place] [address] Referring Physician Rheumatology 09/26/23 Sofia Lynne DO [address] [place] [phone] Referring Physician Neurology 01/24/24 Twila Long, SIGN BUILDER SUPERVISOR [address] [place] [id number] Referring Physician Family Medicine 01/24/24 Radio Time Salesperson Relationship Specialty Start Date End Date Herminia Peña MD [address] [place] [address] Referring Physician Rheumatology 09/26/23 Sofia Lynne DO [address] [place] [phone] Referring Physician Neurology 01/24/24 Twila Long NP [address] [place] [address] Referring Physician Family Medicine 01/24/24 Radio Time Salesperson Relationship Specialty Start Date End Date Herminia Peña MD [address] [place] [address] Referring Physician Rheumatology 09/26/23 Sofia Lynne DO [address] [place] [phone] Referring Physician Neurology 01/24/24 Twila Long NP [address] [place] [address] Referring Physician Family Medicine 01/24/24 [...] BE BASED ON THE PRIMARY CLINICAL RECORDS. [facility] [email or web address] provides no warranty or guarantee of the accuracy or completeness of information in this document.
== END 2024-12-04 11:10 | disposition home or self-care (01) ==
LOC: CARD 11:10
PROVIDERS: Visit Provider Nurse Practitioner Family
DX: R06.00 Dyspnea, unspecified (principal); Z79.899 Other long term (current) drug therapy
CPT/HCPCS: 94010; 94726; 94729

== ENCOUNTER 2024-12-04 11:13 | Outpatient (OUT) | payer BC, SELFPAY ==
--- OUTSIDE RECORDS SUMMARY | 2024-12-04 11:20 | XMS_ITS | CCD ---
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 Name Role Phone Conner Quinteros Unavailable RUFINA [...] Consulting Unavailable GUERA, DR BLACK Attending Unavailable GUEAR, DR BLACK Admitting Unavailable JAYY, DR JUAN [...] GUERA, DR BLACK Consulting Unavailable GUERA, DR LBACK Attending Unavailable HALADAY, DR HOPE Consulting Unavailable [...] DR JUAN C Varghese Primary Care Unavailable [facility], DR BAEZ Admitting Unavailable [facility], DR BAEZ Attending Unavailable MARIANA, DR HOPE Consulting Unavailable JORDY, DR MARITO [place] Consulting Unavailable JAYY, DR JUAN C Varghese Primary Care Unavailable JAYY, DR JUAN C Varghese Attending Unavailable JAYY, DR JUAN C Varghese Admitting Unavailable JAYY, DR JUAN C Varghese Consulting Unavailable Mariana SANCHES, Herminia Michael Unavailable Sofia Lynne DO Unavailable Ethan OCCUPATIONAL HEALTH PHYSICIAN, Twila Unavailable SOFIA LYNNE Attending Unavailable SREE CAMERON Attending Unavailable SOFIA LYNNE Attending Unavailable SREE CAMERON Attending Unavailable Allergies Allergy Classification Reported Allergen(s) Allergy Type Date of Onset Reaction(s) Facility (7 sources) Ciprofloxacin; Translations: [ciprofloxacin] Drug Allergy 12-29-19 Rash [facility] Repository (1 source) pregabalin Drug Allergy Unknown [place] Other (6 sources) Sulfamethoxazole / Trimethoprim Drug Allergy 12-29-19 Rash, Unknown [place] Other (6 sources) Methotrexate; Translations: [methotrexate] Drug Allergy 12-29-19 Shortness of breath [facility] Repository (1 source) pregabalin; Translations: [Lyrica] Drug Allergy [facility] Repository (1 source) Sulfamethoxazole; Translations: [sulfamethoxazole] Drug Allergy [facility] Repository (1 source) Sulfamethoxazole / Trimethoprim; Translations: [Bactrim] Drug Allergy [facility] Repository (1 source) Ciprofloxacin Drug Allergy [facility] Repository (1 source) Sulfonamides (Antibiotic) Drug allergy (disorder) [facility] Repository (5 sources) Pregabalin Allergy to [...] tablets by mouth if needed Active B Swbflzt-Uvyhxq-AL (Super B-50 B Complex) capsule (5 sources) [...] mouth Daily 01/24/2024 Discontinued (Med list cleanup) Gladstone-3 Fatty Acids (GNP FISH OIL PO) (3 sources) End: 01-24-2024 take 1 tablet by mouth once daily Gladstone-3 Fatty Acids (GNP FISH OIL PO) Take [...] 12-28-2022 Episodic Other aftercare (5 sources) Other residential (current) drug therapy; Translations: [OTH [facility] CURRENT DRUG THERAPY] Onset: 07-01-2021 Episodic Other aftercare (6 sources) Drug therapy finding; Translations: [Other intermodal dispatcher (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 Ishan Mason Basophils/100 WBC (Bld) 0.8 % Normal 0.2-2.0 [facility] Comment on above: Performed By: #### S EDR #### [facility] [address] [address] [address] Ishan Mason EO # 0.3 103/ul Normal 0.0-0.7 [facility] Comment on above: Performed By: #### S EDR #### [facility] [address] [address] [address] Ishan Mason Eosinophils/100 WBC (Bld) 5.7 % Normal 0.9-7.0 [facility] Comment on above: Performed By: #### S EDR #### [facility] [address] [address] [address] Ishan Mason Erythrocyte distribution width (RBC) [Ratio] 12.6 % Normal 11.0-15.0 [facility] Comment on above: Performed By: #### S EDR #### [facility] [address] [place] [address] Dr. Ishan Mason Hematocrit (Bld) [Volume fraction] 40.6 % Normal 36.0-48.0 [facility] Comment on above: Performed By: #### S EDR #### [facility] [address] [place] [address] Dr. Ishan Mason Hemoglobin (Bld) [Mass/Vol] 13.4 g/dL Normal 12.0-16.0 [facility] Comment on above: Performed By: #### S EDR #### [facility] [address] [place] [address] Dr. Ishan Mason IG # 0.01 10e3/ul Normal 0.00-0.03 [facility] Comment on above: Performed By: #### S EDR #### [facility] [address] [place] [address] Dr. Ishan Mason IG % 0.2 % Normal 0.0-0.5 [facility] Comment on above: Performed By: #### S EDR #### [facility] [address] [place] [address] Dr. Ishan Mason LYMPH # 2.3 103/ul Normal 1.2-3.8 [facility] Comment on above: Performed By: #### S EDR #### [facility] [address] [place] [address] Dr. Ishan Mason Lymphocytes/100 WBC (Bld) 46.2 % Normal 20.5-60.0 [facility] Comment on above: Performed By: #### S EDR #### [facility] [address] [place] [address] Dr. Ishan Mason MANUAL DIFF REQ NO Normal [facility] Comment on above: Performed By: #### S EDR #### [facility] [address] [place] [address] Dr. Ishan Mason MCH (RBC) [Entitic mass] 30.0 pg Normal 26.7-34.0 [facility] Comment on above: Performed By: #### S EDR #### [facility] [address] [place] [address] Dr. Ishan Mason MCHC (RBC) [Mass/Vol] 33.0 g/dL Normal 29.9-35.2 [facility] Comment on above: Performed By: #### S EDR #### [facility] [address] [place] [address] Dr. Ishan Mason MCV (RBC) [Entitic vol] 90.8 fL Normal 81.0-99.0 [facility] Comment on above: Performed By: #### S EDR #### [facility] [address] [place] [address] Dr. Ishan Mason MONO # 0.5 103/ul Normal 0.3-0.8 [facility] Comment on above: Performed By: #### S EDR #### [facility] [address] [place] [address] Dr. Ishan Mason Monocytes/100 WBC (Bld) 10.8 % Normal 1.7-12.0 [facility] Comment on above: Performed By: #### S EDR #### [facility] [address] [place] [address] Dr. Ishan Mason NEUT # 1.8 103/ul Normal 1.4-6.5 [facility] Comment on above: Performed By: #### S EDR #### [facility] [address] [place] [address] Dr. Ishan Mason Neutrophils/100 WBC (Bld) 36.3 % Critically low 43.0-75.0 [facility] Comment on above: Performed By: #### S EDR #### [facility] [address] [place] [address] Dr. Ishan Mason Platelet mean volume (Bld) [Entitic vol] 11.0 fL Normal 9.5-13.5 [facility] Comment on above: Performed By: #### S EDR #### [facility] [address] [place] [address] Dr. Ishan Mason PLT 198 103/ul Normal 150-450 [facility] Comment on above: Performed By: #### S EDR #### [facility] [address] [place] [address] Dr. Ishan Mason RBC 4.47 106/ul Normal 4.20-5.40 [facility] Comment on above: Performed By: #### S EDR #### [facility] [address] [place] [address] Dr. Ishan Mason WBC 4.9 103/ul Normal 4.0-11.0 [facility] Comment on above: Performed By: #### S EDR #### [facility] [address] [place] [address] Dr. Ishan Mason CREATININEon 06-24-2022 Creatinine [Mass/Vol] 0.70 mg/dL Normal 0.55-1.02 [facility] Comment on above: Performed By: #### A 1C #### [facility] [address] [place] [address] Dr. Ishan Mason EGFR-AF EGYPTIAN >60 Normal >=60 [facility] Comment on above: Performed By: #### A 1C #### [facility] [address] [place] [address] Dr. Ishan Mason EGFR-NON AF EGYPTIAN >60 Normal >=60 [facility] Comment on above: Performed By: #### A 1C #### [facility] [address] [place] [address] Dr. Ishan Mason LIVER PROFILEon 06-24-2022 Albumin [Mass/Vol] 3.6 g/dL Normal 3.4-5.0 [facility] Comment on above: Performed By: #### A 1C #### [facility] [address] [place] [address] Dr. Ishan Mason Albumin/Globulin [Mass ratio] 0.9 {ratio} Normal [facility] Comment on above: Performed By: #### A 1C #### [facility] [address] [place] [address] Dr. Ishan Mason ALP [Catalytic activity/Vol] 63 U/L Normal 46-116 [facility] Comment on above: Performed By: #### A 1C #### [facility] [address] [place] [address] Dr. Ishan Mason ALT [Catalytic activity/Vol] 32 U/L Normal 14-59 [facility] Comment on above: Performed By: #### A 1C #### [facility] [address] [address] [address] Ishan Mason AST [Catalytic activity/Vol] 23 U/L Normal 15-37 [facility] Comment on above: Performed By: #### A 1C #### [facility] [address] [place], [place] [address] Dr. Ishan Mason BILI, CONJUGATED 0.1 mg/dL Normal 0.0-0.2 [facility] Comment on above: Performed By: #### A 1C #### [facility] [address] [address] [address] Ishan Mason Bilirubin [Mass/Vol] 0.6 mg/dL Normal 0.2-1.0 [facility] Comment on above: Performed By: #### A 1C #### [facility] [address] [place] [address] Dr. Ishan Mason Globulin (S) [Mass/Vol] 3.9 g/dL Normal [facility] Comment on above: Performed By: #### A 1C #### [facility] [address] [address] [address] Ishan Mason Protein [Mass/Vol] 7.5 g/dL Normal 6.4-8.2 [facility] Comment on above: Performed By: #### A 1C #### [facility] [id number] Ishan Mason SED RATE [facility] 2022 SED RATE 17 mm/hr Normal <=20 [facility] Comment on above: Performed By: #### S EDR #### [facility] [address] [address] [address] Ishan Mason XR HAND R[place] MIN [...] MARITO MEJIA Date: 2022-06-23 11:43 Normal [facility] CBC AUTO DIFFon 03-23-2022 BASO # 0.1 103/ul Normal 0.0-0.1 [facility] Comment on above: Performed By: #### C BC #### [facility] [address] [place] [address] Dr. Ishan Mason Basophils/100 WBC (Bld) 1.0 % Normal 0.2-2.0 [facility] Comment on above: Performed By: #### C BC #### [facility] [address] [place] [address] Dr. Ishan Mason EO # 0.2 103/ul Normal 0.0-0.7 [facility] Comment on above: Performed By: #### C BC #### [facility] [address] [place] [address] Dr. Ishan Mason Eosinophils/100 WBC (Bld) 2.8 % Normal 0.9-7.0 [facility] Comment on above: Performed By: #### C BC #### [facility] [address] [place] [address] Dr. Ishan Mason Erythrocyte distribution width (RBC) [Ratio] 12.5 % Normal 11.0-15.0 [facility] Comment on above: Performed By: #### C BC #### [facility] [address] [place] [address] Dr. Ishan Mason Hematocrit (Bld) [Volume fraction] 41.8 % Normal 36.0-48.0 [facility] Comment on above: Performed By: #### C BC #### [facility] [address] [place] [address] Dr. Ishan Mason Hemoglobin (Bld) [Mass/Vol] 14.0 g/dL Normal 12.0-16.0 [facility] Comment on above: Performed By: #### C BC #### [facility] [address] [place] [address] Dr. Ishan Mason IG # 0.02 10e3/ul Normal 0.00-0.03 [facility] Comment on above: Performed By: #### C BC #### [facility] [address] [place] [address] Dr. Ishan Mason IG % 0.3 % Normal 0.0-0.5 [facility] Comment on above: Performed By: #### C BC #### [facility] [address] [place] [address] Dr. Ishan Mason LYMPH # 1.5 103/ul Normal 1.2-3.8 [facility] Comment on above: Performed By: #### C BC #### [facility] [address] [place] [address] Dr. Ishan Mason Lymphocytes/100 WBC (Bld) 21.1 % Normal 20.5-60.0 [facility] Comment on above: Performed By: #### C BC #### [facility] [address] [place] [address] Dr. Ishan Mason MANUAL DIFF REQ NO Normal [facility] Comment on above: Performed By: #### C BC #### [facility] [address] [place] [address] Dr. Ishan Mason MCH (RBC) [Entitic mass] 29.7 pg Normal 26.7-34.0 [facility] Comment on above: Performed By: #### C BC #### [facility] [address] [place] [address] Dr. Ishan Mason MCHC (RBC) [Mass/Vol] 33.5 g/dL Normal 29.9-35.2 [facility] Comment on above: Performed By: #### C BC #### [facility] [address] [place] [address] Dr. Ishan Mason MCV (RBC) [Entitic vol] 88.7 fL Normal 81.0-99.0 [facility] Comment on above: Performed By: #### C BC #### [facility] [address] [place] [address] Dr. Ishan Mason MONO # 0.5 103/ul Normal 0.3-0.8 [facility] Comment on above: Performed By: #### C BC #### [facility] [address] [place] [address] Dr. Ishan Mason Monocytes/100 WBC (Bld) 7.0 % Normal 1.7-12.0 [facility] Comment on above: Performed By: #### C BC #### [facility] [address] [place] [address] Dr. Ishan Mason NEUT # 4.8 103/ul Normal 1.4-6.5 [facility] Comment on above: Performed By: #### C BC #### [facility] [address] [place] [address] Dr. Ishan Mason Neutrophils/100 WBC (Bld) 67.8 % Normal 43.0-75.0 [facility] Comment on above: Performed By: #### C BC #### [facility] [address] [place] [address] Dr. Ishan Mason Platelet mean volume (Bld) [Entitic vol] 11.0 fL Normal 9.5-13.5 [facility] Comment on above: Performed By: #### C BC #### [facility] [address] [place] [address] Dr. Ishan Mason PLT 214 103/ul Normal 150-450 [facility] Comment on above: Performed By: #### C BC #### [facility] [address] [place] [address] Dr. Ishan Mason RBC 4.71 106/ul Normal 4.20-5.40 [facility] Comment on above: Performed By: #### C BC #### [facility] [address] [place] [address] Dr. Ishan Mason WBC 7.1 103/ul Normal 4.0-11.0 [facility] Comment on above: Performed By: #### C BC #### [facility] [address] [place] [address] Dr. Ishan Mason CREATININEon 03-23-2022 Creatinine [Mass/Vol] 0.85 mg/dL Normal 0.55-1.02 [facility] Comment on above: Performed By: #### S EDR #### [facility] [address] [place] [address] Dr. Ishan Mason EGFR-AF EGYPTIAN >60 Normal >=60 [facility] Comment on above: Performed By: #### S EDR #### [facility] [address] [place] [address] Dr. Ishan Mason EGFR-NON AF EGYPTIAN >60 Normal >=60 [facility] Comment on above: Performed By: #### S EDR #### [facility] [address] [place] [address] Dr. Ishan Mason EMG Electromyographyon 03-23 EMG Electromyography [id number] .[id number]:127 Normal [facility] LIVER PROFILEon 03-23-2022 Albumin [Mass/Vol] 3.8 g/dL Normal 3.4-5.0 [facility] Comment on above: Performed By: #### A 1C #### [facility] [address] [place] [address] Dr. Ishan Mason Albumin/Globulin [Mass ratio] 1.0 {ratio} Normal [facility] Comment on above: Performed By: #### A 1C #### [facility] [address] [place] [address] Dr. Ishan Mason ALP [Catalytic activity/Vol] 67 U/L Normal 46-116 [facility] Comment on above: Performed By: #### A 1C #### [facility] [address] [place] [address] Dr. Ishan Mason ALT [Catalytic activity/Vol] 33 U/L Normal 14-59 [facility] Comment on above: Performed By: #### A 1C #### [facility] [address] [place] [address] Dr. Ishan Mason AST [Catalytic activity/Vol] 28 U/L Normal 15-37 [facility] Comment on above: Performed By: #### A 1C #### [facility] [address] [place] [address] Dr. Ishan Mason BILI, CONJUGATED 0.1 mg/dL Normal 0.0-0.2 [facility] Comment on above: Performed By: #### A 1C #### [facility] [address] [place] [address] Dr. Ishan Mason Bilirubin [Mass/Vol] 0.6 mg/dL Normal 0.2-1.0 [facility] Comment on above: Performed By: #### A 1C #### [facility] [address] [place] [address] Dr. Ishan Mason Globulin (S) [Mass/Vol] 3.7 g/dL Normal [facility] Comment on above: Performed By: #### A 1C #### [facility] [address] [place] [address] Dr. Ishan Mason Protein [Mass/Vol] 7.5 g/dL Normal 6.4-8.2 [facility] Comment on above: Performed By: #### A 1C #### [facility] [address] [place] [address] Dr. Ishan Mason SED RATE [facility] 2022 SED RATE 32 mm/hr Critically high <=20 [facility] Comment on above: Performed By: #### A 1C #### [facility] [address] [place] [address] Dr. Ishan Mason Consultation Noteon 03-18-19 Consultation Note [id number] .00CD:127 Normal [facility] Consultation Noteon 03-05-20 Consultation Note [id number] .[id number]:127 Normal [facility] Consultation Noteon 02-17-20 Consultation Note [id number] .[id number]:127 Normal [facility] MuSK ANITBODY TESTon 022 MuSK Antibodies <1.0 Normal [facility] Comment on above: Result Comment: Refe rence [...] 2014;52:90-100. 2. Stacey SMITH et al. PNAS 2013;110(57);[id number]. 3. Barryi E et al. Neurology 2006;67:505-507. This test was developed and its performance characteristics determined by [employer]. It has not been cleared or approved by the Food and Drug Administration. Performed By: #### A 1C #### [facility] [address] [place] [address] Dr. Ishan Mason ACETYLCHOLINE RECEPTOR JOSE [facility] 01-28-2022 AChR Binding Abs, Serum <0.03 Normal 0.00-0.24 [facility] Comment on above: Result Comment: Nega tive: 0.00 - 0.24 Borderline: 0.25 - 0.40 Positive: >0.40 Performed By: #### A CRBND #### [facility] [address] [place] [address] Dr. Ishan Mason CPKon 01-26-2022 CK [Catalytic activity/Vol] 88 U/L Normal 26-192 [facility] Comment on above: Performed By: #### S EDR #### [facility] [address] [address] [address] Ishan Mason SED RATE [facility] 2021 SED RATE 34 mm/hr Critically high <=20 [facility] Comment on above: Performed By: #### C BC #### [facility] [address] [place] [address] Dr. Ishan Mason TSHon 01-26-2022 TSH 2.298 uIU/mL Normal 0.358-3.740 [facility] Comment on above: Performed By: #### S EDR #### [facility] [address] [place] [address] Dr. Ishan Mason VIT B12 AND FOLATEon 022 Cobalamin (Vitamin B12) [Mass/Vol] 523.0 pg/mL Normal 193.0-986.0 [facility] Comment on above: Performed By: #### S EDR #### [facility] [address] [place] [address] Dr. Ishan Mason FOLATE 21.40 ng/mL Normal 8.60-58.90 [facility] Comment on above: Performed By: #### S EDR #### [facility] [address] [place] [address] Dr. Ishan Mason CBC AUTO DIFFon 01-15-2022 BASO # 0.0 103/ul Normal 0.0-0.1 [facility] Comment on above: Performed By: #### S EDR #### [facility] [address] [place] [address] Dr. Ishan Mason Basophils/100 WBC (Bld) 0.5 % Normal 0.2-2.0 [facility] Comment on above: Performed By: #### S EDR #### [facility] [address] [place] [address] Dr. Ishan Mason EO # 0.3 103/ul Normal 0.0-0.7 [facility] Comment on above: Performed By: #### S EDR #### [facility] [address] [place] [address] Dr. Ishan Mason Eosinophils/100 WBC (Bld) 4.9 % Normal 0.9-7.0 [facility] Comment on above: Performed By: #### S EDR #### [facility] [address] [place] [address] Dr. Ishan Mason Erythrocyte distribution width (RBC) [Ratio] 12.7 % Normal 11.0-15.0 [facility] Comment on above: Performed By: #### S EDR #### [facility] [address] [place] [address] Dr. Ishan Mason Hematocrit (Bld) [Volume fraction] 41.2 % Normal 36.0-48.0 [facility] Comment on above: Performed By: #### S EDR #### [facility] [address] [place] [address] Dr. Ishan Mason Hemoglobin (Bld) [Mass/Vol] 13.7 g/dL Normal 12.0-16.0 [facility] Comment on above: Performed By: #### S EDR #### [facility] [address] [place] [address] Dr. Ishan Mason IG # 0.01 10e3/ul Normal 0.00-0.03 [facility] Comment on above: Performed By: #### S EDR #### [facility] [address] [place] [address] Dr. Ishan Mason IG % 0.2 % Normal 0.0-0.5 [facility] Comment on above: Performed By: #### S EDR #### [facility] [address] [place] [address] Dr. Ishan Mason LYMPH # 2.3 103/ul Normal 1.2-3.8 [facility] Comment on above: Performed By: #### S EDR #### [facility] [address] [place] [address] Dr. Ishan Mason Lymphocytes/100 WBC (Bld) 40.2 % Normal 20.5-60.0 [facility] Comment on above: Performed By: #### S EDR #### [facility] [address] [place] [address] Dr. Ishan Mason MANUAL DIFF REQ NO Normal [facility] Comment on above: Performed By: #### S EDR #### [facility] [address] [place] [address] Dr. Ishan Mason MCH (RBC) [Entitic mass] 29.8 pg Normal 26.7-34.0 [facility] Comment on above: Performed By: #### S EDR #### [facility] [address] [place] [address] Dr. Ishan Mason MCHC (RBC) [Mass/Vol] 33.3 g/dL Normal 29.9-35.2 [facility] Comment on above: Performed By: #### S EDR #### [facility] [address] [place] [address] Dr. Ishan Mason MCV (RBC) [Entitic vol] 89.6 fL Normal 81.0-99.0 [facility] Comment on above: Performed By: #### S EDR #### [facility] [address] [place] [address] Dr. Ishan Mason MONO # 0.5 103/ul Normal 0.3-0.8 [facility] Comment on above: Performed By: #### S EDR #### [facility] [address] [place] [address] Dr. Ishan Mason Monocytes/100 WBC (Bld) 8.9 % Normal 1.7-12.0 [facility] Comment on above: Performed By: #### S EDR #### [facility] [address] [place] [address] Dr. Ishan Mason NEUT # 2.6 103/ul Normal 1.4-6.5 [facility] Comment on above: Performed By: #### S EDR #### [facility] [address] [place] [address] Dr. Ishan Mason Neutrophils/100 WBC (Bld) 45.3 % Normal 43.0-75.0 [facility] Comment on above: Performed By: #### S EDR #### [facility] [address] [place] [address] Dr. Ishan Mason Platelet mean volume (Bld) [Entitic vol] 10.3 fL Normal 9.5-13.5 [facility] Comment on above: Performed By: #### S EDR #### [facility] [address] [place] [address] Dr. Ishan Mason PLT 212 103/ul Normal 150-450 [facility] Comment on above: Performed By: #### S EDR #### [facility] [address] [place] [address] Dr. Ishan Mason RBC 4.60 106/ul Normal 4.20-5.40 [facility] Comment on above: Performed By: #### S EDR #### [facility] [address] [place] [address] Dr. Ishan Mason WBC 5.7 103/ul Normal 4.0-11.0 [facility] Comment on above: Performed By: #### S EDR #### [facility] [address] [place] [address] Dr. Ishan Mason CREATININEon 01-15-2022 Creatinine [Mass/Vol] 0.74 mg/dL Normal 0.55-1.02 [facility] Comment on above: Performed By: #### C KIRAN LIVER #### [facility] [address] [place] [address] Dr. Ishan Mason EGFR-AF EGYPTIAN >60 Normal >=60 [facility] Comment on above: Performed By: #### C KIRAN LIVER #### [facility] [address] [place] [address] Dr. Ishan Mason EGFR-NON AF EGYPTIAN >60 Normal >=60 [facility] Comment on above: Performed By: #### C KIRAN LIVER #### [facility] [address] [place] [address] Dr. Ishan Mason LIVER PROFILEon 01-15-2022 Albumin [Mass/Vol] 3.6 g/dL Normal 3.4-5.0 [facility] Comment on above: Performed By: #### C KIRAN LIVER #### [facility] [address] [place] [address] Dr. Ishan Mason Albumin/Globulin [Mass ratio] 1.0 {ratio} Normal [facility] Comment on above: Performed By: #### C KIRAN LIVER #### [facility] [address] [place] [address] Dr. Ishan Mason ALP [Catalytic activity/Vol] 78 U/L Normal 46-116 [facility] Comment on above: Performed By: #### C KIRAN, LIVER #### [facility] [address] [place] [address] Dr. Ishan Mason ALT [Catalytic activity/Vol] 30 U/L Normal 14-59 [facility] Comment on above: Performed By: #### C KIRAN, LIVER #### [facility] [address] [place] [address] Dr. Ishan Mason AST [Catalytic activity/Vol] 14 U/L Critically low 15-37 [facility] Comment on above: Performed By: #### C KIRAN, LIVER #### [facility] [address] [place] [address] Dr. Ishan Mason BILI, CONJUGATED 0.1 mg/dL Normal 0.0-0.2 [facility] Comment on above: Performed By: #### C KIRAN, LIVER #### [facility] [address] [place] [address] Dr. Ishan Mason Bilirubin [Mass/Vol] 0.5 mg/dL Normal 0.2-1.0 [facility] Comment on above: Performed By: #### C KIRAN, LIVER #### [facility] [address] [place] [address] Dr. Ishan Mason Globulin (S) [Mass/Vol] 3.7 g/dL Normal [facility] Comment on above: Performed By: #### C KIRAN, LIVER #### [facility] [address] [place] [address] Dr. Ishan Mason Protein [Mass/Vol] 7.3 g/dL Normal 6.4-8.2 [facility] Comment on above: Performed By: #### C KIRAN, LIVER #### [facility] [address] [place] [address] Dr. Ishan Mason SED RATE [facility] 2021 SED RATE 23 mm/hr Critically high <=20 [facility] Comment on above: Performed By: #### S EDR #### [facility] [address] [address] [address] Ishan Mason Lab Reportson 12-05-2021 Lab Reports [id number]:127 Normal [facility] Lab Reports [id number] .[id number]:127 Normal [facility] CBC AUTO DIFFon 12-04-2021 BASO # 0.0 103/ul Normal 0.0-0.1 [facility] Comment on above: Performed By: #### C BC #### [facility] [address] [place] [address] Dr. Ishan Mason Basophils/100 WBC (Bld) 0.7 % Normal 0.2-2.0 [facility] Comment on above: Performed By: #### C BC #### [facility] [address] [place] [address] Dr. Ishan Mason EO # 0.4 103/ul Normal 0.0-0.7 [facility] Comment on above: Performed By: #### C BC #### [facility] [address] [place] [address] Dr. Ishan Mason Eosinophils/100 WBC (Bld) 7.7 % Critically high 0.9-7.0 [facility] Comment on above: Performed By: #### C BC #### [facility] [address] [place] [address] Dr. Ishan Mason Erythrocyte distribution width (RBC) [Ratio] 12.6 % Normal 11.0-15.0 [facility] Comment on above: Performed By: #### C BC #### [facility] [address] [place] [address] Dr. Ishan Mason Hematocrit (Bld) [Volume fraction] 40.9 % Normal 36.0-48.0 [facility] Comment on above: Performed By: #### C BC #### [facility] [address] [place] [address] Dr. Ishan Mason Hemoglobin (Bld) [Mass/Vol] 13.4 g/dL Normal 12.0-16.0 [facility] Comment on above: Performed By: #### C BC #### [facility] [address] [place] [address] Dr. Ishan Mason IG # 0.01 10e3/ul Normal 0.00-0.03 [facility] Comment on above: Performed By: #### C BC #### [facility] [address] [place] [address] Dr. Ishan Mason IG % 0.2 % Normal 0.0-0.5 [facility] Comment on above: Performed By: #### C BC #### [facility] [address] [place] [address] Dr. Ishan Mason LYMPH # 2.1 103/ul Normal 1.2-3.8 [facility] Comment on above: Performed By: #### C BC #### [facility] [address] [place] [address] Dr. Ishan Mason Lymphocytes/100 WBC (Bld) 45.7 % Normal 20.5-60.0 [facility] Comment on above: Performed By: #### C BC #### [facility] [address] [place] [address] Dr. Ishan Mason MANUAL DIFF REQ NO Normal [facility] Comment on above: Performed By: #### C BC #### [facility] [address] [place] [address] Dr. Ishan Mason MCH (RBC) [Entitic mass] 29.8 pg Normal 26.7-34.0 [facility] Comment on above: Performed By: #### C BC #### [facility] [address] [place] [address] Dr. Ishan Mason MCHC (RBC) [Mass/Vol] 32.8 g/dL Normal 29.9-35.2 [facility] Comment on above: Performed By: #### C BC #### [facility] [address] [place] [address] Dr. Ishan Mason MCV (RBC) [Entitic vol] 91.1 fL Normal 81.0-99.0 [facility] Comment on above: Performed By: #### C BC #### [facility] [address] [place] [address] Dr. Ishan Mason MONO # 0.5 103/ul Normal 0.3-0.8 [facility] Comment on above: Performed By: #### C BC #### [facility] [address] [place] [address] Dr. Ishan Mason Monocytes/100 WBC (Bld) 10.8 % Normal 1.7-12.0 [facility] Comment on above: Performed By: #### C BC #### [facility] [address] [place] [address] Dr. Ishan Mason NEUT # 1.6 103/ul Normal 1.4-6.5 [facility] Comment on above: Performed By: #### C BC #### [facility] [address] [place] [address] Dr. Ishan Mason Neutrophils/100 WBC (Bld) 34.9 % Critically low 43.0-75.0 [facility] Comment on above: Performed By: #### C BC #### [facility] [address] [place] [address] Dr. Ishan Mason Platelet mean volume (Bld) [Entitic vol] 10.8 fL Normal 9.5-13.5 [facility] Comment on above: Performed By: #### C BC #### [facility] [address] [place] [address] Dr. Ishan Mason PLT 198 103/ul Normal 150-450 [facility] Comment on above: Performed By: #### C BC #### [facility] [address] [place] [address] Dr. Ishan Mason RBC 4.49 106/ul Normal 4.20-5.40 [facility] Comment on above: Performed By: #### C BC #### [facility] [address] [place] [address] Dr. Ishan Mason WBC 4.6 103/ul Normal 4.0-11.0 [facility] Comment on above: Performed By: #### C BC #### [facility] [address] [place] [address] Dr. Ishan Mason GLYCOHEMOGLOBIN A1Con 2021 ADA RECOMMENDATION SEE BELOW Normal [facility] Comment on above: Result Comment: ADA RECOMMENDED LIMIT 4.0 - 6.0 ADA THERAPEUTIC TARGET < 7.0 ACTION SUGGESTED > 7.0 Performed By: #### A 1C #### [facility] [address] [address] [address] Ishan Mason Glucose [Mass/Vol] 103 mg/dL Normal [facility] Comment on above: Performed By: #### A 1C #### [facility] [address] [address] [address] Ishan Mason HbA1c (Bld) [Mass fraction] 5.2 % Normal 4.5-6.2 [facility] Comment on above: Performed By: #### A 1C #### [facility] [address] [place] [address] Dr. Ishan Mason LIPID PROFILEon 12-04-2021 CHOL-HDL RATIO NORM SEE BELOW Normal [facility] Comment on above: Result Comment: 3.3 - 4.4 LOW RISK 4.4 - 7.1 AVERAGE RISK 7.1 - 11.0 MODERATE RISK >11.0 HIGH RISK Performed By: #### C BC #### [facility] [address] [place] [address] Dr. Ishan Mason Cholesterol [Mass/Vol] 227 mg/dL Critically high <=200 [facility] Comment on above: Performed By: #### C BC #### [facility] [address] [place] [address] Dr. Ishan Mason Cholesterol in HDL [Mass/Vol] 78 mg/dL Critically high 40-60 [facility] Comment on above: Performed By: #### C BC #### [facility] [address] [address] [address] Ishan Mason Cholesterol in LDL [Mass/Vol] 130.8 mg/dL Normal [facility] Comment on above: Performed By: #### C BC #### [facility] [address] [address] [address] Ishan Mason Cholesterol.total/Chol esterol in HDL [Mass ratio] 2.9 {ratio} Normal [facility] Comment on above: Performed By: #### C BC #### [facility] [address] [address] [address] Ishan Mason HDL NORMAL > or = 60 mg/dl - LO W CARDIOVASCULAR RISK <40 mg/dl - HIGH CARDIOVASCULAR RISK Normal [facility] Comment on above: Performed By: #### C BC #### [facility] [address] [place] [address] Dr. Ishan Mason LDL CALC NORMAL SEE BELOW Normal [facility] Comment on above: Result Comment: <100 mg/dl OPTIMAL 100 - 129 mg/dl NEAR OR ABOVE OPTIMAL 130 - 159 mg/dl BORDERLINE HIGH 160 - 189 mg/dl HIGH >190 mg/dl VERY HIGH Performed By: #### C BC #### [facility] [address] [place] [address] Dr. Ishan Mason Triglyceride [Mass/Vol] 91 mg/dL Normal <=150 [facility] Comment on above: Performed By: #### C BC #### [facility] [address] [place] [address] Dr. Ishan Mason VLDL CALC 18.2 mg/dL Normal [facility] Comment on above: Performed By: #### C BC #### [facility] [address] [place] [address] Dr. Ishan Mason PROF 14(COMP METB)on 022 Albumin [Mass/Vol] 3.6 g/dL Normal 3.4-5.0 [facility] Comment on above: Performed By: #### A 1C #### [facility] [address] [place] [address] Dr. Ishan Mason Albumin/Globulin [Mass ratio] 1.0 {ratio} Normal [facility] Comment on above: Performed By: #### A 1C #### [facility] [address] [place] [address] Dr. Ishan Mason ALP [Catalytic activity/Vol] 60 U/L Normal 46-116 [facility] Comment on above: Performed By: #### A 1C #### [facility] [address] [place] [address] Dr. Ishan Mason ALT [Catalytic activity/Vol] 30 U/L Normal 14-59 [facility] Comment on above: Performed By: #### A 1C #### [facility] [address] [address] [address] Ishan Mason Anion gap [Moles/Vol] 9.1 mmol/L Normal [facility] Comment on above: Performed By: #### A 1C #### [facility] [address] [address] [address] Ishan Mason AST [Catalytic activity/Vol] 23 U/L Normal 15-37 [facility] Comment on above: Performed By: #### A 1C #### [facility] [address] [place] [address] Dr. Ishan Mason Bilirubin [Mass/Vol] 0.7 mg/dL Normal 0.2-1.0 [facility] Comment on above: Performed By: #### A 1C #### [facility] [address] [place] [address] Dr. Ishan Mason Calcium [Mass/Vol] 9.1 mg/dL Normal 8.5-10.1 [facility] Comment on above: Performed By: #### A 1C #### [facility] [address] [place] [address] Dr. Isahn Mason Chloride [Moles/Vol] 105 mmol/L Normal 98-107 [facility] Comment on above: Performed By: #### A 1C #### [facility] [address] [place] [address] Dr. Ishan Mason CO2 [Moles/Vol] 30.1 mmol/L Normal 21.0-32.0 [facility] Comment on above: Performed By: #### A 1C #### [facility] [address] [place] [address] Dr. Ishan Mason Creatinine [Mass/Vol] 0.71 mg/dL Normal 0.55-1.02 [facility] Comment on above: Performed By: #### A 1C #### [facility] [address] [place] [address] Dr. Ishan Mason EGFR-AF EGYPTIAN >60 Normal >=60 [facility] Comment on above: Performed By: #### A 1C #### [facility] [address] [address] [address] Ishan Mason EGFR-NON AF EGYPTIAN >60 Normal >=60 [facility] Comment on above: Performed By: #### A 1C #### [facility] [address] [address] [address] Ishan Mason Globulin (S) [Mass/Vol] 3.6 g/dL Normal [facility] Comment on above: Performed By: #### A 1C #### [facility] [address] [address] [address] Ishan Mason Glucose [Mass/Vol] 102 mg/dL Normal 74-106 [facility] Comment on above: Performed By: #### A 1C #### [facility] [address] [place] [address] Dr. Ishan Mason Potassium [Moles/Vol] 4.2 mmol/L Normal 3.5-5.1 [facility] Comment on above: Performed By: #### A 1C #### [facility] [address] [address] [address] Ishan Mason Protein [Mass/Vol] 7.2 g/dL Normal 6.4-8.2 [facility] Comment on above: Performed By: #### A 1C #### [facility] [address] [address] [address] Ishan Mason Sodium [Moles/Vol] 140 mmol/L Normal 136-145 [facility] Comment on above: Performed By: #### A 1C #### [facility] [address] [address] [address] Ishan Mason Urea nitrogen [Mass/Vol] 9.0 mg/dL Normal 7.0-18.0 [facility] Comment on above: Performed By: #### A 1C #### [facility] [address] [address] [address] Ishan Mason Urea nitrogen/Creatinine [Mass ratio] 12.7 mg/mg Normal [facility] Comment on above: Performed By: #### A 1C #### [facility] [address] [place] [address] Dr. Ishan Mason TSHon 12-04-2021 TSH 1.369 uIU/mL Normal 0.358-3.740 [facility] Comment on above: Performed By: #### C BC #### [facility] [address] [place] [address] CHEST HI RESOLUTIONon [...] by: MARITO MEJIA Date: 2021-11-26 16:08 Normal [facility] Consultation Noteon 11-20-19 22 Consultation Note [id number]:127 Normal [facility] CBC AUTO DIFFon 11-12-2021 BASO # 0.0 103/ul Normal 0.0-0.1 [facility] Comment on above: Performed By: #### A 1C #### [facility] [address] [place] [address] Dr. Ishan Mason Basophils/100 WBC (Bld) 0.6 % Normal 0.2-2.0 [facility] Comment on above: Performed By: #### A 1C #### [facility] [address] [place] [address] Dr. Ishan Mason EO # 0.4 103/ul Normal 0.0-0.7 [facility] Comment on above: Performed By: #### A 1C #### [facility] [address] [place] [address] Dr. Ishan Mason Eosinophils/100 WBC (Bld) 6.1 % Normal 0.9-7.0 [facility] Comment on above: Performed By: #### A 1C #### [facility] [address] [place] [address] Dr. Ishan Mason Erythrocyte distribution width (RBC) [Ratio] 12.1 % Normal 11.0-15.0 [facility] Comment on above: Performed By: #### A 1C #### [facility] [address] [place] [address] Dr. Ishan Mason Hematocrit (Bld) [Volume fraction] 43.7 % Normal 36.0-48.0 [facility] Comment on above: Performed By: #### A 1C #### [facility] [address] [place] [address] Dr. Ishan Mason Hemoglobin (Bld) [Mass/Vol] 14.1 g/dL Normal 12.0-16.0 [facility] Comment on above: Performed By: #### A 1C #### [facility] [address] [place] [address] Dr. Ishan Mason IG # 0.02 10e3/ul Normal 0.00-0.03 [facility] Comment on above: Performed By: #### A 1C #### [facility] [address] [place] [address] Dr. Ishan Mason IG % 0.3 % Normal 0.0-0.5 [facility] Comment on above: Performed By: #### A 1C #### [facility] [address] [place] [address] Dr. Ishan Mason LYMPH # 2.9 103/ul Normal 1.2-3.8 [facility] Comment on above: Performed By: #### A 1C #### [facility] [address] [place] [address] Dr. Ishan Mason Lymphocytes/100 WBC (Bld) 41.6 % Normal 20.5-60.0 [facility] Comment on above: Performed By: #### A 1C #### [facility] [address] [place] [address] Dr. Ishan Mason MANUAL DIFF REQ NO Normal [facility] Comment on above: Performed By: #### A 1C #### [facility] [address] [place] [address] Dr. Ishan Mason MCH (RBC) [Entitic mass] 29.3 pg Normal 26.7-34.0 [facility] Comment on above: Performed By: #### A 1C #### [facility] [address] [place] [address] Dr. Ishan Mason MCHC (RBC) [Mass/Vol] 32.3 g/dL Normal 29.9-35.2 [facility] Comment on above: Performed By: #### A 1C #### [facility] [address] [place] [address] Dr. Ishan Mason MCV (RBC) [Entitic vol] 90.9 fL Normal 81.0-99.0 [facility] Comment on above: Performed By: #### A 1C #### [facility] [address] [place] [address] Dr. Ishan Mason MONO # 0.7 103/ul Normal 0.3-0.8 [facility] Comment on above: Performed By: #### A 1C #### [facility] [address] [place] [address] Dr. Ishan Mason Monocytes/100 WBC (Bld) 10.3 % Normal 1.7-12.0 [facility] Comment on above: Performed By: #### A 1C #### [facility] [facility] [address] [place] [address] Dr. Ishan Mason NEUT # 2.9 103/ul Normal 1.4-6.5 [facility] Comment on above: Performed By: #### A 1C #### [facility] [address] [place] [address] Dr. Ishan Mason Neutrophils/100 WBC (Bld) 41.1 % Critically low 43.0-75.0 [facility] Comment on above: Performed By: #### A 1C #### [facility] [address] [place] [address] Dr. Ishan Mason Platelet mean volume (Bld) [Entitic vol] 11.0 fL Normal 9.5-13.5 [facility] Comment on above: Performed By: #### A 1C #### [facility] [address] [place] [address] Dr. Ishan Msaon PLT 204 103/ul Normal 150-450 [facility] Comment on above: Performed By: #### A 1C #### [facility] [address] [place] [address] Dr. Ishan Mason RBC 4.81 106/ul Normal 4.20-5.40 [facility] Comment on above: Performed By: #### A 1C #### [facility] [address] [place] [address] Dr. Ishan Mason WBC 7.1 103/ul Normal 4.0-11.0 [facility] Comment on above: Performed By: #### A 1C #### [facility] [address] [place] [address] Dr. Ishan Mason CREATININEon 11-12-2021 Creatinine [Mass/Vol] 0.73 mg/dL Normal 0.55-1.02 [facility] Comment on above: Performed By: #### C BC #### [facility] [address] [place] [address] Dr. Ishan Mason EGFR-AF EGYPTIAN >60 Normal >=60 [facility] Comment on above: Performed By: #### C BC #### [facility] [address] [place] [address] Dr. Ishan Mason EGFR-NON AF EGYPTIAN >60 Normal >=60 [facility] Comment on above: Performed By: #### C BC #### [facility] [address] [place] [address] Dr. Ishan Mason LIVER PROFILEon 11-12-2021 Albumin [Mass/Vol] 4.0 g/dL Normal 3.4-5.0 [facility] Comment on above: Performed By: #### C BC #### [facility] [address] [place] [address] Dr. Ishan Mason Albumin/Globulin [Mass ratio] 1.0 {ratio} Normal [facility] Comment on above: Performed By: #### C BC #### [facility] [address] [place] [address] Dr. Ishan Mason ALP [Catalytic activity/Vol] 75 U/L Normal 46-116 [facility] Comment on above: Performed By: #### C BC #### [facility] [address] [place] [address] Dr. Ishan Mason ALT [Catalytic activity/Vol] 30 U/L Normal 14-59 [facility] Comment on above: Performed By: #### C BC #### [facility] [address] [place] [address] Dr. Ishan Mason AST [Catalytic activity/Vol] 23 U/L Normal 15-37 [facility] Comment on above: Performed By: #### C BC #### [facility] [address] [place] [address] Dr. Ishan Mason BILI, CONJUGATED 0.1 mg/dL Normal 0.0-0.2 [facility] Comment on above: Performed By: #### C BC #### [facility] [address] [place] [address] Dr. Ishan Mason Bilirubin [Mass/Vol] 0.7 mg/dL Normal 0.2-1.0 [facility] Comment on above: Performed By: #### C BC #### [facility] [address] [place] [address] Dr. Ishan Mason Globulin (S) [Mass/Vol] 4.0 g/dL Normal [facility] Comment on above: Performed By: #### C BC #### [facility] [address] [place] [address] Dr. Ishan Mason Protein [Mass/Vol] 8.0 g/dL Normal 6.4-8.2 [facility] Comment on above: Performed By: #### C BC #### [facility] [address] [place] [address] Dr. [facility] SED R[facility] 15 mm/hr Normal <=20 [facility] Comment on above: Performed By: #### A 1C #### [facility] [address] [place], [place] [address] Dr. Ishan Mason Outside Mammographyon 2021 Outside Mammography [id number] Normal [facility] MG MAMM SCREEN 3D ROOSE[place]ELT CADon 11-06-2021 MG MAMM SCREEN 3D [place] CAD Patient: VELASQUEZ BOUCHER Exam Date: 11/06/2021 : 1970 Gender:F Ordering : DR JUAN C HOPE Admission #: [id number] Family : Order #: [id number] CLICK HERE TO VIEW EXAM RADIOLOGY REPORT [...] tongue cancer at age 59. LOCATION: [facility] BREAST COMPOSITION: Scattered areas fibroglandular density. [...] M.D. on 11/06/2021 at 15:37 Normal [facility] HEMOGLOBINon 11-05-2021 Hemoglobin (Bld) [Mass/Vol] 13.6 g/dL Normal 12.0-16.0 [facility] Comment on above: Performed By: #### C BC #### [facility] [address] [place] [address] [address] Ishan Mason Ambulatory Visit Summaryon 0 [...] tablet) fluticasone nasal (fluticasone 0.05 mg/inh Nasal [place]) hydroxychloroquine lactobacillus acidophilus (Acidophilus Probiotic Blend oral [...] for breast cancer, pp_set_radiology_subs pecialty, [place] [facility] [place] Medications What How Much When Instructions Unchanged abatacept (Orencia ClickJect 125 mg/ mL subcutaneous solution) Unchanged calcium carbonate (calcium 500 mg Tab) By Mouth Every day Unchanged cetirizine (Zyrtec) 10 Milligram By Mouth Every day Unchanged cholecalciferol (Vitamin D3 2000 intl units oral tablet) 1 Tablets By Mouth Every day Unchanged fluticasone nasal (fluticasone 0.05 mg/ inh Nasal [place]) 2 Sprays Nasal Inhalation Every day each [...] Rheumatoid Arthritis Sinus congestion Swollen tongue Normal [facility] Medicine Office/Clini c Noteon 10-08-2021 Family [...] directed. Mammogram completed last on 11/03/20 at [facility], (ordered today). Due for PAP/pelvic exam. [...] Once, # 1 tab(s), Refills(s) 1, Pharmacy: [facility]/pharmacy #[id number], 158, cm, 02/16/21 15:39:00 EST, Height/Length Dosing, 94, kg, 02/16/21 15:39:00 EST, Weight Dosing predniSONE, 0 = 1 -, Oral, As Directed, Take 5 tabs by mouth daily x3 days, 4 daily x3 days, 3 daily x3 days, 2 daily x3 days, then 1 tab daily x3 days., # 45 tab(s), Refills(s) 0, Pharmacy: [facility]/pharmacy #[id number], 158, cm, 02/16/21 15:39:00 EST, Height/Length Dosing... Follow-up With When Contact Information Juan C HOPE DO, FAM In 1 year [address] [place] [address]- Additional Instructions: Problem List/Past Medical History Ongoing BMI 38.0-38.9,adult Encounter for screening mammogram for breast cancer Preventative health care Rheumatoid Arthritis Historical No qualifying data Procedure/Surgical History None. Medications Acidophilus Probiotic Blend oral capsule, Oral, Daily B Complex 100 calcium 500 mg Tab, Oral, Daily fluticasone 0.05 mg/inh Nasal [place], 2 spray(s), Nasal, Daily, 3 refills hydroxychloroquine, [...] vacci (more content not included)... Normal [facility] Comment on above: Result Comment: Elec tronically Signed By: Juan C HOPE DO\.br\Date and Time Signed: 10/08/21 21:58 EDT Covid-19 PCR ([facility])on 09-11 SARS-CoV-2 (COVID-19) RNA MARICEL+probe Ql (Unsp spec) Detected Critically abnormal NOT DETECTED [facility] Comment on above: Result Comment: This test is not yet approved or cleared by the [place] FDA. When there are no FDA-approved or cleared tests available, and other criteria are met, FDA can make tests available under an emergency access mechanism called an Emergency Use Authorization (EUA). The EUA for this test is supported by the [place] of Health and Human Service's declaration that [...] used). Performed By: #### A 1C #### [facility] [address] [place] [address] Dr. Ishan Mason CBC AUTO DIFFon 07-01-2021 BASO # 0.0 103/ul Normal 0.0-0.1 [facility] Comment on above: Performed By: #### S EDR #### [facility] [address] [place] [address] Dr. Ishan Mason Basophils/100 WBC (Bld) 0.5 % Normal 0.2-2.0 [facility] Comment on above: Performed By: #### S EDR #### [facility] [address] [place] [address] Dr. Ishan Mason EO # 0.2 103/ul Normal 0.0-0.7 [facility] Comment on above: Performed By: #### S EDR #### [facility] [address] [place] [address] Dr. Ishan Mason Eosinophils/100 WBC (Bld) 3.4 % Normal 0.9-7.0 [facility] Comment on above: Performed By: #### S EDR #### [facility] [address] [place] [address] Dr. Ishan Mason Erythrocyte distribution width (RBC) [Ratio] 12.7 % Normal 11.0-15.0 [facility] Comment on above: Performed By: #### S EDR #### [facility] [address] [place] [address] Dr. Ishan Mason Hematocrit (Bld) [Volume fraction] 42.6 % Normal 36.0-48.0 [facility] Comment on above: Performed By: #### S EDR #### [facility] [address] [place] [address] [address] Ishan Mason Hemoglobin (Bld) [Mass/Vol] 13.6 g/dL Normal 12.0-16.0 [facility] Comment on above: Performed By: #### S EDR #### [facility] [address] [place] [address] [address] Ishan Mason IG # 0.01 10e3/ul Normal 0.00-0.03 [facility] Comment on above: Performed By: #### S EDR #### [facility] [address] [place] [address] [address] Ishan Mason IG % 0.2 % Normal 0.0-0.5 [facility] Comment on above: Performed By: #### S EDR #### [facility] [address] [place] [address] [address] Ishan Mason LYMPH # 2.0 103/ul Normal 1.2-3.8 [facility] Comment on above: Performed By: #### S EDR #### [facility] [address] [place] [address] [address] Ishan Mason Lymphocytes/100 WBC (Bld) 34.7 % Normal 20.5-60.0 [facility] Comment on above: Performed By: #### S EDR #### [facility] [address] [place] [address] [address] Ishan Mason MANUAL DIFF REQ NO Normal [facility] Comment on above: Performed By: #### S EDR #### [facility] [address] [place] [address] [address] Ishan Mason MCH (RBC) [Entitic mass] 29.9 pg Normal 26.7-34.0 [facility] Comment on above: Performed By: #### S EDR #### [facility] [address] [place] [address] [address] Ishan Mason MCHC (RBC) [Mass/Vol] 31.9 g/dL Normal 29.9-35.2 [facility] Comment on above: Performed By: #### S EDR #### [facility] [address] [place] [address] [address] Ishan Mason MCV (RBC) [Entitic vol] 93.6 fL Normal 81.0-99.0 [facility] Comment on above: Performed By: #### S EDR #### [facility] [address] [place] [address] [address] Ishan Mason MONO # 0.7 103/ul Normal 0.3-0.8 [facility] Comment on above: Performed By: #### S EDR #### [facility] [address] [place] [address] [address] Ishan Mason Monocytes/100 WBC (Bld) 12.1 % Critically high 1.7-12.0 [facility] Comment on above: Performed By: #### S EDR #### [facility] [address] [place] [address] Dr. Ishan Mason NEUT # 2.9 103/ul Normal 1.4-6.5 [facility] Comment on above: Performed By: #### S EDR #### [facility] [address] [place] [address] [address] Ishan Mason Neutrophils/100 WBC (Bld) 49.1 % Normal 43.0-75.0 [facility] Comment on above: Performed By: #### S EDR #### [facility] [address] [place] [address] [address] Ishan Mason Platelet mean volume (Bld) [Entitic vol] 11.1 fL Normal 9.5-13.5 [facility] Comment on above: Performed By: #### S EDR #### [facility] [address] [place] [address] [address] Ishan Mason PLT 177 103/ul Normal 150-450 [facility] Comment on above: Performed By: #### S EDR #### [facility] [address] [place] [address] [address] Ishan Mason RBC 4.55 106/ul Normal 4.20-5.40 [facility] Comment on above: Performed By: #### S EDR #### [facility] [address] [place] [address] Dr. Ishan Mason WBC 5.9 103/ul Normal 4.0-11.0 [facility] Comment on above: Performed By: #### S EDR #### [facility] [address] [place] [address] [address] Ishan Mason CREATININEon 07-01-2021 Creatinine [Mass/Vol] 0.79 mg/dL Normal 0.52-1.04 [facility] Comment on above: Performed By: #### C KIRAN, LIVER #### [facility] [address] [place] [address] Dr. Ishan Mason EGFR-AF EGYPTIAN >60 Normal >=60 [facility] Comment on above: Performed By: #### C KIRAN, LIVER #### [facility] [address] [place] [address] Dr. Ishan Mason EGFR-NON AF EGYPTIAN >60 Normal >=60 [facility] Comment on above: Performed By: #### C KIRAN, LIVER #### [facility] [address] [place] [address] Dr. Ishan Mason LIVER PROFILEon 07-01-2021 Albumin [Mass/Vol] 3.6 g/dL Normal 3.4-5.0 [facility] Comment on above: Performed By: #### C KIRAN, LIVER #### [facility] [address] [place] [address] Dr. Ishan Mason Albumin/Globulin [Mass ratio] 1.0 {ratio} Normal [facility] Comment on above: Performed By: #### C KIRAN, LIVER #### [facility] [address] [place] [address] Dr. Ishan Mason ALP [Catalytic activity/Vol] 60 U/L Normal 46-116 [facility] Comment on above: Performed By: #### C KIRAN, LIVER #### [facility] [address] [place] [address] Dr. Ishan Mason ALT [Catalytic activity/Vol] 27 U/L Normal 14-59 [facility] Comment on above: Performed By: #### C KIRAN, LIVER #### [facility] [address] [place] [address] [address] Ishan Mason AST [Catalytic activity/Vol] 22 U/L Normal 15-37 [facility] Comment on above: Performed By: #### C KIRAN, LIVER #### [facility] [address] [place] [address] [address] Ishan Mason BILI, CONJUGATED 0.1 mg/dL Normal 0.0-0.3 [facility] Comment on above: Performed By: #### C KIRAN, LIVER #### [facility] [address] [place] [address] Dr. Ishan Mason Bilirubin [Mass/Vol] 0.5 mg/dL Normal 0.2-1.3 [facility] Comment on above: Performed By: #### C KIRAN, LIVER #### [facility] [address] [place] [address] Dr. Ishan Mason Globulin (S) [Mass/Vol] 3.5 g/dL Normal [facility] Comment on above: Performed By: #### C KIRAN, LIVER #### [facility] [address] [place] [address] Dr. Ishan Mason Protein [Mass/Vol] 7.1 g/dL Normal 6.1-8.2 [facility] Comment on above: Performed By: #### C KIRAN, LIVER #### [facility] [address] [place] [address] Dr. Ishan Mason SED RATE [facility] 2021 SED RATE 5 mm/hr Normal <=20 [facility] Comment on above: Performed By: #### A 1C #### [facility] [address] [place] [address] Dr. Ishan Mason Vital Signs Date Time Vital Sign Value Performing Clinician Facility 01-24-2024 07:52-0500 Body height 158.8 cm [employer] Work Phone: [facility] 01-24-2024 07:52-0500 Body mass index (BMI) [Ratio] 39.02 kg/m2 Sofia Guera DO Work Phone: [facility] [employer] 01-24-2024 07:52-0500 Body weight 98.34 kg Sofia Guera DO Work Phone: [facility] [employer] 01-24-2024 07:52-0500 Diastolic blood pressure 86 mm[Hg] Sofia Guera DO Work Phone: [facility] 01-24-2024 07:52-0500 Heart rate 77 /min Sofia Guera DO Work Phone: [facility] 01-24-2024 07:52-0500 SaO2% (BldA) [Mass fraction] 96 % Sofia Guera DO Work Phone: [facility] [employer] 01-24-2024 07:52-0500 Systolic blood pressure 132 mm[Hg] Sofia Guera DO Work Phone: [facility] [employer] 12-24-2020 15:00-0400 Body height 157.48 cm Conner Quinteros Other [employer] Other 12-24-2020 15:00-0400 Body mass index (BMI) [Ratio] 38.04 kg/m2 Conner Quinteros Other [employer] [facility] 12-24-2020 15:00-0400 Body temperature 98.4 [degF] Conner Quinteros Other [employer] [facility] 12-24-2020 15:00-0400 Body weight 94.35 kg Conner Quinteros Other [employer] Other 12-24-2020 15:00-0400 Diastolic blood pressure 95 mm[Hg] Conner Quinteros Other [employer] 12-24-2020 15:00-0400 Respiratory rate 18 /min Conner Quinteros Other [employer] Other 12-24-2020 15:00-0400 Systolic blood pressure 145 mm[Hg] Conner Quinteros Other [employer] Other Encounters Encounter Date Encounter Type Care Provider Facility Start: 06-27-2024 End: 06-27-2024 ambulatory SREE CAMERON Not Available Start: 06-27-2024 End: 06-27-2024 Bamboo flowsheet Sree Selbyer DO Work Phone: [facility] Start: 06-27-2024 End: 06-27-2024 Bamboo flowsheet Sere Ioana Stephaniemargauxer DO Work Phone: [facility] Start: 01-24-2024 End: 01-24-2024 Bamboo flowsheet Sofia Guera DO Work Phone: [facility] Start: 01-24-2024 End: 01-24-2024 Bamboo flowsheet Sofia Guera DO Work Phone: [facility] Start: 01-24-2024 End: 01-24-2024 Office outpatient visit 25 minutes Sofia Guera DO Work Phone: [facility] Comment on above: AGA (obstructive [...] without abnormal findings DR JUAN C HOPE [facility] Start: 12-04-2021 End: 12-05-[address] JUAN [...] 10-08-2021 End: 10-09-2021 ambulatory Juan C HOPE Facility:[facility] Start: 09-28-2021 End: 09-29-2021 ambulatory RUFINA LOVING Facility:[facility] Start: 09-28-2021 End: 09-28-2021 ambulatory CATRACHITA KAY Facility: Start: 09-28-2021 ambulatory RUFINA LOVING Facility: [facility] Start: 09-15-2021 ambulatory Juan C HOPE Facilit y:[facility] Start: 09-07-2021 ambulatory RUFINA LOVING Facility:[facility] Start: 07-01-2021 End: 07-02-[address] HERMINIA [...] Influenza vaccination Influenz a Vaccine (Season Ended) [facility] Start: 06-27-2024 End: 06-27-2024 Patient encounter procedure [facility] Comment on above: Arrived Start: 11-13-2023 Influenza vaccination Influenza Vacc ine (#1) [facility] Start: 2012 Screening for malign ant neoplasm of breast Mammogram [facility] Start: 2002 Screening for malign ant neoplasm of cervix [facility] Start: 1993 Screening for malign ant neoplasm of cervix Pap Smear [facility] Start: 1972 Screening for malign ant neoplasm of colon [facility] Immunizations Immunization Date Immunization Notes Care Provider [facility] 01-24-2024 influenza virus vacc ine, unspecified formulation Sree Cameron DO Work Phone: [facility] 02-15-2023 tetanus toxoid, redu noy diphtheria toxoid, and acellular pertussis vaccine, adsorbed Sofia Lynne DO Work Phone: [facility] 05-29-2020 pneumococcal conjuga te vaccine, 13 valent Sofia Lynne DO Work Phone: [facility] 01-10-2009 novel influenza-H1N1 -09, preservative-free, injectable Sofia Lynne DO Work Phone: [facility] Payers Date Payer Category Payer Blue [facility] BCBS [id number] 2022 Unknown [id number] 2019 Unknown [id number] [id number] 1972 Unknown [id number] 2.16.840.1.973891.3.579.2. 727 1972 Unknown [id number] 2.16.840.1.095032.3.579.2. 72 1972 Unknown [id number] 2.16.840.1.270082.3.579.2. 727 1972 Unknown [id number] 2.16.840.1.745131.3.579.2. 727 1972 Unknown [id number] 2.16.840.1.753795.3.579.2. 727 1972 Unknown [id number] 2.16.840.1.392724.3.579.2. 727 1972 Unknown [id number] 2.16.840.1.742656.3.579.2. 727 1972 Unknown [id number] 2.16.840.1.600738.3.579.2. 727 1972 Unknown [id number] 2.16.840.1.756592.3.579.2. 593 1972 Unknown [id number] 2.16.840.1.754521.3.579.2. 593 1972 Unknown [id number] 2.16.840.1.623461.3.579.2. 593 1972 Unknown [id number] 2.16.840.1.151724.3.579.2. 593 1972 Unknown [id number] 2.16.840.1.716011.3.579.2. 593 1972 Unknown [id number] 2.16.840.1.238654.3.579.2. 593 1972 Unknown [id number] 2.16.840.1.616757.3.579.2. 593 1972 Unknown [id number] 2.16.840.1.316453.3.579.2. 593 1972 Unknown [id number] 2.16.840.1.882363.3.579.2. 593 1972 Unknown [id number] 2.16.840.1.956847.3.579.2. 593 1972 Unknown [id number] 2.16.840.1.498413.3.579.2. 593 1972 Unknown [id number] 2.16.840.1.586234.3.579.2. 593 1972 Unknown [id number] 2.16.840.1.412520.3.579.2. 593 1972 Unknown [id number] 2.16.840.1.375609.3.579.2. 593 1972 Unknown [id number] 2.16.840.1.241393.3.579.2. 1259 1972 Unknown [id number] 2.16.840.1.019364.3.579.2. 1259 1972 Unknown [id number] 2.16.840.1.733789.3.579.2. 1259 1972 Unknown [id number] 2.16.840.1.245589.3.579.2. 1259 Social History Date Type Detail Facility Unknown if ever smoked [facility] Other Start: 01-24-2024 Sex Assigned At N [facility] [employer] Other Start: 12-28-2022 Tobacco smoking stat [facility] Never smoked tobacco [facility] Start: 12-28-2022 Tobacco use and exposure Smokeless tobacco non-user [facility] Start: 01-24-2024 End: 06-27-2024 Alcoholic beverage intake Ex-drinker (finding) [facility] Start: 01-24-2024 History of Social function [facility] Start: 06-28-2023 Alcohol Comment Caffeine intak e: 1-2 cups per day [facility] Start: 1970 Sex assigned at Not on file [facility] Perimetry study 06-27-2024 Note Date & Type Note Facility 06-27-2024 Note Right Eye Reliability was good. Progression has been stable. Foveal threshold was normal. Findings include normal observations. Left Eye Reliability was good. Progression has been stable. Foveal threshold was normal. Findings include normal observations. [facility] Optical coherence tomography study report 06-27-2024 Note Date & Type Note Facility 06-27-2024 Note Right Eye Quality was good. Scan locations included subfoveal. Progression has been stable. Findings include normal observations. Left Eye Quality was good. Scan locations included subfoveal. Progression has been stable. Findings include normal observations. Notes Good scan with normal appearance FAF stable [facility] History of Present illness Narrative 06-27-2024 Sree [...] above evaluations. This will be adjusted to [id number] when deemed necessary due to macular risk [...] job in September. She was at the [facility] and she was part of the [...] was counseled on the risks of stroke, NH, and sudden with AGA, along with the [...] Date & Type Note Facility 10-04-2021 Note [facility] Staff Velasquez is a 51 [...] [place]om[place]. 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 The [...] interactive video communications from my office using [employer] Technologies due to the restrictions of the COVID-19 pandemic. No physical exam was conducted other than those areas of the body visible to telecommunications with the patient located at [address] [place] [phone], with no one else in attendance. If [...] patient or guardian consented to allow [facility] [employer] to record this visit. SILAS medicaid collection specialist and provider reviewed before signing. SILAS: Cori Cherry. Follow-up With When Contact Information RUFINA LOVING CNP Only if needed [address] [place] [address] Additional Instructions: Patient Education COVID-19 Frequently Asked Questions COVID-19 Problem List/Past Medical History Ongoing BMI 38.0-38.9,adult Borderline abnormal thyroid function test COVID-19 Encounter for screening mammogram for breast cancer Non-smoker Painful mouth Preventative health care Sinus congestion Swollen tongue Historical Rheumatoid Arthritis Procedure/Surgical History None. Medications Acidophilus Probiotic Blend oral capsule, Oral, Daily calcium 500 mg Tab, Oral, Daily Flonase 0.05 mg/inh [place], 1 spray(s), Nasal, Daily fluconazole 150 mg Tab, 150 mg= 1 tab(s), Oral, Once, 1 refills fluticasone 0.05 mg/inh Nasal [place], 2 spray(s), Nasal, Daily, 3 refills hydroxychloroquine, 200 mg, Oral, Daily leflunomide, 20 mg, Oral, Daily Magic Mouth Wash, See Instructions, 2 refills metoprolol 50 mg ER Tab, 50 mg= 1 tab(s), Oral, Daily, 1 refills Orencia ClickJect 125 mg/mL subcutaneous solution Paxlovid 150 mg-100 mg oral tablet, See Instructions pred (more content not included)... [facility] Comment on above: Result Comment: Elec [...] the coronavirus come from? In February 2019, [place] told the World Health Organization (WHO) of several cases of lung disease (human respiratory illness). These cases were linked to an open seafood and livestock market in the city of [facility]. The link to the seafood and [...] naming World Health Organization (WHO): www.who.int/emergencies/diseases/novel-c oronavirus-2019/technical-guidance/tramaine t-klh-wktlsdyjhep-disease-(covid-2019)-a bt-rwu-revsv-lzio-demjoi-aj Who is at risk for complications from [...] may in (more content not included)... 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) Dec, Rheumatoid arthritis (ICD-10 - M06.9) [facility] Other Evaluation note Note Date & Type [...] Type Medical History RA Medical History HTN [facility] Other Summary Purpose Family History No Family History Records FoundNo Family History Records FoundNo Family History Records Found Advance Directives No Advanced Directives Records FoundNo Advanced Directives Records FoundNo Advanced Directives Records Found Additional Source Comments REASON FOR VISIT (unrecogniz ed section and content) Reason Comments Sleep Apnea Reason Comments Eye Exam INFORMATION SOURCE (unrecogn ized section and content) DATE CREATED AUTHOR 05/20/2022 [facility] DATE CREATED AUTHOR AUTHOR'S ORGANIZ ATION 06/30/2022 [facility] DATE CREATED AUTHOR AUTHOR'S ORGANIZ ATION 06/29/2024 [facility] EPIC Care Teams (unrecognized sec tion and content) 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 [address] Referring Physician Neurology 01/24/24 Twila Long NP [address] [place] [address] Referring Physician Family Medicine 01/24/24 [...] BE BASED ON THE PRIMARY CLINICAL RECORDS. [facility] [employer] provides no warranty or guarantee of the accuracy or completeness of information in this document.
[2024-12-04 11:38] LABS: Hematocrit 41.3 % (36.0-48.0); Hemoglobin 13.9 g/dL (12.0-16.0); Immature Granulocytes Abs Auto 0.02 10^3/uL (0.00-0.03); Immature Granulocytes Pct Auto 0.3 % (0.0-0.5); Lymphocytes Absolute Auto 2.4 10^3/uL (1.2-3.8); Mean Corpuscular HGB Conc 33.7 g/dL (29.9-35.2); Mean Corpuscular Hemoglobin 30.4 pg (26.7-34.0); Mean Corpuscular Volume 90.4 fL (81.0-99.0); Platelet Count 198 10^3/uL (150-450); Red Blood Count 4.57 10^6/uL (4.20-5.40); White Blood Count 5.8 10^3/uL (4.0-11.0)
--- NOTE | 2024-12-04 12:55 | CT_ITS ---
The [address] [address] Patient Name: VELASQUEZ COLIN MRN: [id number] date: 1970 Sex: F Assigned Patient Location: LAB Current Patient Location: LAB Accession/Order Number: [id number] Exam Date: 12/04/2024 13:03 Report Date: 12/04/2024 19:46 At the request of: PATRICK NUNEZ NP Procedure: CT chest high res CT CHEST WITHOUT IV CONTRAST: High-resolution protocol. 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 High-resolution protocol was utilized with both supine and prone imaging. This CT exam was performed using one or more following dose reduction techniques: Automated exposure control, adjustment of the mA and/or kV according to patient size, or use of iterative reconstruction technique. FINDINGS: Mediastinum:Thoracic aorta appears normal in caliber. Pulmonary trunk appears nondilated. No pericardial effusion. No lymphadenopathy. The esophagus is grossly unremarkable. Small hiatal hernia. Lungs:No lung consolidation pneumothorax or pleural effusion. No suspicious pulmonary nodule or mass. Trachea and distal airways appear patent. No bronchiectasis. No honeycombing. No septal thickening. No micronodules. Abd:No acute findings. Soft tissues/Bones: No acute findings. Osseous structures demonstrate degenerative change. CT/CT chest high res IMPRESSION: No acute process. No CT evidence of interstitial lung disease. Impression dictated by: Lawson Scruggs Jr., D.O. 12/04/2024 7:46 PM Dictation Location: [employer] Electronically authenticated by: [id number] Y Date: 12/04/2024 19:46
[2024-12-04 13:50] LABS: Alanine Aminotransferase 38 U/L (14-59); Albumin Globulin Ratio 0.9; Albumin Level 3.8 g/dL (3.4-5.0); Alkaline Phosphatase 81 U/L (46-116); Anion Gap 12.7; Aspartate Amino Transferase 30 U/L (15-37); Blood Urea Nitrogen 14.0 mg/dL (7.0-18.0); Calcium 9.5 mg/dL (8.5-10.1); Carbon Dioxide 28.5 mmol/L (21.0-32.0); Chloride 106 mmol/L (98-107); Estimated GFR (African America >60 (>=60 mL/min/1.73m^2); Estimated GFR (Non-African Ame >60 (>=60 mL/min/1.73m^2); Globulin 4.0 g/dL; Glucose 96 mg/dL (74-106); Potassium 4.2 mmol/L (3.5-5.1); Sodium 143 mmol/L (136-145); Total Protein 7.8 g/dL (6.4-8.2)
== END 2024-12-04 11:14 | disposition home or self-care (01) ==
LOC: LAB 11:13
PROVIDERS: Visit Provider Nurse Practitioner Family
DX: M05.79 Rheumatoid arthritis with rheumatoid factor of multiple sites without organ or systems involvement (principal); Z79.899 Other long term (current) drug therapy; R06.00 Dyspnea, unspecified
CPT/HCPCS: 36415; 71250; 80053; 85025; 85652; 94010; 94726; 94729

== ENCOUNTER 2025-02-21 14:18 | Outpatient (OUT) | payer BC, SELFPAY ==
--- OUTSIDE RECORDS SUMMARY | 2025-02-21 14:24 | XMS_ITS | CCD ---
Author Organization [facility] CliniSyga Care Team Providers Care Missileman Name Role Phone Conner Quinteros Unavailable RUFINA LOVING Attending Unavailable JAYY, Juan C Varghese Attending Unavailable RUFINA LOVING Attending Unavailable JAYY, Juan C Varghese Attending Unavailable MEJIAADAMichael, DR HOPE Consulting Unavailable HALADAY, DR HOPE Attending Unavailable HALADAY, DR HOPE Admitting Unavailable JAYY, DR JUAN C Varghese Primary Care Unavailable JAYY, DR JUAN C Varghese Primary Care Unavailable JAYY, DR JUAN C Varghese Consulting Unavailable JAYY, DR JUAN C Varghese Attending Unavailable JAYY, DR JUAN C Cummings Unavailable JAYY, DR JUAN C Varghese Primary Care Unavailable GUERA, DR BLACK Consulting Unavailable GUERA, DR BLACK Attending Unavailable GUERA, DR BLACK Admgabion Unavailable JAYY, DR JUAN C Varghese Primary Care Unavailable HALADAY, DR HOPE Attending Unavailable HALADAY, DR HOPE Admgabino Unavailable HALADAY, DR HOPE Consulting Unavailable SAMSA ., ALDAIR Attending Unavailable SAMSA ., ALDAIR Cummings Unavailable JAYY, DR JUAN C Varghese Primary Care Unavailable ZIEBER, DR MARITO [place] Consulting Unavailable SAMSA ., ALDAIR Consulting Unavailable JAYY, DR JUAN C Varghese Primary Care Unavailable HALADAY, DR HOPE Admitting Unavailable HALADAY, DR HOPE Consulting Unavailable HALADAY, DR HOPE Attending Unavailable RAHUL, CATRACHITA Attending Unavailable RAHUL, CATRACHITA Admitting Unavailable JAYY, DR JUAN C Varhgese Primary Care Unavailable RAHULCATRACHITA STOKES Consulting Unavailable JAYY, DR JUAN C Varghese [...] DR JUAN C Varghese Primary Care Unavailable JOHANNAEBKRISTINA, DR MARITO [place] Consulting Unavailable HALADAY, DR HOPE Attending Unavailable HALADAY, DR HOPE Admitting Unavailable JAYY, DR JUAN C Varghese Primary Care Unavailable HALADAY, DR HOPE Consulting Unavailable JAYY, DR JUAN C Varghese Primary Care Unavailable MIS, DR BAEZ Admitting Unavailable MISC, DR BAEZ Attending Unavailable HALADAY, DR HOPE Consulting Unavailable JORDY, DR MARITO Cuba Consulting Unavailable JAYY, DR JUAN C Varghese Primary Care Unavailable JAYY, DR JUAN C Varghese Attending Unavailable JAYY, DR JUAN C Varghese Admitting Unavailable JAYY, DR JUAN C Varghese Consulting Unavailable Mariana SANCHES, Herminia Michael Unavailable Sofia Sousa DO Unavailable Ethan FINANCIAL SALES REPRESENTATIVE, Twila Unavailable SOFIA SOUSA Attending Unavailable SREE AGUILA Attending Unavailable SOFIA SOUSA Attending Unavailable SREE AGUILA Attending Unavailable Hudson Real MD Attending Provider Sofia Sousa DO Attending Provider NON STAFF Primary Care Provider Unavailолег e Allergies Allergy ClassificationReported Allergen(s)Allergy TypeDate of OnsetReaction(s) Facility (8 sources)Ciprofloxacin; Translations: [ciprofloxacin]Drug Ycooime37-10-5342 [facility] Repository (2 sources)pregabalinDrug Zalvckw10-63-9249JhkdxfpOqdlbsystKn[facility] (6 sources)Sulfamethoxazole / TrimethoprimDrug Cjrmjju64-09-9931Tkcr, Unknown Local Plant Source Other (6 sources)Methotrexate; Translations: [methotrexate]Drug Pfhrbjv22-87-8713 [facility])pregabalin; Translations: [Lyrica]Drug [facility]ergyEast [facility] (2 sources)Sulfamethoxazole; Translations: [sulfamethoxazole]Drug Allergy 09-55-8618[facility]mEast [facility] (1 source)Sulfamethoxazole / Trimethoprim; Translations: [Bactrim]Drug Allergy [facility] Repository (1 source)CiprofloxacinDrug AllergyThe [facility] (1 source)Sulfonamides (Antibiotic)Drug allergy (disorder)The [facility] Repository (5 sources)PregabalinAllergy to uixfdjibh82-97-2210Dtkjqmcyjovmju, OtherN[facility] (5 sources)Sulfonamides (Antibiotic)Drug Ljwzhxp15-41-4052Toqf, OtherNOMS Healthcare (1 source)TrimethoprimDrug Ekeevwl47-18-6949FoblonpjqCommunity [facility] Center Medications Current Medications MedicationDrug Class(es)DatesSig (Normalized)Sig (Original)1 ml abatacept 125 mg/ml auto-injector (6 sources)Selective T Cell Costimulation ModulatorStart: 36-27-4651nzgkfp 125 mg by subcutaneous injection every weekAbatacept (Orencia Clickject) 125 mg/mL auto-injector Active 125 MG SUBCUT every week January 22, 2025 12:00am Complies with drug therapyOrencia ClickJect 125 MG/ML solution auto-injector Subcutaneous for 28 Days Activeacetaminophen 500 mg oral tablet (5 sources)acetaminophen (Tylenol) 500 MG tablet Take 2 tablets by mouth if needed ActiveB Hplpybc-Idxahi-TK (Super B-50 B Complex) capsule (5 sources)B Vhqsdiz-Imbwul-PR (Super B-50 B Complex) capsule as directed Orally ActiveCalcium Carbonate / Vitamin D (5 sources)Calcium Carbonate-Vitamin D (OSCAL 500/200 D-3 PO) Take 1 tablet by mouth Daily Activecetirizine hydrochloride 10 mg oral tablet (7 sources)Histamine-1 Receptor AntagonistStart: 23-64-6315vcjf 1 tablet by mouth once daily as neededCetirizine 10 mg tablet Active 10 MG PO Daily as needed January 22, 2025 12:00am Complies with drug therapycetirizine (ZyrTEC) 10 MG tablet 1 (one) time each day at the same time. ActiveZyrTEC Allergy Activefluticasone propionate 0.05 mg/actuat metered dose nasal spray (7 sources)CorticosteroidStart: 74-78-4410wrms 1 spray(s) nasal route once daily Fluticasone Propionate (Flonase Allergy Relief) 50 mcg/actuation spray,suspension Active 1 SPRAY INTRANASAL Daily January 22, 2025 12:00am administer into each nostril Complies with drug therapyfluticasone (Flonase) 50 MCG/ACT nasal spray 1 (one) time each day at the same time. ActiveFLONASE Active hydroxychloroquine sulfate 200 mg oral tablet (7 sources)Antimalarial, Antirheumatic AgentStart: 45-97-4904Hhgouvtgpcdwmrjxtw 200 mg tablet Active MG PO January 22, 2025 12:00am Complies with drug therapytake 1 tablet by mouth in the morninghydroxychloroquine (Plaquenil) 200 MG tablet Take 1 tablet by mouth in the morning and 1 tablet in the evening. Take with meals. Activeleflunomide 20 mg oral tablet (7 sources)Antirheumatic AgentStart: 72-24-8962nobh 1 tablet by mouth once daily Leflunomide 20 mg tablet Active 20 MG PO Daily January 22, 2025 12:00am Complies with drug therapytake 1 tablet by mouth once dailyleflunomide (Arava) 20 MG tablet TAKE 1 TABLET BY MOUTH EVERY DAY REMEMBER LABS Oral for 90 Days Act ive24 hr metoprolol succinate 50 mg extended release oral tablet (7 sources)beta-Adrenergic BlockerStart: 72-34-2853akxl 1 tablet by mouth every twenty-four hoursMetoprolol Succinate 50 mg tablet extended release 24 hr Active 50 MG PO Once January 22, 2025 12:00am Complies with drug therapytake 1 tablet by mouth every twenty-four hoursmetoprolol succinate XL (Toprol-XL) 50 MG 24 hr tablet Take 1 tablet by mouth ActiveMetoprolol Tartrate 50 MG 1QD Active Multiple Vitamin (Multi Vitamin) tablet (5 sources)Multiple Vitamin (Multi Vitamin) tablet 1 (one) time each day at the same time. ActiveMultivitamin preparation (1 source)Multivitamin ActivepredniSONE 5 mg oral tablet (6 sources)take 1 tablet by mouth once daily as needed, then take 1 tablet by mouth every other day as neededpredniSONE (Deltasone) 5 MG tablet TAKE 1 TABLET BY MOUTH ON DAY 1, OR TWO DAYS A WEEKS NEEDED Oral PRN for 15 days Active probiotic (1 source)probiotic Activesaccharomyces boulardii 250 mg oral capsule (5 sources)Saccharomyces boulardii (probiotic) 250 MG capsule as directed Orally ActiveSuper B Complex (1 source)Super B Complex Active Completed/Discontinued Medications MedicationDrug Class(es)DatesSig (Normalized)Sig (Original)cholecalciferol 0.05 mg oral capsule (5 sources)Vitamin D End: 81-96-2072nhvd 1 capsule by mouth once dailycholecalciferol (Vitamin D-3) 50 MCG (1999 UT) capsule TAKE 1 CAPSULE BY MOUTH EVERY DAY Oral for 90 Days 06/27/2024 Discontinuedciclesonide 0.05 mg/actuat metered dose nasal spray (3 sources) End: 87-46-8868egmxdutahmx (Omnaris) 50 MCG/ACT nasal spray 01/24/2024 Discontinued (Med list cleanup)cyclobenzaprine hydrochloride 5 mg oral tablet (3 sources)Muscle Relaxant End: 39-67-2686nceg 0.5-1 tablets by mouth at bedtimecyclobenzaprine (Flexeril) 5 MG tablet Take 0.5-1 tablets by mouth at bedtime 01/24/2024 Discontinued (Med list cleanup)Misc Natural Products (Green Tea) tablet (3 sources) End: 08-68-8580lczt 1 capsule by mouth once dailyMisc Natural Products (Green Tea) tablet Take 1 capsule by mouth Daily 01/24/2024 Discontinued (Medlist cleanup)[place]-3 Fatty Acids (GNP FISH OIL PO) (3 sources) End: 58-90-6792eywe 1 tablet by mouth once dailyOmega-3 Fatty Acids (GNP FISH OIL PO) Take 1 tablet by mouth Daily 01/24/2024 Discontinued (Med list cleanup) Problems Active Problems Problem ClassificationProblemDateDocumented DateEpisodic/ChronicEssential hypertension (5 sources)Hypertensive disorder; Translations: [Essential (primary) hypertension]Onset: 462331-06-2875ZjrnxhcBrcouvnvpklg; infection of eye (except that caused by tuberculosis or sexually transmitteddisease) (6 sources)Blepharitis of upper and lower eyelids of bilateral eyes; Translations: [Unspecified blepharitis right eye, upper and lower eyelids]Onset: 693117-29-9768ZfoyjlatZhqne aftercare (5 sources)Other fci (current) drug therapy; Translations: [OTH FDC CURRENT DRUG THERAPY]Onset: 22-11-4015DtenwxfbXrpkm aftercare (6 sources)Drug therapy finding; Translations: [Other long term care administrator (current) drug therapy]Onset: 242670-96-8937ApfovvpwGbljn connective tissue disease (1 source)Pain in left hand; Translations: [PAIN IN LEFT HAND]Onset: 06-28-2022 EpisodicOther connective tissue disease (1 source)Pain in right hand; Translations: [PAIN IN RIGHT HAND]Onset: 50-49-2145ZllwrwvbFxtef eye disorders (6 sources)Dry eyes; Translations: [Dry eye syndrome of bilateral lacrimal glands]Onset: 861093-78-1193IqsubssyXfckl lower respiratory disease (4 sources)Pulmonary fibrosis, unspecified; Translations: [PULMONARY FIBROSIS UNSPECIFIED]Onset: 91-26-2365TpyjjxjAvynp lower respiratory disease (4 sources)Hypoxia; Translations: [Hypoxemia]85-32-8472AupsojziVdhiq nervous system disorders (5 sources)Carpal tunnel syndrome of left wrist; Translations: [Carpal tunnel syndrome, left upper limb]Onset: 250915-08-0794TnpthysVextg nervous system disorders (5 sources)Carpal tunnel syndrome of right wrist; Translations: [Carpal tunnel syndrome, right upper limb]Onset: 387856-72-3481VnxhdlsQlsvi nervous system disorders (2 sources)Bilateral carpal tunnel syndrome; Translations: [Carpal tunnel syndrome, bilateral upper limbs]28-46-6557IhmcsqhFwiqv nervous system disorders (2 sources)Numbness and tingling sensation of skin; Translations: [Anesthesia of skin]60-51-8408ZggsiueaZvgng nutritional; endocrine; and metabolic disorders (5 sources)Obesity; Translations: [Obesity, unspecified]Onset: 06-28-2023 44-08-3561VjrxnnmMaoorkps codes; unclassified (4 sources)Obstructive sleep apnea (adult) (pediatric); Translations: [OBSTRUCTIVE SLEEP APNEA]Onset: 50-28-9368ZpzllpqNsnfpnit codes; unclassified (9 sources)Obstructive sleep apnea syndrome; Translations: [Obstructive sleep apnea (adult) (pediatric)]Onset: 350874-78-6403AdmaaelKezapnis codes; unclassified (4 sources)Hypersomnia; Translations: [Hypersomnia, unspecified]01-24-2024 ChronicRetinal detachments; defects; vascular occlusion; and retinopathy (2 sources)Epiretinal membrane of left eye; Translations: [Puckering of macula, left eye]Onset: 796121-77-8926OcvozncZqzniixqhq arthritis and related disease (12 sources)Rheumatoid arthritis; Translations: [Rheumatoid arthritis, unspecified]Onset: 12-24-2020 Resolved: 04-82-2194PmmnfflMlpnqcjv lupus erythematosus and connective tissue disorders (1 source)Systemic involvement of connective tissue, unspecified; Translations: [SYSTEMIC INVLV CONNECTIVE TISS UNS]Onset: 03-80-7321OfwymgaXhapynigugnl (2 sources)CONTACT W/AND (SUSP) EXPOS COVID-19; Translations: [CONTACT W/AND (SUSP) EXPOS COVID-19]Onset: 25-37-2149Ildqn infection (1 source)COVID-19; Translations: [COVID-19]Onset: 09-29-2021 Past or Other Problems Problem ClassificationProblemDateDocumented DateEpisodic/ChronicImmunizations and screening for infectious disease (1 source)Interferon gamma assay result indeterminate; Translations: [Nonspecific reaction to cell mediated immunity measurement of gamma interferon antigen response without active tuberculosis]EpisodicMalaise and fatigue (4 sources)Weakness; Translations: [WEAKNESS]Onset: 28-69-5617TcxyfhitLlgfr nervous system disorders (7 sources)Paresthesia; Translations: [Paresthesia of skin]Onset: 06-28-2023 01-41-8052GlbltjivJbjxl screening for suspected conditions (not mental disorders or infectious disease) (8 sources)Abnormal results of pulmonary function studies; Translations: [Encounter for screening mammogram for malignant neoplasm of breast]Onset: 08-91-9991JoqaoyjpQhwaecja codes; unclassified (1 source)Family history of malignant neoplasm of trachea, bronchus and lung; Translations: [FAM HX MALIG NEOPLSM TRACH BRON LNG]Onset: 45-83-4799Wvdbckde Residual codes; unclassified (1 source)Family history of malignant neoplasm of other organs or systems; Translations: [FAM HX MALIG NEOPLASM OTH ORGN/SYS]Onset: 47-44-5676Ttpdloei Unclassified (1 source)Latent tuberculosis; 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]Onset: 12-24-2020 Resolved: 65-29-4522Cirkmysvyyfw (1 source)CONTACT W/AND (SUSP) EXPOS COVID-19; Translations: [CONTACT W/AND (SUSP) EXPOS COVID-19]Onset: 09-28-2021 Results Test NameValueInterpretationReference RangeFacilityOptical coherence tomography study reporton [id number] Walnut Lawn HealthcareRadiology Study observation (narrative)[facility] HealthcarePerimetry studyon 05-94-9510[facility] HealthcareRadiology Study observation (narrative)[facility] HealthcareCBC AUTO DIFFon 49-52-3608NSBU #0.0 103/ulNormal0.0-0.1The [facility] on above: Performed By: #### SEDR #### [facility] [address] [address] [address] Ishan MasonBasophils/100 WBC (Bld)0.8 %Normal0.2-2.0[facility] Comment on above:Performed By: #### SEDR #### [facility] [address] [address] [address] Ishan Hopper #0.3 103/ulNormal0.0-0.7The [facility] SystemComment on above: Performed By: #### SEDR #### [facility] [address] [address] [address] Ishan Ballardosinophils/100 WBC (Bld)5.7 %Normal0.9-7.0[facility] Comment on above:Performed By: #### SEDR #### [facility] [address] [address] [address] Ishan Ballardrythrocyte distribution width (RBC) [Ratio]12.6 %Guwkon82.0-15.0 [facility] CenterComment on above:Performed By: #### SEDR #### [facility] [address] [address] [address] Ishan MasonHematocrit (Bld) [Volume fraction]40.6 %Fuxgpg15.0-48.0The [facility] SystemComment on above:Performed By: #### SEDR #### [facility] [address] [place] [address] Dr. Ishan MasonHemoglobin (Bld) [Mass/Vol]13.4 g/vUFycknm01.0-16.0The [facility] HospitalComment on above:Performed By: #### SEDR #### [facility] [address] [place] [address] Dr. Ishan Mcintyre #0.01 10e3/ulNormal0.00-0.03The [facility] SystemComment on above:Performed By: #### SEDR #### [facility] [address] [place] [address] Dr. Ishan Mcintyre %0.2 %Normal0.0-0.5The [facility] SystemComment on above: Performed By: #### SEDR #### [facility] [address] [place] [address] Dr. Ishan Javed #2.3 103/ulNormal1.2-3.8The [facility] SystemComment on above:Performed By: #### SEDR #### [facility] [address] [place] [address] Dr. Ishan Cortezhocytes/100 WBC (Bld)46.2 %Maphes97.5-60.0The [facility] SystemComment on above:Performed By: #### SEDR #### [facility] [address] [place] [address] Dr. Ishan QuijanoUAL DIFF REQNONormalThe [facility] SystemComment on above: Performed By: #### SEDR #### [facility] [address] [place] [address] Dr. Ishan Del Valle (RBC) [Entitic mass]30.0 caUwmuiv86.7-34.0The [facility] SystemComment on above:Performed By: #### SEDR #### [facility] [address] [place] [address] Dr. Ishan Dela CruzHC (RBC) [Mass/Vol]33.0 g/aMLcjlkq44.9-35.2The [facility] SystemComment on above:Performed By: #### SEDR #### [facility] [address] [place] [address] Dr. Ishan Dela CruzV (RBC) [Entitic vol]90.8 nKRzwnbf72.0-99.0The [facility] SystemComment on above:Performed By: #### SEDR #### [facility] [address] [place] [address] Dr. Ishan Arroyo #0.5 103/ulNormal0.3-0.8The [facility] System[facility] on above:Performed By: #### SEDR #### [facility] [address] [place] [address] Dr. Ishan Apodacaocytes/100 WBC (Bld)10.8 %Normal1.7-12.0The [facility] Comment on above:Performed By: #### SEDR #### [facility] [address] [place] [address] Dr. Ishan Matias #1.8 103/ulNormal1.4-6.5The [facility] SystemComment on above:Performed By: #### SEDR #### [facility] [address] [place] [address] Dr. Ishan Bondutrophils/100 WBC (Bld)36.3 %Critically low43.0-75.0The [facility] SystemComment on above:Performed By: #### SEDR #### [facility] [address] [place] [address] Dr. Ishan Dela Cruzlet mean volume (Bld) [Entitic vol]11.0 fLNormal9.5-13.5The [facility] SystemComment on above:Performed By: #### SEDR #### [facility] [address] [place] [address] Dr. Ishan MasonPLT198 103/pwBnbssx621-364Vaq [facility] SystemComment on above: Performed By: #### SEDR #### [facility] [address] [place] [address] Dr. Ishan MasonRBC4.47 106/ulNormal4.20-5.40The [facility] on above:Performed By: #### SEDR #### [facility] [address] [place] [address] Dr. Ishan MasonWBC4.9 103/ulNormal4.0-11.0The [facility] SystemComment on above: Performed By: #### SEDR #### [facility] [address] [place] [address] Dr. Ishan MasonCREATININEon 56-45-3476Mlnybyvakg [Mass/Vol]0.70 mg/dLNormal 0.55-1.02The [facility] on above:Performed By: #### A1C #### [facility] [address] [place] [address] Dr. Ishan BallardGFR-AF UZBEK>60Normal>=60The [facility] on above:Performed By: #### A1C #### [facility] [address] [place] [address] Dr. Ishan BallardGFR-NON AF UZBEK>60Normal>=60The [facility] on above:Performed By: #### A1C #### [facility] [address] [place] [address] Dr. Ishan MasonLIENMANUEL PROFILEon 94-54-4751Mgyamxj [Mass/Vol]3.6 g/dLNormal3.4-5.0 The [facility] on above:Performed By: #### A1C #### [facility] [address] [place] [address] Dr. Ishan MasonAlbumin/Globulin [Mass ratio]0.9 {ratio}NormalThe [facility] on above:Performed By: #### A1C #### [facility] [address] [place] [address] Dr. Ishan LovingP [Catalytic activity/Vol]63 U/ACcwlnu24-922Zjs [facility] on above:Performed By: #### A1C #### [facility] [address] [address] [address] Ishan LovingT [Catalytic activity/Vol]32 U/WBlgkjs27-14Bfg [facility] SystemComment on above:Performed By: #### A1C #### [facility] [address] [address] [address] Ishan MasonAST [Catalytic activity/Vol]23 U/LHpuynh79-62Jyw [facility] SystemComment on above:Performed By: #### A1C #### [facility] [address] [address] [address] Ishan WongI, CONJUGATED0.1 mg/dLNormal0.0-0.2The [facility] Comment on above:Performed By: #### A1C #### [facility] [address] [place] [address] Dr. Ishan Wongirubin [Mass/Vol]0.6 mg/dLNormal0.2-1.0[facility] Comment on above:Performed By: #### A1C #### [facility] [address] [address] [address] Ishan MasonGlobulin (S) [Mass/Vol]3.9 g/dLNormalThe [facility] SystemComment on above:Performed By: #### A1C #### [facility] [address] [place] [address] Dr. Ishan MasonProtein [Mass/Vol]7.5 g/dLNormal6.4-8.2The [facility] Comment on above:Performed By: #### A1C #### [facility] [address] [address] [address] Ishan MasonSED RATE WESTERGRENon 69-02-1912DSV RATE17 mm/hrNormal<=20The [facility] SystemComment on above:Performed By: #### SEDR #### [facility] [address] [place] [address] Dr. Ishan MasonXR HAND [place] MIN 3Von 26-96-3867XX HAND [place] MIN 3VEXAMINATION: XR HAND [place] MIN 3V HISTORY: Rheumatoid [...] of rheumatoid arthritis. Electronically authenticated by: MARITO SPENCE Date: 2022-06-23 11:43NoVeterans Health Administration AUTO DIFFon [id number] #0.1 103/ulNormal0.0-0.1The [facility] SystemComment on above:Performed By: #### CBC #### [facility] [address] [place] [address] Dr. Ishan MasonBasophils/100 WBC (Bld)1.0 %Normal0.2-2.0[facility] Comment on above:Performed By: #### CBC #### [facility] [address] [address] [address] Ishan Hopper #0.2 103/ulNormal0.0-0.7The [facility] SystemComment on above: Performed By: #### CBC #### [facility] [address] [place] [address] Dr. Ishan Ballardosinophils/100 WBC (Bld)2.8 %Normal0.9-7.0The [facility] Comment on above:Performed By: #### CBC #### [facility] [address] [address] [address] Ishan Ballardrythrocyte distribution width (RBC) [Ratio]12.5 %Vhiomv05.0-15.0 The [facility] SystemComment on above:Performed By: #### CBC #### [facility] [address] [address] [address] Ishan MasonHematocrit (Bld) [Volume fraction]41.8 %Tjhwop78.0-48.0The [facility] SystemComment on above:Performed By: #### CBC #### [facility] [address] [address] [address] Ishan MasonHemoglobin (Bld) [Mass/Vol]14.0 g/hNRhiczs39.0-16.0The [facility]Comstra[facility] on above:Performed By: #### CBC #### [facility] [address] [place] [address] Dr. Ishan Mcintyre #0.02 10e3/ulNormal0.00-0.03The [facility]Comstra[facility] on above:Performed By: #### CBC #### [facility] [address] [place] [address] Dr. Ishan Mcintyre %0.3 %Normal0.0-0.5The [facility]Comstra[facility] on above: Performed By: #### CBC #### [facility] [address] [place] [address] Dr. Ishan Javed #1.5 103/ulNormal1.2-3.8The [facility] SystemComment on above:Performed By: #### CBC #### [facility] [address] [place] [address] Dr. Ishan Cortezhocytes/100 WBC (Bld)21.1 %Htovbp49.5-60.0The [facility] on above:Performed By: #### CBC #### [facility] [address] [place] [address] Dr. Ishan QuijanoUAL DIFF REQNONormalThe [facility] SystemComment on above: Performed By: #### CBC #### [facility] [address] [place] [address] Dr. Ishan Dela Cruz (RBC) [Entitic mass]29.7 hsGdmlbh22.7-34.0The [facility] SystemComment on above:Performed By: #### CBC #### [facility] [address] [place] [address] Dr. Ishan Dela Cruz (RBC) [Mass/Vol]33.5 g/wJMwknzl64.9-35.2The [facility] SystemComment on above:Performed By: #### CBC #### [facility] [address] [place] [address] Dr. Ishan Dela CruzV (RBC) [Entitic vol]88.7 eHMpkztl59.0-99.0The [facility] on above:Performed By: #### CBC #### [facility] [address] [place] [address] Dr. Ishan Arroyo #0.5 103/ulNormal0.3-0.8The [facility] SystemComment on above:Performed By: #### CBC #### [facility] [address] [place] [address] Dr. Ishan Apodacaocytes/100 WBC (Bld)7.0 %Normal1.7-12.0The [facility] Comment on above:Performed By: #### CBC #### [facility] [address] [place] [address] Dr. Ishan Matias #4.8 103/ulNormal1.4-6.5The [facility] on above:Performed By: #### CBC #### [facility] [address] [place] [address] Dr. Ishan Bondutrophils/100 WBC (Bld)67.8 %Vkbzyh36.0-75.0The [facility] on above:Performed By: #### CBC #### [facility] [address] [place] [address] Dr. Ishan Dela Cruzlet mean volume (Bld) [Entitic vol]11.0 fLNormal9.5-13.5The [facility] on above:Performed By: #### CBC #### [facility] [address] [place] [address] Dr. Ishan MasonPLT214 103/ktUqialz032-181Six [facility] on above: Performed By: #### CBC #### [facility] [address] [place] [address] Dr. Ishan MasonRBC4.71 106/ulNormal4.20-5.40The [facility] SystemComment on above:Performed By: #### CBC #### [facility] [address] [place] [address] Dr. Ishan MasonWBC7.1 103/ulNormal4.0-11.0The [facility] SystemComment on above: Performed By: #### CBC #### [facility] [address] [place] [address] Dr. Ishan MasonCREATININEon 67-43-0782Nyuthsguwq [Mass/Vol]0.85 mg/dLNormal 0.55-1.02The [facility] SystemComment on above:Performed By: #### SEDR #### [facility] [address] [place] [address] Dr. Ishan BallardGFR-AF UZBEK>60Normal>=60The [facility] SystemComment on above:Performed By: #### SEDR #### [facility] [address] [place] [address] Dr. Ishan BallardGFR-NON AF UZBEK>60Normal>=60The [facility] on above:Performed By: #### SEDR #### [facility] [address] [place] [address] Dr. Ishan BallardMG Electromyographyon 21-97-9105TES Electromyography [id number]#1.00CD:127NormalFisher The [facility] Pratt HospitalLIVER PROFILEon 16-94-7527Zjlieup [Mass/Vol]3.8 g/dLNormal3.4-5.0The [facility] SystemComment on above:Performed By: #### A1C #### [facility] [address] [place] [address] Dr. Ishan MasonAlbumin/Globulin [Mass ratio]1.0 {ratio}NormalThe [facility] SystemComstra[facility] on above:Performed By: #### A1C #### [facility] [address] [place] [address] Dr. Ishan MasonALP [Catalytic activity/Vol]67 U/NMlockg00-637Kkd [facility] on above:Performed By: #### A1C #### [facility] [address] [address] [address] Ishan Crow [Catalytic activity/Vol]33 U/LYyytty84-55Suw The [facility] SystemComment on above:Performed By: #### A1C #### [facility] [address] [address] [address] Ishan Ansari [Catalytic activity/Vol]28 U/RSlmovm22-31Uyx The [facility] SystemComment on above:Performed By: #### A1C #### [facility] [address] [address] [address] Ishan WongI, CONJUGATED0.1 mg/dLNormal0.0-0.2The [facility] Comment on above:Performed By: #### A1C #### [facility] [address] [place] [address] Dr. Ishan Atkins [Mass/Vol]0.6 mg/dLNormal0.2-1.0The [facility] Comment on above:Performed By: #### A1C #### [facility] [address] [place] [address] Dr. Ishan MasonGlobulin (S) [Mass/Vol]3.7 g/dLNormalThe [facility] SystemComment on above:Performed By: #### A1C #### [facility] [address] [place] [address] Dr. Ishan MasonProtein [Mass/Vol]7.5 g/dLNormal6.4-8.2The [facility] Comment on above:Performed By: #### A1C #### [facility] [address] [place] [address] Dr. Ishan Perrin RATE WESTERGRENon 76-48-4582IKS RATE32 mm/hrCritically high <=20The [facility] SystemComment on above:Performed By: #### A1C #### [facility] [address] [place] [address] Dr. Ishan MasonConsultation Noteon 68-58-9901Hmrsnyvdqvpt Note [id number]#1.00CD:127NoSelect Medical Specialty Hospital - TrumbullConsultation Noteon 90-11-2793Yjfevqadevsw Note [id number]#1.00CD:127NoSelect Medical Specialty Hospital - TrumbullConsultation Noteon 44-80-1221Pnrcqtakeyih Note [id number]#1.00CD:127[facility] Hospital[facility]SK ANITBODY TESTon 50-34-9813QmUF Antibodies<1.0NoOhioHealth Van Wert HospitalComment on above:Result Comment: Reference Range: Negative: <1.0 Positive: 1.0 or higher [...] 2014;52:90-100. 2. Stacey SMITH et al. PNAS 2013;110(51);55131-03158. 3. Mahad E et al. Neurology 2006;67:505-507. This test was developed and its performance characteristics determined by [employer]. It has not been cleared or approved by the Food and Drug Administration.Performed By: #### A1C #### [facility] [address] [place] [address] Dr. Ishan MasonACETYLCHOLINE RECEPTOR BINDING ABon 19-02-3353EZnX Binding Abs, Serum<0.37Jlbyjb7.00-0.24The [facility] HospitalComment on above:Result Comment: Negative: 0.00 - 0.24 Borderline: 0.25 - 0.40 Positive: >0.40Performed By: #### ACRBND #### [facility] [address] [place] [address] Dr. Ishan Geiger 70-88-9997PV [Catalytic activity/Vol]88 U/QYtskyb07-340Csn The [facility] SystemComment on above:Performed By: #### SEDR #### [facility] [address] [place] [address] Dr. Ishan Perrin RATE WESTERGRENon 40-42-7984IEN RATE34 mm/hrCritically high <=20The [facility] SystemComstra[facility] hospital [facility] on above:Performed By: #### CBC #### [facility] [address] [place] [address] Dr. Ishan JohnsonHolatrell 31-50-6329ZMW7.298 uIU/mLNormal0.358-3.740The The [facility] SystemComment on above:Performed By: #### SEDR #### [facility] [address] [place] [address] Dr. Ishan Aragon B12 AND FOLATEon 94-26-8552Zpwcnxkcy (Vitamin B12) [Mass/Vol] 523.0 pg/jSOexzoa019.0-986.0The [facility] Hospitalment on above:Performed By: #### SEDR #### [facility] [address] [place] [address] Dr. Ishan MasonFOLATE21.40 ng/mLNormal8.60-58.90The [facility] Hospitalment on above:Performed By: #### SEDR #### [facility] [address] [place] [address] Dr. Ishan BradfordC AUTO DIFFon 40-29-5494DOJG #0.0 103/ulNormal0.0-0.1The [facility] on above:Performed By: #### SEDR #### [facility] [address] [place] [address] Dr. Ishan MasonBasophils/100 WBC (Bld)0.5 %Normal0.2-2.0The [facility] Comment on above:Performed By: #### SEDR #### [facility] [address] [place] [address] Dr. Ishan Hopper #0.3 103/ulNormal0.0-0.7The [facility] SystemComment on above: Performed By: #### SEDR #### [facility] [address] [place] [address] Dr. Ishan Ballardosinophils/100 WBC (Bld)4.9 %Normal0.9-7.0The [facility] Comment on above:Performed By: #### SEDR #### [facility] [address] [place] [address] Dr. Ishan Ballardrythrocyte distribution width (RBC) [Ratio]12.7 %Jnocho78.0-15.0 The [facility] SystemComment on above:Performed By: #### SEDR #### [facility] [address] [place] [address] Dr. Ishan MasonHematocrit (Bld) [Volume fraction]41.2 %Rgizsr65.0-48.0The [facility] SystemComment on above:Performed By: #### SEDR #### [facility] [address] [place] [address] Dr. Ishan MasonHemoglobin (Bld) [Mass/Vol]13.7 g/rHRzulga34.0-16.0The [facility] SystemComment on above:Performed By: #### SEDR #### [facility] [address] [place] [address] Dr. Ishan Mcintyre #0.01 10e3/ulNormal0.00-0.03The [facility] SystemComment on above:Performed By: #### SEDR #### [facility] [address] [place] [address] Dr. Ishan Mcintyre %0.2 %Normal0.0-0.5The [facility] SystemComment on above: Performed By: #### SEDR #### [facility] [address] [place] [address] Dr. Ishan Javed #2.3 103/ulNormal1.2-3.8The [facility] SystemComment on above:Performed By: #### SEDR #### [facility] [address] [place] [address] Dr. Ishan Navarromphocytes/100 WBC (Bld)40.2 %Yalafr34.5-60.0The [facility] SystemComment on above:Performed By: #### SEDR #### [facility] [address] [place] [address] Dr. Ishan Madrid DIFF REQNONormalThe [facility] SystemComment on above: Performed By: #### SEDR #### [facility] [address] [place] [address] Dr. Ishan Del Valle (RBC) [Entitic mass]29.8 rhCgfwuw85.7-34.0The [facility] SystemComment on above:Performed By: #### SEDR #### [facility] [address] [place] [address] Dr. Ishan Dela Cruz (RBC) [Mass/Vol]33.3 g/oFItnvgr64.9-35.2The [facility] SystemComment on above:Performed By: #### SEDR #### [facility] [address] [place] [address] Dr. Ishan Dela Cruz (RBC) [Entitic vol]89.6 jKOzrujm64.0-99.0The [facility] SystemComment on above:Performed By: #### SEDR #### [facility] [address] [place] [address] Dr. Ishan Arroyo #0.5 103/ulNormal0.3-0.8The [facility] SystemComment on above:Performed By: #### SEDR #### [facility] [address] [place] [address] Dr. Ishan Apodacaocytes/100 WBC (Bld)8.9 %Normal1.7-12.0The [facility] Comment on above:Performed By: #### SEDR #### [facility] [address] [place] [address] Dr. Ishan Matias #2.6 103/ulNormal1.4-6.5The [facility] SystemComment on above:Performed By: #### SEDR #### [facility] [address] [place] [address] Dr. Ishan Bondutrophils/100 WBC (Bld)45.3 %Gxzhjg14.0-75.0The [facility] SystemComstra[facility] on above:Performed By: #### SEDR #### [facility] [address] [place] [address] Dr. Ishan MasonPlatelet mean volume (Bld) [Entitic vol]10.3 fLNormal9.5-13.5The [facility] SystemComstra[facility] on above:Performed By: #### SEDR #### [facility] [address] [place] [address] Dr. Ishan MasonPLT212 103/jhMsmblw598-747Htw The [facility] SystemComment on above: Performed By: #### SEDR #### [facility] [address] [place] [address] Dr. Ishan MasonRBC4.60 106/ulNormal4.20-5.40The [facility] on above:Performed By: #### SEDR #### [facility] [address] [place] [address] Dr. Ishan MasonWBC5.7 103/ulNormal4.0-11.0The [facility] on above: Performed By: #### SEDR #### [facility] [address] [place] [address] Dr. Ishan MasonCREATININEon 36-30-9749Qghcucezfu [Mass/Vol]0.74 mg/dLNormal 0.55-1.02The [facility] on above:Performed By: #### PAPO, LIVER #### [facility] [address] [place] [address] Dr. Olmstead ChangEGFR-AF UZBEK>60Normal>=60The [facility] HospitalComment on above:Performed By: #### CREA, LIVER #### [facility] [address] [place] [address] Dr. Ishan BallardGFR-NON AF UZBEK>60Normal>=60The [facility] on above:Performed By: #### CREA, LIVER #### [facility] [address] [place] [address] Dr. Ishan Powell PROFILEon 32-53-8097Rolvahr [Mass/Vol]3.6 g/dLNormal3.4-5.0 The [facility] SystemComment on above:Performed By: #### CREHina, LIVER #### [facility] [address] [place] [address] Dr. Ishan MasonAlbumin/Globulin [Mass ratio]1.0 {ratio}NormalThe [facility] on above:Performed By: #### CREHina, LIVER #### [facility] [address] [place] [address] Dr. Ishan Lisa [Catalytic activity/Vol]78 U/GJtfkcz40-808Egr [facility] SystemComment on above:Performed By: #### CREA, LIVER #### [facility] [address] [place] [address] Dr. Ishan Crow [Catalytic activity/Vol]30 U/ZRqlole53-08Cig [facility] on above:Performed By: #### CREHina, LIVER #### [facility] [address] [place] [address] Dr. Ishan Ansari [Catalytic activity/Vol]14 U/LCritically ozc14-16Ffv [facility] on above:Performed By: #### CREA, LIVER #### [facility] [address] [place] [address] Dr. Ishan Hannon, CONJUGATED0.1 mg/dLNormal0.0-0.2The [facility] on above:Performed By: #### CREA, LIVER #### [facility] [address] [place] [address] Dr. Ishan Wongirubin [Mass/Vol]0.5 mg/dLNormal0.2-1.0[facility] Comment on above:Performed By: #### CREA, LIVER #### [facility] [address] [place] [address] Dr. Ishan MasonGlobulin (S) [Mass/Vol]3.7 g/dLNormalThe [facility] SystemComment on above:Performed By: #### CREHina, LIVER #### [facility] [address] [place] [address] Dr. Ishan MasonProtein [Mass/Vol]7.3 g/dLNormal6.4-8.2The [facility] Comment on above:Performed By: #### PAPO, LIVER #### [facility] [address] [place] [address] Dr. Ishan Perrin RATE WESTERGRENon 78-74-7296FFA RATE23 mm/hrCritically high <=20The [facility] SystemComment on above:Performed By: #### SEDR #### [facility] [address] [place] [address] Dr. Ishan MasonLab Reportson 02-92-3298Ofi Reports [id number]#1.00CD:127NoSelect Medical Specialty Hospital - TrumbullLab [id number]#1.00CD:[address] [place], [place] [address]CBC AUTO DIFFon 05-63-6168QVNN #0.0 103/ulNormal0.0-0.1The [facility] SystemComment on above:Performed By: #### CBC #### [facility] [address] [place] [address] Dr. Ishan MasonBasophils/100 WBC (Bld)0.7 %Normal0.2-2.0[facility] Comment on above:Performed By: #### CBC #### [facility] [address] [place] [address] Dr. Olmstead ChangEO #0.4 103/ulNormal0.0-0.7The [facility] SystemComment on above: Performed By: #### CBC #### [facility] [address] [place] [address] Dr. Ishan Ballardosinophils/100 WBC (Bld)7.7 %Critically high0.9-7.0The [facility] SystemComment on above:Performed By: #### CBC #### [facility] [address] [place] [address] Dr. Ishan Ballardrythrocyte distribution width (RBC) [Ratio]12.6 %Rwdiic77.0-15.0 The [facility] SystemComment on above:Performed By: #### CBC #### [facility] [address] [place] [address] Dr. Ishan MasonHematocrit (Bld) [Volume fraction]40.9 %Drgbqi23.0-48.0The [facility] SystemComment on above:Performed By: #### CBC #### [facility] [address] [place] [address] Dr. Ishan MasonHemoglobin (Bld) [Mass/Vol]13.4 g/iASjlevr77.0-16.0The [facility] SystemComment on above:Performed By: #### CBC #### [facility] [address] [place] [address] Dr. Ishan Mcintyre #0.01 10e3/ulNormal0.00-0.03The [facility] SystemComment on above:Performed By: #### CBC #### [facility] [address] [place] [address] Dr. Ishan Mcintyre %0.2 %Normal0.0-0.5The [facility] SystemComment on above: Performed By: #### CBC #### [facility] [address] [place] [address] Dr. Ishan CortezH #2.1 103/ulNormal1.2-3.8The [facility]ment on above:Performed By: #### CBC #### [facility] [address] [place] [address] Dr. Ishan Navarromphocytes/100 WBC (Bld)45.7 %Srvzuu75.5-60.0The [facility] SystemComment on above:Performed By: #### CBC #### [facility] [address] [place] [address] Dr. Ishan Madrid DIFF REQNONormalThe [facility] SystemComment on above: Performed By: #### CBC #### [facility] [address] [place] [address] Dr. Ishan Dela Cruz (RBC) [Entitic mass]29.8 euFxqoka45.7-34.0The [facility] SystemComment on above:Performed By: #### CBC #### [facility] [address] [place] [address] Dr. Ishan Dela Cruz (RBC) [Mass/Vol]32.8 g/mDTjrrwj61.9-35.2The [facility] SystemComment on above:Performed By: #### CBC #### [facility] [address] [place] [address] Dr. Ishan Luu (RBC) [Entitic vol]91.1 wYRwlmeu06.0-99.0The [facility] SystemComment on above:Performed By: #### CBC #### [facility] [address] [place] [address] Dr. Ishan Arroyo #0.5 103/ulNormal0.3-0.8The [facility] SystemComment on above:Performed By: #### CBC #### [facility] [address] [place] [address] Dr. Ishan Apodacaocytes/100 WBC (Bld)10.8 %Normal1.7-12.0The [facility] Comment on above:Performed By: #### CBC #### [facility] [address] [place] [address] Dr. Ishan Matias #1.6 103/ulNormal1.4-6.5The [facility] SystemComment on above:Performed By: #### CBC #### [facility] [address] [place] [address] Dr. Yilan ChangNeutrophils/100 WBC (Bld)34.9 %Critically low43.0-75.0The [facility] SystemComment on above:Performed By: #### CBC #### [facility] [address] [place] [address] Dr. Ishan Dela Cruzlet mean volume (Bld) [Entitic vol]10.8 fLNormal9.5-13.5The [facility] SystemComment on above:Performed By: #### CBC #### [facility] [address] [place] [address] Dr. Ishan MasonPLT198 103/ehZtvnco680-618Joq [facility] SystemComstra[facility] on above: Performed By: #### CBC #### [facility] [address] [place] [address] Dr. Ishan MasonRBC4.49 106/ulNormal4.20-5.40The [facility] SystemComment on above:Performed By: #### CBC #### [facility] [address] [place] [address] Dr. Ishan MasonWBC4.6 103/ulNormal4.0-11.0The [facility] SystemComment on above: Performed By: #### CBC #### [facility] [address] [place] [address] Dr. Ishan MasonGLYCOHEMOGLOBIN A1Con 22-68-0213ZMY RECOMMENDATIONSEE BELOWNormal The [facility] SystemComstra[facility] on above:Result Comment: ADA RECOMMENDED LIMIT 4.0 - 6.0 ADA THERAPEUTIC TARGET < 7.0 ACTION SUGGESTED > 7.0Performed By: #### A1C #### [facility] [address] [place] [address] Dr. Ishan MasonGlucose [Mass/Vol]103 mg/dLNormalThOhio State University Wexner Medical CenterComstraith hospital for special surgery on above:Performed By: #### A1C #### [facility] [address] [place] [address] Dr. Ishan MasonHbA1c (Bld) [Mass fraction]5.2 %Normal4.5-6.2The [facility] on above:Performed By: #### A1C #### [facility] [address] [address] [address] Ishan MasonLIPID PROFILEon 09-09-5968MXHK-HDL RATIO NORMSPremier Health Atrium Medical CenterComment on above:Result Comment: 3.3 - 4.4 LOW RISK 4.4 - 7.1 AVERAGE RISK 7.1 - 11.0 MODERATE RISK >11.0 HIGH RISKPerformed By: #### CBC #### [facility] [address] [address] [address] Ishna MasonCholesterol [Mass/Vol]227 mg/dLCritically high<=200The [facility] SystemComment on above:Performed By: #### CBC #### [facility] [address] [place] [address] Dr. Ishan MasonCholesterol in HDL [Mass/Vol]78 mg/dLCritically ajvw97-15CzkFulton County Health CenterComstraith hospital for special surgery on above:Performed By: #### CBC #### [facility] [address] [address] [address] Ishan MasonCholesterol in LDL [Mass/Vol]130.8 mg/dLLouis Stokes Cleveland VA Medical CenterComstraith hospital for special surgery on above:Performed By: #### CBC #### [facility] [address] [place] [address] Dr. Ishan Bellestersalas.total/Cholesterol in HDL [Mass ratio]2.9 {ratio} NormalWestern Reserve Hospital on above:Performed By: #### CBC #### [facility] [address] [place] [address] Dr. Ishan Smith NORMAL> or = 60 mg/dl - LOW CARDIOVASCULAR RISK <40 mg/dl - HIGH CARDIOVASCULAR RISKLouis Stokes Cleveland VA Medical CenterComstraith hospital for special surgery on above:Performed By: #### CBC #### [facility] [address] [place] [address] Dr. Ishan MasonLDL CALC NORMALSEE [facility] HospitalComment on above:Result Comment: <100 mg/dl OPTIMAL 100 - 129 mg/dl NEAR OR ABOVE OPTIMAL 130 - 159 mg/dl BORDERLINE HIGH 160 - 189 mg/dl HIGH >190 mg/dl VERY HIGH Performed By: #### CBC #### [facility] [address] [address] [address] Ishan MasonTriglyceride [Mass/Vol]91 mg/dLNormal<=150The [facility] Comment on above:Performed By: #### CBC #### [facility] [address] [address] [address] Ishan MasonVLDL CALC18.2 mg/dLNormalThe [facility] SystemComment on above: Performed By: #### CBC #### [facility] [address] [address] [address] Ishan MasonPROF 14(COMP METB)on 66-36-7280Knzluau [Mass/Vol]3.6 g/dLNormal 3.4-5.0The [facility] SystemComment on above:Performed By: #### A1C #### [facility] [address] [address] [address] Ishan MasonAlbumin/Globulin [Mass ratio]1.0 {ratio}NormalThe [facility] SystemComment on above:Performed By: #### A1C #### [facility] [address] [address] [address] Ishan Lisa [Catalytic activity/Vol]60 U/UArswiq87-582Rok [facility] SystemComment on above:Performed By: #### A1C #### [facility] [address] [address] [address] Ishan Crow [Catalytic activity/Vol]30 U/LMdemkf38-13Pip [facility] SystemComment on above:Performed By: #### A1C #### [facility] [address] [address] [address] Ishan Maldonado gap [Moles/Vol]9.1 mmol/LNormalThe [facility] SystemComstra[facility] for [facility] on above:Performed By: #### A1C #### [facility] [address] [address] [address] Ishan MasonAST [Catalytic activity/Vol]23 U/HNedtam38-65Vkh [facility] SystemComment on above:Performed By: #### A1C #### [facility] [address] [address] [address] Ishan MasonBilirubin [Mass/Vol]0.7 mg/dLNormal0.2-1.0The [facility] Comment on above:Performed By: #### A1C #### [facility] [address] [address] [address] Ishan MasonCalcium [Mass/Vol]9.1 mg/dLNormal8.5-10.1The [facility] Comment on above:Performed By: #### A1C #### [facility] [address] [address] [address] Ishan MasonChloride [Moles/Vol]105 mmol/DGtjkvx18-347Aun [facility] Comment on above:Performed By: #### A1C #### [facility] [address] [address] [address] Ishan MasonCO2 [Moles/Vol]30.1 mmol/JXlexeo32.0-32.0The [facility] Comment on above:Performed By: #### A1C #### [facility] [address] [address] [address] Ishan MasonCreatinine [Mass/Vol]0.71 mg/dLNormal0.55-1.02The [facility] SystemComment on above:Performed By: #### A1C #### [facility] [address] [address] [address] Ishan BallardGFR-AF UZBEK>60Normal>=60The [facility] SystemComment on above:Performed By: #### A1C #### [facility] [address] [place] [address] Dr. Ishan BallardGFR-NON AF UZBEK>60Normal>=60The [facility] SystemComment on above:Performed By: #### A1C #### [facility] [address] [address] [address] Ishan MasonGlobulin (S) [Mass/Vol]3.6 g/dLNormalThe [facility] SystemComment on above:Performed By: #### A1C #### [facility] [address] [address] [address] Ishan MasonGlucose [Mass/Vol]102 mg/yDDjbpbw83-390Pnv [facility] Comment on above:Performed By: #### A1C #### [facility] [address] [address] [address] Ishan MasonPotassium [Moles/Vol]4.2 mmol/LNormal3.5-5.1The [facility] Comment on above:Performed By: #### A1C #### [facility] [address] [address] [address] Ishan MasonProtein [Mass/Vol]7.2 g/dLNormal6.4-8.2The [facility] Comment on above:Performed By: #### A1C #### [facility] [address] [place] [address] Dr. Ishan MasonSodium [Moles/Vol]140 mmol/LNrhqzp975-237Lfl [facility] Comment on above:Performed By: #### A1C #### [facility] [address] [address] [address] Ishan MasonUrea nitrogen [Mass/Vol]9.0 mg/dLNormal7.0-18.0The [facility] SystemComment on above:Performed By: #### A1C #### [facility] [address] [place] [address] Dr. Ishan Wolfe nitrogen/Creatinine [Mass ratio]12.7 mg/mgNormalThe [facility] SystemComment on above:Performed By: #### A1C #### [facility] [address] [address] [address] Ishan JohnsonHolatrell 24-44-2631FVN7.369 uIU/mLNormal0.358-3.740[facility] County [facility] CenterComment on above:Performed By: #### CBC #### [facility] [address] [place] [address] Dr. Ishan MasonCT CHEST HI RESOLUTIONon [id number] CHEST HI RESOLUTION EXAMINATION: CT CHEST HI RESOLUTION HISTORY: Pulmonary function studies abnormal [...] high resolution technique. Electronically authenticated by: MARITO SPENCE Date: 2021-11-26 16:08[facility] CenterConsultation Noteon 25-20-3018Wbqgworupepc Note [id number]#1.00CD:[address] [place] [address] AUTO DIFFon 42-02-3218REYO #0.0 103/ulNormal0.0-0.1[facility] CenterComment on above:Performed By: #### A1C #### [facility] [address] [address] [address] Ishan MasonBasophils/100 WBC (Bld)0.6 %Normal0.2-2.0[facility] Comment on above:Performed By: #### A1C #### [facility] [address] [address] [address] Ishan Hopper #0.4 103/ulNormal0.0-0.7The [facility] SystemComment on above: Performed By: #### A1C #### [facility] [address] [address] [address] Ishan Ballardosinophils/100 WBC (Bld)6.1 %Normal0.9-7.0[facility] Comment on above:Performed By: #### A1C #### [facility] [address] [address] [address] Ishan Ballardrythrocyte distribution width (RBC) [Ratio]12.1 %Ijfxjp99.0-15.0 The [facility] SystemComment on above:Performed By: #### A1C #### [facility] [address] [place] [address] Dr. Ishan MasonHematocrit (Bld) [Volume fraction]43.7 %Mgdblh41.0-48.0The [facility] SystemComment on above:Performed By: #### A1C #### [facility] [address] [place] [address] Dr. Ishan MasonHemoglobin (Bld) [Mass/Vol]14.1 g/hOZntkbb22.0-16.0The [facility] SystemComment on above:Performed By: #### A1C #### [facility] [address] [place] [address] Dr. Ishan Mcintyre #0.02 10e3/ulNormal0.00-0.03The [facility] SystemComment on above:Performed By: #### A1C #### [facility] [address] [place] [address] Dr. Ishan Mcintyre %0.3 %Normal0.0-0.5The [facility] SystemComment on above: Performed By: #### A1C #### [facility] [address] [place] [address] Dr. Ishan Javed #2.9 103/ulNormal1.2-3.8The [facility] SystemComment on above:Performed By: #### A1C #### [facility] [address] [place] [address] Dr. Ishan Cortezhocytes/100 WBC (Bld)41.6 %Liwlgd03.5-60.0The [facility] SystemComment on above:Performed By: #### A1C #### [facility] [address] [place] [address] Dr. Ishan QuijanoUAL DIFF REQNONormalThe [facility] SystemComment on above: Performed By: #### A1C #### [facility] [address] [place] [address] Dr. Ishan Del Valle (RBC) [Entitic mass]29.3 lzOcmllb12.7-34.0The [facility] SystemComment on above:Performed By: #### A1C #### [facility] [address] [place] [address] Dr. Ishan Dela Cruz (RBC) [Mass/Vol]32.3 g/fVAgkabv30.9-35.2The [facility] SystemComment on above:Performed By: #### A1C #### [facility] [address] [place] [address] Dr. Ishan Luu (RBC) [Entitic vol]90.9 jSOcrhwm84.0-99.0The [facility] SystemComment on above:Performed By: #### A1C #### [facility] [address] [place] [address] Dr. Ishan Arroyo #0.7 103/ulNormal0.3-0.8The [facility] SystemComment on above:Performed By: #### A1C #### [facility] [address] [place] [address] Dr. Ishan Apodacaocytes/100 WBC (Bld)10.3 %Normal1.7-12.0The [facility] Comment on above:Performed By: #### A1C #### [facility] [address] [place] [address] Dr. Ishan Matias #2.9 103/ulNormal1.4-6.5The [facility] SystemComment on above:Performed By: #### A1C #### [facility] [address] [place] [address] Dr. Ishan Nicoleophils/100 WBC (Bld)41.1 %Critically low43.0-75.0The [facility] SystemComment on above:Performed By: #### A1C #### [facility] [address] [place] [address] Dr. Ishan Dela Cruzlet mean volume (Bld) [Entitic vol]11.0 fLNormal9.5-13.5The [facility] SystemComment on above:Performed By: #### A1C #### [facility] [address] [place], [place] [id number] Dr. Ishan MasonPLT204 103/ccOfhlkl407-358Uqw [facility] on above: Performed By: #### A1C #### [facility] [address] [place] [address] Dr. Ishan MasonRBC4.81 106/ulNormal4.20-5.40The [facility] on above:Performed By: #### A1C #### [facility] [address] [place] [address] Dr. Ishan MasonWBC7.1 103/ulNormal4.0-11.0The [facility] on above: Performed By: #### A1C #### [facility] [address] [place] [address] Dr. Ishan HernandezATININEon 11-73-5630Auuwuxegeu [Mass/Vol]0.73 mg/dLNormal 0.55-1.02The [facility]Comstra[facility] on above:Performed By: #### CBC #### [facility] [address] [place] [address] Dr. Ishan BallardGFR-AF UZBEK>60Normal>=60The [facility] on above:Performed By: #### CBC #### [facility] [address] [place] [address] Dr. Ishan BallardGFR-NON AF UZBEK>60Normal>=60[facility] on above:Performed By: #### CBC #### [facility] [address] [place] [address] Dr. Ishan Powell PROFILEon 04-20-5478Urkfkwu [Mass/Vol]4.0 g/dLNormal3.4-5.0 The [facility] on above:Performed By: #### CBC #### [facility] [address] [place] [address] Dr. Ishan MasonAlbumin/Globulin [Mass ratio]1.0 {ratio}NormalThe [facility] on above:Performed By: #### CBC #### [facility] [address] [place] [address] Dr. Ishan Lisa [Catalytic activity/Vol]75 U/LJmcuzp11-206Rcu [facility] SystemComment on above:Performed By: #### CBC #### [facility] [address] [address] [address] Ishan LovingT [Catalytic activity/Vol]30 U/PLgrcrl40-01Edx The [facility] SystemComment on above:Performed By: #### CBC #### [facility] [address] [address] [address] Ishan Ansari [Catalytic activity/Vol]23 U/PTvdjxo99-54Zxy [facility] SystemComment on above:Performed By: #### CBC #### [facility] [address] [place] [address] Dr. Ishan Hannon, CONJUGATED0.1 mg/dLNormal0.0-0.2The [facility] Comment on above:Performed By: #### CBC #### [facility] [address] [place] [address] Dr. Ishan Wongirubin [Mass/Vol]0.7 mg/dLNormal0.2-1.0[facility] Comment on above:Performed By: #### CBC #### [facility] [address] [place] [address] Dr. Ishan MasonGlobulin (S) [Mass/Vol]4.0 g/dLNormalThe [facility] SystemComment on above:Performed By: #### CBC #### [facility] [address] [place] [address] Dr. Ishan MasonProtein [Mass/Vol]8.0 g/dLNormal6.4-8.2The [facility] Comment on above:Performed By: #### CBC #### [facility] [address] [place] [address] Dr. Ishan Perrin RATE WESTERGRENon 44-05-4483SXG RATE15 mm/hrNormal<=20The [facility] SystemComment on above:Performed By: #### A1C #### [facility] [address] [place] [address] Dr. Ishan Mejia Mammographyon 86-07-2518Xviupxl Mammography [id number]#1.00CD:127[facility] [place] CADon 19-62-8637BC MAMM SCREEN 3D [place] CADPatient: VELASQUEZ COLIN Exam Date: 11/06/2021 : 1970 Gender:F Ordering : DR JUAN C HOPE Admission #: [id number] Family : Order #: [id number] CLICK HERE TO VIEW EXAM RADIOLOGY REPORT [...] tongue cancer at age 59. LOCATION: The [facility] BREAST COMPOSITION: Scattered areas fibroglandular density. FINDINGS: [...] LUMP SHOULD BE BIOPSIED. Dictated by: Marito Spence M.D. on 11/06/2021 at 15:34 Approved by: Marito Spence M.D. on 11/06/2021 at 15:37[facility] CenterHEMOGLOBINon 71-33-3392Qefquxjiud (Bld) [Mass/Vol]13.6 g/dLNormal 12.0-16.0[facility] CenterComment on above:Performed By: #### CBC #### [facility] [address] [address] [address] Ishan MasonAmbulatory Visit Summaryon 72-06-5098Kfewjwsqvu Visit Summary VELASQUEZ COLIN :1970 Visit Date:10/08/2021 Ambulatory Visit Instructions Your [...] tablet) fluticasone nasal (fluticasone 0.05 mg/inh Nasal [place]) hydroxychloroquine lactobacillus acidophilus (Acidophilus Probiotic Blend oral [...] 10/08/21, Routine, Order for Future Visit, Transport Mode:Ambulatory, Reason: Screening, No, Encounter for screening mammogram for breast cancer, pp_set_radiology_subspecialty, Zander Tilley Medications What How Much When Instructions Unchanged abatacept (Orencia ClickJect 125 mg/ mL subcutaneous solution) Unchanged calcium carbonate (calcium 500 mg Tab) By Mouth Every day Unchanged cetirizine (Zyrtec) 10 Milligram By Mouth Every day Unchanged cholecalciferol (Vitamin D3 2000 intl units oral tablet) 1 Tablets By Mouth Every day Unchanged fluticasone nasal (fluticasone 0.05 mg/ inh Nasal [place]) 2 Sprays Nasal Inhalation Every day each [...] care Rheumatoid Arthritis Sinus congestion Swollen tongue [facility] Medicine Office/Clinic Noteon 09-96-2437Jlxtnr Medicine Office/Clinic NoteChief Complaint Wellness Exam HPI Staff Velasquez is [...] directed. Mammogram completed last on 11/03/20 at [facility], (ordered today). Due for PAP/pelvic exam. Cologuard [...] Once, # 1 tab(s), Refills(s) 1, Pharmacy: [facility]/pharmacy #[id number],158, cm, 02/16/21 15:39:00 EST, Height/Length Dosing, 94, kg, 02/16/21 15:39:00 EST, Weight Dosing predniSONE, 0 = 1 -, Oral, As Directed, Take 5 tabs by mouth daily x3 days, 4 daily x3 days, 3 daily x3 days, 2 daily x3 days, then 1 tab daily x3 days., # 45 tab(s), Refills(s) 0, Pharmacy: [facility]/pharmacy #[id number], 158, cm, 02/16/21 15:39:00 EST, Height/Length Dosing... Follow-up With When Contact Information Juan C HOPE DO, FAM In [address] [place] [phone] Additional Instructions: Problem List/Past Medical History Ongoing BMI 38.0-38.9,adult Encounter for screening mammogram for breast cancer Preventative health care Rheumatoid Arthritis Historical No qualifying data Procedure/Surgical History None. Medications Acidophilus Probiotic Blend oral capsule, Oral, Daily B Complex 100 calcium 500 mg Tab, Oral, Daily fluticasone 0.05 mg/inh Nasal [place], 2 spray(s), Nasal, Daily, 3 refills hydroxychloroquine, [...] SARS-CoV-2 (COVID-19) mRNA-1273 vacci (more content not included)...[facility] HospitalComment on above:Result Comment: Electronically Signed By: Juan C HOPE DO\.omi\Date and Time Signed: 10/08/21 21:58 EDTCovid-19 PCR (CVDTBH)on 40-11-8466KTOA-CoV-2 (COVID-19) RNA MARICEL+probe Ql (Unsp spec)Detected Critically abnormalNOT DETECTEDThe [facility] SystemComment on above:Result Comment: This test is not yet approved or cleared by the [place] FDA. When there are no FDA-approved or cleared tests available, and other criteria are met, FDA can make tests available under an emergency access mechanism called an Emergency Use Authorization (EUA). The EUA for this test is supported by the Manufacturing Area Manager of Health and Human Service's declaration that circumstances exist to justify the emergency use of in vitro diagnostics for the detection and/or diagnosis of the virusthat causes COVID-19. This EUA will remain in effect for the duration of the COVID-19 declaration justifying emergency of IVDs, unless it is terminated or revoked by the FDA (after which the test mayno longer be used). Performed By: #### A1C #### [facility] [address] [place] [address] Dr. Ishan Breen AUTO DIFFon 09-66-1343FRSC #0.0 103/ulNormal0.0-0.1The [facility] SystemComment on above:Performed By: #### SEDR #### [facility] [address] [place] [address] Dr. Ishan MasonBasophils/100 WBC (Bld)0.5 %Normal0.2-2.0[facility] Comment on above:Performed By: #### SEDR #### [facility] [address] [place] [address] Dr. Ishan Hopper #0.2 103/ulNormal0.0-0.7The [facility] SystemComment on above: Performed By: #### SEDR #### [facility] [address] [place] [address] Dr. Ishan Ballardosinophils/100 WBC (Bld)3.4 %Normal0.9-7.0[facility] Comment on above:Performed By: #### SEDR #### [facility] [address] [place] [address] Dr. Ishan Ballardrythrocyte distribution width (RBC) [Ratio]12.7 %Myrqdu17.0-15.0 [facility] CenterComment on above:Performed By: #### SEDR #### [facility] [address] [place] [address] Dr. Ishan MasonHematocrit (Bld) [Volume fraction]42.6 %Ylstjn37.0-48.0[facility] CenterComment on above:Performed By: #### SEDR #### [facility] [address] [place] [address] Dr. Ishan MasonHemoglobin (Bld) [Mass/Vol]13.6 g/sDUvfuyo12.0-16.0The [facility] SystemComment on above:Performed By: #### SEDR #### [facility] [address] [place] [address] Dr. Ishan Mcintyre #0.01 10e3/ulNormal0.00-0.03The [facility] SystemComment on above:Performed By: #### SEDR #### [facility] [address] [place] [address] Dr. Ishan Mcintyre %0.2 %Normal0.0-0.5The [facility] SystemComment on above: Performed By: #### SEDR #### [facility] [address] [place] [address] Dr. Ishan Javed #2.0 103/ulNormal1.2-3.8The [facility] SystemComment on above:Performed By: #### SEDR #### [facility] [address] [place] [address] Dr. Ishan Cortezhocytes/100 WBC (Bld)34.7 %Levlmy74.5-60.0The [facility] SystemComment on above:Performed By: #### SEDR #### [facility] [address] [place] [address] Dr. Ishan QuijanoUAL DIFF REQNONormalThe [facility] SystemComment on above: Performed By: #### SEDR #### [facility] [address] [place] [address] Dr. Ishan Dela Cruz (RBC) [Entitic mass]29.9 qxGrgvss33.7-34.0The [facility] SystemComment on above:Performed By: #### SEDR #### [facility] [address] [place] [address] Dr. Ishan Dela Cruz (RBC) [Mass/Vol]31.9 g/bJMnonyb26.9-35.2The [facility] SystemComment on above:Performed By: #### SEDR #### [facility] [address] [place] [address] Dr. Ishan Dela CruzV (RBC) [Entitic vol]93.6 cDMpyvbi84.0-99.0The [facility] on above:Performed By: #### SEDR #### [facility] [address] [place] [address] Dr. Ishan Arroyo #0.7 103/ulNormal0.3-0.8The [facility] SystemComment on above:Performed By: #### SEDR #### [facility] [address] [place] [address] Dr. Ishan Apodacaocytes/100 WBC (Bld)12.1 %Critically high1.7-12.0The [facility] on above:Performed By: #### SEDR #### [facility] [address] [place] [address] Dr. Ishan Matias #2.9 103/ulNormal1.4-6.5The [facility] on above:Performed By: #### SEDR #### [facility] [address] [place] [address] Dr. Ishan Bondutrophils/100 WBC (Bld)49.1 %Onurkk26.0-75.0The [facility] SystemComstra[facility] on above:Performed By: #### SEDR #### [facility] [address] [place] [address] Dr. Ishan Dela Cruzlet mean volume (Bld) [Entitic vol]11.1 fLNormal9.5-13.5The [facility] on above:Performed By: #### SEDR #### [facility] [address] [place] [address] Dr. Ishan MasonPLT177 103/gkIwyfwi020-893Acq [facility] on above: Performed By: #### SEDR #### [facility] [address] [place] [address] Dr. Ishan MasonRBC4.55 106/ulNormal4.20-5.40The [facility] on above:Performed By: #### SEDR #### [facility] [address] [place] [address] Dr. Ishan MasonWBC5.9 103/ulNormal4.0-11.0The [facility] on above: Performed By: #### SEDR #### [facility] [address] [place] [address] Dr. Ishan AggarwalINEon 56-45-4812Pshbfzbdli [Mass/Vol]0.79 mg/dLNormal 0.52-1.04The [facility] on above:Performed By: #### CREA, LIVER #### [facility] [address] [place] [address] Dr. Ishan BallardGFR-AF UZBEK>60Normal>=60The [facility] on above:Performed By: #### CREHina, LIVER #### [facility] [address] [place] [address] Dr. Ishan BallardGFR-NON AF UZBEK>60Normal>=60The [facility] on above:Performed By: #### CREHina, LIVER #### [facility] [address] [place] [address] Dr. Ishan MasonLIENMANUEL PROFILEon 15-15-0905Fmuakgs [Mass/Vol]3.6 g/dLNormal3.4-5.0 The [facility] on above:Performed By: #### PAPO, LIVER #### [facility] [address] [place] [address] Dr. Ishan MasonAlbumin/Globulin [Mass ratio]1.0 {ratio}NormalThe [facility] on above:Performed By: #### CREHina, LIVER #### [facility] [address] [place] [address] Dr. Ishan Lisa [Catalytic activity/Vol]60 U/ETxildo71-539Aoh [facility] on above:Performed By: #### CREHina, LIVER #### [facility] [address] [place] [address] Dr. Ishan Crow [Catalytic activity/Vol]27 U/FPmxojn49-92XmeFulton County Health CenterComment on above:Performed By: #### CREA, LIVER #### [facility] [address] [place] [address] Dr. Ishan MasonAST [Catalytic activity/Vol]22 U/NKzvouj56-04WjlFulton County Health CenterComment on above:Performed By: #### CREA, LIVER #### [facility] [address] [place] [address] Dr. Ishan Hannon, CONJUGATED0.1 mg/dLNormal0.0-0.3TProMedica Def[facility] Comment on above:Performed By: #### CREHina, LIVER #### [facility] [address] [place] [address] Dr. Ishan Wongirubin [Mass/Vol]0.5 mg/dLNormal0.2-1.3TProMedica Defiance Regional Hospital Comment on above:Performed By: #### CREHina, LIVER #### [facility] [address] [place] [address] Dr. Ishan MasonGlobulin (S) [Mass/Vol]3.5 g/dLNormalThe [facility] SystemComment on above:Performed By: #### CREHina, LIVER #### [facility] [address] [place] [address] Dr. Ishan MasonProtein [Mass/Vol]7.1 g/dLNormal6.1-8.2[facility] Comment on above:Performed By: #### CREHina, LIVER #### [facility] [address] [place] [address] Dr. Ishan Perrin RATE WESTERGRENon 02-58-3142IUI RATE5 mm/hrNormal<=20The [facility] SystemComment on above:Performed By: #### A1C #### [facility] [address] [place] [address] Dr. Ishan Mason Vital Signs Date TimeVital SignValuePerforming HtdqcrpbpMblhzkug98-30-5172 08:09-0500Body cmoect985.75 Valente Real MD Work Phone: [phone] [place], [place] 2960511-11-2025 08:09-0500 Body mass index (BMI) [Ratio]39.2 kg/a5DhmkwfryhieHudson Real MD Work Phone: [phone]11-11-2025 08:09-0500 Body odyruj58.88 kgHudson Real MD Work Phone: [phone] [place], [place] 2960511-11-2025 08:09-0500 Diastolic blood obrkgnje07 mm[Hg]Hudson Real MD Work Phone: [phone]11-11-2025 08:09-0500 Heart rate80 /minHudson Real MD Work Phone: [phone] [place], [place] 1973311-11-2025 08:09-0500 SaO2% (BldA) [Mass fraction]97 %Hudson Real MD Work Phone: [phone]11-11-2025 08:09-0500 Systolic blood bgwobfow357 mm[Hg]Hudson Real MD Work Phone: [phone]11-12-2024 07:52-0500 Body umatry407.8 cmNicole Guera DO Work Phone: [facility] SystemGlnwklbdls65-93-3934 07:52-0500Body mass index (BMI) [Ratio]39.02 kg/n5Tramjt Guera DO Work Phone: [facility] SystemDvoipgyjqd34-65-4399 07:52-0500Body hroqca75.34 kgNicole Guera DO Work Phone: [place] [phone] 07:52-0500Diastolic blood keqyvamw02 mm[Hg]Sofia Guera DO Work Phone: [place] [phone] 07:52-0500Heart rate77 /min Sofia Guera DO Work Phone: [address] [phone] 07:52-9736LiU8% (BldA) [Mass fraction]96 %Sofia Sousa DO Work Phone: noStayhoundCjppvitmkd49-62-7651 07:52-0500Systolic blood kdommprv257 mm[Hg]Sofia Sousa DO Work Phone: noCanesta Iuobawjvbx50-14-0136 15:00-0400Body dwixiz277.48 cmMichael Blank Other [employer] Other 10-13-2021 15:00-0400Body mass index (BMI) [Ratio] 38.04 kg/t3Zdhksdm Blank Other [employer] Other 10-13-2021 15:00-0400Body hyhzaotzlmz95.4 [degF] Conner Quinteros Other [employer] Other 10-13-2021 15:00-0400Body ignbgv38.35 kgMichael Blank Other [employer] Other 10-13-2021 15:00-0400Diastolic blood faefodbt52 mm[Hg] Conner Quinteros Other [employer] Other 10-13-2021 15:00-0400Respiratory rate18 /minMichael Blank Other [employer] Other 10-13-2021 15:00-0400Systolic blood mnwwuvee102 mm[Hg] Conner Quinteros Other [employer] Other Encounters Encounter DateEncounter TypeCare ProviderFacilityStart: 01-22-2025 End: 20-84-0378nkleznpsnoESR [facility] NeurologyStart: 01-22-2025 End: 97-11-2371Msvihql encounter procedureNicricky Sousa [facility] Neurology Work Phone: Start: 15-38-8040Zsf-patient / Non-visitChrislisa Real MDTogus [facility] Out[facility] Work Phone: Start: 06-27-2024 End: 93-42-9312ccnrtczgypODNWCMGC D ZAHLERNot AvailableStart: 06-27-2024 End: 54-93-9623Fqcuqz flowsheetJonathan D Zahler DO Work Phone: [facility] OPHTStart: 06-27-2024 End: 93-37-1999Svasaa flowsheetJonathan D Zahler DO Work Phone: [facility] OPHTStart: 01-24-2024 End: 42-61-1600Pmouen flowsheetNicole Guera DO Work Phone: noms NE NEUROStart: 01-24-2024 End: 23-07-6474Omchzc flowsheetNicole Guera DO Work Phone: noms NE NEUROStart: 01-24-2024 End: 74-56-7688Mmoype outpatient visit 25 minutesNicole Guera DO Work Phone: noms NE NEUROComment on above:AGA (obstructive sleep apnea) (Primary Dx); Paresthesia of skin; Carpal tunnel syndrome, bilateral; Hypersomnia; HypoxiaStart: 01-24-2024 End: 34-39-3899tdpsxzcuflTVDABM DANNERNot AvailableStart: 09-26-2023 End: 06-94-6066ehzfkblfzeMLHPVARY Ioana ANDREHLERNot AvailableStart: 07-12-2023 End: 08-47-9329zpnzwfzqyxGFVREE DANNERNot AvailableStart: 06-24-2022 End: 01-38-7457spokjrbjivAX HERMINIA PEÑAFacility:B6Yardv: 06-22-2022 End: 14-18-7210vuwqgofwlyJS MARITO SPENCEFacility:C7Qvact: 03-31-2022 End: 84-99-0139gyfcbsceaeCC JUAN C S GRANTFacility:N0Ablnv: 03-23-2022 End: 44-39-4594pifjuutbnuWP JUAN C S GRANTFacility:S0Ovoss: 02-24-2022 End: 36-16-3303zwcmzhlvlfIA JUAN C S GRANTFacility:D1Nhzft: 01-26-2022 End: 70-57-9380mufdtajzbaNG JUAN C S GRANTFacility:V5Rsimy: 01-15-2022 End: 35-91-1744wdmojemxlxSK JUAN C S GRANTFacility:T0Gcfte: 22-51-7069Uojmfnvlu for general adult medical examination without abnormal findingsDR [facility] C S [facility]YSt. [facility] HospitalStart: 12-04-2021 End: 10-40-5478wcwdghuugbDP JUAN C S GRANTFacility:H7Qsvut: 12-04-2021 End: 06-25-7720Btkxidmue for general adult medical examination without abnormal findingsDR JUAN C S GRANTFacility:C3Wiamg: 11-26-2021 End: 47-96-4077dtfipydorkTJYKNS SAMSA .Facility:F4Rnykn: 11-12-2021 End: 04-06-5847gdswybrlhoSJ JUAN C S GRANTFacility:N3Mvyzy: 11-06-2021 End: 82-31-6797pbbqbhdqkhYX MARITO SPENCEFacility:V6Pibsq: 11-05-2021 End: 02-23-2063mdswdjxegeGU HERMINIA PEÑAFacility:B3Jvcvb: 10-08-2021 End: 38-21-1484wibyxreipfIqwgsvf S GRANTFacility:[facility]Start: 09-28-2021 End: 65-19-1104ykuqxirqlfAUDOX W SIDELLFacility:[facility] CenterStart: 09-28-2021 End: 89-94-1113mevbiegghjEWESGOEO EBERLYFacility:T8Qubyl: 73-22-0254bpuvptifta RUFINA SIDELLFacility: MilanStart: 02-96-9604dmiuxwkbslEsfcgfi S JAYY Facility:[facility] CenterStart: 46-10-9133vimqxutlhtWHLGE SIDELLFacility:[facility] CenterStart: 07-01-2021 End: 91-43-0451hejizgvmekPP HERMINIA PEÑAFacility:I6Cxglp: 12-19-8036Zpltga outpatient visit 25 minutesMichael BlankFPG Infectious Disease Procedures DateProcedureProcedure DetailPerforming ClinicianStart: 06-27-2024 End: 53-77-1777Royvjk field xm uni/bi w/interp extended examJomagdaleneaudrey Aguila DO Work Phone: Start: 06-27-2024 End: 07-07-1010Saxcz medical xm&eval comprhnsv estab pt 1/>Epiretinal membrane (ERM) of left eyeJomagdaleneaudrey Ioana Stephaniedanielle DO Work Phone: comment on above:Epiretinal membrane (ERM) of left eye (Primary Dx); Long-term use of hydroxychloroquine; Dry eyes; Blepharitis of upper and lower eyelids of both eyes, unspecified type Plan of Treatment DateCare ActivityDetailAuthorStart: 60-82-3271Oxbfdwqtu for malignant neoplasm of colonNOMS HealthcareStart: 01-22-2025 End: 78-87-0903Olvcjrr encounter procedureNOMS NE NEUROStart: 11-12-2024 Influenza vaccinationInfluenza Vaccine (Season Ended)[facility] HealthcareStart: 06-27-2024 End: 46-88-2777Wsmvceo encounter procedureNOMS NB OPHTComment on above:Arrived Start: 55-05-8447Inolohjyp vaccinationInfluenza Vaccine (#1)[facility] Start: 22-57-0353Btcxsegmh for malignant neoplasm of breastMammogramNOMS HealthcareStart: 13-16-5647Ipgivlnum for malignant neoplasm of cervixNOMS HealthcareStart: 99-14-2957Zfwjbhwud for malignant neoplasm of cervixPap Smear [facility] HealthcareStart: 52-13-4098Atqhmzhtm for malignant neoplasm of colonNOMS Healthcare Immunizations Immunization DateImmunizationNotesCare EefppavbZolanypa65-15-5556yarogtlvl virus vaccine, unspecified formulationSree Aguila DO Work Phone: NONH Dchqwrqueb04-79-9478mfjalyn toxoid, reduced diphtheria toxoid, and acellular pertussis vaccine, adsorbedNicole Guera DO Work Phone: [facility] SystemOxmicqndin67-49-8893rnkijsguphvd conjugate vaccine, 13 valentNicole Guera DO Work Phone: [facility] SystemDopofqneqm67-47-2681aunfq rhyeahlsx-R4Q1-10, preservative-free, injectableNicole Guera DO Work Phone: [facility] Payers DatePayer CategoryPayerPolicy [id number] [facility] ..[id number] 2..7.84669[id number] 2..1.817004.3.57[id number] 2..1.526915.3.57[id number] 2..1.785374.3.57[id number] 2..1.490485.3.57[id number] 2..1.201206.3.57[id number] 2..1.597653.3.57[id number] 2.840.1.302876.3.579.[id number] 2.16840.1.852936.3.579.[id number] 2.840.1.490020.3.57[id number] 2.840.1.866607.3.579.[id number] 2.840.1.517265.3.579.[id number] 2.840.1.219341.3.57[id number] 2.0.1.465695.3.57[id number] 2.0.1.988501.3.579.2.27859-02-6088Rmnpwkr0950189 2.0.1.205090.3.57[id number] 2.0.1.158730.3.579.[id number] 2.0.1.719402.3.579.2.44251-97-4008Xdksbqr7904325 2.840.1.924482.3.579.[id number] 2.0.1.138698.3.579.2.83852-18-7243Swyeppg1441322 2.840.1.156853.3.579.[id number] 2.840.1.375278.3.579.[id number] 2..840.1.625717.3.57[id number] 2..840.1.400216.3.579.2.599411-22-4329Xzxcqzt1347103 2..840.1.257482.3.579.2.234057-00-5205Xsajkqy1985758 2..840.1.453104.3.579.2.691154-29-3730Emaaumj9136373 2.16.840.1.557161.3.579.2.1259 Social History DateTypeDetailFacilityUnknown if ever smokedJulian Tapru Other Start: 81-23-4605Ziv Assigned At [facility] Tap[employer] Other Start: 25-33-4201Jvypnxq smoking status NHISNever smoked tobaccoNOMS HealthcareStart: 23-25-0309Onlvxec use and exposureSmokeless tobacco non-userNOMS HealthcareStart: 01-24-2024 End: 76-85-2735Vgwyojcsb beverage intakeEx-drinker (finding)[facility] Start: 35-51-0271Kgwrawy of Social functionNOMS HealthcareStart: 06-28-2023 Alcohol CommentCaffeine intake: 1-2 cups per dayNOMS HealthcareStart: 1970 Sex assigned at birthNot on fileNONH HealthcareTobacco smoking status NHIS Unknown if ever smokedUniversity Hospitals [facility]ly[facility] Center Work Phone: SexFemale (finding)[facility] Start: 80-03-2483Knq Assigned At [facility] Clinical Notes 12-24-2020 to 06-27-2024 Note Date & QcmgPtjhDigvzdic10-11-1453 NoteRight Eye Reliability was good. Progression has been stable. Foveal threshold was normal. Findings include normal observations. Left Eye Reliability was good. Progression has been stable. Foveal threshold was normal. Findings include normal observations.[facility] SystemLbajdnelzm27-97-8731 NoteRight Eye Quality was good. Scan locations included subfoveal. Progression has been stable. Findings include normal observations. Left Eye Quality was good. Scan locations included subfoveal. Progression has been stable. Findings include normal observations. Notes Good scan with normal appearance FAF stableSaint John's Health SystemDwwdtetfpo78-41-1350 History of Present illness Narrative* Sree Aguila DO - 06/27/2024 2:30 PM EDT Images from the original note were not [...] above evaluations. This will be adjusted to n1copnfn when deemed necessary due to macular risk [...] lid scrubs were recommended. documented in this encounterSaint John's Health SystemElgoutmcbl08-33-3914 History of Present illness Narrative* Sofia Sousa DO - 01/24/2024 8:00 AM EST Chief Complaint Patient presents with Sleep Apnea Subjective Velasquez Rolo Sander, 53 y.o., female is here for a follow up. Pt states that she still has the tingling and numbness in her hands on occasion, she states that itis more at night. Pt states that she is sleeping good, she is wearing her machine. She states that she can fall asleep on her recliner at times. She is getting about 4-6 hrs. She will sleep for about1-2 hours in the recliner before she goes [...] job in September. She was at the [employer] and she was part of the [employer]. She was under a lot of stress. [...] Relation Name Age of Onset Glaucoma Mother Aarti Young Alzheimer's disease Mother Margotbtshelia Young Cancer Mother Margotbtshelia Young Hypertension Mother Saludzabtshelia Young Coronary artery disease Mother Margotbtshelia Young Emphysema Father Alcohol abuse Sibling Rheum arthritis Sibling Asthma Sibling Cancer Sibling Hypertension Sibling Coronary artery disease Sibling Cancer Brother Elier Young- lung cancer Cancer Brother Matthew Colin- throat and tongue cancer Stroke Brother Conner [...] time greater than 4 hours with an averagenightly usage of 5 hours and 52 minutes [...] syndrome and can have occasional numbness and tinglinginto her hands and she will wear her [...] was counseled on the risks of stroke, LA, and sudden with AGA, along with the [...] to clinic: 6 months documented in this encounterSaint John's Health SystemSrrlpkbwqs05-20-2875 NoteHPI Staff Velasquze is a 51 year old female who [...] positive Treatments-Mucinex History of Present Illness Velasquez Colin presents via telehealth video visit for concerns of positive COVID- 19 test that she took at home yesterday. The patient does have a history of rheumatic lung disease and is currently taking Orencia and leflunomide. However, she did talk to her decorating inspector and was told to discontinuethese. The patient's symptoms as noted above. She does deny any shortness of breath/troubles breathing, wheezing, chest pain/discomfort or tightness. She has noticed fevers of 100.3 F with symptoms and also states when she attempted to eat yesterday she did develop diarrhea. She has been using Mucinex Max acting and has been beneficial for fevers and symptoms. She is questioning today if she is acandidate for any antiviral type or supplemental treatments for symptoms given her history of beingimmunosuppressed. I have reviewed and verified the staff [...] interactive video communications from my office using [employer] due to the restrictions of the COVID-19 pandemic. No physical exam was conducted other than those areas of the body visible to telecommunications with the patient located at [address] [place] [address] [phone], with no one else in attendance. If [...] after patient or guardian consented to allow [employer] to record this visit. SILAS airfield operations specialist and provider reviewed before signing. SILAS: Cori Cherry. Follow-up With When Contact Information RUFINA LOVING CNP Only if needed [address] [place] [address] Additional Instructions: Patient Education COVID-19 Frequently Asked Questions COVID-19 Problem List/Past Medical History Ongoing BMI 38.0-38.9,adult Borderline abnormal thyroid function test COVID-19 Encounter for screening mammogram for breast cancer Non-smoker Painful mouth Preventative health care Sinus congestion Swollen tongue Historical Rheumatoid Arthritis Procedure/Surgical History None. Medications Acidophilus Probiotic Blend oral capsule, Oral, Daily calcium 500 mg Tab, Oral, Daily Flonase 0.05 mg/inh Butler, 1 spray(s), Nasal, Daily fluconazole 150 mg Tab, 150 mg= 1 tab(s), Oral, Once, 1 refills fluticasone 0.05 mg/inh Nasal Butler, 2 spray(s), Nasal, Daily, 3 refills hydroxychloroquine, 200 mg, Oral, Daily leflunomide, 20 mg, Oral, Daily Magic Mouth Wash, See Instructions, 2 refills metoprolol 50 mg ER Tab, 50 mg= 1 tab(s), Oral, Daily, 1 refills Orencia ClickJect 125 mg/mL subcutaneous solution Paxlovid 150 mg-100 mg oral tablet, See Instructions pred (more content not included)...[facility] HospitalComment on above: Result Comment: Electronically Signed By: RUFINA LOVING CNP\.br\Date and Time Signed: 10/04/21 11:29 EDT\.br\Electronically Co-Signed By: Cori Connelly\.br\Date and Time Co-Signed: 09/28/21 17:13 [id number] NoteInfectious Disease COVID-19 Frequently Asked Questions COVID-19 (coronavirus disease) is an infection that is caused by a large family of viruses. Some viruses cause illness in people and others cause illness in animals like camels, cats, and bats. In some cases, the viruses that cause illness in animals can spread to humans. Where did the coronavirus come from? In February 2019, [place] told the World Health Organization (WHO) of several cases of lung disease (human respiratory illness). These cases were linked to an open seafood and livestock market in the city of [facility]. The link to the seafood and livestock market suggests that the virus may have spread from animals to humans. However, since that first outbreak in February, the virus has also been shownto spread from person to person. What is the name of the disease and the virus? Disease name Early on, this disease was called novel coronavirus. This is because scientists determined that thedisease was caused by a new (novel) respiratory virus. The World Health Organization (WHO) has now named the disease COVID-19, or coronavirus disease. Virus name The virus that causes the disease is called severe acute respiratory syndrome coronavirus 2 (SARS-CoV-2). More information on disease and virus naming World Health Organization (WHO): www.who.int/emergencies/diseases/pndxc-osynczuiqrx-9332/technical-g uidance/jhhhud-afv-rtvxyrtirvh-disease-(covid-2019)-rmx-egl-heaek-qaho-hwiixa-br Who is at risk for complications from [...] touches a surface or object that has thevirus on it (indirect contact). The virus may be able to enter the body if the person touches a surface or object and then touches his or her face, eyes, nose, or mouth. Can a person spread the virus without having symptoms of the disease? It may be possible for the virus to spread before a person has symptoms of the disease, but this ismost likely not the main way the virus [...] testing. 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.7) Dec,heumatoid arthritis (ICD-10 - M06.9) Local Plant Source Other Evaluation note* Diagnosis AGA (obstructive sleep apnea)- Primary Obstructive sleep apnea (adult) (pediatric) Paresthesia of skin Carpal tunnel syndrome, bilateral Carpal tunnel syndrome Hypersomnia Hypersomnia, unspecified Hypoxia Hypoxemia documented in this encounter [facility] HealthcareEvaluation note* Diagnosis Epiretinal membrane (ERM) of left eye- Primary Long-term use of hydroxychloroquine Dry eyes Unspecified tear film insufficiency Blepharitis of upper and lower eyelids of both eyes, unspecified type documented in this encounter [facility] HealthcareEvaluation note* Diagnosis Onset Date Resolution Status Admit Date Hypersomnia acuteJanuary 22, 2025 7:48amHypoxiaacuteJanuary 22, 2025 7:48amNumbness and tinglingacuteJanuary 22, 2025 7:48amOSA (obstructive sleep apnea)acute January 22, 2025 7:48am [facility] Work Phone: History general Narrative - Reported* Type Description Date Medical History RA Medical HistoryHTN [employer] Source Other Reason for referral (narrative)No reason for referral information availableUniversity Hospitals Elyria Medical Center Work Phone: Summary Purpose Family History Relationship Condition Age at Onset Recorded Date/T vandana brother Unknown fatherDeceasedUnknownmotherMalignant neoplasmUnknownHeart diseaseUnknown Advance Directives Advance Directive Response Recorded Date/ Time Advance Directives No January 7:48am Chief Complaint and Reason for Visit Reason for Visit Admit Date Hypersomnia January 22, 2025 7:48am Hypoxia January 22, 2025 7:48am Numbness and tingling January 22 7:48am AGA (obstructive sleep apnea) January 122024 7:48am Additional Source Comments REASON FOR VISIT (unrecogniz ed section and content) ReasonCommentsSleep ApneaReasonCommentsEye Exam INFORMATION SOURCE (unrecogn ized section and content) DATE CREATED AUTHOR 05/20/2022 [facility] DATE CREATED AUTHOR AUTHOR'S ORGANIZ ATION 06/30/2022 [facility] DATE CREATED AUTHOR AUTHOR'S ORGANIZ ATION 06/29/2024 [facility] EPIC Care Teams (unrecognized sec tion and content) Team MemberRelationshipSpecialtyStart DateEnd Date Herminia Peña MD [address] [place] [address] Referring PhysicianRheumatology09/26/23 Sofia Sousa DO [address] [place] [address] Referring FatrcuszzNfegmjcnl47/12/24 Twila Long NP [address] [place] [address] Referring PhysicianMedfield State Hospital Gsytbavk69/12/24Te MemberRelationshipSpecialtyStart DateEnd Date Herminia Peña MD [address] [facility] [place] [phone] Referring PhysicianRheumatology09/26/23 Sofia Sousa DO [address] [place] [address] Referring BewiozborSohlojljd80/12/24 Twila Long NP [address] [place] [address] Referring PhysicianFaforsyth dental infirmary for children Fybsvall14/12/24Team MemberRelationshipSpecialtyStart DateEnd Date Herminia Peña MD [address] [place] [address] Referring PhysicianRheumatology09/26/23 Sofia Sousa DO [address] [place] [address] Referring QxuxgijhoSfgcuakau51/12/24 Twila Long NP [address] [place] [address] Referring PhysicianFaJeff Davis Hospital01/24/24Team MemberRelationshipSpecialtyStart DateEnd Date Herminia Peña MD [address] [place] [address] Referring PhysicianRheumatology09/26/23 Sofia Sousa DO [address] [place] [address] Referring SomhmsogdJmxvedadf51/12/24 Twila Long NP [address] [place] [address] Referring PhysicianFaJeff Davis Hospital01/24/24 Team Status: Active Member Role/Relationship Status Dates NON STAFF Primary Care Provider Active Team Status: Active Member Role/Relationship Status Dates Hudson Real MD Attending Provider Active Start: December 05, 2024 Team Status: Inactive Member Role/Relationship Status Dates Sofia Sousa DO Attending Provider Active Sta rt: January 22, 2025 End: January 22, 2025NON STAFFPrimary Care ProviderActiveStart: January 22, 2025 End: January 22, 2025 Goals (unrecognized section and content) Goals may be documented in a n alternate section FOR RECORDS PERTAINING TO PATIENTS WHO ARE [...] BE BASED ON THE PRIMARY CLINICAL RECORDS. [facility] [employer] [facility]. provides no warranty or guarantee of the accuracy or completeness of information in this document.
--- NOTE | 2025-02-21 14:29 | MM_ITS ---
Patient Name: VELASQUEZ COLIN MR#: [id number] : 1970 Exam Date: 02/21/2025 Ordering Doctor: SARA YUSUF RADIOLOGY REPORT PROCEDURE: MM TOMOSYNTHESIS SCREENING BI COMPARISON: MM TOMOSYNTHESIS SCREENING BI, 11/24/2022. MG MAMM SCREEN 3D RONALD CAD, 11/06/2021. MG MAMM SCREEN 3D RONALD CAD, 11/03/2020. MG MAMM RONALD SCRN W CAD DIG, 09/22/2017. INDICATIONS: Screening Calculator Name NCI Breast Cancer Risk Assessment Tool 5 Year Breast Cancer Risk 1.20% Lifetime Breast Cancer Risk 9.60% Personal Breast Cancer No Personal Ovarian Cancer No Treatments None Family Cancers Brother with lung cancer at age 42; Brother with tongue cancer at age 57. LOCATION: [facility] [place] BREAST COMPOSITION: There are scattered areas of fibroglandular density. FINDINGS: RIGHT BREAST: No significant suspicious finding. LEFT BREAST: No significant suspicious finding. DIAGNOSTIC CATEGORY 1--NEGATIVE. RECOMMENDATIONS: ROUTINE MAMMOGRAM AND CLINICAL EVALUATION IN 12 MONTHS. Dictated by: Hollis Marshall DO on 02/21/2025 at 15:47 Approved by: Hollis Marshall DO on 02/21/2025 at 16:26
== END 2025-02-21 14:19 | disposition home or self-care (01) ==
LOC: MAMMO 14:20
PROVIDERS: Visit Provider Nurse Practitioner Adult Health
DX: Z12.31 Encounter for screening mammogram for malignant neoplasm of breast (principal); Z80.1 Family history of malignant neoplasm of trachea, bronchus and lung; Z80.8 Family history of malignant neoplasm of other organs or systems
CPT/HCPCS: 77063; 77067

== ENCOUNTER 2025-03-12 13:27 | Outpatient (OUT) | payer BC, SELFPAY ==
--- OUTSIDE RECORDS SUMMARY | 2023-11-10 05:00 | XMS_ITS ---
Author Organization [facility] vices Address [address] [place], [place] [address] Care Team Providers Care Inspector And Tester Name Role Phone Twila Long Primary Care Provider Valentín Clay Unavailable [phone] REASON FOR VISIT Wellness Encounters Encounter Location Date Provider Diagnosis [facility] [address] [place] [address] 11/10/2023 Valentín Clay Plan Of Treatment No Information Progress Notes * Tia BOUCHERDOB:1970 (54 yo F)Acc No.[id number]:11/10/2023 Progress Notes Patient: Tia Jewell :?Valentín Negro NP-CDOB:1970???Age:53 Y ???Sex:FemaleDate:11/10/2023hone:[phone]:[address] [place], [place]Gfw:Twila Long Subjective: * Chief Complaints: * W ellness * Electronic signature of Valentín Clay NP on 03/12/2025 at 01:33 PM ESTSign off status: Pending * Provider: Rolo Negro NP-Laura Date: 0 11/10/2023 Generated for Printing/Faxing/eTransmitting on:?03/12/2025 01:33 PM EST
--- OUTSIDE RECORDS SUMMARY | 2024-04-30 05:15 | XMS_ITS ---
Author Organization [facility] vices Address [address] [place] [id number] Care Team Providers Care Bilingual Teacher Name Role Phone Twila Long Primary Care Provider [phone] Kalpana Pinto Unavailable [phone] REASON FOR VISIT med refills ([harmacy sd won't refill until seen) Encounters Encounter Location Date Provider Diagnosis Main [address] [place] [id number] 04/30/2024 Kalpana Washington Plan Of Treatment No Information Progress Notes * Tia BOUCHERDOB:1970 (54 yo F)Acc No.[id number]:04/30/2024 Medical Note Patient: Tia Jewell :?Kalpana WashingtonDOB:1970???Age:53 Y???Sex: FemaleDate:04/30/2024Phone:[phone]:[place]yma [place]ruz[place], [place]Kto:Twila Long Subjective: * Chief Complaints: * M ed refills ([harmacy sd won't refill until seen) Billing Information: * Procedure Codes: * Electronic signature of RADHA Newton on 03/12/2025 at 01:33 PM ESTSign off status: Pending * Provider: Hina Washington Date: 0 04/30/2024 Generated for Printing/Faxing/eTransmitting on:?03/12/2025 01:33 PM EST
--- OUTSIDE RECORDS SUMMARY | 2024-11-09 06:00 | XMS_ITS ---
Author Organization [facility] vices Address [address] [place], [place] [id number] Care Team Providers Care Humanities Teacher Name Role Phone Twila Long Primary Care Provider REASON FOR VISIT Wellness Encounters Encounter Location Date Provider Diagnosis [address] [phone] 11/09 Twila Long Plan Of Treatment No Information Progress Notes * Tia BOUCHERDOB:1970 (54 yo F)Acc No.[id number]:11/09/2024 Progress Notes Patient: Tia Jewell :?Twila LongDOB:1970???Age:54 Y???Sex: FemaleDate:11/09/2024Phone:[phone]:Zuleyma DelacruzCOX [id number] Subjective: * Chief Complaints: * W ellness * Electronic signature of SARAH Mccullough on 03/12/2025 at 01:33 PM ESTSign off status: Pending * Provider: Deanne Long Date: 0 11/09/2024 Generated for Printing/Faxing/eTransmitting on:?03/12/2025 01:33 PM EST
--- OUTSIDE RECORDS SUMMARY | 2024-12-06 09:00 | XMS_ITS ---
Author Organization [facility] in [place] Address [address] [place] [address] Care Team Providers Care Jewelry Department Supervisor Name Role Phone Sruthi CROCKETT, Valentín Primary Care Provider Unavailab Nathan Rodriguez Unavailable [phone] REASON FOR VISIT 4 YEAR-RHEUMATOID ARTHRITIS Encounters Encounter Location Date Provider Diagnosis Pulmonary Medicine [address] [address] 12/06/2024 Nathan Taylor Plan Of Treatment No Information Progress Notes * DIXIE Tia LDOB: 3 (54 yo F)Acc No.[id number]:12/06/2024 UNLOCKED PROGRESS NOTE Follow Up Patient: Tia MCCABE :?Nathan Taylor DODOB:1970???Age:54 Y ???Sex:FemaleDate:12/06/2024Phone:[phone]:[id number]:Valentín Negro NP Subjective: * Chief Complaints: * 1 . 4 YEAR-RHEUMATOID ARTHRITIS. * Medical History: Objective: * Vitals: Assessment: Plan: * Treatment: * * Electronic signature of Nathan Taylor DO on 03/12/2025 at 01:33 PM ESTSign off status: PendingVisit Status:?OFF CANC (OFFICE CANCEL) * Provider: Nenita Taylor DO Date: 0 12/06/2024 Generated for Printing/Faxing/eTransmitting on:?03/12/2025 01:33 PM EST
--- OUTSIDE RECORDS SUMMARY | 2025-03-12 13:33 | XMS_ITS | Patient Health Record ---
Author Organization [facility] [place] Address [address] [place] [address] Care Team Providers Care Manager Float Name Role Phone Valentín Negro NP Primary Care Provider UnavailNathan Tolbert Unavailable [phone] Allergies Allergen (clinical drug ingredient) Drug/Non Drug Allergy documented on EMR Reaction Allergy Type Onset Date Status sulfamethoxazole / trimethoprim Bactrim rash Drug Allergy ActiveciprofloxacinCiprorashDrug AllergyActivepregabalinLyricaConfusionDrug AllergyActiveSubstance with sulfonamide structure and antibacterial mechanism of action (substance)Sulfa AntibioticsrashDrug AllergyActive Reason For Referral No Information Medications Medication SIG (Take, Route, Frequency, Duration) Notes Start Date End Date Status Hydroxychloroquine Sulfate 200 MG Oral; Duration : 90 Days ActiveCetirizine HCl 10 MG1 tablet Orally Once a dayActiveFluticasone Propionate 50 MCG/ACT1 spray in each nostril Nasally Once a dayActiveProbiotic 250 MGas directed OrallyActiveSuper B-50 B Complex -as directed OrallyActiveVitamin D3 50 MCG (1999 UT)TAKE 1 CAPSULE BY MOUTH EVERY DAY Oral; Duration: 90 DaysActive predniSONE 5 MGTAKE 1 TABLET BY MOUTH ON DAY 1, OR TWO DAYS A WEEKS NEEDED Oral PRN; Duration: 15 daysActiveLeflunomide 20 MGTAKE 1 TABLET BY MOUTH EVERY DAY REMEMBER LABS Oral; Duration: 90 DaysActiveMetoprolol Succinate ER 50 MG Oral; Duration: 90 DaysActiveMultivitamin -1 tablet Orally Once a dayActive Orencia ClickJect 125 MG/MLSubcutaneous; Duration: 28 DaysActive Social History Tobacco Use: Social History Observation Description Date Details (start date - stop date) Never Smoker NA - NA Tobacco Use/Smoking Question Answer Notes Patient is a nonsmoker Problems Problem Type SNOMED Code ICD Code Onset Dates Problem Status W/U Status Risk Notes Problem Obesity (853124374) Obesity, unspecified (E66.9) ActiveconfirmedProblemRheumatoid arthritis (19705603)Rheumatoid arthritis (M06.9)ActiveconfirmedProblemObstructive sleep apnea syndrome (98031034)AGA (obstructive sleep apnea) (G47.33)ActiveconfirmedProblemFamily history of pulmonary fibrosis (Z83.6)ActiveconfirmedProblemInactive tuberculosis (finding) (94616024)History of latent tuberculosis (Z86.15)Activeconfirmed Encounters Encounter Location Date Provider Diagnosis [facility] [address] [place] [address] 10/16/2024 Nathan Taylor Plan Of Treatment Future Test Test Name Order Date PFT (41223, 17072, 31493) 11/12/2024 Insurance Providers Payer Name Payer Address Payer Phone Subscriber Number Group Number Insured Name Patient Relationship to Insured Coverage Start Date Coverage End Date [employer] PPO PLUS LOCAL PLAN [address] [place] [address] [phone] [id number] Tia Boucher Self - patient is the insured 3 Medical (General) History Medical History History ICD Code Rheumatoid arthritis M06.9 AGA (obstructive sleep apnea) G47.33 History of latent tuberculosis Z86.15 Family history of pulmonary fibrosis Z83 .6
--- OUTSIDE RECORDS SUMMARY | 2025-03-12 13:33 | XMS_ITS | Clinical Summary ---
Author Organization [facility] Address [address] [place] [address] Care Team Providers Care Appointment Clerk Name Role Phone Abad Peña MD Unavailable [phone] Tamara Sousa DO Unavailable [phone] Twila Long NP Unavailable Allergies Active AllergyReactionsCriticalityNoted DateCommentsCiprofloxacinRashLow 12/28/2022MethotrexateShortness of gnicgrRkdf62/17/2023regabalinHallucinations, Other12/28/2022Sulfa AntibioticsRash,QnqatNcy80/17/2023 Sulfamethoxazole-TrimethoprimRash,ZjvpkgtViz18/17/2023 Medications MedicationSigDispense QuantityRefillsLast FilledStart DateEnd DateStatus Orencia ClickJect 125 MG/ML solution auto-injector Subcutaneous for 28 DaysActive B Sswqqpm-Twclea-AO (Super B-50 B Complex) capsule as directed OrallyActive cetirizine (ZyrTEC) 10 MG tablet 1 (one) time each day at the same time.Active fluticasone (Flonase) 50 MCG/ACT nasal spray 1 (one) time each day at the same time.Active hydroxychloroquine (Plaquenil) 200 MG tablet Take 1 tablet by mouth in the morning and 1 tablet in the evening. Take with meals.Active leflunomide (Arava) 20 MG tablet TAKE 1 TABLET BY MOUTH EVERY DAY REMEMBER LABS Oral for 90 DaysActive metoprolol succinate XL (Toprol-XL) 50 MG 24 hr tablet Take 1 tablet by mouthActive Multiple Vitamin (Multi Vitamin) tablet 1 (one) time each day at the same time.Active predniSONE (Deltasone) 5 MG tablet TAKE 1 TABLET BY MOUTH ON DAY 1, OR TWO DAYS A WEEKS NEEDED Oral PRN for 15 daysActive Saccharomyces boulardii (probiotic) 250 MG capsule as directed OrallyActive acetaminophen (Tylenol) 500 MG tablet Take 2 tablets by mouth if neededActive Calcium Carbonate-Vitamin D (OSCAL 500/200 D-3 PO) Take 1 tablet by mouth DailyActive Active Problems ProblemNoted DateDiagnosed DateEpiretinal membrane (ERM) of left eye06/27/2024 AGA (obstructive sleep apnea)06/28/2023aresthesia of skin06/28/2023arpal tunnel syndrome of left wrist06/28/2023arpal tunnel syndrome of right wrist 06/28/20239667Kjximfa32/16/9159Gnaqojvpxvjb24/16/2024Long-term use of lpwvwppzbwshlmoylm94/17/2023ry eyes12/28/2022lepharitis of upper and lower eyelids of both eyes12/28/2022 Immunizations ImmunizationAdministration DatesNext DueNovel fhyalevhg-D2Z7-81, preservative-free01/10/2009Pneumococcal Conjugate PCV 13005/29/20202858Lixn63/05/2023 Family History Medical HistoryRelationNameCommentsCancerBrother 1Bob Young- lung cancerCancer Brother 2James Young- throat and tongue cancerStrokeBrother 3Michael Liana EmphysemaFatherAlzheimer's diseaseMotherElizabeth YoungCancerMotherElizabeth YoungCoronary artery diseaseMotherElizabeth YoungGlaucomaMotherElizabeth Young HypertensionMotherElizabeth YoungAlcohol abuseSiblingAsthmaSiblingCancerSibling Coronary artery diseaseSiblingHypertensionSiblingRheum arthritisSiblingRelation NameStatusCommentsBrother 1Bob Young- lung cancerBrother 2James Young- throat and tongue cancerBrother 3Michael NutterFatherMotherElizabeth YoungSibling Social History Tobacco UseTypesPacks/DayYears UsedDateSmoking Tobacco: NeverSmokeless Tobacco: Never Tobacco Cessation:Counseling Given: Not Answered Alcohol UseStandard Drinks/WeekCommentsNot Currently0 (1 standard drink = 0.6 oz pure alcohol)Caffeine intake: 1-2 cups per dayCommentsUnknownSex and Gender InformationValueDate RecordedSex Assigned at BirthNot on fileLegal Sex Yokcmk5307/12/2022 8:35 PM EDTGender IdentityNot on fileSexual OrientationNot on file Last Filed Vital Signs Vital SignReadingTime TakenCommentsBlood Dkmeutdx168/8611 7:52 AM EST Aankf009401/24/2024 7:52 AM ESTTemperature--Respiratory Ntfe2855 8:13 AM EDTOxygen Guzyfkswkx07%01/24/2024 7:52 AM ESTInhaled Oxygen Concentration-- Jyvswt19.3 kg (216 lb 12.8 oz)01/24/2024 7:52 AM SSEUcpblb244.8 cm (5' 2.5 ) 01/24/2024 7:52 AM ESTBody Mass Index39.02103/25/2023 7:52 AM EST Plan of Treatment DateTypeDepartmentCare Team (Latest Contact Info)Uvdvmkrwzvx63/22/2026 2:30 PM EDTOffice Visit [facility] [address] [place] [id number] Andrzej Cameron, [address] [place] [address] Insurance Care Teams Team MemberRelationshipSpecialtyStart DateEnd Date Abad Peña MD Referring PhysicianRheumatology09/26/[address] [place] [address] Referring RwptkfnylYqxcitpgt45/12/24 Twila Long NP [address] [place] [address] [facility] Khagfswl52/12/24
--- OUTSIDE RECORDS SUMMARY | 2025-03-12 13:34 | XMS_ITS | Patient Health Record ---
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 Name Role Phone Twila Long Primary Care Provider [phone] Delia Alcazar Unavailable Kalpana Washington Unavailable [phone] Joshua Kay Unavailable [phone] Allergies Allergen (clinical drug ingredient) Drug/Non Drug Allergy documented on EMR Reaction Allergy Type Onset Date Status sulfamethoxazole / trimethoprim Bactrim Unknown Drug Allergy ActivepregabalinLyricaUnknownDrug AllergyActiveciprofloxacinCiprofloxacinUnknown Drug AllergyActivemethotrexateMethotrexateUnknownDrug AllergyActiveSubstance with sulfonamide structure and antibacterial mechanism of action (substance) Sulfa AntibioticsUnknownDrug AllergyActive Reason For Referral Reason Z56.0 Unemployment Diagnosis 1 Unemployment, unspec ified (Z56.0) Referral Organization Main Referring Provider First Name Joshua Referring Provider Last Name Rahul Referring Provider Speciality Physician Prop Making Supervisor Referred Provider TANNA Referred Provider Specialty [facility] or Welfare Agencies General Notes Vincent Oro 07/19 08:42:27 AM >Resources sent via text Referral Priority Urgent Medications Medication SIG (Take, Route, Frequency, Duration) Notes Start Date End Date Status Leflunomide 20 MG Tablet 1 tablet Orally Once a day ActiveMultivitaminActiveMetoprolol Succinate ER 50 MG Tablet Extended Release 24 HourTAKE 1 TABLET BY MOUTH EVERY DAY; Duration: 90ActiveOrencia ClickJect 125 MG/ML Solution Auto-injectorOnce a week SubcutaneousActiveProbiotic 1-250 BILLION-MG Capsuleas directed OrallyActiveClindagel 1 % Gel1 application Externally Once a day; Duration: 28 days02/15/2023Not-Taking/PRNCalcium + D 500-1000-40 MG-UNT-MCG Tablet Chewableas directed OrallyActiveClindamycin HCl 300 MG Capsule1 Capsule Orally every 12 hrs; Duration: 14 days02/15/2023 Not-Taking/PRNCetirizine HCl 10 MG Tablet1 tablet Orally Once a dayActive Fluticasone Propionate 50 MCG/ACT Suspension1 spray in each nostril Nasally Once a dayActiveHydroxychloroquine Sulfate 200 MG Tablet1 tablet Orally Twice a day; Duration: 90 daysActivepredniSONE 5 MG Tablet2 tablet Orally PO daily for two weeks, then taper down to 1 tablet daily as needed; Duration: 15 daysAS NEEDED ActiveVitamin D3 50 MCG (1999) Capsule1 capsule Orally Once a day; Duration: 90 daysNot-Taking/PRN Immunizations Vaccine Route Administration Date Status Comme nts *Pneumococcal conjugate PCV 13-VFC Unknown 05/29/2020 A dministered *Tdap (Adacel)-PrivateIM Umsukcwnbrqom64/05/2023dministeredInfluenza, seasonal, injectable, preservative free, 3 yrs and qklsyKcbktss12/01/2025dministered Social History Tobacco Use: Social History Observation Description Date Details (start date - stop date) Never Smoker NA - NA Social History Social DeterminantsSocial InfoQuestionAnswerNotesPRAPAREDate Completed/Updated: 05/02/2024patient entered dataWhat is your current housing situation?I have housingpatient entered dataAre you worried about losing your housing?No patient entered dataWhat is the highest level of school that you have finished?More than high schoolpatient entered dataWhat is your current work situation?Unemployed and seeking workpatient entered dataIn the past year, have you or any family members you live with been unable to get any of the following when it was really needed? Check all that applyI do not have problems meeting my needsHas lack of transportation kept you from medical appointments, meetings, work or from getting things needed for daily living?NoHow often do you see or talk to people that you care about and feel close to? (For example: talkingto friends on the phone, visiting friends or family, going to sabianism or club meetings)1 or 2 times a weekpatient entered dataHow stressed are you? Stress is when someone feels tense, nervous, anxious, or can't sleep at night because their mind is troubledA little bitpatient entered dataIn the past year have you spent more than 2 nights in a row in a group home, correction, chcf center, orjuvenile correctional facility?Nopatient entered dataAre you a refugee?Nopatient entered dataWhat country are you from?[place] patient entered dataDo you feel physically and emotionally safe where you currently live?Yespatient entered dataIn the past year, have you been afraid of your partner or ex-partner?I have not had a partner in the past year patient entered dataPRAPARE Score:4Limited Patient AuthorizationSocial Info QuestionAnswerNotesLPAI authorize the following person access to my entire chart or to make inquiries concerning my healthcare. This authorization does NOT include picking up prescriptions and/or medications. I agree to the limited patient authorization for disclosure of protected health information. This authorization expires at the end of the calendar year in which it was signed.No patient entered dataSexual History:Social InfoQuestionAnswerNotesFamily PlanningAre you or your partner planning on becoming in the next year if not already ?No? What type of contraception are you using?Abstinence PCMH and UDS DemographicsSocial InfoQuestionAnswerNotesPrimary Care Medical Home QuestionsDo you have any barriers to learning?Nonepatient entered dataWhat is your preferred method of learning?Watching a videopatient entered dataHow often do you need to have someone help you read instructions?Neverpatient entered dataDrugs/Alcohol/Caffeine:Social InfoQuestionAnswerNotesAlcohol Screen (Audit-C)Did you have a drink containing alcohol in the past year?NoPoints0 InterpretationNegativeDrugsHave you used drugs other than those for medical reasons in the past 12 months?NoCAGE-AID Questionnaire (2018 Edition)Have you ever felt that you ought to cut down on your drinking or drug use?Nopatient entered dataHave people annoyed you by criticizing your drinking or drug use?No patient entered dataHave you ever felt bad or guilty about your drinking or drug use?Nopatient entered dataHave you ever had a drink or used drugs first thing in the morning to steady your nerves or to get rid of a hangover?No patient entered dataCAGE-AID Tffzt7KkkiqrlhsxzbslWpquwlsaPmqdkowiGdzqqw:more than 4 cups per dayTobacco Use:Social InfoQuestionAnswerNotesTobacco Use/Smoking Tobacco use:nonsmokerpatient entered dataAdditional DetailsCategorySocial InfoOptionsDetailsDrugs/Alcohol/Caffeine:Do you smoke marijuana?DeniesDo you drink alcohol?Socially Problems Problem Type SNOMED Code ICD Code Onset Dates Problem Status W/U Status Risk Notes Problem Obstructive sleep ap jhonatan syndrome (55870066) AGA (obstructive sleep apnea) (G47.33) ActiveconfirmedProblemHypertension (12541146)HTN (hypertension) (I10)Active confirmedProblemObese class II (243192331950746)BMI 39.0-39.9,adult (Z68.39) Activeconfirmed Vital Signs Heart Rate 79 /min 05/03/2024 Elizabeth Jackman 05/03/2024 01:00:40 PM EST > Temperature 98.5 degrees Fahrenheit 05/03/2024 Elizabeth Parra 05/03/2024 01:00:40 PM EST > Respiratory Rate 18 /min 05/03/2024 Diane Jackman 05/03/2024 01:00:40 PM EST > Blood pressure diastolic 86 mm Hg 05/03/2024 Elizabeth Jackson 05/03/2024 01:00:40 PM EST > Oximetry 93 % 05/03/2024 Elizabeth Jackman 05/03/2024 01:00:40 PM EST > Height-cm 157.48 cm 05/03/2024 Elizabeth Jackman 05/03/2024 01:00:40 PM EST > Weight-kg 99.11 kg 05/03/2024 Elizabeth Jackman 05/03/2024 01:00:40 PM EST > Height 62 in 05/03/2024 Elizabeth Jackman 05/03/2024 01:00:40 PM EST > Blood pressure systolic 130 mm Hg 05/03/2024 Elizabeth Parra 05/03/2024 01:00:40 PM EST > Weight 218.5 lbs 05/03/2024 Elizabeth Jackman 05/03/2024 01:00:40 PM EST > BMI 39.96 kg/m2 05/03/2024 Elizabeth Jackman 05/03/2024 01:00:40 PM EST > Encounters Encounter Location Date Provider Diagnosis [facility] [address] [facility] [place] [id number] 05/03/2024 Joshua Kay HTN (hypertension) I10 and Unemployment, unspecified Z56.0 Main [address] [place] [id number] 03/15/2024 Delia Alcazar Assessments Encounter Date Diagnosis (ICD Code) Assessment Notes Treatment Notes Treatment Clinical Notes Section Notes 05/03/2024 HTN (hypertension) (ICD-10 - I10 ) Patient has also been compliant with medications. No concerns or questions today. 05/03/2024Unemployment, unspecified (ICD-10 - Z56.0) Plan Of Treatment No Information Insurance Providers Payer Name Payer Address Payer Phone Subscriber Number Group Number Insured Name Patient Relationship to Insured Coverage Start Date Coverage End Date Maik bs [address] [place], [place] [id number] Tia Boucher Self - patient is the insured 3 Medical (General) History Medical History History ICD Code RA (rheumatoid arthritis) M06.9 HTN (hypertension) I10 AGA (obstructive sleep apnea) G47.33 Surgical History Surgery Date(Month/Year) Colonoscopy 1989
[2025-03-12 13:59] LABS: Hematocrit 43.0 % (36.0-48.0); Hemoglobin 13.9 g/dL (12.0-16.0); Immature Granulocytes Abs Auto 0.01 10^3/uL (0.00-0.03); Immature Granulocytes Pct Auto 0.2 % (0.0-0.5); Lymphocytes Absolute Auto 2.1 10^3/uL (1.2-3.8); Mean Corpuscular HGB Conc 32.3 g/dL (29.9-35.2); Mean Corpuscular Hemoglobin 29.8 pg (26.7-34.0); Mean Corpuscular Volume 92.3 fL (81.0-99.0); Platelet Count 203 10^3/uL (150-450); Red Blood Count 4.66 10^6/uL (4.20-5.40); White Blood Count 6.0 10^3/uL (4.0-11.0)
[2025-03-12 14:21] LABS: Alanine Aminotransferase 51 U/L (14-59); Albumin Globulin Ratio 0.9; Albumin Level 3.6 g/dL (3.4-5.0); Alkaline Phosphatase 83 U/L (46-116); Aspartate Amino Transferase 35 U/L (15-37); Estimated GFR (African America >60 (>=60 mL/min/1.73m^2); Estimated GFR (Non-African Ame >60 (>=60 mL/min/1.73m^2); Globulin 3.9 g/dL; Total Protein 7.5 g/dL (6.4-8.2)
--- OUTSIDE RECORDS SUMMARY | 2025-03-12 14:54 | XMS_ITS | CCD ---
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 SOFIA SOUSA Attending Unavailable SREE AGUILA Attending Unavailable SOFIA SOUSA Attending Unavailable SREE AGUILA Attending Unavailable Hudson Real MD Attending Provider Sofia Sousa DO Attending Provider NON STAFF Primary Care Provider Unavailолег e Allergies Allergy ClassificationReported Allergen(s)Allergy TypeDate of OnsetReaction(s) Facility (8 sources)Ciprofloxacin; Translations: [ciprofloxacin]Drug Qfubrlz53-90-6517 [facility] Repository (2 sources)pregabalinDrug Duxcuvn65-03-9944MakglfgVyaihfifdLanc[facility] (6 sources)Sulfamethoxazole / TrimethoprimDrug Xctoouw42-90-6810Bytf, Unknown [employer] Other (6 sources)Methotrexate; Translations: [methotrexate]Drug Gdmzdtr55-99-4139 [facility] ([facility] source)pregabalin; Translations: [Lyrica][facility]ergyHigh[facility] (2 sources)Sulfamethoxazole; Translations: [sulfamethoxazole]Drug Allergy 78-05-1574MsdpwwHighland District Hospital Rep[facility] (1 source)Sulfamethoxazole / Trimethoprim; Translations: [Bactrim]Drug Allergy [facility] Repository (1 source)CiprofloxacinDrug AllergyThe [facility] (1 source)Sulfonamides (Antibiotic)Drug allergy (disorder)[facility] Repository (5 sources)PregabalinAllergy to hqsxckdad09-01-8572Iyfhdmwjgaydiy, OtherNOMS Healthcare (5 sources)Sulfonamides (Antibiotic)Drug Ibchagw74-94-9177Tjfe, OtherNOMS Healthcare (1 source)TrimethoprimDrug Naqjxjc71-96-4855WfaolskuzFisher-Titus Medical Center Medications Current Medications MedicationDrug Class(es)DatesSig (Normalized)Sig (Original)1 ml abatacept 125 mg/ml auto-injector (6 sources)Selective T Cell Costimulation ModulatorStart: 43-25-9313kaseka 125 mg by subcutaneous injection every weekAbatacept (Orencia Clickject) 125 mg/mL auto-injector Active 125 MG SUBCUT every week January 22, 2025 12:00am Complies with drug therapyOrencia ClickJect 125 MG/ML solution auto-injector Subcutaneous for 28 Days Activeacetaminophen 500 mg oral tablet (5 sources)acetaminophen (Tylenol) 500 MG tablet Take 2 tablets by mouth if needed ActiveB Kszkddx-Ufkatq-QK (Super B-50 B Complex) capsule (5 sources)B Xcfewef-Wuzxhg-ZE (Super B-50 B Complex) capsule as directed Orally ActiveCalcium Carbonate / Vitamin D (5 sources)Calcium Carbonate-Vitamin D (OSCAL 500/200 D-3 PO) Take 1 tablet by mouth Daily Activecetirizine hydrochloride 10 mg oral tablet (7 sources)Histamine-1 Receptor AntagonistStart: 67-57-3124ynfw 1 tablet by mouth once daily as neededCetirizine 10 mg tablet Active 10 MG PO Daily as needed January 22, 2025 12:00am Complies with drug therapycetirizine (ZyrTEC) 10 MG tablet 1 (one) time each day at the same time. ActiveZyrTEC Allergy Activefluticasone propionate 0.05 mg/actuat metered dose nasal spray (7 sources)CorticosteroidStart: 36-34-0282tqor 1 spray(s) nasal route once daily Fluticasone Propionate (Flonase Allergy Relief) 50 mcg/actuation spray,suspension Active 1 SPRAY INTRANASAL Daily January 22, 2025 12:00am administer into each nostril Complies with drug therapyfluticasone (Flonase) 50 MCG/ACT nasal spray 1 (one) time each day at the same time. ActiveFLONASE Active hydroxychloroquine sulfate 200 mg oral tablet (7 sources)Antimalarial, Antirheumatic AgentStart: 13-51-6594Adfxavaybelgbkghgq 200 mg tablet Active MG PO January 22, 2025 12:00am Complies with drug therapytake 1 tablet by mouth in the morninghydroxychloroquine (Plaquenil) 200 MG tablet Take 1 tablet by mouth in the morning and 1 tablet in the evening. Take with meals. Activeleflunomide 20 mg oral tablet (7 sources)Antirheumatic AgentStart: 42-10-6770zzjm 1 tablet by mouth once daily Leflunomide 20 mg tablet Active 20 MG PO Daily January 22, 2025 12:00am Complies with drug therapytake 1 tablet by mouth once dailyleflunomide (Arava) 20 MG tablet TAKE 1 TABLET BY MOUTH EVERY DAY REMEMBER LABS Oral for 90 Days Act ive24 hr metoprolol succinate 50 mg extended release oral tablet (7 sources)beta-Adrenergic BlockerStart: 40-08-1881dgox 1 tablet by mouth every twenty-four hoursMetoprolol [...] mg oral capsule (5 sources)Vitamin D End: 06-57-0470cnae 1 capsule by mouth once dailycholecalciferol (Vitamin D-3) 50 MCG (1999 UT) capsule TAKE 1 CAPSULE BY MOUTH EVERY DAY Oral for 90 Days 06/27/2024 Discontinuedciclesonide 0.05 mg/actuat metered dose nasal spray (3 sources) End: 64-76-1415kgucbbypwwc (Omnaris) 50 MCG/ACT nasal spray 01/24/2024 Discontinued (Med list cleanup)cyclobenzaprine hydrochloride 5 mg oral tablet (3 sources)Muscle Relaxant End: 80-64-7236fksh 0.5-1 tablets by mouth at bedtimecyclobenzaprine (Flexeril) 5 MG tablet Take 0.5-1 tablets by mouth at bedtime 01/24/2024 Discontinued (Med list cleanup)Misc Natural Products (Green Tea) tablet (3 sources) End: 54-81-9623kikn 1 capsule by mouth once dailyMisc Natural Products (Green Tea) tablet Take 1 capsule by mouth Daily 01/24/2024 Discontinued (Medlist cleanup)[place]-3 Fatty Acids (GNP FISH OIL PO) (3 sources) End: 24-40-1284ardo 1 tablet by mouth once dailyOmega-3 Fatty Acids (GNP FISH OIL PO) Take 1 tablet by mouth Daily 01/24/2024 Discontinued (Med list cleanup) Problems Active Problems Problem ClassificationProblemDateDocumented DateEpisodic/ChronicEssential hypertension (5 sources)Hypertensive disorder; Translations: [Essential (primary) hypertension]Onset: 590547-99-3260GcgmbzpHyobqqnnqjkj; infection of eye (except that caused by tuberculosis or sexually transmitteddisease) (6 sources)Blepharitis of upper and lower eyelids of bilateral eyes; Translations: [Unspecified blepharitis right eye, upper and lower eyelids]Onset: 748775-83-5444CmejeqsrBjfld aftercare (5 sources)Other assisted (current) drug therapy; Translations: [OTH SKILLED NURSING CURRENT DRUG THERAPY]Onset: 23-64-3178NzshqwhzQkupy aftercare (6 sources)Drug therapy finding; Translations: [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]Onset: 578693-46-4289DxahscovBtnib connective tissue disease (1 source)Pain in left hand; Translations: [PAIN IN LEFT HAND]Onset: 06-28-2022 EpisodicOther connective tissue disease (1 source)Pain in right hand; Translations: [PAIN IN RIGHT HAND]Onset: 09-64-8176QigljnjgVepry eye disorders (6 sources)Dry eyes; Translations: [Dry eye syndrome of bilateral lacrimal glands]Onset: 524878-83-5326EcixorhcDaacv lower respiratory disease (4 sources)Pulmonary fibrosis, unspecified; Translations: [PULMONARY FIBROSIS UNSPECIFIED]Onset: 12-38-0212GwdmvyeTflxp lower respiratory disease (4 sources)Hypoxia; Translations: [Hypoxemia]84-68-3620QkfmaidrNgpye nervous system disorders (5 sources)Carpal tunnel syndrome of left wrist; Translations: [Carpal tunnel syndrome, left upper limb]Onset: 928496-79-2414CorogjbMmiro nervous system disorders (5 sources)Carpal tunnel syndrome of right wrist; Translations: [Carpal tunnel syndrome, right upper limb]Onset: 782239-42-3192KkyhjpxNxaip nervous system disorders (2 sources)Bilateral carpal tunnel syndrome; Translations: [Carpal tunnel syndrome, bilateral upper limbs]95-29-7996CjnlsqqKrdfe nervous system disorders (2 sources)Numbness and tingling sensation of skin; Translations: [Anesthesia of skin]01-72-7000EbnlbtbvIeinj nutritional; endocrine; and metabolic disorders (5 sources)Obesity; Translations: [Obesity, unspecified]Onset: 06-28-2023 48-71-3338OzoxpepUukkjvpk codes; unclassified (4 sources)Obstructive sleep apnea (adult) (pediatric); Translations: [OBSTRUCTIVE SLEEP APNEA]Onset: 88-46-4315JsyakjtMztbauud codes; unclassified (9 sources)Obstructive sleep apnea syndrome; Translations: [Obstructive sleep apnea (adult) (pediatric)]Onset: 110805-02-1935UgzsfovSwndijsv codes; unclassified (4 sources)Hypersomnia; Translations: [Hypersomnia, unspecified]01-24-2024 ChronicRetinal detachments; defects; vascular occlusion; and retinopathy (2 sources)Epiretinal membrane of left eye; Translations: [Puckering of macula, left eye]Onset: 506581-96-2343XbgzxjnUqcerjlypn arthritis and related disease (12 sources)Rheumatoid arthritis; Translations: [Rheumatoid arthritis, unspecified]Onset: 12-24-2020 Resolved: 78-53-1600RoryhbvNywpiagw lupus erythematosus and connective tissue disorders (1 source)Systemic involvement of connective tissue, unspecified; Translations: [SYSTEMIC INVLV CONNECTIVE TISS UNS]Onset: 33-73-1577GcehpkqYwctcyohqxbz (2 sources)CONTACT W/AND (SUSP) EXPOS COVID-19; Translations: [CONTACT W/AND (SUSP) EXPOS COVID-19]Onset: 24-30-6188Anhkq infection (1 source)COVID-19; Translations: [COVID-19]Onset: 09-29-2021 Past or Other Problems Problem ClassificationProblemDateDocumented DateEpisodic/ChronicImmunizations and screening for infectious disease (1 source)Interferon gamma assay result indeterminate; Translations: [Nonspecific reaction to cell mediated immunity measurement of gamma interferon antigen response without active tuberculosis]EpisodicMalaise and fatigue (4 sources)Weakness; Translations: [WEAKNESS]Onset: 60-23-6619MsfcgugcMqimw nervous system disorders (7 sources)Paresthesia; Translations: [Paresthesia of skin]Onset: 06-28-2023 43-58-0072PfuxmtywUscye screening for suspected conditions (not mental disorders or infectious disease) (8 sources)Abnormal results of pulmonary function studies; Translations: [Encounter for screening mammogram for malignant neoplasm of breast]Onset: 93-08-2673UihosmnxKwzdbrrm codes; unclassified (1 source)Family history of malignant neoplasm of trachea, bronchus and lung; Translations: [FAM HX MALIG NEOPLSM TRACH BRON LNG]Onset: 53-22-6812Ynljgoek Residual codes; unclassified (1 source)Family history of malignant neoplasm of other organs or systems; Translations: [FAM HX MALIG NEOPLASM OTH ORGN/SYS]Onset: 77-10-1274Lukwcpnv Unclassified (1 source)Latent tuberculosis; 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]Onset: 12-24-2020 Resolved: 18-24-1288Zvwizjvcsjjk (1 source)CONTACT W/AND (SUSP) EXPOS COVID-19; Translations: [CONTACT W/AND (SUSP) EXPOS COVID-19]Onset: 09-28-2021 Results Test NameValueInterpretationReference RangeFacilityOptical coherence tomography study reporton [id number] Medical Center HealthcareRadiology Study observation (narrative)[facility] HealthcarePerimetry studyon [id number] HealthcareRadiology Study observation (narrative)[facility] HealthcareCBC AUTO DIFFon [id number] #0.0 103/ulNormal0.0-0.1The [facility] HospitalComment on above: Performed By: #### SEDR #### [facility] [address] [address] [address] Ishan MasonBasophils/100 WBC (Bld)0.8 %Normal0.2-2.0[facility] Comment on above:Performed By: #### SEDR #### [facility] [address] [address] [address] Ishan Hopper #0.3 103/ulNormal0.0-0.7The [facility] HospitalComment on above: Performed By: #### SEDR #### [facility] [address] [address] [address] Ishan Ballardosinophils/100 WBC (Bld)5.7 %Normal0.9-7.0[facility] Comment on above:Performed By: #### SEDR #### [facility] [address] [address] [address] Ishan Ballardrythrocyte distribution width (RBC) [Ratio]12.6 %Wvchbr83.0-15.0 [facility] DaytonComment on above:Performed By: #### SEDR #### [facility] [address] [address] [address] Ishan MasonHematocrit (Bld) [Volume fraction]40.6 %Pfbtnl67.0-48.0The [facility] HospitalComment on above:Performed By: #### SEDR #### [facility] [address] [place] [address] Dr. Ishan MasonHemoglobin (Bld) [Mass/Vol]13.4 g/jEKqiuvs33.0-16.0[facility] HospitalComment on above:Performed By: #### SEDR #### [facility] [address] [place] [address] Dr. Ishan Mcintyre #0.01 10e3/ulNormal0.00-0.03The [facility] HospitalComment on above:Performed By: #### SEDR #### [facility] [address] [place] [address] Dr. Ishan Mcintyre %0.2 %Normal0.0-0.5The [facility] HospitalComment on above: Performed By: #### SEDR #### [facility] [address] [place] [address] Dr. Ishan Javed #2.3 103/ulNormal1.2-3.8The [facility] HospitalComment on above:Performed By: #### SEDR #### [facility] [address] [place] [address] Dr. Ishan Cotrezhocytes/100 WBC (Bld)46.2 %Ozxvdb40.5-60.0[facility] HospitalComment on above:Performed By: #### SEDR #### [facility] [address] [place] [address] Dr. Ishan QuijanoUAL DIFF REQNONormalThe [facility] HospitalComment on above: Performed By: #### SEDR #### [facility] [address] [place] [address] Dr. Ishan Del Valle (RBC) [Entitic mass]30.0 nmIleofy03.7-34.0The [facility] HospitalComment on above:Performed By: #### SEDR #### [facility] [address] [place] [address] Dr. Ishan Dela CruzHC (RBC) [Mass/Vol]33.0 g/rJTyxixw91.9-35.2The [facility] HospitalComment on above:Performed By: #### SEDR #### [facility] [address] [place] [address] Dr. Ishan Dela CruzV (RBC) [Entitic vol]90.8 xJXajvco87.0-99.0The [facility] HospitalComment on above:Performed By: #### SEDR #### [facility] [address] [place] [address] Dr. Ishan Arroyo #0.5 103/ulNormal0.3-0.8The [facility] HospitalComment on above:Performed By: #### SEDR #### [facility] [address] [place] [address] Dr. Ishan Apodacaocytes/100 WBC (Bld)10.8 %Normal1.7-12.0[facility] Comment on above:Performed By: #### SEDR #### [facility] [address] [place] [address] Dr. Ishan Matias #1.8 103/ulNormal1.4-6.5The [facility] HospitalComment on above:Performed By: #### SEDR #### [facility] [address] [place] [address] Dr. Ishan Bondutrophils/100 WBC (Bld)36.3 %Critically low43.0-75.0The [facility] HospitalComment on above:Performed By: #### SEDR #### [facility] [address] [place] [address] Dr. Ishan Dela Cruzlet mean volume (Bld) [Entitic vol]11.0 fLNormal9.5-13.5The [facility] HospitalComment on above:Performed By: #### SEDR #### [facility] [address] [place] [address] Dr. Ishan MasonPLT198 103/ujLincki093-067Lzn [facility] HospitalComment on above: Performed By: #### SEDR #### [facility] [address] [place] [address] Dr. Ishan MasonRBC4.47 106/ulNormal4.20-5.40The [facility] on above:Performed By: #### SEDR #### [facility] [address] [place] [address] Dr. Ishan MasonWBC4.9 103/ulNormal4.0-11.0The [facility] HospitalComment on above: Performed By: #### SEDR #### [facility] [address] [place] [address] Dr. Ishan MasonCREATININEon 62-83-7322Fehlvzixid [Mass/Vol]0.70 mg/dLNormal 0.55-1.02The [facility] on above:Performed By: #### A1C #### [facility] [address] [place] [address] Dr. Ishan BallardGFR-AF THAI>60Normal>=60[facility] on above:Performed By: #### A1C #### [facility] [address] [place] [address] Dr. Ishan BallardGFR-NON AF THAI>60Normal>=60[facility] on above:Performed By: #### A1C #### [facility] [address] [place] [address] Dr. Ishan MasonLIENMANUEL PROFILEon 16-06-8337Nkbmirj [Mass/Vol]3.6 g/dLNormal3.4-5.0 [facility] on above:Performed By: #### A1C #### [facility] [address] [place] [address] Dr. Ishan MasonAlbumin/Globulin [Mass ratio]0.9 {ratio}NormalThe [facility] on above:Performed By: #### A1C #### [facility] [address] [place] [address] Dr. Ishan LovingP [Catalytic activity/Vol]63 U/EAdotde28-649Mdm [facility] on above:Performed By: #### A1C #### [facility] [address] [address] [address] Ishan LovingT [Catalytic activity/Vol]32 U/CHgpgoo62-90Vum [facility] HospitalComment on above:Performed By: #### A1C #### [facility] [address] [address] [address] Ishan MasonAST [Catalytic activity/Vol]23 U/EMcroyb48-99Drn [facility] HospitalComment on above:Performed By: #### A1C #### [facility] [address] [address] [address] Ishan WongI, CONJUGATED0.1 mg/dLNormal0.0-0.2[facility] Comment on above:Performed By: #### A1C #### [facility] [address] [place] [address] Dr. Ishan Wongirubin [Mass/Vol]0.6 mg/dLNormal0.2-1.0[facility] Comment on above:Performed By: #### A1C #### [facility] [address] [address] [address] Ishan MasonGlobulin (S) [Mass/Vol]3.9 g/dLNormalThe [facility] HospitalComment on above:Performed By: #### A1C #### [facility] [address] [place] [address] Dr. Ishan MasonProtein [Mass/Vol]7.5 g/dLNormal6.4-8.2[facility] Comment on above:Performed By: #### A1C #### [facility] [address] [address] [address] Ishan MasonSED RATE WESTERGRENon 05-04-7123VEC RATE17 mm/hrNormal<=20The [facility] HospitalComment on above:Performed By: #### SEDR #### [facility] [address] [place] [address] Dr. Ishan MasonXR HAND R[place] MIN 3Von 56-26-1592MO HAND R[place] MIN 3VEXAMINATION: XR HAND ROOSEVELT [...] Electronically authenticated by: MARITO SPENCE Date: 2022-06-23 11:43NoK[facility]tering [facility] AUTO DIFFon [id number] #0.1 103/ulNormal0.0-0.1The [facility] HospitalComment on above:Performed By: #### CBC #### [facility] [address] [place] [address] Dr. Ishan MasonBasophils/100 WBC (Bld)1.0 %Normal0.2-2.0[facility] Comment on above:Performed By: #### CBC #### [facility] [address] [address] [address] Ishan Hopper #0.2 103/ulNormal0.0-0.7The [facility] HospitalComment on above: Performed By: #### CBC #### [facility] [address] [place] [address] Dr. Ishan Ballardosinophils/100 WBC (Bld)2.8 %Normal0.9-7.0[facility] Comment on above:Performed By: #### CBC #### [facility] [address] [address] [address] Ishan Ballardrythrocyte distribution width (RBC) [Ratio]12.5 %Cjeizc24.0-15.0 The [facility] HospitalComment on above:Performed By: #### CBC #### [facility] [address] [address] [address] Ishan MasonHematocrit (Bld) [Volume fraction]41.8 %Wlymbr06.0-48.0The [facility] HospitalComment on above:Performed By: #### CBC #### [facility] [address] [address] [address] Ishan MasonHemoglobin (Bld) [Mass/Vol]14.0 g/tUAvyoxg03.0-16.0[facility] HospitalCom[facility] on above:Performed By: #### CBC #### [facility] [address] [place] [address] Dr. Ishan Mcintyre #0.02 10e3/ulNormal0.00-0.03The [facility] HospitalComasc[facility] on above:Performed By: #### CBC #### [facility] [address] [place] [address] Dr. Ishan Mcintyre %0.3 %Normal0.0-0.5The [facility] HospitalComasc[facility] on above: Performed By: #### CBC #### [facility] [address] [place] [address] Dr. Ishan Javed #1.5 103/ulNormal1.2-3.8The [facility] HospitalComment on above:Performed By: #### CBC #### [facility] [address] [place] [address] Dr. Ishan Cortezhocytes/100 WBC (Bld)21.1 %Qqoivj30.5-60.0The [facility] on above:Performed By: #### CBC #### [facility] [address] [place] [address] Dr. Ishan QuijanoUAL DIFF REQNONormalThe [facility] HospitalComment on above: Performed By: #### CBC #### [facility] [address] [place] [address] Dr. Ishan Dela Cruz (RBC) [Entitic mass]29.7 fyNgnkpj45.7-34.0The [facility] HospitalComment on above:Performed By: #### CBC #### [facility] [address] [place] [address] Dr. Ishan Dela Cruz (RBC) [Mass/Vol]33.5 g/aJCxkofo28.9-35.2The [facility] HospitalComment on above:Performed By: #### CBC #### [facility] [address] [place] [address] Dr. Ishan Dela CruzV (RBC) [Entitic vol]88.7 xSMpihgr01.0-99.0The [facility] on above:Performed By: #### CBC #### [facility] [address] [place] [address] Dr. Ishan Arroyo #0.5 103/ulNormal0.3-0.8The [facility] HospitalComment on above:Performed By: #### CBC #### [facility] [address] [place] [address] Dr. Ishan Apodacaocytes/100 WBC (Bld)7.0 %Normal1.7-12.0[facility] Comment on above:Performed By: #### CBC #### [facility] [address] [place] [address] Dr. Ishan Matias #4.8 103/ulNormal1.4-6.5The [facility]ment on above:Performed By: #### CBC #### [facility] [address] [place] [address] Dr. Ishan Bondutrophils/100 WBC (Bld)67.8 %Ouzdfr94.0-75.0The [facility] Hospitalment on above:Performed By: #### CBC #### [facility] [address] [place] [address] Dr. Ishan Dela Cruzlet mean volume (Bld) [Entitic vol]11.0 fLNormal9.5-13.5The [facility] Hospitalment on above:Performed By: #### CBC #### [facility] [address] [place] [address] Dr. Ishan MasonPLT214 103/ckMwqxhv810-819Mio [facility] on above: Performed By: #### CBC #### [facility] [address] [place] [address] Dr. Ishan MasonRBC4.71 106/ulNormal4.20-5.40The [facility] HospitalComment on above:Performed By: #### CBC #### [facility] [address] [place] [address] Dr. Ishan MasonWBC7.1 103/ulNormal4.0-11.0[facility] HospitalComment on above: Performed By: #### CBC #### [facility] [address] [place] [address] Dr. Ishan MasonCREATININEon 50-26-8948Elcpvecuqp [Mass/Vol]0.85 mg/dLNormal 0.55-1.02[facility] HospitalComment on above:Performed By: #### SEDR #### [facility] [address] [place] [address] Dr. Ishan BallardGFR-AF THAI>60Normal>=60[facility] HospitalComment on above:Performed By: #### SEDR #### [facility] [address] [place] [address] Dr. Ishan BallardGFR-NON AF THAI>60Normal>=60The [facility] Hospitalment on above:Performed By: #### SEDR #### [facility] [address] [place] [address] Dr. Ishan BallardMG Electromyographyon 52-02-9616GWP Electromyography [id number]#1.00CD:127NormalFisher Meritus Medical CenterLIVER PROFILEon 33-80-6774Fouvhns [Mass/Vol]3.8 g/dLNormal3.4-5.0The [facility] HospitalComment on above:Performed By: #### A1C #### [facility] [address] [place] [address] Dr. Ishan MasonAlbumin/Globulin [Mass ratio]1.0 {ratio}NormalThe [facility] HospitalComasc[facility] stand[facility] on above:Performed By: #### A1C #### [facility] [address] [place] [address] Dr. Ishan MasonALP [Catalytic activity/Vol]67 U/XQuarty31-774Kam [facility] on above:Performed By: #### A1C #### [facility] [address] [address] [address] Ishan Crow [Catalytic activity/Vol]33 U/MQcrxgw31-05Bks [facility] HospitalComment on above:Performed By: #### A1C #### [facility] [address] [address] [address] Ishan Ansari [Catalytic activity/Vol]28 U/DNhrlcu42-33Rln [facility] HospitalComment on above:Performed By: #### A1C #### [facility] [address] [address] [address] Ishan WongI, CONJUGATED0.1 mg/dLNormal0.0-0.2The [facility] Comment on above:Performed By: #### A1C #### [facility] [address] [place] [address] Dr. Ishan Atkins [Mass/Vol]0.6 mg/dLNormal0.2-1.0The [facility] Comment on above:Performed By: #### A1C #### [facility] [address] [place] [address] Dr. Ishan MasonGlobulin (S) [Mass/Vol]3.7 g/dLNormalThe [facility] HospitalComment on above:Performed By: #### A1C #### [facility] [address] [place] [address] Dr. Ishan MasonProtein [Mass/Vol]7.5 g/dLNormal6.4-8.2The [facility] Comment on above:Performed By: #### A1C #### [facility] [address] [place] [address] Dr. Ishan Perrin RATE WESTERGRENon 06-00-8500CGC RATE32 mm/hrCritically high <=20The [facility] HospitalComment on above:Performed By: #### A1C #### [facility] [address] [place] [address] Dr. Ishan MasonConsultation Noteon 43-84-8661Hlmrmmpbpanv Note [id number]#1.00CD:127NoUniversity Hospitals Health SystemConsultation Noteon 49-68-2871Inoppufbhvfk Note [id number]#1.00CD:127NoUniversity Hospitals Health SystemConsultation Noteon 80-52-8078Dphxmldgtkal Note [id number]#1.00CD:127[facility] Health CenterMuSK ANITBODY TESTon 88-93-9659FxCR Antibodies<1.0NoTrinity Health System West CampusComment on above:Result Comment: Reference Range: Negative: <1.0 [...] 2014;52:90-100. 2. Stacey SMITH et al. PNAS 2013;110(51);20915-77941. 3. Mahad E et al. Neurology 2006;67:505-507. This test was developed and its performance characteristics determined by [employer]. It has not been cleared or approved by the Food and Drug Administration.Performed By: #### A1C #### [facility] [address] [place] [address] Dr. Ishan MasonACETYLCHOLINE RECEPTOR BINDING ABon 50-56-8395SEvH Binding Abs, Serum<0.39Tgewwb5.00-0.24The Wiley HospitalComment on above:Result Comment: Negative: 0.00 - 0.24 Borderline: 0.25 - 0.40 Positive: >0.40Performed By: #### ACRBND #### [facility] [address] [place] [address] Dr. Ishan Geiger 09-10-8273JA [Catalytic activity/Vol]88 U/FIivvrf29-304Ieu [facility] HospitalComment on above:Performed By: #### SEDR #### [facility] [address] [place] [address] Dr. Ishan Perrin RATE WESTERGRENon 93-55-6479JUD RATE34 mm/hrCritically high <=20The [facility] HospitalComasc[facility] on above:Performed By: #### CBC #### [facility] [address] [place] [address] Dr. Ishan JohnsonHolatrell 40-80-6054VEB9.298 uIU/mLNormal0.358-3.740The [facility] HospitalComment on above:Performed By: #### SEDR #### [facility] [address] [place] [address] Dr. Ishan Aragon B12 AND FOLATEon 23-82-0208Ukawwbinl (Vitamin B12) [Mass/Vol] 523.0 pg/uKRvqsks146.0-986.0The [facility] Hospitalment on above:Performed By: #### SEDR #### [facility] [address] [place] [address] Dr. Ishan MasonFOLATE21.40 ng/mLNormal8.60-58.90The [facility] Hospitalment on above:Performed By: #### SEDR #### [facility] [address] [place] [address] Dr. Ishan BradfordC AUTO DIFFon 35-76-8441RKNV #0.0 103/ulNormal0.0-0.1The [facility] on above:Performed By: #### SEDR #### [facility] [address] [place] [address] Dr. Ishan MasonBasophils/100 WBC (Bld)0.5 %Normal0.2-2.0The [facility] Comment on above:Performed By: #### SEDR #### [facility] [address] [place] [address] Dr. Ishan Hopper #0.3 103/ulNormal0.0-0.7The [facility] HospitalComment on above: Performed By: #### SEDR #### [facility] [address] [place] [address] Dr. Ishan Ballardosinophils/100 WBC (Bld)4.9 %Normal0.9-7.0The [facility] Comment on above:Performed By: #### SEDR #### [facility] [address] [place] [address] Dr. Ishan Ballardrythrocyte distribution width (RBC) [Ratio]12.7 %Tjiryl76.0-15.0 The [facility] HospitalComment on above:Performed By: #### SEDR #### [facility] [address] [place] [address] Dr. Ishan MasonHematocrit (Bld) [Volume fraction]41.2 %Tksybg82.0-48.0The [facility] HospitalComment on above:Performed By: #### SEDR #### [facility] [address] [place] [address] Dr. Ishan MasonHemoglobin (Bld) [Mass/Vol]13.7 g/pFUcukkz46.0-16.0The [facility] HospitalComment on above:Performed By: #### SEDR #### [facility] [address] [place] [address] Dr. Ishan Mcintyre #0.01 10e3/ulNormal0.00-0.03The [facility] HospitalComment on above:Performed By: #### SEDR #### [facility] [address] [place] [address] Dr. Ishan Mcintyre %0.2 %Normal0.0-0.5The [facility] HospitalComment on above: Performed By: #### SEDR #### [facility] [address] [place] [address] Dr. Ishan Javed #2.3 103/ulNormal1.2-3.8The [facility] HospitalComment on above:Performed By: #### SEDR #### [facility] [address] [place] [address] Dr. Ishan Navarromphocytes/100 WBC (Bld)40.2 %Jxdiwg03.5-60.0The [facility] HospitalComment on above:Performed By: #### SEDR #### [facility] [address] [place] [address] Dr. Ishan Madrid DIFF REQNONormalThe [facility] HospitalComment on above: Performed By: #### SEDR #### [facility] [address] [place] [address] Dr. Ishan Del Valle (RBC) [Entitic mass]29.8 pwFisqls28.7-34.0The [facility] HospitalComment on above:Performed By: #### SEDR #### [facility] [address] [place] [address] Dr. Ishan Dela Cruz (RBC) [Mass/Vol]33.3 g/sRZqhxmv24.9-35.2The [facility] HospitalComment on above:Performed By: #### SEDR #### [facility] [address] [place] [address] Dr. Ishan Dela Cruz (RBC) [Entitic vol]89.6 wGOszwmi90.0-99.0The [facility] HospitalComment on above:Performed By: #### SEDR #### [facility] [address] [place] [address] Dr. Ishan Arroyo #0.5 103/ulNormal0.3-0.8The [facility] HospitalComment on above:Performed By: #### SEDR #### [facility] [address] [place] [address] Dr. Ishan Apodacaocytes/100 WBC (Bld)8.9 %Normal1.7-12.0The [facility] Comment on above:Performed By: #### SEDR #### [facility] [address] [place] [address] Dr. Ishan Matias #2.6 103/ulNormal1.4-6.5The [facility] HospitalComment on above:Performed By: #### SEDR #### [facility] [address] [place] [address] Dr. Ishan Bondutrophils/100 WBC (Bld)45.3 %Kjdrmn47.0-75.0The [facility] HospitalCom[facility] on above:Performed By: #### SEDR #### [facility] [address] [place] [address] Dr. Ishan MasonPlatelet mean volume (Bld) [Entitic vol]10.3 fLNormal9.5-13.5The [facility] HospitalComasc[facility] stand[facility] hospital on above:Performed By: #### SEDR #### [facility] [address] [place] [address] Dr. Ishan MasonPLT212 103/szDsnhxp574-946Xwi [facility] HospitalComment on above: Performed By: #### SEDR #### [facility] [address] [place] [address] Dr. Ishan MasonRBC4.60 106/ulNormal4.20-5.40The [facility] on above:Performed By: #### SEDR #### [facility] [address] [place] [address] Dr. Ishan MasonWBC5.7 103/ulNormal4.0-11.0The [facility] on above: Performed By: #### SEDR #### [facility] [address] [place] [address] Dr. Ishan MasonCREATININEon 75-52-2842Kskjtksnfa [Mass/Vol]0.74 mg/dLNormal 0.55-1.02The [facility] on above:Performed By: #### PAPO, LIVER #### [facility] [address] [place] [address] Dr. Olmstead ChangEGFR-AF THAI>60Normal>=60The Wiley HospitalComment on above:Performed By: #### CREA, LIVER #### [facility] [address] [place] [address] Dr. Ishan BallardGFR-NON AF THAI>60Normal>=60The [facility] on above:Performed By: #### CREA, LIVER #### [facility] [address] [place] [address] Dr. Ishan Powell PROFILEon 43-99-0754Gccofse [Mass/Vol]3.6 g/dLNormal3.4-5.0 The [facility] HospitalComment on above:Performed By: #### CREHina, LIVER #### [facility] [address] [place] [address] Dr. Ishan MasonAlbumin/Globulin [Mass ratio]1.0 {ratio}NormalThe [facility] on above:Performed By: #### CREHina, LIVER #### [facility] [address] [place] [address] Dr. Ishan Lisa [Catalytic activity/Vol]78 U/NRsktkp28-561Xvq [facility] HospitalComment on above:Performed By: #### CREA, LIVER #### [facility] [address] [place] [address] Dr. Ishan Crow [Catalytic activity/Vol]30 U/RAgntnw01-28Dli [facility] on above:Performed By: #### CREHina, LIVER #### [facility] [address] [place] [address] Dr. Ishan Ansair [Catalytic activity/Vol]14 U/LCritically egm20-02Cee [facility] on above:Performed By: #### CREA, LIVER #### [facility] [address] [place] [address] Dr. Ishan Hannon, CONJUGATED0.1 mg/dLNormal0.0-0.2The [facility] on above:Performed By: #### CREA, LIVER #### [facility] [address] [place] [address] Dr. Ishan Wongirubin [Mass/Vol]0.5 mg/dLNormal0.2-1.0[facility] Comment on above:Performed By: #### CREA, LIVER #### [facility] [address] [place] [address] Dr. Ishan MasonGlobulin (S) [Mass/Vol]3.7 g/dLNormalThe [facility] HospitalComment on above:Performed By: #### CREHina, LIVER #### [facility] [address] [place] [address] Dr. Ishan MasnoProtein [Mass/Vol]7.3 g/dLNormal6.4-8.2The [facility] Comment on above:Performed By: #### PAPO, LIVER #### [facility] [address] [place] [address] Dr. Ishan Perrin RATE WESTERGRENon 65-40-4903HYU RATE23 mm/hrCritically high <=20The [facility] HospitalComment on above:Performed By: #### SEDR #### [facility] [address] [place] [address] Dr. Ishan MasonLab Reportson 31-35-2240Bdt Reports [id number]#1.00CD:127NoUniversity Hospitals Health SystemLab [id number]#1.00CD:[address] [place], [place] [address]CBC AUTO DIFFon 32-36-1462PGIB #0.0 103/ulNormal0.0-0.1The [facility] HospitalComment on above:Performed By: #### CBC #### [facility] [address] [place] [address] Dr. Ishan MasonBasophils/100 WBC (Bld)0.7 %Normal0.2-2.0[facility] Comment on above:Performed By: #### CBC #### [facility] [address] [place] [address] Dr. Olmstead ChangEO #0.4 103/ulNormal0.0-0.7The [facility] HospitalComment on above: Performed By: #### CBC #### [facility] [address] [place] [address] Dr. Ishan Ballardosinophils/100 WBC (Bld)7.7 %Critically high0.9-7.0The [facility] HospitalComment on above:Performed By: #### CBC #### [facility] [address] [place] [address] Dr. Ishan Ballardrythrocyte distribution width (RBC) [Ratio]12.6 %Jowmln07.0-15.0 The [facility] HospitalComment on above:Performed By: #### CBC #### [facility] [address] [place] [address] Dr. Ishan MasonHematocrit (Bld) [Volume fraction]40.9 %Qwoasx82.0-48.0The [facility] HospitalComment on above:Performed By: #### CBC #### [facility] [address] [place] [address] Dr. Ishan MasonHemoglobin (Bld) [Mass/Vol]13.4 g/jIIirlhy90.0-16.0The [facility] HospitalComment on above:Performed By: #### CBC #### [facility] [address] [place] [address] Dr. Ishan Mcintyre #0.01 10e3/ulNormal0.00-0.03The [facility] HospitalComment on above:Performed By: #### CBC #### [facility] [address] [place] [address] Dr. Ishan Mcintyre %0.2 %Normal0.0-0.5The [facility] HospitalComment on above: Performed By: #### CBC #### [facility] [address] [place] [address] Dr. Ishan CortezH #2.1 103/ulNormal1.2-3.8The [facility] Hospitalment on above:Performed By: #### CBC #### [facility] [address] [place] [address] Dr. Ishan Navarromphocytes/100 WBC (Bld)45.7 %Ewdyol92.5-60.0The [facility] HospitalComment on above:Performed By: #### CBC #### [facility] [address] [place] [address] Dr. Ishan Madrid DIFF REQNONormalThe [facility] HospitalComment on above: Performed By: #### CBC #### [facility] [address] [place] [address] Dr. Ishan Dela Cruz (RBC) [Entitic mass]29.8 dzMjnlyy12.7-34.0The [facility] HospitalComment on above:Performed By: #### CBC #### [facility] [address] [place] [address] Dr. Ishan Dela Cruz (RBC) [Mass/Vol]32.8 g/yJPbpawx44.9-35.2The [facility] HospitalComment on above:Performed By: #### CBC #### [facility] [address] [place] [address] Dr. Ishan Luu (RBC) [Entitic vol]91.1 nHUnjudu96.0-99.0The [facility] HospitalComment on above:Performed By: #### CBC #### [facility] [address] [place] [address] Dr. Ishan Arroyo #0.5 103/ulNormal0.3-0.8The [facility] HospitalComment on above:Performed By: #### CBC #### [facility] [address] [place] [address] Dr. Ishan Apodacaocytes/100 WBC (Bld)10.8 %Normal1.7-12.0The [facility] Comment on above:Performed By: #### CBC #### [facility] [address] [place] [address] Dr. Ishan Matias #1.6 103/ulNormal1.4-6.5The [facility] HospitalComment on above:Performed By: #### CBC #### [facility] [address] [place] [address] Dr. Yilan ChangNeutrophils/100 WBC (Bld)34.9 %Critically low43.0-75.0The [facility] HospitalComment on above:Performed By: #### CBC #### [facility] [address] [place] [address] Dr. Ishan Dela Cruzlet mean volume (Bld) [Entitic vol]10.8 fLNormal9.5-13.5The [facility] HospitalComment on above:Performed By: #### CBC #### [facility] [address] [place] [address] Dr. Ishan MasonPLT198 103/xzNlpcbh326-526Hom [facility] HospitalCom[facility] on above: Performed By: #### CBC #### [facility] [address] [place] [address] Dr. Ishan MasonRBC4.49 106/ulNormal4.20-5.40The [facility] HospitalComment on above:Performed By: #### CBC #### [facility] [address] [place] [address] Dr. Ishan MasonWBC4.6 103/ulNormal4.0-11.0The [facility] HospitalComment on above: Performed By: #### CBC #### [facility] [address] [place] [address] Dr. Ishan MasonGLYCOHEMOGLOBIN A1Con 93-49-1187IPV RECOMMENDATIONSEE BELOWNormal The [facility] HospitalCom[facility] on above:Result Comment: ADA RECOMMENDED LIMIT 4.0 - 6.0 ADA THERAPEUTIC TARGET < 7.0 ACTION SUGGESTED > 7.0Performed By: #### A1C #### [facility] [address] [place] [address] Dr. Ishan MasonGlucose [Mass/Vol]103 mg/dLNormalThTrinity Health System Twin City Medical CenterComascension stand[facility] hospital on above:Performed By: #### A1C #### [facility] [address] [place] [address] Dr. Ishan MasonHbA1c (Bld) [Mass fraction]5.2 %Normal4.5-6.2The [facility] on above:Performed By: #### A1C #### [facility] [address] [address] [address] Ishan MasonLIPID PROFILEon 30-15-7930EVCT-HDL RATIO NORMSNorwalk Memorial HospitalComment on above:Result Comment: 3.3 - 4.4 LOW RISK 4.4 - 7.1 AVERAGE RISK 7.1 - 11.0 MODERATE RISK >11.0 HIGH RISKPerformed By: #### CBC #### [facility] [address] [address] [address] Ishan MasonCholesterol [Mass/Vol]227 mg/dLCritically high<=200The [facility] HospitalComment on above:Performed By: #### CBC #### [facility] [address] [place] [address] Dr. Ishan MasonCholesterol in HDL [Mass/Vol]78 mg/dLCritically xnts21-10IkzKettering Health DaytonComascension standish hospital on above:Performed By: #### CBC #### [facility] [address] [address] [address] Ishan MasnoCholesterol in LDL [Mass/Vol]130.8 mg/dLMiami Valley HospitalComascension standish hospital on above:Performed By: #### CBC #### [facility] [address] [place] [address] Dr. Ishan Bellestersalas.total/Cholesterol in HDL [Mass ratio]2.9 {ratio} NormalBerger [facility] on above:Performed By: #### CBC #### [facility] [address] [place] [address] Dr. Ishan Smith NORMAL> or = 60 mg/dl - LOW CARDIOVASCULAR RISK <40 mg/dl - HIGH CARDIOVASCULAR RISKMiami Valley HospitalComascension standish hospital on above:Performed By: #### CBC #### [facility] [address] [place] [address] Dr. Ishan MasonLDL CALC NORMALSEE [facility] HospitalComment on above:Result Comment: <100 mg/dl OPTIMAL 100 - 129 mg/dl NEAR OR ABOVE OPTIMAL 130 - 159 mg/dl BORDERLINE HIGH 160 - 189 mg/dl HIGH >190 mg/dl VERY HIGH Performed By: #### CBC #### [facility] [address] [address] [address] Ishan MasonTriglyceride [Mass/Vol]91 mg/dLNormal<=150The [facility] Comment on above:Performed By: #### CBC #### [facility] [address] [address] [address] Ishan MasonVLDL CALC18.2 mg/dLNormalThe [facility] HospitalComment on above: Performed By: #### CBC #### [facility] [address] [address] [address] Ishan MasonPROF 14(COMP METB)on 09-74-3381Fuyhrbu [Mass/Vol]3.6 g/dLNormal 3.4-5.0The [facility] HospitalComment on above:Performed By: #### A1C #### [facility] [address] [address] [address] Ishan MasonAlbumin/Globulin [Mass ratio]1.0 {ratio}NormalThe [facility] HospitalComment on above:Performed By: #### A1C #### [facility] [address] [address] [address] Ishan Lisa [Catalytic activity/Vol]60 U/QWjzpkd80-165Bfd [facility] HospitalComment on above:Performed By: #### A1C #### [facility] [address] [address] [address] Ishan Crow [Catalytic activity/Vol]30 U/NSjagfc54-22Bhn [facility] HospitalComment on above:Performed By: #### A1C #### [facility] [address] [address] [address] Ishan Maldonado gap [Moles/Vol]9.1 mmol/LNormalThe [facility] HospitalComasc[facility] stand[facility] hospital on above:Performed By: #### A1C #### [facility] [address] [address] [address] Ishan MasonAST [Catalytic activity/Vol]23 U/BPgyckd57-56Ccf [facility] HospitalComment on above:Performed By: #### A1C #### [facility] [address] [address] [address] Ishan MasonBilirubin [Mass/Vol]0.7 mg/dLNormal0.2-1.0The [facility] Comment on above:Performed By: #### A1C #### [facility] [address] [address] [address] Ishan MasonCalcium [Mass/Vol]9.1 mg/dLNormal8.5-10.1The [facility] Comment on above:Performed By: #### A1C #### [facility] [address] [address] [address] Ishan MasonChloride [Moles/Vol]105 mmol/JQpdkqo71-714Rve [facility] Comment on above:Performed By: #### A1C #### [facility] [address] [address] [address] Ishan MasonCO2 [Moles/Vol]30.1 mmol/KTfivfy86.0-32.0The [facility] Comment on above:Performed By: #### A1C #### [facility] [address] [address] [address] Ishan MasonCreatinine [Mass/Vol]0.71 mg/dLNormal0.55-1.02The [facility] HospitalComment on above:Performed By: #### A1C #### [facility] [address] [address] [address] Ishan BallardGFR-AF THAI>60Normal>=60The [facility] HospitalComment on above:Performed By: #### A1C #### [facility] [address] [place] [address] Dr. Ishan BallardGFR-NON AF THAI>60Normal>=60The [facility] HospitalComment on above:Performed By: #### A1C #### [facility] [address] [address] [address] Ishan MasonGlobulin (S) [Mass/Vol]3.6 g/dLNormalThe [facility] HospitalComment on above:Performed By: #### A1C #### [facility] [address] [address] [address] Ishan MasonGlucose [Mass/Vol]102 mg/wVFxeslc07-270Eal [facility] Comment on above:Performed By: #### A1C #### [facility] [address] [address] Dr. Ishan MasonPotassium [Moles/Vol]4.2 mmol/LNormal3.5-5.1[facility] Comment on above:Performed By: #### A1C #### [facility] [address] [address] [address] Ishan MasonProtein [Mass/Vol]7.2 g/dLNormal6.4-8.2[facility] Comment on above:Performed By: #### A1C #### [facility] [address] [place] [address] Dr. Ishan MasonSodium [Moles/Vol]140 mmol/KKryngw930-765Won [facility] Comment on above:Performed By: #### A1C #### [facility] [address] [address] [address] Ishan MasonUrea nitrogen [Mass/Vol]9.0 mg/dLNormal7.0-18.0[facility] HospitalComment on above:Performed By: #### A1C #### [facility] [address] [place] [address] Dr. Ishan Wolfe nitrogen/Creatinine [Mass ratio]12.7 mg/mgNormalThe [facility] HospitalComment on above:Performed By: #### A1C #### [facility] [address] [address] [address] Ishan JohnsonHolatrell 76-73-5857XBS0.369 uIU/mLNormal0.358-3.740K[facility]tering Health DaytonComment on above:Performed By: #### CBC #### [facility] [address] [place] [address] Dr. Ishan MasonCT CHEST HI RESOLUTIONon 24-61-4493ML CHEST HI RESOLUTION EXAMINATION: CT CHEST HI [...] Electronically authenticated by: MARITO SPENCE Date: 2021-11-26 16:08[facility] HospitalConsultation Noteon 50-93-7142Jfjwugowriwa Note [id number]#1.00CD:[address] [place] [address] AUTO DIFFon 44-63-3160NJJB #0.0 103/ulNormal0.0-0.1[facility] DaytonComment on above:Performed By: #### A1C #### [facility] [address] [address] [address] Ishan MasonBasophils/100 WBC (Bld)0.6 %Normal0.2-2.0[facility] Comment on above:Performed By: #### A1C #### [facility] [address] [address] [address] Ishan Hopper #0.4 103/ulNormal0.0-0.7[facility] HospitalComment on above: Performed By: #### A1C #### [facility] [address] [address] [address] Ishan Ballardosinophils/100 WBC (Bld)6.1 %Normal0.9-7.0[facility] Comment on above:Performed By: #### A1C #### [facility] [address] [address] [address] Ishan Ballardrythrocyte distribution width (RBC) [Ratio]12.1 %Jeqley16.0-15.0 [facility] HospitalComment on above:Performed By: #### A1C #### [facility] [address] [place] [address] Dr. Ishan MasonHematocrit (Bld) [Volume fraction]43.7 %Gxpapm75.0-48.0[facility] HospitalComment on above:Performed By: #### A1C #### [facility] [address] [place] [address] Dr. Ishan MasonHemoglobin (Bld) [Mass/Vol]14.1 g/fVJzmjgx90.0-16.0[facility] HospitalComment on above:Performed By: #### A1C #### [facility] [address] [place] [address] Dr. Ishan Mcintyre #0.02 10e3/ulNormal0.00-0.03[facility] HospitalComment on above:Performed By: #### A1C #### [facility] [address] [place] [address] Dr. Ishan Mcintyre %0.3 %Normal0.0-0.5[facility] HospitalComment on above: Performed By: #### A1C #### [facility] [address] [place] [address] Dr. Ishan Javed #2.9 103/ulNormal1.2-3.8[facility] HospitalComment on above:Performed By: #### A1C #### [facility] [address] [place] [address] Dr. Ishan Cortezhocytes/100 WBC (Bld)41.6 %Hdkast72.5-60.0[facility] HospitalComment on above:Performed By: #### A1C #### [facility] [address] [place] [address] Dr. Ishan QuijanoUAL DIFF REQNONormalThe [facility] HospitalComment on above: Performed By: #### A1C #### [facility] [address] [place] [address] Dr. Ishan Del Valle (RBC) [Entitic mass]29.3 emAquywr69.7-34.0[facility] HospitalComment on above:Performed By: #### A1C #### [facility] [address] [place] [address] Dr. Ishan Dela Cruz (RBC) [Mass/Vol]32.3 g/iQJxwzcm20.9-35.2[facility] HospitalComment on above:Performed By: #### A1C #### [facility] [address] [place] [address] Dr. Ishan Luu (RBC) [Entitic vol]90.9 eRJalpdl71.0-99.0[facility] HospitalComment on above:Performed By: #### A1C #### [facility] [address] [place] [address] Dr. Ishan Arroyo #0.7 103/ulNormal0.3-0.8[facility] HospitalComment on above:Performed By: #### A1C #### [facility] [address] [place] [address] Dr. Ishan Apodacaocytes/100 WBC (Bld)10.3 %Normal1.7-12.0[facility] Comment on above:Performed By: #### A1C #### [facility] [address] [place] [address] Dr. Ishan Matias #2.9 103/ulNormal1.4-6.5[facility] HospitalComment on above:Performed By: #### A1C #### [facility] [address] [place] [address] Dr. Ishan Nicoleophils/100 WBC (Bld)41.1 %Critically low43.0-75.0[facility] HospitalComment on above:Performed By: #### A1C #### [facility] [address] [place] [address] Dr. Ishan Dela Cruzlet mean volume (Bld) [Entitic vol]11.0 fLNormal9.5-13.5[facility] HospitalComment on above:Performed By: #### A1C #### [facility] [address] [place], [place] [address] Dr. Ishan MasonPLT204 103/zfDjrjit110-139Te[facility] on above: Performed By: #### A1C #### [facility] [address] [place] [address] Dr. Ishan MasonRBC4.81 106/ulNormal4.20-5.40The [facility] on above:Performed By: #### A1C #### [facility] [address] [place] [address] Dr. Ishan MasonWBC7.1 103/ulNormal4.0-11.0The [facility] on above: Performed By: #### A1C #### [facility] [address] [place] [address] Dr. Ishan HernandezATININEon 74-45-7854Zwollihubz [Mass/Vol]0.73 mg/dLNormal 0.55-1.02[facility] HospitalComasc[facility] on above:Performed By: #### CBC #### [facility] [address] [place] [address] Dr. Ishan BallardGFR-AF THAI>60Normal>=60[facility] on above:Performed By: #### CBC #### [facility] [address] [place] [address] Dr. Ishan BallardGFR-NON AF THAI>60Normal>=60[facility] on above:Performed By: #### CBC #### [facility] [address] [place] [address] Dr. Ishan Powell PROFILEon 88-44-7976Aibbxmp [Mass/Vol]4.0 g/dLNormal3.4-5.0 [facility] on above:Performed By: #### CBC #### [facility] [address] [place] [address] Dr. Ishan MasonAlbumin/Globulin [Mass ratio]1.0 {ratio}NormalThe [facility] on above:Performed By: #### CBC #### [facility] [address] [place] [address] Dr. Ishan Lisa [Catalytic activity/Vol]75 U/HAewsvo07-409Avy [facility] HospitalComment on above:Performed By: #### CBC #### [facility] [address] [address] [address] Ishan LovingT [Catalytic activity/Vol]30 U/YVpfkfe54-73Cgh [facility] HospitalComment on above:Performed By: #### CBC #### [facility] [address] [address] [address] Ishan Ansari [Catalytic activity/Vol]23 U/BIastjs30-68Qbw [facility] HospitalComment on above:Performed By: #### CBC #### [facility] [address] [place] [address] Dr. Ishan Hannon, CONJUGATED0.1 mg/dLNormal0.0-0.2[facility] Comment on above:Performed By: #### CBC #### [facility] [address] [place] [address] Dr. Ishan Wongirubin [Mass/Vol]0.7 mg/dLNormal0.2-1.0[facility] Comment on above:Performed By: #### CBC #### [facility] [address] [place] [address] Dr. Ishan MasonGlobulin (S) [Mass/Vol]4.0 g/dLNormalThe [facility] HospitalComment on above:Performed By: #### CBC #### [facility] [address] [place] [address] Dr. Ishan MasonProtein [Mass/Vol]8.0 g/dLNormal6.4-8.2[facility] Comment on above:Performed By: #### CBC #### [facility] [address] [place] [address] Dr. Ishan Perrin RATE WESTERGRENon 44-57-4757QBY RATE15 mm/hrNormal<=20[facility] HospitalComment on above:Performed By: #### A1C #### [facility] [address] [place] [address] Dr. Ishan Mejia Mammographyon 94-38-3279Hnbkmcs Mammography [id number]#1.00CD:127[facility] CenterMG MAMM SCREEN 3D [place]SE[place] CADon 27-10-1608NF MAMM SCREEN 3D [place]T CADPatient: VELASQUEZ COLIN Exam Date: 11/06/2021 : 1970 Gender:F Ordering : DR JUAN C HOPE Admission #: [id number] Family : Order #: [id number] CLICK HERE TO VIEW EXAM RADIOLOGY REPORT [...] at age 59. LOCATION: [facility] BREAST COMPOSITION: Scattered areas fibroglandular density. [...] by: Marito Spence M.D. on 11/06/2021 at 15:37[facility] HospitalHEMOGLOBINon 78-97-8432Zqgriijpye (Bld) [Mass/Vol]13.6 g/dLNormal 12.0-16.0[facility] DaytonComment on above:Performed By: #### CBC #### [facility] [address] [address] [address] Ishan MasonAmbulatory Visit Summaryon 48-25-0123Fbtmfpcjhs Visit Summary VELASQUEZ COLIN :1970 Visit Date:10/08/2021 [...] tablet) fluticasone nasal (fluticasone 0.05 mg/inh Nasal Tanner) hydroxychloroquine lactobacillus acidophilus (Acidophilus Probiotic Blend oral [...] fluticasone nasal (fluticasone 0.05 mg/ inh Nasal Tanner) 2 Sprays Nasal Inhalation Every day each [...] care Rheumatoid Arthritis Sinus congestion Swollen tongue [facility] Medicine Office/Clinic Noteon 04-91-9931Irueqd Medicine Office/Clinic NoteChief Complaint Wellness Exam HPI [...] completed last on 11/03/20 at [facility], (ordered today). Due for PAP/pelvic exam. [...] Once, # 1 tab(s), Refills(s) 1, Pharmacy: [facility]/pharmacy #[id number],158, cm, 02/16/21 15:39:00 EST, Height/Length Dosing, 94, kg, 02/16/21 15:39:00 EST, Weight Dosing predniSONE, 0 = 1 -, Oral, As Directed, Take 5 tabs by mouth daily x3 days, 4 daily x3 days, 3 daily x3 days, 2 daily x3 days, then 1 tab daily x3 days., # 45 tab(s), Refills(s) 0, Pharmacy: [facility]/pharmacy #[id number], 158, cm, 02/16/21 15:39:00 EST, Height/Length Dosing... Follow-up With When Contact Information Juan C HOPE DO, FAM In 1 year [address] [place] [phone]- Additional Instructions: Problem List/Past Medical History Ongoing BMI 38.0-38.9,adult Encounter for screening mammogram for breast cancer Preventative health care Rheumatoid Arthritis Historical No qualifying data Procedure/Surgical History None. Medications Acidophilus Probiotic Blend oral capsule, Oral, Daily B Complex 100 calcium 500 mg Tab, Oral, Daily fluticasone 0.05 mg/inh Nasal Tanner, 2 spray(s), Nasal, Daily, 3 refills hydroxychloroquine, [...] SARS-CoV-2 (COVID-19) mRNA-1273 vacci (more content not included)...[facility] CenterComment on above:Result Comment: Electronically Signed By: Juan C HOPE DO\.omi\Date and Time Signed: 10/08/21 21:58 EDTCovid-19 PCR (CVDTBH)on 37-44-2992MSRE-CoV-2 (COVID-19) RNA MARICEL+probe Ql (Unsp spec)Detected Critically abnormalNOT DETECTEDThe [facility] HospitalComment on above:Result Comment: This test is not yet approved or cleared by the [place] FDA. When there are no FDA-approved or cleared tests available, and other criteria are met, FDA can make tests available under an emergency access mechanism called an Emergency Use Authorization (EUA). The EUA for this test is supported by the Pattern [employer] of Health and Human Service's declaration that [...] be used). Performed By: #### A1C #### [facility] [address] [place] [address] Dr. Ishan Breen AUTO DIFFon 41-05-1376HQIS #0.0 103/ulNormal0.0-0.1[facility] HospitalComment on above:Performed By: #### SEDR #### [facility] [address] [place] [address] Dr. Ishan MasonBasophils/100 WBC (Bld)0.5 %Normal0.2-2.0[facility] Comment on above:Performed By: #### SEDR #### [facility] [address] [place] [address] Dr. Ishan Hopper #0.2 103/ulNormal0.0-0.7[facility] HospitalComment on above: Performed By: #### SEDR #### [facility] [address] [place] [address] Dr. Ishan Ballardosinophils/100 WBC (Bld)3.4 %Normal0.9-7.0[facility] Comment on above:Performed By: #### SEDR #### [facility] [address] [place] [address] Dr. Ishan Ballardrythrocyte distribution width (RBC) [Ratio]12.7 %Norjoh57.0-15.0 [facility] DaytonComment on above:Performed By: #### SEDR #### [facility] [address] [place] [address] Dr. Ishan MasonHematocrit (Bld) [Volume fraction]42.6 %Anligm40.0-48.0[facility] DaytonComment on above:Performed By: #### SEDR #### [facility] [address] [place] [address] Dr. Ishan MasonHemoglobin (Bld) [Mass/Vol]13.6 g/cHGbzwyt46.0-16.0[facility] HospitalComment on above:Performed By: #### SEDR #### [facility] [address] [place] [address] Dr. Ishan Mcintyre #0.01 10e3/ulNormal0.00-0.03[facility] HospitalComment on above:Performed By: #### SEDR #### [facility] [address] [place] [address] Dr. Isahn Mcintyre %0.2 %Normal0.0-0.5[facility] HospitalComment on above: Performed By: #### SEDR #### [facility] [address] [place] [address] Dr. Ishan Javed #2.0 103/ulNormal1.2-3.8[facility] HospitalComment on above:Performed By: #### SEDR #### [facility] [address] [place] [address] Dr. Ishan Cortezhocytes/100 WBC (Bld)34.7 %Xxszdd24.5-60.0[facility] HospitalComment on above:Performed By: #### SEDR #### [facility] [address] [place] [address] Dr. Ishan QuijanoUAL DIFF REQNONormalThe [facility] HospitalComment on above: Performed By: #### SEDR #### [facility] [address] [place] [address] Dr. Ishan Dela Cruz (RBC) [Entitic mass]29.9 xzAycokq50.7-34.0[facility] HospitalComment on above:Performed By: #### SEDR #### [facility] [address] [place] [address] Dr. Ishan Dela Cruz (RBC) [Mass/Vol]31.9 g/cZWbpbey99.9-35.2[facility] HospitalComment on above:Performed By: #### SEDR #### [facility] [address] [place] [address] Dr. Ishan Dela CruzV (RBC) [Entitic vol]93.6 vLYfzboz31.0-99.0[facility] on above:Performed By: #### SEDR #### [facility] [address] [place] [address] Dr. Ishan Arroyo #0.7 103/ulNormal0.3-0.8[facility] HospitalComment on above:Performed By: #### SEDR #### [facility] [address] [place] [address] Dr. Ishan Apodacaocytes/100 WBC (Bld)12.1 %Critically high1.7-12.0[facility] on above:Performed By: #### SEDR #### [facility] [address] [place] [address] Dr. Ishan Matias #2.9 103/ulNormal1.4-6.5The [facility] Hospitalment on above:Performed By: #### SEDR #### [facility] [address] [place] [address] Dr. Ishan Bondutrophils/100 WBC (Bld)49.1 %Bnmskh99.0-75.0[facility] HospitalComasc[facility] on above:Performed By: #### SEDR #### [facility] [address] [place] [address] Dr. Ishan Dela Cruzlet mean volume (Bld) [Entitic vol]11.1 fLNormal9.5-13.5[facility] on above:Performed By: #### SEDR #### [facility] [address] [place] [address] Dr. Ishan MasonPLT177 103/xmDmilcf250-239Uxp [facility] on above: Performed By: #### SEDR #### [facility] [address] [place] [address] Dr. Ishan MasonRBC4.55 106/ulNormal4.20-5.40[facility] on above:Performed By: #### SEDR #### [facility] [address] [place] [address] Dr. Ishan MasonWBC5.9 103/ulNormal4.0-11.0[facility] on above: Performed By: #### SEDR #### [facility] [address] [place] [address] Dr. Ishan AggarwalINEon 44-58-3391Kcpvxqzjhc [Mass/Vol]0.79 mg/dLNormal 0.52-1.04[facility] on above:Performed By: #### CREA, LIVER #### [facility] [address] [place] [address] Dr. Ishan BallardGFR-AF THAI>60Normal>=60[facility] on above:Performed By: #### CREHina, LIVER #### [facility] [address] [place] [address] Dr. Ishan BallardGFR-NON AF THAI>60Normal>=60[facility] on above:Performed By: #### CREHina, LIVER #### [facility] [address] [place] [address] Dr. Ishan MasonLIENMANUEL PROFILEon 74-91-7873Stcoioi [Mass/Vol]3.6 g/dLNormal3.4-5.0 [facility] on above:Performed By: #### PAPO, LIVER #### [facility] [address] [place] [address] Dr. Ishan MasonAlbumin/Globulin [Mass ratio]1.0 {ratio}NormalThe [facility] on above:Performed By: #### CREHina, LIVER #### [facility] [address] [place] [address] Dr. Ishan Lisa [Catalytic activity/Vol]60 U/JBrzzku83-171Cqx [facility] on above:Performed By: #### CREHina, LIVER #### [facility] [address] [place] [address] Dr. Ishan Crow [Catalytic activity/Vol]27 U/RJfemwv18-96TxbKettering Health DaytonComment on above:Performed By: #### CREA, LIVER #### [facility] [address] [place] [address] Dr. Ishan MasonAST [Catalytic activity/Vol]22 U/DMrybaq34-60OezKettering Health DaytonComment on above:Performed By: #### CREA, LIVER #### [facility] [address] [place] [address] Dr. Ishan Hannon, CONJUGATED0.1 mg/dLNormal0.0-0.3TBellevue [facility] Comment on above:Performed By: #### CREHina, LIVER #### [facility] [address] [place] [address] Dr. Ishan Wongirubin [Mass/Vol]0.5 mg/dLNormal0.2-1.3TBellevue Hospital Comment on above:Performed By: #### CREHina, LIVER #### [facility] [address] [place] [address] Dr. Ishan MasonGlobulin (S) [Mass/Vol]3.5 g/dLNormalThe [facility] HospitalComment on above:Performed By: #### CREHina, LIVER #### [facility] [address] [place] [address] Dr. Ishan MasonProtein [Mass/Vol]7.1 g/dLNormal6.1-8.2[facility] Comment on above:Performed By: #### CREHina, LIVER #### [facility] [address] [place] [address] Dr. Ishan Perrin RATE WESTERGRENon 97-13-4202IIR RATE5 mm/hrNormal<=20[facility] HospitalComment on above:Performed By: #### A1C #### [facility] [address] [place] [address] Dr. Ishan Mason Vital Signs Date TimeVital SignValuePerforming EssuslvnrFlrovbsx58-49-7324 08:09-0500Body apgojg844.75 Valente Real MD Work Phone: [phone] [place], [place] 0374011-11-2025 08:09-0500 Body mass index (BMI) [Ratio]39.2 kg/v2GjsnrfznrjrHudson Real MD Work Phone: [phone]11-11-2025 08:09-0500 Body rzpecl56.88 kgHudson Real MD Work Phone: [phone] [place], [place] [address]374011-11-2025 08:09-0500 Diastolic blood tzbiryxk25 mm[Hg]Hudson Real MD Work Phone: [phone]11-11-2025 08:09-0500 Heart rate80 /minHudson Real MD Work Phone: [phone] [place], [place] [address]11-11-2025 08:09-0500 SaO2% (BldA) [Mass fraction]97 %Hudson Real MD Work Phone: [phone]11-11-2025 08:09-0500 Systolic blood mm[Hg]Hudson Real MD Work Phone: [phone]11-12-2024 07:52-0500 Body exykqt233.8 cmNicole Guera DO Work Phone: [facility] CenterUhiwxjehpg56-99-9914 07:52-0500Body mass index (BMI) [Ratio]39.02 kg/e7Vhaqix Guera DO Work Phone: [facility] CenterJvqdfrjvgv60-54-4656 07:52-0500Body elqqkg29.34 kgNicole Guera DO Work Phone: [address] [place] [phone] 07:52-0500Diastolic blood mm[Hg]Sofia Guera DO Work Phone: [address] [phone] 07:52-0500Heart rate77 /min Sofia Guera DO Work Phone: [address] [phone] 07:52-5091GuD1% (BldA) [Mass fraction]96 %Sofia Sousa DO Work Phone: noAngelPrimeXimjqasybe46-75-4211 07:52-0500Systolic blood jlbwelgx443 mm[Hg]Sofia Sousa DO Work Phone: noHolganix Ewdniomnnc36-34-7213 15:00-0400Body .48 cmMichael Blank Other [email or web address] Other 10-13-2021 15:00-0400Body mass index (BMI) [Ratio] 38.04 kg/m5Vlkkewc Blank Other [email or web address] Other 10-13-2021 15:00-0400Body lxlqpyreqhy41.4 [degF] Conner Quinteros Other [email or web address] Other 10-13-2021 15:00-0400Body vvxiwd28.35 kgMichael Blank Other no51edj Other 10-13-2021 15:00-0400Diastolic blood tkisdrls79 mm[Hg] Conner Quinteros Other [employer] Other 10-13-2021 15:00-0400Respiratory rate18 /minMichael Blank Other [employer] Other 10-13-2021 15:00-0400Systolic blood yvxersyn793 mm[Hg] Conner Quinteros Other [email or web address] Other Encounters Encounter DateEncounter TypeCare ProviderFacilityStart: 01-22-2025 End: 30-07-3640llcubecxgcCTJ [facility] NeurologyStart: 01-22-2025 End: 94-38-3864Cglzdze encounter procedureNicricky Sousa [facility] Neurology Work Phone: Start: 97-21-8052Emg-patient / Non-visitChrislisa Real MDSelect [facility] Work Phone: Start: 06-27-2024 End: 67-33-6844yfyrwgsleeTTXCEVWD D ZAHLERNot AvailableStart: 06-27-2024 End: 85-06-1995Vzzjgl flowsheetJonathan D Zahler DO Work Phone: [facility] OPHTStart: 06-27-2024 End: 05-61-4702Tmzqcj flowsheetJonathan D Zahler DO Work Phone: [facility] OPHTStart: 01-24-2024 End: 02-73-4450Usmhuw flowsheetNicole Guera DO Work Phone: [facility] NEUROStart: 01-24-2024 End: 02-58-8596Vnqvtn flowsheetNicole Guera DO Work Phone: [facility] NEUROStart: 01-24-2024 End: 93-41-5827Yltbce outpatient visit 25 minutesNicole Guera DO Work Phone: [facility] NEUROComment on above:AGA (obstructive sleep apnea) (Primary Dx); Paresthesia of skin; Carpal tunnel syndrome, bilateral; Hypersomnia; HypoxiaStart: 01-24-2024 End: 00-40-4082kqhxnptinoSHMXKN DANNERNot AvailableStart: 09-26-2023 End: 18-80-4586lmvcnzjvmpVEBHHORF Ioana ANDREHLERNot AvailableStart: 07-12-2023 End: 01-93-4809wosozduuohUELLHX DANNERNot AvailableStart: 06-24-2022 End: 54-69-1013rhmihmdhdyXB HERMINIA PEÑAFacility:M7Wvosv: 06-22-2022 End: 65-20-4527sucoxwrcynBF MARITO SPENCEFacility:O2Ddman: 03-31-2022 End: 74-26-7612clwrsghtmsSL JUAN C S GRANTFacility:L5Decsf: 03-23-2022 End: 16-65-0162ujhlkpxhqcLH JUAN C S GRANTFacility:P6Outha: 02-24-2022 End: 54-23-7572higlascqtrRF JUAN C S GRANTFacility:K9Ynhdb: 01-26-2022 End: 73-79-6008yvpnycsjrlZX JUAN C S GRANTFacility:R5Qgjoy: 01-15-2022 End: 15-32-5149ewgngjykpdNI JUAN C S GRANTFacility:S5Jdvcn: 84-74-4167Yddvajiwh for general adult medical examination without abnormal findingsDR [facility] C S [facility] HospitalStart: 12-04-2021 End: 54-75-1183vyiboilpzsGQ JUAN C S GRANTFacility:F3Ogppo: 12-04-2021 End: 94-06-7754Uiyjlvrby for general adult medical examination without abnormal findingsDR JUAN C S GRANTFacility:Z5Xjomi: 11-26-2021 End: 88-35-9889ttfcislffsAGGUPO SAMSA .Facility:T8Sbhmv: 11-12-2021 End: 78-89-1933ymoklptgyzRY JUAN C S GRANTFacility:M8Bwjfi: 11-06-2021 End: 59-31-1143gouqcnpjdyQH MARITO SPENCEFacility:X5Fznav: 11-05-2021 End: 28-94-9744cmkllhuhzqSN HERMINIA PEÑAFacility:N1Lcaei: 10-08-2021 End: 21-36-1825usxgpiuoscMvbttal S GRANTFacility:[facility]Start: 09-28-2021 End: 09-23-6175agbkoocntcCRSUA W SIDELLFacility:[facility] RehabilitationStart: 09-28-2021 End: 58-96-2232zrtiahlashQMHIZLYM EBERLYFacility:Y4Wjvsq: 73-58-3367yrzbxknrej RUFINA SIDELLFacility: MilanStart: 47-72-5291ldnizbafmuPqufwav S JAYY Facility:[facility] RehabilitationStart: 90-00-3732enikpqrotbLFBRM SIDELLFacility:[facility] RehabilitationStart: 07-01-2021 End: 41-08-7053dqgksjgwqhGI HERMINIA PEÑAFacility:Y7Xidgo: 64-98-8311Ftgygx outpatient visit 25 minutesMichael BlankFPG Infectious Disease Procedures DateProcedureProcedure DetailPerforming ClinicianStart: 06-27-2024 End: 75-64-9603Ftzxvz field xm uni/bi w/interp extended examJomagdaleneaudrey Aguila DO Work Phone: Start: 06-27-2024 End: 57-99-2399Vdzbl medical xm&eval comprhnsv estab pt 1/>Epiretinal membrane (ERM) of left eyeJomagdaleneaudrey Ioana Stephaniedanielle DO Work Phone: comment on above:Epiretinal membrane (ERM) of left eye (Primary Dx); Long-term use of hydroxychloroquine; Dry eyes; Blepharitis of upper and lower eyelids of both eyes, unspecified type Plan of Treatment DateCare ActivityDetailAuthorStart: 36-86-6619Cnnfvylcq for malignant neoplasm of colonNOMS HealthcareStart: 01-22-2025 End: 38-47-7347Xlvnijf encounter procedureNOMS NE NEUROStart: 11-12-2024 Influenza vaccinationInfluenza Vaccine (Season Ended)[facility] HealthcareStart: 06-27-2024 End: 20-17-1869Rnvsusz encounter procedureNOMS NB OPHTComment on above:Arrived Start: 34-14-8927Wvdlxefmd vaccinationInfluenza Vaccine (#1)[facility] Start: 12-81-7414Yejayrukc for malignant neoplasm of breastMammogramNOMS HealthcareStart: 39-30-9817Jpwglaztq for malignant neoplasm of cervixNOMS HealthcareStart: 82-59-4951Qkiwwzcro for malignant neoplasm of cervixPap Smear [facility] HealthcareStart: 86-77-3468Ujncaivds for malignant neoplasm of colonNOMS Healthcare Immunizations Immunization DateImmunizationNotesCare CkrfufgcUfquexam42-24-8757lvmvwkkbr virus vaccine, unspecified formulationSree Aguila DO Work Phone: [facility] Pknsagykqr95-66-4827tofcbwd toxoid, reduced diphtheria toxoid, and acellular pertussis vaccine, adsorbedNicole Guera DO Work Phone: [facility] CenterBkmxsihbve81-28-9910gcaomhteaqwb conjugate vaccine, 13 valentNicole Guera DO Work Phone: [facility] CenterFuqtuhiymu31-35-2973iyjqe ffordlknn-N2S5-81, preservative-free, injectableNicole Guera DO Work Phone: [facility] Payers DatePayer CategoryPayerPolicy [id number] ..[id number] [id number] 2..1.257702.51320[id number] 2..1.476421.3.57[id number] 2..1.911213.3.57[id number] 2..1.625870.3.579.2.83084-06-0323Ozdqvjk08509003 2..1.816127.3.579.2.32057-96-6886Bpygndl73299932 2..1.309231.3.57[id number] 2..1.384895.3.57[id number] 2.840.1.656493.3.579.2.[id number] 2.16840.1.978647.3.579.2.15101-05-5196Sofsiuu2430543 2.840.1.741128.3.579.2.73857-86-7346Wobgder4897197 2.840.1.561550.3.579.2.67694-83-9675Pjvjsol6668499 2.840.1.878476.3.579.2.75141-27-9871Rkrfjdi4173508 2.840.1.636084.3.579.2.42971-26-8213Yduyyit1142018 2.0.1.576557.3.579.2.81460-48-1389Fcqjnvl4327329 2.0.1.874658.3.579.2.72784-65-2799Eibcbbf5089337 2.0.1.462443.3.579.2.99291-93-9992Fzhhqgt8478585 2.0.1.814652.3.579.2.47859-48-5795Onqyhct1567481 2.0.1.718772.3.579.2.42838-21-2961Sgxyjdc8247794 2.840.1.800808.3.579.2.56792-59-9617Bupmtez0607415 2.0.1.959913.3.579.[id number] 2.840.1.423431.3.579.2.02606-08-5902Teaecda3992242 2.840.1.988965.3.579.2.93374-74-6418Qringer7479224 2..840.1.244430.3.579.2.98857-67-0072Mlwqben0213046 2..840.1.725090.3.579.2.590070-14-1437Mpvytwg6637507 2..840.1.696373.3.579.2.716624-04-0264Wciomfj5487223 2..840.1.555209.3.579.2.549838-64-5196Jpsnvek5277705 2.16.840.1.502293.3.579.2.1259 Social History DateTypeDetailFacilityUnknown if ever smokedPoint [place] [employer] Other Start: 89-55-3799Tfk Assigned [facility] [employer] Other Start: 27-49-7423Ncmqedf smoking status NHISNever smoked tobaccoNOMS HealthcareStart: 28-39-9733Raaagwd use and exposureSmokeless tobacco non-userNOMS HealthcareStart: 01-24-2024 End: 20-32-3586Taazniolq beverage intakeEx-drinker (finding)[facility] Start: 75-29-6995Lschxwh of Social functionNOMS HealthcareStart: 06-28-2023 Alcohol CommentCaffeine intake: 1-2 cups per dayNOMS HealthcareStart: 1970 Sex assigned at birthNot on fileNOMO HealthcareTobacco smoking status NHIS Unknown if ever smokedBrown Memorial Hospital Work Phone: SexFemale (finding)[facility] Start: 72-09-9516Bgh Assigned At [facility] Clinical Notes 12-24-2020 to 06-27-2024 Note Date & WumbVwlsCxevrcav03-10-8917 NoteRight Eye Reliability was good. Progression has been stable. Foveal threshold was normal. Findings include normal observations. Left Eye Reliability was good. Progression has been stable. Foveal threshold was normal. Findings include normal observations.[facility] CenterYrxjdmutvq41-44-9618 NoteRight Eye Quality was good. Scan locations included subfoveal. Progression has been stable. Findings include normal observations. Left Eye Quality was good. Scan locations included subfoveal. Progression has been stable. Findings include normal observations. Notes Good scan with normal appearance FAF stableCameron Regional Medical CenterLotdsanrgr97-73-4331 History of Present illness Narrative* Sree Aguila [...] above evaluations. This will be adjusted to d1lbnmru when deemed necessary due to macular risk [...] lid scrubs were recommended. documented in this encounterCameron Regional Medical CenterBeugmgupuf23-84-2506 History of Present illness Narrative* Sofia Sousa [...] job in September. She was at the [employer] and she was part of the [employer]. She was under a lot of stress. [...] was counseled on the risks of stroke, [place], and sudden with AGA, along with the [...] to clinic: 6 months documented in this encounterCameron Regional Medical CenterNeminmgyho43-19-7176 NoteHPI Staff Velasquez is a 51 year old [...] leflunomide. However, she did talk to her post framer and was told to discontinuethese. The patient's [...] interactive video communications from my office using [employer] due to the restrictions of the COVID-19 pandemic. No physical exam was conducted other than those areas of the body visible to telecommunications with the patient located at [address] [place] [phone], with no one else in attendance. If [...] after patient or guardian consented to allow [employer] to record this visit. SILAS community support specialist and provider reviewed before signing. SILAS: Cori Cherry. Follow-up With When Contact Information RUFINA LOVING CNP Only if needed [address] [place] [address] Additional Instructions: Patient Education COVID-19 Frequently Asked Questions COVID-19 Problem List/Past Medical History Ongoing BMI 38.0-38.9,adult Borderline abnormal thyroid function test COVID-19 Encounter for screening mammogram for breast cancer Non-smoker Painful mouth Preventative health care Sinus congestion Swollen tongue Historical Rheumatoid Arthritis Procedure/Surgical History None. Medications Acidophilus Probiotic Blend oral capsule, Oral, Daily calcium 500 mg Tab, Oral, Daily Flonase 0.05 mg/inh Tanner, 1 spray(s), Nasal, Daily fluconazole 150 mg Tab, 150 mg= 1 tab(s), Oral, Once, 1 refills fluticasone 0.05 mg/inh Nasal Tanner, 2 spray(s), Nasal, Daily, 3 refills hydroxychloroquine, 200 mg, Oral, Daily leflunomide, 20 mg, Oral, Daily Magic Mouth Wash, See Instructions, 2 refills metoprolol 50 mg ER Tab, 50 mg= 1 tab(s), Oral, Daily, 1 refills Orencia ClickJect 125 mg/mL subcutaneous solution Paxlovid 150 mg-100 mg oral tablet, See Instructions pred (more content not included)...[facility] HospitalComment on above: Result Comment: Electronically Signed By: RUFINA LOVING CNP\.br\Date and Time Signed: 10/04/21 11:29 EDT\.br\Electronically Co-Signed By: Cori Connelly\.br\Date and Time Co-Signed: 09/28/21 17:13 [id number] NoteInfectious Disease COVID-19 Frequently Asked Questions COVID-19 (coronavirus disease) is an infection that is caused by a large family of viruses. Some viruses cause illness in people and others cause illness in animals like camels, cats, and bats. In some cases, the viruses that cause illness in animals can spread to humans. Where did the coronavirus come from? In February 2019, [place] told the World Health Organization (WHO) of several cases of lung disease (human respiratory illness). These cases were linked to an open seafood and livestock market in the city of [facility]. The link to the seafood and [...] and virus naming World Health Organization (WHO): www.who.int/emergencies/diseases/bjazx-tgqotuzetvv-0362/technical-g uidance/dzgudj-vpa-jjjyqugxdpn-disease-(covid-2019)-bpc-uwx-tkghp-qmuy-rjbdjy-rs Who is at risk for complications from [...] testing. 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) Dec,heumatoid arthritis (ICD-10 - M06.9) [email or web address] Other Evaluation note* Diagnosis AGA (obstructive sleep [...] (obstructive sleep apnea)acute January 22, 2025 7:48am [facility] Work Phone: History general Narrative - Reported* Type Description Date Medical History RA Medical HistoryHTN [email or web address] Other Reason for referral (narrative)No reason for referral information availableBrown Memorial Hospital Work Phone: Summary Purpose Family History Relationship [...] section and content) DATE CREATED AUTHOR 05/20/2022 [facility] DATE CREATED AUTHOR AUTHOR'S ORGANIZ ATION 06/30/2022 [facility] DATE CREATED AUTHOR AUTHOR'S ORGANIZ ATION 06/29/2024 [facility] EPIC Care Teams (unrecognized sec tion and content) Team MemberRelationshipSpecialtyStart DateEnd Date Herminia Peña MD [address] [place] [address] Referring PhysicianRheumatology09/26/23 Sofia Sousa DO [address] [place] [address] Referring GzhvgcaukIxpgthphp38/12/24 Twila Long NP [address] [place] [address] Referring PhysicianMilford Regional Medical Center Omjjxzij23/12/24Te MemberRelationshipSpecialtyStart DateEnd Date Herminia Peña MD [address] [facility] [place] [address] Referring PhysicianRheumatology09/26/23 Sofia Sousa DO [address] [place] [address] Referring DbcfkxtlxOukqzgmjj10/12/24 Twila Long NP [address] [place] [address] Referring PhysicianFawinthrop community hospital Kcluqcku38/12/24Team MemberRelationshipSpecialtyStart DateEnd Date Herminia Peña MD [address] [facility] [place] [address] Referring PhysicianRheumatology09/26/23 Sofia Sousa DO [address] [place] [address] Referring IuxelkjzxJfcgmhtfo46/12/24 Twila Long NP [address] [place] [address] Referring PhysicianFaMeadows Regional Medical Center01/24/24Team MemberRelationshipSpecialtyStart DateEnd Date Herminia Peña MD [address] [place] [address] Referring PhysicianRheumatology09/26/23 Sofia Sousa DO [address] [place] [address] Referring YadqctkljLkcjzcfvz62/12/24 Twila Long NP [address] [place] [address] Referring PhysicianFaMeadows Regional Medical Center01/24/24 Team Status: Active Member Role/Relationship Status Dates NON STAFF Primary Care Provider Active Team Status: Active Member Role/Relationship Status Dates Hduson Real MD Attending Provider Active Start: December [...] THE PRIMARY CLINICAL RECORDS. [facility] [employer] [facility]. provides no warranty or guarantee of the accuracy or completeness of information in this document.
== END 2025-03-12 13:28 | disposition home or self-care (01) ==
LOC: LAB 13:30
PROVIDERS: Visit Provider Internal Medicine Rheumatology
DX: M05.79 Rheumatoid arthritis with rheumatoid factor of multiple sites without organ or systems involvement (principal); Z79.899 Other long term (current) drug therapy
CPT/HCPCS: 36415; 80076; 82565; 85025; 85652